=== PATIENT | female | born 1975 | race American Indian/Alaskan Native ===

== ENCOUNTER 2021-04-06 05:34 | Emergency (ER) | payer MEDICAID ==
[2021-04-06] MEDS ORDERED: SODIUM CHLORIDE 0.9% 1000 ML 1,000 ML IV ONE (07:17)
[2021-04-06] MEDS ORDERED: ONDANSETRON 4 MG/2 ML INJ IV ONE (07:17)
--- NOTE | 2021-04-06 07:20 | Emergency Department Report ---
HPI - General Chief Complaint: Nausea/Vomiting/Diarrhea Time Seen by Provider: 04/06/21 07:08 - HPI HPI: 45-year-old -[place] female presents to the emergency department, 1 hour after being discharged from this emergency department, with the same complaints of nausea with vomiting and generalized abdominal pain. The patient has a history of diabetes and gastroparesis. Per my colleague's notes, it appears that the patient received treatment, was able to pass an oral challenge, appeared to be feeling better, and was discharged home with prescriptions for antiemetics. The patient says that she did not feel improved, but also claims that she did not receive any prescriptions or discharge instructions. No recent travel or sick contacts at home. In reviewing the patient's labs from this morning, she had some hyperglycemia without evidence of diabetic ketoacidosis, and has renal insufficiency with a GFR of 22. Her abdominal pain is generalized, 8 out of 10 in intensity, sharp cramping pains. No known aggravating or alleviating factors. ED Past Medical Hx - Past Medical History Hx Hypertension: Yes Hx Diabetes: Yes Additional medical history: gastroparesis - Surgical History Past Surgical History?: No - Medications Home Medications: Home Medications Medication Instructions Recorded Confirmed Last Taken Type Dicyclomine [Bentyl] 10 mg PO QID PRN #20 capsule 04/06/21 Unknown Rx Ondansetron [Zofran ODT TAB] 4 mg PO Q8HR PRN #14 tab.rapdis 04/06/21 Unknown Rx traMADoL [Ultram 50 MG tab] 50 mg PO Q4HR PRN #14 tablet 04/06/21 Unknown Rx ED Review of Systems ROS: Stated complaint: EMESIS/ABD PAIN Other details as noted in HPI Comment: All other systems reviewed and negative Constitutional: denies: chills, fever Eyes: denies: eye pain, vision change ENT: denies: ear pain, throat pain Respiratory: denies: cough, shortness of breath Cardiovascular: denies: chest pain, palpitations Gastrointestinal: abdominal pain, nausea, vomiting Genitourinary: denies: dysuria, discharge Musculoskeletal: denies: back pain, arthralgia Skin: denies: rash, lesions Neurological: denies: headache, weakness Physical Exam - Physical Exam Vital Signs: Vital Signs 04/06/21 04/06/21 05:51 06:13 Temperature 99.0 F Pulse Rate 129 H Respiratory 22 Rate Blood Pressure 202/112 [Left] O2 Sat by Pulse 99 98 Oximetry Physical Exam: GENERAL: The patient is well-developed well-nourished. HENT: Normocephalic. Atraumatic. Patient has moist mucous membranes. EYES: Extraocular motions are intact. NECK: Supple. Trachea is midline. CHEST/LUNGS: Clear to auscultation. There is no respiratory distress noted. HEART/CARDIOVASCULAR: Regular. There is mild to moderate tachycardia. There is no murmur. ABDOMEN: Abdomen is soft. Mild generalized abdominal tenderness to palpation. No guarding. Patient has normal bowel sounds. There is no abdominal distention. SKIN: Skin is warm and dry. NEURO: The patient is awake, alert, and oriented. The patient is cooperative. The patient has no focal neurologic deficits. Normal speech. MUSCULOSKELETAL: There is no tenderness or deformity. There is no limitation range of motion. ED Course Vital Signs 04/06/21 04/06/21 05:51 06:13 Temperature 99.0 F Pulse Rate 129 H Respiratory 22 Rate Blood Pressure 202/112 [Left] O2 Sat by Pulse 99 98 Oximetry ED Medical Decision Making - Lab Data Lab Results 04/06/21 Range/Units 08:07 HCG, Qual Negative (Negative) - Radiology Data Radiology results: report reviewed CT ABDOMEN AND PELVIS WITHOUT CONTRAST HISTORY: Abd pain. COMPARISON: None. TECHNIQUE: Helical CT images of the abdomen and pelvis were obtained without administration of intravenous contrast. Sagittal and coronal reformatted images were reviewed. All CT scans at this location are performed using CT dose reduction for ALARA by means of automated exposure control. FINDINGS: Abdomen/pelvis: The bladder is markedly distended with simple appearing fluid measuring 18 x 11 x 14 cm. No obvious bladder mass or filling defect. The kidneys and ureters are unremarkable. The unenhanced CT appearance of the liver, biliary system, pancreas, spleen, adrenal glands, bowel loops, uterus and adnexa are within normal limits. Lungs/bones: No significant abnormality. IMPRESSION: Markedly distended bladder concerning for bladder outlet obstruction. Please correlate with the patient's clinical presentation. - Medical Decision Making This patient initially presented overnight and was seen by my colleague for nausea, vomiting, abdominal pain with a history of gastroparesis. She had blood work at that time that showed a slightly elevated amylase, hyperglycemia without diabetic ketoacidosis, and some renal insufficiency. She was given IV fluid and antiemetics and apparently appeared improved and was subsequently discharged home. The patient returned about an hour or so later, around the time of the start of my shift, for a return of the previously mentioned s ymptoms. On examination patient has some tachycardia, mild generalized abdominal tenderness to palpation. The abdomen is soft, nondistended and nontoxic in appearance. She does present with elevated blood pressure. The patient had a CT scan of the abdomen and pelvis without contrast that showed concern for a distended bladder, but otherwise no other acute process. I spoke to the patient regarding the imaging results and patient says that she has no difficulty with urination. She does not have any suprapubic discomfort or distention. Patient was given some IV fluid resuscitation, IV analgesia, antiemetics, and a dose of antihypertensive medication. She was reevaluated multiple times over multiple hours and does appear improved. The tachycardia has resolved, the hypertension has improved, the patient is able to pass an oral challenge. For these reasons, the patient appears safe for discharge home. The patient was discharged home with a prescription for Zofran ODT and Bentyl. Annalise chavira I did review the patient's labs from overnight, I had planned to give the patient a diagnosis of renal insufficiency and a referral for nephrology. I attempted to contact the patient at the phone number listed, but it goes straight to a message saying that this phone number is not in service. I then called, and spoke with, the patient's daughter Dulce. She gave me the correct phone number for the patient, which is [phone]. The patient did eventually call me back. The patient says that she has had a return of nausea with vomiting. Given the patient's intractable nausea vomiting, renal insufficiency, I told the patient to return to the emergency department where I will most likely admit her for an observational visit, continued IV fluids, further evaluation of the renal insufficiency. The patient says that she will be back here in about 15 minutes. Critical Care Time: No Critical care attestation.: If time is entered above; I have spent that time in minutes in the direct care of this critically ill patient, excluding procedure time. ED Disposition Clinical Impression: Gastroparesis Nausea & vomiting Qualifiers: Vomiting type: unspecified Vomiting Intractability: unspecified Qualified Code(s): R11.2 - Nausea with vomiting, unspecified Hypertension Qualifiers: Hypertension type: primary hypertension Qualified Code(s): I10 - Essential (primary) hypertension Disposition: 01 HOME / SELF CARE / HOMELESS Is pt being admited?: No Condition: Stable Instructions: Nausea and Vomiting, Adult, Gastroparesis, Hypertension, Adult, Hypertension (ED) Additional Instructions: Please follow-up with a primary care physician in the next few days. I have given you a referral for a local primary care physician, Dr. Rangel, and a primary care clinic, [facility]. Increase your oral rehydration. Try to stay away from foods that are high in salt and caffeinated products. Keep a blood pressure log. Return to the emergency department with any worsening of your symptoms, new or concerning symptoms not addressed during this current emergency department visit, or with any acute distress. Prescriptions: Dicyclomine [Bentyl] 10 mg PO QID PRN #20 capsule PRN Reason: Pain , Severe (7-10) Ondansetron [Zofran ODT TAB] 4 mg PO Q8HR PRN #14 tab.rapdis PRN Reason: Nausea And Vomiting Referrals: PRIMARY CAREMD [Primary Care Provider] - 3-5 Days ANDIE RANGEL MD [Staff Physician] - 3-5 Days [facility] [Provider Group] - 3-5 Days [facility] [Provider Group] - 3-5 Days Time of Disposition: :22
--- NOTE | 2021-04-06 09:05 | Cat Scan Report ---
CT ABDOMEN AND PELVIS WITHOUT CONTRAST HISTORY: Abd pain. COMPARISON: None. TECHNIQUE: Helical CT images of the abdomen and pelvis were obtained without administration of intrav enous contrast. Sagittal and coronal reformatted images were reviewed. All CT scans at this location are performed using CT dose reduction for ALARA by means of automated exposure control. FINDINGS: Abdomen/pelvis: The bladder is markedly distended with simple appearing fluid measuring 18 x 11 x 14 cm. No obvious bladder mass or filling defect. The kidneys and ureters are unremarkable. The unenhanced CT appearance of the liver, biliary system, pancreas, spleen, adrenal glands, bowel lo ops, uterus and adnexa are within normal limits. Lungs/bones: No significant abnormality. IMPRESSION: Markedly distended bladder concerning for bladder outlet obstruction. Please correlate with the patie nt's clinical presentation. Signer Name: Ramirez Lipscomb Jr, MD Signed: 04/06/2021 9:01 AM Workstation Name: [id number]
[2021-04-06] MEDS ORDERED: MORPHINE 2 MG/1 ML INJ IV ONE (09:11)
[2021-04-06] MEDS ORDERED: SODIUM CHLORIDE 0.9% 500 ML 500 ML IV ONE (10:35)
[2021-04-06 11:56] VITALS: BP 168/94
== END 2021-04-06 11:56 | disposition home or self-care (01) ==
LOC: ED 05:34
DX: R11.2 Nausea with vomiting, unspecified (principal); I10 Essential (primary) hypertension; E11.43 Type 2 diabetes mellitus with diabetic autonomic (poly)neuropathy; K31.84 Gastroparesis
CPT/HCPCS: 36415; 74176; 84703; J3490; Q0162; J2270; J2405; J7030; J7040

== ENCOUNTER 2021-06-21 22:59 | Inpatient (IN) | payer MEDICAID ==
[2021-06-21] MEDS ORDERED: diphenhydrAMINE 50 MG/ML VIAL IV ONE (23:16)
[2021-06-21] MEDS ORDERED: FAMOTIDINE 20 MG/2 ML INJ IV ONE (23:16)
[2021-06-21] MEDS ORDERED: METOCLOPRAMIDE 10 MG/2 ML INJ IV ONE (23:16)
[2021-06-21] MEDS ORDERED: SODIUM CHLORIDE 0.9% 1000 ML 1,000 ML IV ONE (23:16)
--- NOTE | 2021-06-21 23:18 | Event Note ---
ED Screening Note Date of service: 06/21/21 Time: 23:17 ED Screening Note: Patient is a 46-year-old -[place] female with a history of insulin- dependent diabetes who presents to the ED with complaint of acute onset persistent intractable nausea and vomiting and diarrhea for the last 12 hours. Patient also complains of mild diffuse abdominal pain since the onset of the symptoms and which has worsened due to persistent intractable nausea and vomiting. Patient denies hemoptysis, fever, chills, hematemesis, dysuria, urinary frequency and urgency, chest pain or shortness of breath, dizziness, syncope, vaginal bleeding or vaginal discharge or cough. This initial assessment/diagnostic orders/clinical plan/treatment(s) is/are subject to change based on patients health status, clinical progression and re- assessment by fellow clinical providers in the ED. Further treatment and workup at subsequent clinical providers discretion. Patient/guardian urged not to elope from the ED as their condition may be serious if not clinically assessed and managed. Initial orders include: CBC, CMP, UA, hCG serum, lipase, acetone
[2021-06-21] MEDS ORDERED: INSULIN REGULAR, HUMAN 100 UNITS/1 ML IV ONE (23:52)
--- NOTE | 2021-06-21 23:55 | Emergency Department Report ---
ED General Adult HPI - General Chief complaint: Hyperglycemia Stated complaint: N/V HIGH GLUCOSE Time Seen by Provider: 06/21/21 23:38 Source: patient Mode of arrival: Ambulatory Limitations: No Limitations - History of Present Illness Initial comments: Patient is 46 years old female with history of insulin-dependent diabetes and gastroparesis. Patient presented to the ER complaining of nausea, vomiting and watery diarrhea started this morning. Patient stated that she is unable to keep anything down. She denies any fever or chills. Patient is also complaining of crampy abdominal pain, diffuse with no radiation. Severity scale (0 -10): 10 - Related Data Home Medications Medication Instructions Recorded Confirmed Last Taken HumaLOG 8 units SUB-Q ACHS 04/09/21 05/19/21 2 Days Ago ~05/17/21 8 units Insulin Glargine [Lantus VIAL] 22 units SUB-Q HS 04/09/21 05/19/21 2 Days Ago ~05/17/21 Oxycodone HCl [oxyCODONE] 10 mg PO Q6H PRN 05/19/21 05/19/21 Unknown Previous Rx's Medication Instructions Recorded Last Taken Type Ondansetron [Zofran ODT TAB] 4 mg PO Q8HR PRN #14 tab.rapdis 04/09/21 Unknown Rx AtorvaSTATin [Lipitor] 40 mg PO QHS #30 tablet 05/22/21 Unknown Rx NIFEdipine XL [Procardia Xl] 90 mg PO QDAY #30 tablet 05/22/21 Unknown Rx carvediloL [Coreg] 12.5 mg PO BID #60 tablet 05/22/21 Unknown Rx hydrALAZINE [Apresoline TAB] 50 mg PO Q8HR #90 tablet 05/22/21 Unknown Rx lisinopriL [Zestril TAB] 20 mg PO QDAY #30 tablet 05/22/21 Unknown Rx Allergies Allergy/AdvReac Type Severity Reaction Status Date / Time No Known Allergies Allergy Verified 04/06/21 13:43 ED Review of Systems ROS: Stated complaint: N/V HIGH GLUCOSE Other details as noted in HPI Comment: All other systems reviewed and negative Constitutional: denies: chills, fever Respiratory: denies: cough, shortness of breath, SOB with exertion, SOB at rest Cardiovascular: palpitations. denies: chest pain Gastrointestinal: abdominal pain, nausea, vomiting, diarrhea. denies: constipation, hematemesis, melena, hematochezia Musculoskeletal: denies: back pain Neurological: denies: headache, weakness, numbness, paresthesias, confusion ED Past Medical Hx - Past Medical History Hx Hypertension: Yes Hx Diabetes: Yes Additional medical history: gastroparesis - Social History Smoking Status: Never Smoker - Medications Home Medications: Home Medications Medication Instructions Recorded Confirmed Last Taken Type HumaLOG 8 units SUB-Q ACHS 04/09/21 05/19/21 2 Days Ago History ~05/17/21 8 units Insulin Glargine [Lantus VIAL] 22 units SUB-Q HS 04/09/21 05/19/21 2 Days Ago History ~05/17/21 Ondansetron [Zofran ODT TAB] 4 mg PO Q8HR PRN #14 tab.rapdis 04/09/21 05/19/21 Unknown Rx Oxycodone HCl [oxyCODONE] 10 mg PO Q6H PRN 05/19/21 05/19/21 Unknown History AtorvaSTATin [Lipitor] 40 mg PO QHS #30 tablet 05/22/21 Unknown Rx NIFEdipine XL [Procardia Xl] 90 mg PO QDAY #30 tablet 05/22/21 Unknown Rx carvediloL [Coreg] 12.5 mg PO BID #60 tablet 05/22/21 Unknown Rx hydrALAZINE [Apresoline TAB] 50 mg PO Q8HR #90 tablet 05/22/21 Unknown Rx lisinopriL [Zestril TAB] 20 mg PO QDAY #30 tablet 05/22/21 Unknown Rx ED Physical Exam - General Limitations: No Limitations General appearance: alert, in no apparent distress - Head Head exam: Present: atraumatic, normocephalic, normal inspection - ENT ENT exam: Present: mucous membranes dry - Neck Neck exam: Present: normal inspection, full ROM. Absent: tenderness, meningismus - Respiratory Respiratory exam: Present: normal lung sounds bilaterally - Cardiovascular Cardiovascular Exam: Present: tachycardia, normal heart sounds. Absent: systolic murmur, diastolic murmur - GI/Abdominal GI/Abdominal exam: Present: soft, normal bowel sounds. Absent: distended, tenderness, guarding, rebound, rigid, organomegaly, mass, bruit, pulsatile mass, hernia - Extremities Exam Extremities exam: Present: normal inspection, full ROM, normal capillary refill. Absent: tenderness - Back Exam Back exam: Present: normal inspection, full ROM. Absent: CVA tenderness (R), CVA tenderness (L) - Neurological Exam Neurological exam: Present: alert, oriented X3, CN II-XII intact, normal gait, reflexes normal. Absent: motor sensory deficit - Psychiatric Psychiatric exam: Present: normal mood - Skin Skin exam: Present: warm, intact, normal color ED Course Vital Signs 06/21/21 23:03 Temperature 99.0 F Pulse Rate 111 H Blood Pressure 241/136 [Right] O2 Sat by Pulse 100 Oximetry ED Medical Decision Making - Lab Data Result diagrams: 06/21/21 23:27 06/21/21 23:27 - Radiology Data Radiology results: report reviewed - Medical Decision Making Patient is 46 years old female with history of insulin-dependent diabetes and gastroparesis. Patient presented to the ER complaining of nausea, vomiting and watery diarrhea started this morning. Patient stated that she is unable to keep anything down. She denies any fever or chills. Patient is also complaining of crampy abdominal pain, diffuse with no radiation. Patient found to be in DKA with anion gap of 22. Patient started on insulin dr ip. Patient received normal saline. Chest x-ray is unremarkable. Patient also received Reglan, Benadryl, Zofran and morphine. I discussed the patient with Dr. Marroquin, he agreed to admit the patient to medical service for further management. Critical Care Time: Yes Critical care time in (mins) excluding proc time.: 35 Critical care attestation.: If time is entered above; I have spent that time in minutes in the direct care of this critically ill patient, excluding procedure time. ED Disposition Clinical Impression: DKA (diabetic ketoacidosis), Intractable nausea and vomiting, Gastroparesis Disposition: ADMITTED INPATIENT Is pt being admited?: Yes Condition: Stable Instructions: Diabetic Ketoacidosis (ED) Referrals: PRIMARY CARE, [Primary Care Provider] - 3-5 Days
[2021-06-22] LABS: Basophils % (Auto) 0.4 % (0.0-1.8); Eosinophils % (Auto) 0.3 % (0.0-4.3); Hematocrit 34.2 % (30.3-42.9); Hemoglobin 10.8 gm/dl (10.1-14.3); Lymphocytes # (Auto) 0.7 K/mm3 (1.2-5.4); Mean Corpuscular HGB Conc 32 % (30-34); Mean Corpuscular Volume 92 fl (79-97); Monocytes # (Auto) 0.1 K/mm3 (0.0-0.8); Monocytes % (Auto) 2.5 % (0.0-7.3); Platelet Count 205 K/mm3 (140-440); Red Blood Count 3.73 M/mm3 (3.65-5.03); Red Cell Distribution Width 13.9 % (13.2-15.2)
[2021-06-22 00:03] LABS: Calcium 9.7 mg/dL (8.4-10.2)
[2021-06-22] MEDS ORDERED: SODIUM CHLORIDE 0.9% 1000 ML 1,000 ML IV ONE (00:42)
[2021-06-22] MEDS ORDERED: ONDANSETRON 4 MG/2 ML INJ IV ONE ×2 (03:16→05:14)
[2021-06-22] MEDS ORDERED: MORPHINE 4 MG/1 ML INJ IV ONE (05:14)
[2021-06-22 05:39] LABS: Calcium 9.4 mg/dL (8.4-10.2)
[2021-06-22] MEDS ORDERED: INSULIN REGULAR, HUMAN 100 UNITS in SODIUM CHLORIDE 0.9% 99 ML IV SCH (06:00)
--- NOTE | 2021-06-22 06:17 | XRay Report ---
CHEST 1 VIEW 06/22/2021 6:01 AM INDICATION / CLINICAL INFORMATION: DKA. COMPARISON: None available. FINDINGS: SUPPORT DEVICES: None. HEART / MEDIASTINUM: No significant abnormality. LUNGS / PLEURA: No significant pulmonary or pleural abnormality. No pneumothorax. ADDITIONAL FINDINGS: No significant additional findings. IMPRESSION: 1. No acute findings. Signer Name: Abimael Ham MD Signed: 06/22/2021 6:12 AM Workstation Name: [id number]
--- NOTE | 2021-06-22 07:03 | Cat Scan Report ---
CT ABDOMEN AND PELVIS WITHOUT CONTRAST INDICATION / CLINICAL INFORMATION: Abdominal pain with nausea and vomiting. TECHNIQUE: Axial CT images were obtained through the abdomen and pelvis without IV contrast. All CT scans at this location are performed using CT dose reduction for ALARA by means of automated exposure control. COMPARISON: CT dated 05/19/2021 and 04/06/2021 FINDINGS: LOWER CHEST: Calcified granuloma in the right lower lobe is unchanged. LIVER: Calcified granulomas but no acute abnormality. GALLBLADDER: No significant abnormality. BILE DUCTS: No significant abnormality. PANCREAS: No significant abnormality. SPLEEN: No significant abnormality. ADRENALS: No significant abnormality. RIGHT KIDNEY / URETER: No significant abnormality. LEFT KIDNEY / URETER: No significant abnormality. STOMACH / SMALL BOWEL: No significant abnormality. COLON: No significant abnormality. APPENDIX: No significant abnormality. PERITONEUM: No free fluid. No free air. No fluid collection. LYMPH NODES: No significant adenopathy. AORTA / ARTERIES: No significant abnormality. IVC / VEINS: No significant abnormality. URINARY BLADDER: Bladder is markedly distended extending into the lower abdomen to the level of the u mbilicus. This was also noted on the CT dated 04/06/21. REPRODUCTIVE ORGANS: No significant abnormality. ADDITIONAL FINDINGS: None. SKELETAL SYSTEM: No significant abnormality. IMPRESSION: 1. No inflammatory process or bowel obstruction. 2. Markedly distended urinary bladder. No urinary tract stones. Signer Name: Abimael Ham MD Signed: 06/22/2021 6:59 AM Workstation Name: [id number]
[2021-06-22] MEDS ORDERED: SODIUM CHLORIDE 0.9% 1000 ML 1,000 ML ONE (07:56)
[2021-06-22] MEDS ORDERED: DEXTROSE 50% IN WATER (25GM) 50 ML SYRINGE IV PRN (08:00)
--- NOTE | 2021-06-22 08:01 | History and Physical Report ---
History of Present Illness Date of examination: 06/22/21 Date of admission: 06/22/2021 Chief complaint: Nausea vomiting and uncontrolled blood sugars /Diabetic ketoacidosis History of present illness: 46-year-old female patient well-known to our service with significant past medical history of insulin-dependent diabetes and gastroparesis presented to the emergency room with intractable nausea vomiting watery diarrhea and uncontrolled blood sugars patient denies any hematemesis or melena claims compliance with her medications initial evaluation in the ED is findings consistent with blood sugars more than 560 with anion gap of 41 and mild hyponatremia and acute on chronic kidney injury as well as metabolic acidosis, Patient is started on insulin drip Past History Past Medical History: diabetes, hypertension, renal failure, other Past Surgical History: No surgical history Social history: other (Marijuana). denies: smoking, alcohol abuse Family history: hypertension Medications and Allergies Allergies Allergy/AdvReac Type Severity Reaction Status Date / Time No Known Allergies Allergy Verified 04/06/21 13:43 Home Medications Medication Instructions Recorded Confirmed Last Taken Type HumaLOG 8 units SUB-Q ACHS 04/09/21 05/19/21 2 Days Ago History ~05/17/21 8 units Insulin Glargine [Lantus VIAL] 22 units SUB-Q HS 04/09/21 05/19/21 2 Days Ago History ~05/17/21 Ondansetron [Zofran ODT TAB] 4 mg PO Q8HR PRN #14 tab.rapdis 04/09/21 05/19/21 Unknown Rx Oxycodone HCl [oxyCODONE] 10 mg PO Q6H PRN 05/19/21 05/19/21 Unknown History AtorvaSTATin [Lipitor] 40 mg PO QHS #30 tablet 05/22/21 Unknown Rx NIFEdipine XL [Procardia Xl] 90 mg PO QDAY #30 tablet 05/22/21 Unknown Rx carvediloL [Coreg] 12.5 mg PO BID #60 tablet 05/22/21 Unknown Rx hydrALAZINE [Apresoline TAB] 50 mg PO Q8HR #90 tablet 05/22/21 Unknown Rx lisinopriL [Zestril TAB] 20 mg PO QDAY #30 tablet 05/22/21 Unknown Rx Active Meds: Active Medications Insulin Human Regular 100 (units/ Sodium Chloride) 100 mls @ 1 mls/hr IV TITR ROSALVA; Protocol Review of Systems Constitutional: fatigue, weakness, no weight loss, no weight gain Ears, nose, mouth and throat: no nasal congestion, no nasal discharge Cardiovascular: no chest pain, no orthopnea Respiratory: no cough, no shortness of breath Gastrointestinal: abdominal pain, nausea, vomiting Musculoskeletal: no myalgias, no arthritis Integumentary: no rash, no lesions Neurological: weakness, no seizures, no syncope Psychiatric: no anxiety, no depression Endocrine: no cold intolerance, no heat intolerance Hematologic/Lymphatic: no easy bruising, no easy bleeding Allergic/Immunologic: no urticaria, no allergic rhinitis Exam - Constitutional Vitals: Temp Pulse Resp BP Pulse Ox 99.0 F 111 H 241/136 100 06/21/21 23:03 06/21/21 23:03 06/21/21 23:03 06/21/21 23:03 General appearance: Present: mild distress, well-nourished - EENT Eyes: Present: PERRL, EOM intact - Neck Neck: Present: supple, normal ROM - Respiratory Respiratory effort: normal Respiratory: bilateral: diminished, rhonchi, negative: rales, wheezing - Cardiovascular Rhythm: regular Heart Sounds: Present: S1 & S2 - Extremities Extremities: no ischemia, No edema - Abdominal General gastrointestinal: Present: soft, non-tender, non-distended - Integumentary Integumentary: Present: clear, warm - Musculoskeletal Musculoskeletal: strength equal bilaterally - Psychiatric Psychiatric: appropriate mood/affect, cooperative - Neurologic Neurologic: moves all extremities Results - Labs CBC & Chem 7: 06/21/21 23:27 06/22/21 15:45 Labs: Abnormal lab results 06/21/21 06/21/21 06/21/21 Range/Units 23:01 23:27 23:27 Lymph # (Auto) 0.7 L (1.2-5.4) K/mm3 Seg Neutrophils % 80.8 H (40.0-70.0) % Sodium 133 L (137-145) mmol/L Chloride 97.3 L (98-107) mmol/L Carbon Dioxide 18 L (22-30) mmol/L BUN 41 H (7-17) mg/dL Creatinine 3.1 H (0.6-1.2) mg/dL Glucose 564 H* (65-100) mg/dL POC Glucose 456 H (70-105) mg/dL Phosphorus (2.5-4.5) mg/dL Alkaline Phosphatase 154 H (35-129) units/L 06/22/21 06/22/21 06/22/21 Range/Units 04:56 04:56 05:34 Lymph # (Auto) (1.2-5.4) K/mm3 Seg Neutrophils % (40.0-70.0) % Sodium 136 L (137-145) mmol/L Chloride (98-107) mmol/L Carbon Dioxide 13 L (22-30) mmol/L BUN 47 H (7-17) mg/dL Creatinine 3.0 H (0.6-1.2) mg/dL Glucose 571 H* (65-100) mg/dL POC Glucose 519 H (70-105) mg/dL Phosphorus 5.20 H (2.5-4.5) mg/dL Alkaline Phosphatase (35-129) units/L Assessment and Plan - Patient Problems (1) DKA (diabetic ketoacidosis) Onset Date: ~06/22/21 Current Visit: Yes Status: Chronic Plan to address problem: Initiate DKA pathway, insulin drip, IV fluids, n.p.o. status Closely monitor electrolytes, adjust as needed (2) Hyponatremia Current Visit: Yes Status: Acute Plan to address problem: probably pseudohyponatremia due to severe hyperglycemia, closely monitor blood sugars As the blood sugars improved patient's sodium will improve, normal saline (3) Acute kidney injury superimposed on chronic kidney disease Current Visit: Yes Status: Acute Plan to address problem: Progress IV hydration, monitor renal function, avoid nephrotoxins Renal dosing of medications, nephrology consultation (4) Metabolic acidosis Current Visit: Yes Status: Acute Plan to address problem: Vigorous IV hydration, treat the underlying DKA Sodium bicarb if needed (5) Gastroparesis Current Visit: Yes Status: Acute Plan to address problem: Diabetes management. Antiemetic. Reglan as needed (6) Nausea vomiting and diarrhea Current Visit: Yes Status: Acute Plan to address problem: Due to gastroparesis, treat with IV fluids antiemetics and supportive care, (7) DVT prophylaxis Current Visit: Yes Status: Acute Plan to address problem: Subcu heparin renal dose We will closely monitor the patient and adjust the management as needed Admit to ICU. Critical care time 62 minutes
[2021-06-22] MEDS ORDERED: hydrALAZINE 20 MG/1 ML INJ IV NR (08:24)
[2021-06-22 09:02] LABS: Calcium 9.8 mg/dL (8.4-10.2)
[2021-06-22] MEDS ORDERED: LISINOPRIL 20 MG TAB PO SCH (10:00)
[2021-06-22] MEDS ORDERED: NIFEdipine XL 90 MG TAB PO SCH (10:00)
[2021-06-22] MEDS ORDERED: hydrALAZINE 20 MG/1 ML INJ IV PRN (10:00)
[2021-06-22] MEDS ORDERED: PANTOPRAZOLE 40 MG INJ IV SCH (10:00)
[2021-06-22] MEDS: carvediloL 12.5 MG TAB PO SCH ×2 (10:06→23:08)
[2021-06-22] MEDS: HEPARIN 5,000 UNIT/1 ML VIAL SUB-Q SCH ×2 (10:21→23:09)
[2021-06-22 12:28] LABS: Calcium 9.6 mg/dL (8.4-10.2)
[2021-06-22 12:48] LABS: Bilirubin,Urine NEG (Negative); Blood,Urine SM (Negative); Color,Urine Yellow (Yellow); Urobilinogen,Urine < 2.0 mg/dL (<2.0)
[2021-06-22 12:49] LABS: Protein,Urine >500 mg/dL (Negative)
[2021-06-22] MEDS: hydrALAZINE 25 MG TAB PO SCH ×2 (13:52→23:07)
[2021-06-22] MEDS ORDERED: SODIUM BICARBONATE IV SCH (14:00)
[2021-06-22] MEDS ORDERED: SODIUM CHLORIDE 0.9% IV SCH (14:00)
[2021-06-22 16:15] LABS: Calcium 9.1 mg/dL (8.4-10.2)
[2021-06-22] MEDS ORDERED: METOCLOPRAMIDE 10 MG/2 ML INJ IV PRN (17:34)
--- NOTE | 2021-06-22 17:47 | Event Note ---
Date: 06/22/21 I have seen and examined the patient in ER waiting for room assignment Patient complains of severe nausea and vomiting Blood sugars reasonable levels however, anion gap is still high As well as acidosis, vigorous IV hydration Mild hyponatremia, will DC normal saline with bicarb Change IV fluids to D5 half-normal. Continue n.p.o. except for sips of water We will continue current management per DKA protocols. Plan of care reviewed with the patient and her nurse Advance care planning; additional time 32 minutes I discussed in detail with the patient, her condition Discussed the tests and reports Discussed the importance of adhering to the treatment plan I also discussed that she would need diabetic education As well as nutrition education I discussed that she can have only sips of water As anion gap is still high, patient needs to be n.p.o. And on insulin drip I discussed that he will closely monitor electrolytes. Patient verbalized understanding I answered all her questions
[2021-06-22] MEDS ORDERED: D5W/0.45% NACL 1,000 ML IV SCH (18:00)
[2021-06-22] MEDS ORDERED: D5W/0.45% NACL/KCL 20 MEQ 20 MEQ/1,000 ML BAG IV SCH ×2 (21:00)
[2021-06-22] MEDS ORDERED: ACETAMINOPHEN 325 MG TAB PO PRN (21:43)
[2021-06-22] MEDS ORDERED: MORPHINE 4 MG/1 ML INJ IV PRN (21:43)
[2021-06-22] MEDS: ONDANSETRON 4 MG/2 ML INJ IV PRN (23:15)
[2021-06-23 01:43] LABS: Calcium 8.8 mg/dL (8.4-10.2)
[2021-06-23] MEDS ORDERED: DEXTROSE 50% IN WATER (25GM) 50 ML SYRINGE IV PRN (05:27)
[2021-06-23] MEDS: hydrALAZINE 25 MG TAB PO SCH (06:29)
[2021-06-23] MEDS: INSULIN LISPRO 100 UNIT/ML SUB-Q SCH ×6 (06:56→21:41)
--- NOTE | 2021-06-23 09:44 | Consultation ---
History of Present Illness - Reason for Consult Consult date: 06/23/21 acute renal failure - History of Present Illness 46-year-old female patient well-known to our service with significant past medical history of insulin-dependent diabetes and gastroparesis presented to the emergency room with intractable nausea vomiting watery diarrhea and uncontrolled blood sugars patient denies any hematemesis or melena claims compliance with her medications initial evaluation in the ED is findings consistent with blood sugars more than 560 with anion gap of 41 and mild hyponatremia and acute on chronic kidney injury as well as metabolic acidosis, Patient is started on insulin drip Past History Past Medical History: diabetes, hypertension, renal failure, other Past Surgical History: No surgical history Social history: other (Marijuana). denies: smoking, alcohol abuse Family history: hypertension Medications and Allergies Allergies Allergy/AdvReac Type Severity Reaction Status Date / Time No Known Allergies Allergy Verified 04/06/21 13:43 Home Medications Medication Instructions Recorded Confirmed Last Taken Type HumaLOG 8 units SUB-Q ACHS 04/09/21 06/23/21 2 Days Ago History ~05/17/21 8 units Insulin Glargine [Lantus VIAL] 22 units SUB-Q HS 04/09/21 06/23/21 2 Days Ago History ~05/17/21 Ondansetron [Zofran ODT TAB] 4 mg PO Q8HR PRN #14 tab.rapdis 04/09/21 06/23/21 Unknown Rx Oxycodone HCl [oxyCODONE] 10 mg PO Q6H PRN 05/19/21 06/23/21 Unknown History AtorvaSTATin [Lipitor] 40 mg PO QHS #30 tablet 05/22/21 06/23/21 Unknown Rx NIFEdipine XL [Procardia Xl] 90 mg PO QDAY #30 tablet 05/22/21 06/23/21 Unknown Rx carvediloL [Coreg] 12.5 mg PO BID #60 tablet 05/22/21 06/23/21 Unknown Rx hydrALAZINE [Apresoline TAB] 50 mg PO Q8HR #90 tablet 05/22/21 06/23/21 Unknown Rx lisinopriL [Zestril TAB] 20 mg PO QDAY #30 tablet 05/22/21 06/23/21 Unknown Rx Active Meds: Active Medications Acetaminophen (Acetaminophen 325 Mg Tab) 650 mg PO Q6H PRN PRN Reason: Pain MILD(1-3)/Fever >100.5/CASANOVA Atorvastatin Calcium (Atorvastatin 40 Mg Tab) 40 mg PO QHS [facility] Last Admin: 06/22/21 23:07 Dose: 40 mg Carvedilol (Carvedilol 12.5 Mg Tab) 12.5 mg PO BID [facility] Last Admin: 06/22/21 23:08 Dose: 12.5 mg Dextrose (Dextrose 50% In Water (25gm) 50 Ml Syringe) 50 ml IV Q30MIN PRN; Protocol PRN Reason: Hypoglycemia Heparin Sodium (Porcine) (Heparin 5,000 Unit/1 Ml Vial) 5,000 unit SUB-Q Q12HR [facility] Last Admin: 06/22/21 23:09 Dose: 5,000 unit Hydralazine HCl (Hydralazine 25 Mg Tab) 50 mg PO Q8HR [facility] Last Admin: 06/23/21 06:29 Dose: 50 mg Hydralazine HCl (Hydralazine 20 Mg/1 Ml Inj) 20 mg IV Q4HR PRN PRN Reason: Hypertension Insulin Human Lispro (Insulin Lispro 100 Unit/Ml) 0 unit SUB-Q Q4HR [facility]; Protocol Last Admin: 06/23/21 06:56 Dose: Not Given Lisinopril (Lisinopril 20 Mg Tab) 20 mg PO QDAY [facility] Last Admin: 06/22/21 10:06 Dose: 20 mg Metoclopramide HCl (Metoclopramide 10 Mg/2 Ml Inj) 10 mg IV Q6H PRN PRN Reason: Nausea And Vomiting Last Admin: 06/22/21 17:46 Dose: 10 mg Morphine Sulfate (Morphine 2 Mg/1 Ml Inj) 2 mg IV Q4H PRN PRN Reason: Pain, Moderate (4-6) Morphine Sulfate (Morphine 4 Mg/1 Ml Inj) 4 mg IV Q4H PRN PRN Reason: Pain , Severe (7-10) Last Admin: 06/22/21 23:17 Dose: 4 mg Nifedipine (Nifedipine Xl 90 Mg Tab) 90 mg PO QDAY [facility] Last Admin: 06/22/21 10:06 Dose: 90 mg Ondansetron HCl (Ondansetron 4 Mg/2 Ml Inj) 4 mg IV Q4H PRN PRN Reason: Nausea And Vomiting Last Admin: 06/22/21 23:15 Dose: 4 mg Pantoprazole Sodium (Pantoprazole 40 Mg Tab) 40 mg PO QDAC ROSALVA Sodium Chloride (Sodium Chloride 0.9% 10 Ml Flush Syringe) 10 ml IV BID ROSALVA Last Admin: 06/22/21 22:40 Dose: 10 ml Sodium Chloride (Sodium Chloride 0.9% 10 Ml Flush Syringe) 10 ml IV PRN PRN PRN Reason: LINE FLUSH Review of Systems All systems: negative Exam - Vital Signs Vital signs: Vital Signs Temp Pulse BP Pulse Ox 99.0 F 111 H 241/136 100 06/21/21 23:03 06/21/21 23:03 06/21/21 23:03 06/21/21 23:03 - General Appearance General appearance: well-developed, well-nourished EENT: ATNC Respiratory: Clear to Ascultation Heart: regular, S1S2 Gastrointestinal: Present: normal. Absent: tenderness, distended Integumentary: no rash, warm and dry Neurologic: no focal deficit, alert and oriented x3 Results - Lab Results 06/21/21 23:27 06/23/21 10:15 Most recent lab results Calcium 8.8 mg/dL (8.4-10.2) 06/23/21 00:57 Phosphorus 6.50 mg/dL (2.5-4.5) H D 06/22/21 08:27 Magnesium 2.20 mg/dL (1.7-2.3) 06/22/21 08:27 Assessment and Plan Impression * Acute kidney injury secondary to prerenal azotemia due to volume depletion in setting of ACEi on stage IV CKD * Metabolic acidosis * Nausea/vomiting * Diabetic gastroparesis * Diabetes mellitus * Hypertension Plan: * Resume IVF - sterile water w/ bicarb 100ml/hour * Discontinue ACEi in setting of SURJIT * Hold Hydralazine 50mg q8 and Nifedipine 90mg daily as patient's blood pressure is borderline * Continue Coreg BID and prn Hydralazine * Strict I/O * Dose medications for renal function * Avoid potential nephrotoxins * AM labs
[2021-06-23] MEDS ORDERED: SODIUM BICARBONATE 150 MEQ in DEXTROSE 5% IN WATER 1,000 ML IV SCH (10:00)
[2021-06-23] MEDS: MORPHINE 2 MG/1 ML INJ IV PRN (10:07)
[2021-06-23] MEDS: ONDANSETRON 4 MG/2 ML INJ IV PRN (10:07)
[2021-06-23 11:11] LABS: Calcium 9.3 mg/dL (8.4-10.2)
[2021-06-23] MEDS: carvediloL 12.5 MG TAB PO SCH ×2 (11:33→21:40)
[2021-06-23] MEDS: PANTOPRAZOLE 40 MG TAB PO SCH (11:33)
[2021-06-23] MEDS: HEPARIN 5,000 UNIT/1 ML VIAL SUB-Q SCH ×2 (11:34→21:40)
--- NOTE | 2021-06-23 14:47 | Progress Note ---
Assessment and Plan (1) DKA (diabetic ketoacidosis) Onset Date: ~06/22/21 Current Visit: Yes Status: Chronic Plan to address problem: Initiated DKA pathway: insulin drip, IV fluids, n.p.o. status Patient currently on sliding scale of insulin and long-acting insulin, consistent carb diet Closely monitor electrolytes, adjust as needed -- Hyponatremia Current Visit: Yes Status: Acute Plan to address problem: probably pseudohyponatremia due to severe hyperglycemia, closely monitor blood sugars As the blood sugars improved patient's sodium will improve, normal saline -- Acute kidney injury superimposed on chronic kidney disease Current Visit: Yes Status: Acute Plan to address problem: Progress IV hydration, monitor renal function, avoid nephrotoxins Renal dosing of medications, nephrology consultation -- Metabolic acidosis Current Visit: Yes Status: Acute Plan to address problem: Vigorous IV hydration, treated the underlying DKA Sodium bicarb if needed -- Gastroparesis Current Visit: Yes Status: Acute Plan to address problem: Diabetes management. Antiemetic. Reglan as needed --Nausea vomiting and diarrhea Current Visit: Yes Status: Acute Plan to address problem: Due to gastroparesis, treat with IV fluids antiemetics and supportive care, -- DVT prophylaxis Current Visit: Yes Status: Acute Plan to address problem: Subcu heparin renal dose Daily clinical course: 06/23/21: Blood glucose this morning under control, initiated on NPH 15 units twice daily. Patient continued to have elevated BUN/creatinine, continue IV f luid. Monitor BMP and serum blood glucose. Follow nephrology recommendation. Patient medically not stable for discharge Subjective Date of service: 06/23/21 Interval history: Patient seen and examined. Medical records and medication list reviewed. No acute event overnight noted by the RN. Patient denies any chest pain or difficulty breathing. Patient is tolerating diet. But complains of generalized weakness Discussed plan of care at bedside with patient. Objective - Exam Narrative Exam: GENERAL: well-developed and well-nourished -[place] female lying on bed appeared to be in no discomfort. HEENT: Normocephalic. Atraumatic. No conjunctival congestion or icterus. Patient has moist mucous membranes. NECK: Supple. Trachea midline. CHEST/LUNGS: Clear to auscultated bilaterally, breathing nonlabored. No wheezes crackles or rhonchi. HEART/CARDIOVASCULAR: Regular in rate and rhythm. S1 and S2 positive. ABDOMEN: Abdomen is soft, nontender. Patient has normal bowel sounds. SKIN: There is no rash. Warm and dry. NEURO: No focal motor deficit. Follows command. MUSCULOSKELETAL: No joint effusion or tenderness. EXTRIMITY: No edema, no cyanosis or clubbing. PSYCH: Cooperative. - Constitutional Vitals: Vital Signs - 12hr 06/23/21 06/23/21 06/23/21 03:00 03:30 04:00 Pulse Rate 85 87 91 H Respiratory 12 10 L 15 Rate Blood Pressure 113/64 129/72 139/71 O2 Sat by Pulse 99 99 99 Oximetry 06/23/21 06/23/21 06/23/21 04:30 05:00 05:30 Pulse Rate 96 H 90 88 Respiratory 10 L 12 Rate Blood Pressure 148/84 140/76 142/81 O2 Sat by Pulse 100 98 99 Oximetry 06/23/21 06/23/21 06/23/21 06:00 06:29 06:30 Pulse Rate 90 91 H 96 H Respiratory 14 12 Rate Blood Pressure 144/83 123/69 123/69 O2 Sat by Pulse 99 100 Oximetry 06/23/21 06/23/21 11:11 11:12 Pulse Rate 109 H Respiratory Rate Blood Pressure O2 Sat by Pulse 98 Oximetry - Labs CBC & Chem 7: 06/21/21 23:27 06/24/21 07:31 Labs: Abnormal lab results 06/22/21 06/22/21 06/22/21 Range/Units 15:03 15:45 16:11 Sodium 148 H D (137-145) mmol/L Chloride 113.8 H (98-107) mmol/L Carbon Dioxide 14 L (22-30) mmol/L BUN 56 H (7-17) mg/dL Creatinine 3.3 H (0.6-1.2) mg/dL Glucose 193 H (65-100) mg/dL POC Glucose 176 H 146 H (70-105) mg/dL 06/22/21 06/22/21 06/22/21 Range/Units 17:02 18:00 18:54 Sodium (137-145) mmol/L Chloride (98-107) mmol/L Carbon Dioxide (22-30) mmol/L BUN (7-17) mg/dL Creatinine (0.6-1.2) mg/dL Glucose (65-100) mg/dL POC Glucose 143 H 149 H 204 H (70-105) mg/dL 06/22/21 06/22/21 06/22/21 Range/Units 20:04 21:08 22:06 Sodium (137-145) mmol/L Chloride (98-107) mmol/L Carbon Dioxide (22-30) mmol/L BUN (7-17) mg/dL Creatinine (0.6-1.2) mg/dL Glucose (65-100) mg/dL POC Glucose 183 H 180 H 169 H (70-105) mg/dL 06/22/21 06/23/21 06/23/21 Range/Units 23:05 00:14 00:57 Sodium (137-145) mmol/L Chloride 114.7 H (98-107) mmol/L Carbon Dioxide 13 L (22-30) mmol/L BUN 57 H (7-17) mg/dL Creatinine 3.5 H (0.6-1.2) mg/dL Glucose 180 H (65-100) mg/dL POC Glucose 172 H 160 H (70-105) mg/dL 06/23/21 06/23/21 06/23/21 Range/Units 01:40 03:07 04:03 Sodium (137-145) mmol/L Chloride (98-107) mmol/L Carbon Dioxide (22-30) mmol/L BUN (7-17) mg/dL Creatinine (0.6-1.2) mg/dL Glucose (65-100) mg/dL POC Glucose 153 H 124 H 136 H (70-105) mg/dL 06/23/21 06/23/21 06/23/21 Range/Units 10:15 11:46 12:04 Sodium (137-145) mmol/L Chloride 107.6 H (98-107) mmol/L Carbon Dioxide 15 L (22-30) mmol/L BUN 53 H (7-17) mg/dL Creatinine 3.7 H (0.6-1.2) mg/dL Glucose 471 H (65-100) mg/dL POC Glucose 555 H 548 H (70-105) mg/dL
[2021-06-23] MEDS: SODIUM BICARBONATE 150 MEQ in WATER FOR INJECTION (PF) 1,000 ML IV SCH (15:48)
[2021-06-23] MEDS: INSULIN NPH, HUMAN 100 UNIT/1 ML SUB-Q SCH (17:27)
[2021-06-24] MEDS: SODIUM BICARBONATE 150 MEQ in WATER FOR INJECTION (PF) 1,000 ML IV SCH (08:05)
[2021-06-24] MEDS: INSULIN LISPRO 100 UNIT/ML SUB-Q SCH ×4 (08:16→22:37)
[2021-06-24 08:31] LABS: Calcium 8.9 mg/dL (8.4-10.2)
--- NOTE | 2021-06-24 09:28 | Progress Note ---
Assessment and Plan Impression * Acute kidney injury secondary to prerenal azotemia due to volume depletion in setting of ACEi on stage IV CKD --SCr 2.51mg/dL on Jun 03 2021 * Metabolic acidosis * Nausea/vomiting * Diabetic gastroparesis * Diabetes mellitus * Hypertension Plan: * Renal function improved - not yet at baseline * Continue IVF - sterile water w/ bicarb 100ml/hour * Continue to hold ACEi in setting of SURJIT * Resume Hydralazine 50mg q8 and Nifedipine 90mg daily * Strict I/O * Dose medications for renal function * Avoid potential nephrotoxins * AM labs * Potential discharge on Jun 25 Subjective Date of service: 06/24/21 Interval history: Patient reports that she is feeling better. Objective - Vital Signs Vital signs: Vital Signs - 12hr 06/23/21 06/23/21 06/23/21 21:40 22:45 23:00 Temperature Pulse Rate 103 H 103 H Respiratory Rate Blood Pressure 175/90 175/90 O2 Sat by Pulse 98 Oximetry 06/23/21 06/23/21 06/24/21 23:03 23:22 03:50 Temperature 98.7 F 98.2 F Pulse Rate 96 H 91 H 89 Respiratory 18 12 Rate Blood Pressure 186/94 166/83 O2 Sat by Pulse 98 100 Oximetry - General Appearance General appearance: well-developed, well-nourished EENT: ATNC Respiratory: Present: Clear to Ascultation Cardiology: regular, S1S2 Gastrointestinal: normal, no tenderness, no distended Integumentary: no rash, warm and dry Neurologic: alert and oriented x3 Psychiatric: cooperative - Lab 06/21/21 23:27 06/25/21 05:17 Most recent lab results Calcium 8.9 mg/dL (8.4-10.2) 06/24/21 07:31 Phosphorus 6.50 mg/dL (2.5-4.5) H D 06/22/21 08:27 Magnesium 2.20 mg/dL (1.7-2.3) 06/22/21 08:27 Medications & Allergies - Medications Allergies/Adverse Reactions: Allergies No Known Allergies Allergy (Verified 04/06/21 13:43) Home Medications: Home Medications Medication Instructions Recorded Confirmed Last Taken Type HumaLOG 8 units SUB-Q ACHS 04/09/21 06/23/21 2 Days Ago History ~05/17/21 8 units Insulin Glargine [Lantus VIAL] 22 units SUB-Q HS 04/09/21 06/23/21 2 Days Ago History ~05/17/21 Ondansetron [Zofran ODT TAB] 4 mg PO Q8HR PRN #14 tab.rapdis 04/09/21 06/23/21 Unknown Rx Oxycodone HCl [oxyCODONE] 10 mg PO Q6H PRN 05/19/21 06/23/21 Unknown History AtorvaSTATin [Lipitor] 40 mg PO QHS #30 tablet 05/22/21 06/23/21 Unknown Rx NIFEdipine XL [Procardia Xl] 90 mg PO QDAY #30 tablet 05/22/21 06/23/21 Unknown Rx carvediloL [Coreg] 12.5 mg PO BID #60 tablet 05/22/21 06/23/21 Unknown Rx hydrALAZINE [Apresoline TAB] 50 mg PO Q8HR #90 tablet 05/22/21 06/23/21 Unknown Rx lisinopriL [Zestril TAB] 20 mg PO QDAY #30 tablet 05/22/21 06/23/21 Unknown Rx Active Medications: Generic Name Dose Route Start Last Admin Trade Name Freq PRN Reason Stop Dose Admin Acetaminophen 650 mg 06/22/21 21:43 Acetaminophen 325 Mg Tab PO Q6H PRN Pain MILD(1-3)/Fever >100.5/CASANOVA Atorvastatin Calcium 40 mg 06/22/21 22:00 06/23/21 21:41 Atorvastatin 40 Mg Tab PO 40 mg QHS ROSALVA Administration Carvedilol 12.5 mg 06/22/21 10:00 06/23/21 21:40 Carvedilol 12.5 Mg Tab PO 12.5 mg BID ROSALVA Administration Dextrose 50 ml 06/23/21 05:27 Dextrose 50% In Water (25gm) 50 Ml Syringe IV Q30MIN PRN Hypoglycemia Protocol Heparin Sodium (Porcine) 5,000 unit 06/22/21 10:00 06/23/21 21:40 Heparin 5,000 Unit/1 Ml Vial SUB-Q 5,000 unit Q12HR ROSALVA Administration Hydralazine HCl 20 mg 06/22/21 10:00 Hydralazine 20 Mg/1 Ml Inj IV Q4HR PRN Hypertension Sodium Bicarbonate 150 meq/ 1,150 mls @ 75 mls/hr 06/23/21 11:00 06/24/21 08:05 Sterile Water IV 75 mls/hr DIRECT ROSALVA Administration Insulin Human Lispro 0 unit 06/23/21 11:30 06/23/21 21:41 Insulin Lispro 100 Unit/Ml SUB-Q 2 unit ACHS ROSALVA Administration Protocol Insulin Human NPH 15 unit 06/23/21 17:00 06/23/21 17:27 Insulin Nph, Human 100 Unit/1 Ml SUB-Q 15 unit BIDDIAB ROSALVA Administration Metoclopramide HCl 10 mg 06/22/21 17:34 06/22/21 17:46 Metoclopramide 10 Mg/2 Ml Inj IV 10 mg Q6H PRN Administration Nausea And Vomiting Morphine Sulfate 2 mg 06/22/21 21:43 06/23/21 10:07 Morphine 2 Mg/1 Ml Inj IV 2 mg Q4H PRN Administration Pain, Moderate (4-6) Morphine Sulfate 4 mg 06/22/21 21:43 06/22/21 23:17 Morphine 4 Mg/1 Ml Inj IV 4 mg Q4H PRN Administration Pain , Severe (7-10) Ondansetron HCl 4 mg 06/22/21 17:47 06/23/21 10:07 Ondansetron 4 Mg/2 Ml Inj IV 4 mg Q4H PRN Administration Nausea And Vomiting Pantoprazole Sodium 40 mg 06/23/21 07:30 06/23/21 11:33 Pantoprazole 40 Mg Tab PO 40 mg QDAC ROSALVA Administration Sodium Chloride 10 ml 06/22/21 22:00 06/23/21 21:42 Sodium Chloride 0.9% 10 Ml Flush Syringe IV 10 ml BID ROSALVA Administration Sodium Chloride 10 ml 06/22/21 21:43 Sodium Chloride 0.9% 10 Ml Flush Syringe IV PRN PRN LINE FLUSH
[2021-06-24] MEDS: hydrALAZINE 25 MG TAB PO SCH ×3 (12:08→22:38)
[2021-06-24] MEDS: MORPHINE 2 MG/1 ML INJ IV PRN (12:12)
[2021-06-24] MEDS: ONDANSETRON 4 MG/2 ML INJ IV PRN ×2 (12:12→18:08)
[2021-06-24] MEDS: NIFEdipine XL 90 MG TAB PO SCH (12:15)
[2021-06-24] MEDS: PANTOPRAZOLE 40 MG TAB PO SCH (12:15)
[2021-06-24] MEDS: carvediloL 12.5 MG TAB PO SCH ×2 (12:15→22:38)
[2021-06-24] MEDS: INSULIN NPH, HUMAN 100 UNIT/1 ML SUB-Q SCH ×2 (12:15→18:07)
[2021-06-24] MEDS: HEPARIN 5,000 UNIT/1 ML VIAL SUB-Q SCH ×2 (12:20→22:36)
--- NOTE | 2021-06-24 16:03 | Progress Note ---
Assessment and Plan (1) DKA (diabetic ketoacidosis) Onset Date: ~06/22/21 Current Visit: Yes Status: Chronic Plan to address problem: Initiated DKA pathway: insulin drip, IV fluids, n.p.o. status Patient currently on sliding scale of insulin and long-acting insulin, consistent carb diet Closely monitor electrolytes, adjust as needed -- Hyponatremia Current Visit: Yes Status: Acute Plan to address problem: probably pseudohyponatremia due to severe hyperglycemia, closely monitor blood sugars As the blood sugars improved patient's sodium will improve, normal saline -- Acute kidney injury superimposed on chronic kidney disease Current Visit: Yes Status: Acute Plan to address problem: Progress IV hydration, monitor renal function, avoid nephrotoxins Renal dosing of medications, nephrology consultation -- Metabolic acidosis Current Visit: Yes Status: Acute Plan to address problem: Vigorous IV hydration, treated the underlying DKA -- Gastroparesis Current Visit: Yes Status: Acute Plan to address problem: Diabetes management. Antiemetic. Reglan as needed --Nausea vomiting and diarrhea Current Visit: Yes Status: Acute Plan to address problem: Due to gastroparesis, treat with IV fluids antiemetics and supportive care, -- DVT prophylaxis Current Visit: Yes Status: Acute Plan to address problem: Subcu heparin renal dose Daily clinical course: 06/23/21: Blood glucose this morning under control, off insulin drip, initiated o n NPH 15 units twice daily. Patient continued to have elevated BUN/creatinine, continue IV fluid. Monitor BMP and serum blood glucose. Follow nephrology recommendation. Patient medically not stable for discharge 06/24/21: Renal function improving but not yet at baseline, Continue sterile water w/ bicarb 100ml/hour, Continue to hold ACEi in setting of SURJIT. Resume Hydralazine 50mg q8 and Nifedipine 90mg daily. cont to adjust insulin dose for better glycemic control. if renal function improves and clinically stable possible d/c in the am Subjective Date of service: 06/24/21 Interval history: Patient seen and examined. Medical records and medication list reviewed. No acute event overnight noted by the RN. Patient denies any chest pain or difficulty breathing. Patient is tolerating diet. Discussed plan of care at bedside with patient. Objective - Exam Narrative Exam: GENERAL: well-developed and well-nourished -[place] female lying on bed appeared to be in no discomfort. HEENT: Normocephalic. Atraumatic. No conjunctival congestion or icterus. Patient has moist mucous membranes. NECK: Supple. Trachea midline. CHEST/LUNGS: Clear to auscultated bilaterally, breathing nonlabored. No wheezes crackles or rhonchi. HEART/CARDIOVASCULAR: Regular in rate and rhythm. S1 and S2 positive. ABDOMEN: Abdomen is soft, nontender. Patient has normal bowel sounds. SKIN: There is no rash. Warm and dry. NEURO: No focal motor deficit. Follows command. MUSCULOSKELETAL: No joint effusion or tenderness. EXTRIMITY: No edema, no cyanosis or clubbing. PSYCH: Cooperative. - Labs CBC & Chem 7: 06/21/21 23:27 06/25/21 05:17 Labs: Abnormal lab results 06/23/21 06/23/21 06/23/21 Range/Units 16:33 20:19 23:44 BUN (7-17) mg/dL Creatinine (0.6-1.2) mg/dL Glucose (65-100) mg/dL POC Glucose 289 H 157 H 49 L (70-105) mg/dL 06/24/21 06/24/21 06/24/21 Range/Units 00:41 07:31 11:33 BUN 49 H (7-17) mg/dL Creatinine 3.3 H (0.6-1.2) mg/dL Glucose 327 H (65-100) mg/dL POC Glucose 143 H 497 H (70-105) mg/dL
[2021-06-25] MEDS: SODIUM BICARBONATE 150 MEQ in WATER FOR INJECTION (PF) 1,000 ML IV SCH (00:04)
[2021-06-25] MEDS: hydrALAZINE 25 MG TAB PO SCH (05:23)
[2021-06-25 06:34] LABS: Calcium 8.8 mg/dL (8.4-10.2)
[2021-06-25] MEDS: INSULIN LISPRO 100 UNIT/ML SUB-Q SCH ×2 (08:12→12:01)
[2021-06-25] MEDS: INSULIN NPH, HUMAN 100 UNIT/1 ML SUB-Q SCH (09:12)
--- NOTE | 2021-06-25 09:36 | Progress Note ---
Assessment and Plan Impression * Acute kidney injury secondary to prerenal azotemia due to volume depletion in setting of ACEi on stage IV CKD --SCr 2.51mg/dL on Jun 03 2021 * Metabolic acidosis * Nausea/vomiting * Diabetic gastroparesis * Diabetes mellitus * Hypertension Plan: * Renal function stable - not yet at baseline * Continue antiHTN medications * Strict I/O * Dose medications for renal function * Avoid potential nephrotoxins * Close outpatient nephrology follow up - Jul 02 at 9:30am with Dr. Garces (patient given date/time of appt) * Continue to hold ACEi in setting of SURJIT - do not resume at discharge Subjective Date of service: 06/25/21 Interval history: Patient reports that she is feeling better. Objective - Vital Signs Vital signs: Vital Signs - 12hr 06/24/21 06/25/21 06/25/21 23:46 00:18 03:32 Temperature 98.2 F 97.9 F Pulse Rate 86 84 Respiratory 12 14 Rate Blood Pressure 110/63 122/69 O2 Sat by Pulse 100 99 99 Oximetry - General Appearance General appearance: well-developed, well-nourished EENT: ATNC Respiratory: Present: Clear to Ascultation Cardiology: regular, S1S2 Gastrointestinal: normal, no tenderness, no distended Integumentary: warm and dry Neurologic: no focal deficit, alert and oriented x3 Psychiatric: cooperative - Lab 06/21/21 23:27 06/25/21 05:17 Most recent lab results Calcium 8.8 mg/dL (8.4-10.2) 06/25/21 05:17 Phosphorus 6.50 mg/dL (2.5-4.5) H D 06/22/21 08:27 Magnesium 2.20 mg/dL (1.7-2.3) 06/22/21 08:27 Medications & Allergies - Medications Allergies/Adverse Reactions: Allergies No Known Allergies Allergy (Verified 04/06/21 13:43) Home Medications: Home Medications Medication Instructions Recorded Confirmed Last Taken Type HumaLOG 8 units SUB-Q ACHS 04/09/21 06/23/21 2 Days Ago History ~05/17/21 8 units Insulin Glargine [Lantus VIAL] 22 units SUB-Q HS 04/09/21 06/23/21 2 Days Ago History ~12/13/21 AtorvaSTATin [Lipitor] 40 mg PO QHS #30 tablet 05/22/21 06/23/21 Unknown Rx NIFEdipine XL [Procardia Xl] 90 mg PO QDAY #30 tablet 05/22/21 06/23/21 Unknown Rx carvediloL [Coreg] 12.5 mg PO BID #60 tablet 05/22/21 06/23/21 Unknown Rx hydrALAZINE [Apresoline TAB] 50 mg PO Q8HR #90 tablet 05/22/21 06/23/21 Unknown Rx NIFEdipine XL [Procardia Xl] 90 mg PO QDAY #90 tablet 06/25/21 Unknown Rx hydrALAZINE [Apresoline TAB] 50 mg PO Q8HR #90 tablet 06/25/21 Unknown Rx Active Medications: Generic Name Dose Route Start Last Admin Trade Name Freq PRN Reason Stop Dose Admin Acetaminophen 650 mg 06/22/21 21:43 Acetaminophen 325 Mg Tab PO Q6H PRN Pain MILD(1-3)/Fever >100.5/CASANOVA Atorvastatin Calcium 40 mg 06/22/21 22:00 06/24/21 22:38 Atorvastatin 40 Mg Tab PO 40 mg QHS ROSALVA Administration Carvedilol 12.5 mg 06/22/21 10:00 06/24/21 22:38 Carvedilol 12.5 Mg Tab PO 12.5 mg BID ROSALVA Administration Dextrose 50 ml 06/23/21 05:27 Dextrose 50% In Water (25gm) 50 Ml Syringe IV Q30MIN PRN Hypoglycemia Protocol Heparin Sodium (Porcine) 5,000 unit 06/22/21 10:00 06/24/21 22:36 Heparin 5,000 Unit/1 Ml Vial SUB-Q 5,000 unit Q12HR ROSALVA Administration Hydralazine HCl 20 mg 06/22/21 10:00 Hydralazine 20 Mg/1 Ml Inj IV Q4HR PRN Hypertension Hydralazine HCl 50 mg 06/24/21 10:00 06/25/21 05:23 Hydralazine 25 Mg Tab PO Not Given Q8HR ROSALVA Sodium Bicarbonate 150 meq/ 1,150 mls @ 75 mls/hr 06/23/21 11:00 06/25/21 00:04 Sterile Water IV 75 mls/hr DIRECT ROSALVA Administration Insulin Human Lispro 0 unit 06/23/21 11:30 06/24/21 22:37 Insulin Lispro 100 Unit/Ml SUB-Q 2 unit ACHS ROSALVA Administration Protocol Insulin Human NPH 25 unit 06/24/21 17:01 06/24/21 18:07 Insulin Nph, Human 100 Unit/1 Ml SUB-Q 25 unit BIDDIAB ROSALVA Administration Metoclopramide HCl 10 mg 06/22/21 17:34 06/22/21 17:46 Metoclopramide 10 Mg/2 Ml Inj IV 10 mg Q6H PRN Administration Nausea And Vomiting Morphine Sulfate 2 mg 06/22/21 21:43 06/24/21 12:12 Morphine 2 Mg/1 Ml Inj IV 2 mg Q4H PRN Administration Pain, Moderate (4-6) Morphine Sulfate 4 mg 06/22/21 21:43 06/22/21 23:17 Morphine 4 Mg/1 Ml Inj IV 4 mg Q4H PRN Administration Pain , Severe (7-10) Nifedipine 90 mg 06/24/21 10:00 06/24/21 12:15 Nifedipine Xl 90 Mg Tab PO 90 mg QDAY ROSALVA Administration Ondansetron HCl 4 mg 06/22/21 17:47 06/24/21 18:08 Ondansetron 4 Mg/2 Ml Inj IV 4 mg Q4H PRN Administration Nausea And Vomiting Pantoprazole Sodium 40 mg 06/23/21 07:30 06/24/21 12:15 Pantoprazole 40 Mg Tab PO 40 mg QDAC ROSALVA Administration Sodium Chloride 10 ml 06/22/21 22:00 06/24/21 22:39 Sodium Chloride 0.9% 10 Ml Flush Syringe IV 10 ml BID ROSALVA Administration Sodium Chloride 10 ml 06/22/21 21:43 Sodium Chloride 0.9% 10 Ml Flush Syringe IV PRN PRN LINE FLUSH
--- NOTE | 2021-06-25 10:12 | Discharge Summary ---
Providers - Providers Date of Admission: 06/22/21 21:43 Date of discharge: 06/25/21 Attending physician: JESSICA DO 06/22/21 07:58 Consult to Dietitian/Nutrition [CONS] Routine Physician Instructions: Reason For Exam: DKA Reason for Consult: Nutrition Recommendations Reason for Consult: Diet education 06/22/21 08:07 Consult to Physician [CONS] Routine Comment: Consulting Provider: NARESH ACOSTA Physician Instructions: Reason For Exam: Acute on chronic kidney disease 06/23/21 05:27 Consult to Dietitian/Nutrition [CONS] Routine Physician Instructions: Reason For Exam: Reason for Consult: Diet education Primary care physician: OWNER SPA DIRECTOR Hospitalization Condition: Stable Pertinent studies: CXR, abdomen/pelvis CT Hospital course: 46-year-old female with significant past medical history of insulin-dependent diabetes and gastroparesis presented to the emergency room with intractable nausea vomiting watery diarrhea and uncontrolled blood sugars. Initial evaluation in the ED findings consistent with blood sugars more than 560 with anion gap of 41 and mild hyponatremia and acute on chronic kidney injury as well as metabolic acidosis. Patient was started on insulin drip, iv fluid, and admitted to ICU for further evaluation and Mx. Daily clinical course: 06/23/21: Blood glucose this morning under control, off insulin drip, initiated on NPH 15 units twice daily. Patient continued to have elevated BUN/creatinine, continue IV fluid. Monitor BMP and serum blood glucose. Follow nephrology recommendation. Patient medically not stable for discharge 06/24/21: Renal function improving but not yet at baseline, Continue sterile water w/ bicarb 100ml/hour, Continue to hold ACEi in setting of SURJIT. Resume Hydralazine 50mg q8 and Nifedipine 90mg daily. cont to adjust insulin dose for better glycemic control. if renal function improves and clinically stable possible d/c in the am. 06/25/21: Renal function improved, BG stable, patient tolerating diet, n/v/d resolved. Patient will be discharged home in stable condition with outpatient f/u. Disposition: HOME / SELF CARE / HOMELESS Final Discharge Diagnosis (Prints w/discharge instructions): --DKA (diabetic ketoacidosis). --Hyponatremia due to hyperglycemia. -- Acute kidney injury superimposed on chronic kidney disease, due to vasomotor nephropathy. -- Metabolic acidosis. -- Gastroparesis. --Nausea vomiting and diarrhea Time spent for discharge: 34 minutes Core Measure Documentation - Palliative Care Palliative Care/ Comfort Measures: Not Applicable - Core Measures Any of the following diagnoses?: none Exam - Physical Exam Narrative exam: GENERAL: well-developed and well-nourished -[place] female lying on bed appeared to be in no discomfort. HEENT: Normocephalic. Atraumatic. No conjunctival congestion or icterus. Patient has moist mucous membranes. NECK: Supple. Trachea midline. CHEST/LUNGS: Clear to auscultated bilaterally, breathing nonlabored. No wheezes crackles or rhonchi. HEART/CARDIOVASCULAR: Regular in rate and rhythm. S1 and S2 positive. ABDOMEN: Abdomen is soft, nontender. Patient has normal bowel sounds. SKIN: There is no rash. Warm and dry. NEURO: No focal motor deficit. Follows command. MUSCULOSKELETAL: No joint effusion or tenderness. EXTRIMITY: No edema, no cyanosis or clubbing. PSYCH: Cooperative. - Constitutional Vitals: Temp Pulse Resp BP Pulse Ox 97.9 F 84 14 122/69 99 06/25/21 03:32 06/25/21 03:32 06/25/21 03:32 06/25/21 03:32 06/25/21 03:32 Plan Activity: advance as tolerated Weight Bearing Status: Weight Bear as Tolerated Diet: diabetic Additional Instructions: Follow-up with cfo controller in 1 week for repeat BMP Follow up with: PRIMARY CAREMD [Primary Care Provider] - 3-5 Days Prescriptions: hydrALAZINE [Apresoline TAB] 50 mg PO Q8HR #90 tablet NIFEdipine XL [Procardia Xl] 90 mg PO QDAY #90 tablet
[2021-06-25] MEDS: PANTOPRAZOLE 40 MG TAB PO SCH (11:05)
[2021-06-25] MEDS: NIFEdipine XL 90 MG TAB PO SCH (11:05)
[2021-06-25] MEDS: carvediloL 12.5 MG TAB PO SCH (11:05)
[2021-06-25] MEDS: HEPARIN 5,000 UNIT/1 ML VIAL SUB-Q SCH (11:13)
[2021-06-25 11:29] VITALS: BP 139/82
== END 2021-06-25 15:35 | disposition home or self-care (01) | DRG 637 ==
LOC: ED 22:59 → CC1 06-22 21:43 → 4A 06-23 06:02
PROVIDERS: ADMIT Internal Medicine; ATTEND Internal Medicine
DX: E11.10 Type 2 diabetes mellitus with ketoacidosis without coma (principal); N17.0 Acute kidney failure with tubular necrosis; E87.1 Hypo-osmolality and hyponatremia; N18.4 Chronic kidney disease, stage 4 (severe); K31.84 Gastroparesis; I12.9 Hypertensive chronic kidney disease with stage 1 through stage 4 chronic kidney disease, or unspecified chronic kidney disease; Z82.49 Family history of ischemic heart disease and other diseases of the circulatory system; E11.43 Type 2 diabetes mellitus with diabetic autonomic (poly)neuropathy; E11.65 Type 2 diabetes mellitus with hyperglycemia
CPT/HCPCS: 36415; 71045; 74176; 80048; 80053; 81001; 82962; 83690; 83735; 84100; 84703; 85025; G0378; J2354; J3480; J3490; J7070; Q0162; Q9967; C9113; J1200; J1644; J1815; J2270; J2405; J2765; J7030

== ENCOUNTER 2021-07-11 20:26 | Emergency (ER) | payer MEDICAID ==
[2021-07-11 21:10] VITALS: BP 202/113
[2021-07-11] MEDS ORDERED: METOCLOPRAMIDE 10 MG/2 ML INJ IV ONE (21:11)
[2021-07-11] MEDS ORDERED: diphenhydrAMINE 50 MG/ML VIAL IV ONE (21:11)
[2021-07-11] MEDS ORDERED: MORPHINE 4 MG/1 ML INJ IV ONE (21:11)
[2021-07-11] MEDS ORDERED: FAMOTIDINE 20 MG/2 ML INJ IV ONE (21:11)
[2021-07-11] MEDS ORDERED: SODIUM CHLORIDE 0.9% 1000 ML 1,000 ML IV ONE ×2 (21:12→22:12)
--- NOTE | 2021-07-11 21:17 | Emergency Department Report ---
ED Abdominal Pain HPI - General Stated Complaint: VOMITING/ABD PAIN/DIARRHEA - History of Present Illness Initial Comments: Patient is a 46-year-old -[place] female with a history of insulin- dependent diabetes, hypertension and chronic gastroparesis who presented to the ED with complaint of acute onset persistent intractable nausea and vomiting, diffuse abdominal pain and generalized weakness and fatigue for the last 2 days. Patient states that she has not been able to keep anything down because of persistent nausea and vomiting and abdominal pain. Patient states that the symptoms are typical of her chronic gastroparesis flareup. Patient denies dizziness, syncope, dysuria, urinary frequency and urgency, vaginal discharge, vaginal bleeding, chest pain, shortness of breath, cough, sore throat, headache, hematemesis or hematochezia and diarrhea. MD Complaint: abdominal pain, other (Nausea and vomiting) -: Sudden, days(s) (2) Location: diffuse Radiation: none Migration to: no migration Severity: severe Severity scale (0 -10): 8 Quality: cramping, sharp Consistency: constant Improves With: nothing Worsens With: eating, vomiting Context: possible food poisoning, other (Gastroparesis; DKA) Associated Symptoms: denies other symptoms, nausea, vomiting, anorexia. denies: diarrhea, fever, constipation, dysuria, hematemesis, hematochezia, melena, hematuria, syncope - Related Data Home Medications Medication Instructions Recorded Confirmed Last Taken HumaLOG 8 units SUB-Q ACHS 04/09/21 06/23/21 2 Days Ago ~05/17/21 8 units Insulin Glargine [Lantus VIAL] 22 units SUB-Q HS 04/09/21 06/23/21 2 Days Ago ~05/17/21 Previous Rx's Medication Instructions Recorded Last Taken Type AtorvaSTATin [Lipitor] 40 mg PO QHS #30 tablet 05/22/21 Unknown Rx NIFEdipine XL [Procardia Xl] 90 mg PO QDAY #30 tablet 05/22/21 Unknown Rx carvediloL [Coreg] 12.5 mg PO BID #60 tablet 05/22/21 Unknown Rx hydrALAZINE [Apresoline TAB] 50 mg PO Q8HR #90 tablet 05/22/21 Unknown Rx NIFEdipine XL [Procardia Xl] 90 mg PO QDAY #90 tablet 06/25/21 Unknown Rx hydrALAZINE [Apresoline TAB] 50 mg PO Q8HR #90 tablet 06/25/21 Unknown Rx Dicyclomine [Bentyl] 20 mg PO Q6H PRN #30 tablet 07/12/21 Unknown Rx Famotidine [Pepcid] 20 mg PO BID #60 tablet 07/12/21 Unknown Rx Ondansetron [Zofran Odt] 4 mg PO Q6H PRN #20 tab.rapdis 07/12/21 Unknown Rx Promethazine [Phenergan] 25 mg NE Q6HR PRN #20 supp.rect 07/12/21 Unknown Rx traMADoL [Ultram] 50 mg PO Q6HR PRN #10 tablet 07/12/21 Unknown Rx Allergies Allergy/AdvReac Type Severity Reaction Status Date / Time No Known Allergies Allergy Verified 04/06/21 13:43 ED Review of Systems ROS: Stated complaint: VOMITING/ABD PAIN/DIARRHEA Other details as noted in HPI Constitutional: denies: chills, fever Eyes: denies: eye pain, eye discharge, vision change ENT: denies: ear pain, throat pain Respiratory: denies: cough, shortness of breath, wheezing Cardiovascular: denies: chest pain, palpitations Endocrine: no symptoms reported Gastrointestinal: abdominal pain, nausea, vomiting. denies: diarrhea, constipation, hematemesis Genitourinary: denies: urgency, dysuria, discharge Musculoskeletal: denies: back pain, joint swelling, arthralgia Skin: denies: rash, lesions Neurological: denies: headache, weakness, paresthesias Psychiatric: denies: anxiety, depression Hematological/Lymphatic: denies: easy bleeding, easy bruising ED Past Medical Hx - Past Medical History Hx Hypertension: Yes Hx Diabetes: Yes Additional medical history: gastroparesis - Social History Smoking Status: Unknown if ever smoked - Medications Home Medications: Home Medications Medication Instructions Recorded Confirmed Last Taken Type HumaLOG 8 units SUB-Q ACHS 04/09/21 06/23/21 2 Days Ago History ~05/17/21 8 units Insulin Glargine [Lantus VIAL] 22 units SUB-Q HS 04/09/21 06/23/21 2 Days Ago History ~05/17/21 AtorvaSTATin [Lipitor] 40 mg PO QHS #30 tablet 05/22/21 06/23/21 Unknown Rx NIFEdipine XL [Procardia Xl] 90 mg PO QDAY #30 tablet 05/22/21 06/23/21 Unknown Rx carvediloL [Coreg] 12.5 mg PO BID #60 tablet 05/22/21 06/23/21 Unknown Rx hydrALAZINE [Apresoline TAB] 50 mg PO Q8HR #90 tablet 05/22/21 06/23/21 Unknown Rx NIFEdipine XL [Procardia Xl] 90 mg PO QDAY #90 tablet 06/25/21 Unknown Rx hydrALAZINE [Apresoline TAB] 50 mg PO Q8HR #90 tablet 06/25/21 Unknown Rx Dicyclomine [Bentyl] 20 mg PO Q6H PRN #30 tablet 07/12/21 Unknown Rx Famotidine [Pepcid] 20 mg PO BID #60 tablet 07/12/21 Unknown Rx Ondansetron [Zofran Odt] 4 mg PO Q6H PRN #20 tab.rapdis 07/12/21 Unknown Rx Promethazine [Phenergan] 25 mg NE Q6HR PRN #20 supp.rect 07/12/21 Unknown Rx traMADoL [Ultram] 50 mg PO Q6HR PRN #10 tablet 07/12/21 Unknown Rx ED Physical Exam - General General appearance: alert, in no apparent distress - Head Head exam: Present: atraumatic, normocephalic, normal inspection - Eye Eye exam: Present: normal appearance, PERRL, EOMI Pupils: Present: normal accommodation - ENT ENT exam: Present: normal exam, normal orophraynx, mucous membranes moist, TM's normal bilaterally, normal external ear exam - Neck Neck exam: Present: normal inspection, full ROM. Absent: tenderness - Respiratory Respiratory exam: Present: normal lung sounds bilaterally. Absent: respiratory distress, wheezes, rales, stridor, chest wall tenderness, accessory muscle use, prolonged expiratory - Cardiovascular Cardiovascular Exam: Present: regular rate, normal rhythm, normal heart sounds. Absent: systolic murmur, diastolic murmur, rubs, gallop - GI/Abdominal GI/Abdominal exam: Present: soft, tenderness (Palpable diffuse abdominal tenderness), normal bowel sounds. Absent: guarding, rebound, rigid, hyperactive bowel sounds, organomegaly, mass, bruit - Extremities Exam Extremities exam: Present: normal inspection, full ROM, normal capillary refill - Back Exam Back exam: Present: normal inspection, full ROM. Absent: tenderness, CVA t enderness (R), CVA tenderness (L), muscle spasm, paraspinal tenderness, vertebral tenderness - Neurological Exam Neurological exam: Present: alert, oriented X3, CN II-XII intact, normal gait, reflexes normal - Psychiatric Psychiatric exam: Present: normal affect, normal mood, anxious - Skin Skin exam: Present: warm, dry, intact, normal color. Absent: rash ED Course Vital Signs 07/11/21 07/11/21 07/11/21 20:30 20:31 21:07 Temperature 99.5 F Pulse Rate 82 100 H Respiratory 22 Rate Blood Pressure 202/113 [Right] O2 Sat by Pulse 100 100 Oximetry 07/11/21 07/12/21 21:43 01:45 Temperature Pulse Rate Respiratory 18 20 Rate Blood Pressure [Right] O2 Sat by Pulse Oximetry ED Medical Decision Making - Lab Data Result diagrams: 07/11/21 21:14 07/11/21 21:14 - Medical Decision Making This is a 46-year-old -[place] female with a history of insulin- dependent diabetes, hypertension and chronic gastroparesis who presented to the ED with complaint of acute onset persistent intractable nausea and vomiting, diffuse abdominal pain and generalized weakness and fatigue for the last 2 days. Patient states that she has not been able to keep anything down because of persistent nausea and vomiting and abdominal pain. Patient states that the symptoms are typical of her chronic gastroparesis flareup. In the ED, patient is alert and oriented x3 and is not in any distress. Patient was treated for nausea and vomiting, also given antacids, pain medications and normal saline 2 L IV bolus x1. On reevaluation, patient's pain is well controlled medication. Lab test results were reviewed and showed hyperglycemia of 363 mg/dL, BUN of 41 and creatinine of 3.3 and anion gap which was normal at 21. Patient's BUN and creatinine at baseline due to her chronic kidney disease. Patient also received insulin 9 units IV x1. On reevaluation, patient's pain is well controlled medication. Nausea and vomiting is also well controlled medication. Patient case was discussed with the ED attending physician Dr. Florez was agreed the plan of care to discharge patient home on medications. Patient was advised to return to the ED immediately if symptoms get worse. Patient was otherwise advised to follow-up with her primary care physician and her corner bead operator in 3 to 5 days for reevaluation. - Differential Diagnosis Dehydration; hyperglycemia; gastroparesis; UTI; GERD Critical care attestation.: If time is entered above; I have spent that time in minutes in the direct care of this critically ill patient, excluding procedure time. ED Disposition Clinical Impression: Intractable nausea and vomiting, Hyperglycemia due to type 1 diabetes mellitus Abdominal pain Qualifiers: Abdominal location: generalized Qualified Code(s): R10.84 - Generalized abdominal pain Chronic kidney disease (CKD) Qualifiers: Chronic kidney disease stage: stage 4 (severe) Qualified Code(s): N18.4 - Chronic kidney disease, stage 4 (severe) GERD (gastroesophageal reflux disease) Qualifiers: Esophagitis presence: esophagitis presence not specified Qualified Code(s): K21.9 - Gastro-esophageal reflux disease without esophagitis Disposition: 01 HOME / SELF CARE / HOMELESS Is pt being admited?: No Does the pt Need Aspirin: No Condition: Stable Instructions: Diabetes Mellitus Type 2 in Adults (ED), Insulin Treatment for Diabetes Mellitus, Hyperglycemia, [id number], Type 1 Diabetes Mellitus, Self Care, Adult, Nausea and Vomiting, Adult, [id number], Chronic Kidney Disease, Adult, [id number], Abdominal Pain, Adult, [id number], Gastroesophageal Reflux Disease, Adult, [id number] Additional Instructions: All lab test results were reviewed and are all nonactionable except for BUN of 41 and creatinine of 3.3 which are all baseline chronic dyspnea chronic kidney disease, also hyperglycemia 363 mg/dL, which improved to 327 mg/dL after 2 L of IV fluids and 9 units of insulin. Therefore take medications as needed for nausea and vomiting or abdominal pain in addition to the antacid prescribed. Follow-up with your primary care physician or corner bead operator in 3 to 5 days for reevaluation. Return to the ED immediately if symptoms get worse. Prescriptions: Dicyclomine [Bentyl] 20 mg PO Q6H PRN #30 tablet PRN Reason: Abdominal pain Famotidine [Pepcid] 20 mg PO BID #60 tablet Promethazine [Phenergan] 25 mg NE Q6HR PRN #20 supp.rect PRN Reason: Nausea And Vomiting traMADoL [Ultram] 50 mg PO Q6HR PRN #10 tablet PRN Reason: Pain Ondansetron [Zofran Odt] 4 mg PO Q6H PRN #20 tab.rapdis PRN Reason: Nausea And Vomiting Referrals: [facility] [Provider Group] - 3-5 Days Time of Disposition: 03:26 Print Language: PASHTO
[2021-07-11 21:41] LABS: Basophils % (Auto) 0.6 % (0.0-1.8); Eosinophils # (Auto) 0.1 K/mm3 (0.0-0.4); Eosinophils % (Auto) 1.3 % (0.0-4.3); Hematocrit 30.1 % (30.3-42.9); Hemoglobin 10.1 gm/dl (10.1-14.3); Lymphocytes # (Auto) 0.7 K/mm3 (1.2-5.4); Mean Corpuscular HGB Conc 34 % (30-34); Mean Corpuscular Volume 89 fl (79-97); Monocytes # (Auto) 0.1 K/mm3 (0.0-0.8); Monocytes % (Auto) 2.8 % (0.0-7.3); Platelet Count 259 K/mm3 (140-440); Red Cell Distribution Width 14.2 % (13.2-15.2)
[2021-07-11 21:57] LABS: Albumin 4.1 g/dL (3.9-5); Calcium 9.5 mg/dL (8.4-10.2)
[2021-07-12] MEDS ORDERED: INSULIN REGULAR, HUMAN 100 UNITS/1 ML IV ONE (01:24)
[2021-07-12] MEDS ORDERED: ONDANSETRON 4 MG/2 ML INJ IV ONE (01:24)
[2021-07-12 01:25] LABS: Bacteria,Urine 1+ /HPF (Negative); Bilirubin,Urine NEG (Negative); Blood,Urine NEG (Negative); Color,Urine Straw (Yellow); Hyaline Casts,Urine 1 /LPF; Urobilinogen,Urine < 2.0 mg/dL (<2.0)
[2021-07-12 01:28] LABS: Protein,Urine >500 mg/dL (Negative)
[2021-07-12] MEDS ORDERED: MORPHINE 4 MG/1 ML INJ IV ONE (01:35)
[2021-07-12] MEDS ORDERED: SODIUM CHLORIDE 0.9% 1000 ML 1,000 ML IV ONE (03:10)
[2021-07-12] MEDS ORDERED: PROCHLORPERAZINE EDISYLATE 10 MG/2 ML VIAL IV ONE (03:42)
[2021-07-12] MEDS ORDERED: HYDROmorphone 1 MG/1 ML INJ IV ONE (03:42)
== END 2021-07-12 04:10 | disposition home or self-care (01) ==
LOC: ED 20:26
DX: E10.65 Type 1 diabetes mellitus with hyperglycemia (principal); K21.9 Gastro-esophageal reflux disease without esophagitis; I12.9 Hypertensive chronic kidney disease with stage 1 through stage 4 chronic kidney disease, or unspecified chronic kidney disease; E10.22 Type 1 diabetes mellitus with diabetic chronic kidney disease; N18.9 Chronic kidney disease, unspecified; Z79.4 Long term (current) use of insulin; Z79.899 Other long term (current) drug therapy
CPT/HCPCS: 36415; 80053; 81001; 82962; 85025; 96361; 96374; 96375; 96376; 99283; J0780; J1170; J1200; J2270; J2405; J2765; J3490; J7030; Q0162; Q9967; J1815

== ENCOUNTER 2021-08-10 14:39 | Emergency (ER) | payer MEDICAID ==
[2021-08-10] MEDS ORDERED: ONDANSETRON 4 MG/2 ML INJ IV ONE ×2 (16:46→20:36)
[2021-08-10] MEDS ORDERED: SODIUM CHLORIDE 0.9% 1000 ML 1,000 ML IV ONE (16:46)
[2021-08-10] MEDS ORDERED: METOCLOPRAMIDE 10 MG/2 ML INJ IV ONE (16:47)
[2021-08-10 17:13] LABS: Basophils % (Auto) 0.7 % (0.0-1.8); Eosinophils % (Auto) 0.2 % (0.0-4.3); Hematocrit 34.5 % (30.3-42.9); Hemoglobin 11.1 gm/dl (10.1-14.3); Lymphocytes # (Auto) 0.8 K/mm3 (1.2-5.4); Lymphocytes % (Auto) 15.4 % (13.4-35.0); Mean Corpuscular HGB Conc 32 % (30-34); Mean Corpuscular Volume 89 fl (79-97); Monocytes # (Auto) 0.1 K/mm3 (0.0-0.8); Monocytes % (Auto) 2.2 % (0.0-7.3); Platelet Count 234 K/mm3 (140-440); Red Blood Count 3.88 M/mm3 (3.65-5.03); Red Cell Distribution Width 14.4 % (13.2-15.2)
[2021-08-10 17:37] LABS: INR 0.86 (0.87-1.13)
[2021-08-10 17:45] LABS: Calcium 10.3 mg/dL (8.4-10.2)
[2021-08-10] MEDS ORDERED: KETOROLAC 30 MG/1 ML INJ IV ONE (18:29)
[2021-08-10] MEDS ORDERED: METOPROLOL TARTRATE 5 MG/5 ML INJ IV ONE (18:29)
[2021-08-10] MEDS ORDERED: diphenhydrAMINE 50 MG/ML VIAL IV ONE (19:22)
[2021-08-10] MEDS ORDERED: MORPHINE 4 MG/1 ML INJ IV ONE (20:36)
--- NOTE | 2021-08-10 20:40 | Emergency Department Report ---
ED Abdominal Pain HPI - General Chief Complaint: Abdominal Pain Stated Complaint: DIABETIC/VOMITTING/NAUSEA Time Seen by Provider: 08/10/21 16:44 Source: patient Mode of arrival: Wheelchair Limitations: No Limitations - History of Present Illness Initial Comments: Vomiting x 3 days, +n/v. Diabetic, last bs at home 131. BS in triage 320. Complaint: abdominal pain -: Gradual, week(s) Location: diffuse Severity: moderate Severity scale (0 -10): 10 Quality: cramping Consistency: intermittent Improves With: nothing Worsens With: nothing Associated Symptoms: nausea, vomiting - Related Data Home Medications Medication Instructions Recorded Confirmed Last Taken HumaLOG 8 units SUB-Q ACHS 04/09/21 06/23/21 2 Days Ago ~05/17/21 8 units Insulin Glargine [Lantus VIAL] 22 units SUB-Q HS 04/09/21 06/23/21 2 Days Ago ~05/17/21 Previous Rx's Medication Instructions Recorded Last Taken Type AtorvaSTATin [Lipitor] 40 mg PO QHS #30 tablet 05/22/21 Unknown Rx NIFEdipine XL [Procardia Xl] 90 mg PO QDAY #30 tablet 05/22/21 Unknown Rx carvediloL [Coreg] 12.5 mg PO BID #60 tablet 05/22/21 Unknown Rx hydrALAZINE [Apresoline TAB] 50 mg PO Q8HR #90 tablet 05/22/21 Unknown Rx NIFEdipine XL [Procardia Xl] 90 mg PO QDAY #90 tablet 06/25/21 Unknown Rx hydrALAZINE [Apresoline TAB] 50 mg PO Q8HR #90 tablet 06/25/21 Unknown Rx Dicyclomine [Bentyl] 20 mg PO Q6H PRN #30 tablet 07/12/21 Unknown Rx Famotidine [Pepcid] 20 mg PO BID #60 tablet 07/12/21 Unknown Rx Ondansetron [Zofran Odt] 4 mg PO Q6H PRN #20 tab.rapdis 07/12/21 Unknown Rx Promethazine [Phenergan] 25 mg MA Q6HR PRN #20 supp.rect 07/12/21 Unknown Rx traMADoL [Ultram] 50 mg PO Q6HR PRN #10 tablet 07/12/21 Unknown Rx Allergies Allergy/AdvReac Type Severity Reaction Status Date / Time No Known Allergies Allergy Verified 04/06/21 13:43 ED Review of Systems ROS: Stated complaint: DIABETIC/VOMITTING/NAUSEA Other details as noted in HPI Constitutional: denies: chills, fever Eyes: denies: eye pain, eye discharge, vision change ENT: denies: ear pain, throat pain Respiratory: denies: cough, shortness of breath, wheezing Cardiovascular: denies: chest pain, palpitations Endocrine: no symptoms reported Gastrointestinal: denies: abdominal pain, nausea, diarrhea Genitourinary: denies: urgency, dysuria, discharge Musculoskeletal: denies: back pain, joint swelling, arthralgia Skin: denies: rash, lesions Neurological: denies: headache, weakness, paresthesias Psychiatric: denies: anxiety, depression Hematological/Lymphatic: denies: easy bleeding, easy bruising ED Past Medical Hx - Past Medical History Previous Medical History?: Yes Hx Hypertension: Yes Hx Diabetes: Yes Additional medical history: gastroparesis - Social History Smoking Status: Never Smoker - Medications Home Medications: Home Medications Medication Instructions Recorded Confirmed Last Taken Type HumaLOG 8 units SUB-Q ACHS 04/09/21 06/23/21 2 Days Ago History ~05/17/21 8 units Insulin Glargine [Lantus VIAL] 22 units SUB-Q HS 04/09/21 06/23/21 2 Days Ago History ~05/17/21 AtorvaSTATin [Lipitor] 40 mg PO QHS #30 tablet 05/22/21 06/23/21 Unknown Rx NIFEdipine XL [Procardia Xl] 90 mg PO QDAY #30 tablet 05/22/21 06/23/21 Unknown Rx carvediloL [Coreg] 12.5 mg PO BID #60 tablet 05/22/21 06/23/21 Unknown Rx hydrALAZINE [Apresoline TAB] 50 mg PO Q8HR #90 tablet 05/22/21 06/23/21 Unknown Rx NIFEdipine XL [Procardia Xl] 90 mg PO QDAY #90 tablet 06/25/21 Unknown Rx hydrALAZINE [Apresoline TAB] 50 mg PO Q8HR #90 tablet 06/25/21 Unknown Rx Dicyclomine [Bentyl] 20 mg PO Q6H PRN #30 tablet 07/12/21 Unknown Rx Famotidine [Pepcid] 20 mg PO BID #60 tablet 07/12/21 Unknown Rx Ondansetron [Zofran Odt] 4 mg PO Q6H PRN #20 tab.rapdis 07/12/21 Unknown Rx Promethazine [Phenergan] 25 mg MA Q6HR PRN #20 supp.rect 07/12/21 Unknown Rx traMADoL [Ultram] 50 mg PO Q6HR PRN #10 tablet 07/12/21 Unknown Rx ED Physical Exam - General Limitations: No Limitations General appearance: alert, in no apparent distress - Head Head exam: Present: atraumatic, normocephalic - Eye Eye exam: Present: normal appearance - ENT ENT exam: Present: mucous membranes moist - Neck Neck exam: Present: normal inspection - Respiratory Respiratory exam: Present: normal lung sounds bilaterally. Absent: respiratory distress - Cardiovascular Cardiovascular Exam: Present: regular rate, normal rhythm. Absent: systolic murmur, diastolic murmur, rubs, gallop - GI/Abdominal GI/Abdominal exam: Present: soft, normal bowel sounds - Extremities Exam Extremities exam: Present: normal inspection - Back Exam Back exam: Present: normal inspection - Neurological Exam Neurological exam: Present: alert, oriented X3 - Psychiatric Psychiatric exam: Present: normal affect, normal mood - Skin Skin exam: Present: warm, dry, intact, normal color. Absent: rash ED Course Vital Signs 08/10/21 08/10/21 08/10/21 16:15 17:25 17:33 Temperature 98.1 F Pulse Rate 115 H Respiratory 20 Rate Blood Pressure 241/120 Blood Pressure 230/128 [Right] O2 Sat by Pulse 100 100 Oximetry 08/10/21 08/10/21 08/10/21 17:55 18:10 18:25 Temperature Pulse Rate Respiratory Rate Blood Pressure 242/117 249/131 225/114 Blood Pressure [Right] O2 Sat by Pulse Oximetry 08/10/21 08/10/21 08/10/21 18:40 18:55 18:57 Temperature Pulse Rate 115 H Respiratory Rate Blood Pressure 247/128 222/113 245/117 Blood Pressure [Right] O2 Sat by Pulse Oximetry 08/10/21 08/10/21 08/10/21 19:10 19:15 19:31 Temperature Pulse Rate Respiratory Rate Blood Pressure 232/122 225/128 223/113 Blood Pressure [Right] O2 Sat by Pulse 99 99 Oximetry 08/10/21 08/10/21 08/10/21 19:45 20:01 20:15 Temperature Pulse Rate Respiratory Rate Blood Pressure 223/112 220/112 212/109 Blood Pressure [Right] O2 Sat by Pulse 99 100 100 Oximetry 08/10/21 08/10/21 20:18 20:20 Temperature 98.9 F Pulse Rate 104 H Respiratory 18 Rate Blood Pressure Blood Pressure [Right] O2 Sat by Pulse 99 Oximetry - Reevaluation(s) Reevaluation #1: 08/10/21 20:38 work up showed Hyperglycemia fluids given CKD disease chornic stable, pt requesting morphine for he rpain , BP cntrolled with dariusz ED Medical Decision Making - Lab Data Result diagrams: 08/10/21 16:57 08/10/21 16:57 Critical care attestation.: If time is entered above; I have spent that time in minutes in the direct care of this critically ill patient, excluding procedure time. ED Disposition Clinical Impression: Gastroparesis, Abdominal pain, Nausea vomiting and diarrhea Disposition: 01 HOME / SELF CARE / HOMELESS Is pt being admited?: No Does the pt Need Aspirin: No Condition: Stable Instructions: Abdominal Pain (ED), Gastroparesis Referrals: PRIMARY CARE, [Primary Care Provider] - 3-5 Days
[2021-08-10 20:45] LABS: Amphetamine Screen,Urine Negative; Benzodiazepines Screen,Urine Negative; Cocaine Screen,Urine Negative; Methadone Screen,Urine Negative; Opiate Screen,Urine Negative
[2021-08-10 20:57] LABS: Cannabinoid Screen,Urine Positive
[2021-08-10 22:02] VITALS: BP 159/86
--- NOTE | 2021-08-11 09:24 | Electrocardiograph Report ---
[facility] Test Date: 2021-08-10 Test Time: 20:35:41 Pat Name: MARGARITA LI Department: Room: Gender: F Child Caregiver: RHYS : 1975 Requested By: JOSE LUIS LU Order Number: [id number] Reading MD: Jose Lilly Measurements Intervals [place] Rate: 114 P: 75 ME: 121 QRS: 25 QRSD: 90 T: 196 QT: 329 QTc: 453 Interpretive Statements Sinus tachycardia Probable left atrial enlargement LVH with secondary repolarization abnormality nonspecific st-t No previous ECG available for comparison Electronically Signed On 08-11-2021 9:23:42 EST by Jose Lilly
== END 2021-08-10 22:00 | disposition home or self-care (01) ==
LOC: ED 14:39
DX: R10.9 Unspecified abdominal pain (principal); K31.84 Gastroparesis; R11.2 Nausea with vomiting, unspecified; R19.7 Diarrhea, unspecified; I10 Essential (primary) hypertension; E11.8 Type 2 diabetes mellitus with unspecified complications; Z79.899 Other long term (current) drug therapy
CPT/HCPCS: 36415; 80048; 80307; 82150; 82962; 83690; 84703; 85025; 85610; 86140; 93005; 96361; 96374; 96375; 96376; 99284; J1200; J1885; J2270; J2405; J2765; J7030; J9280; Q0162

== ENCOUNTER 2021-08-11 18:34 | Emergency (ER) | payer MEDICAID ==
[2021-08-11] MEDS ORDERED: METOCLOPRAMIDE 10 MG/2 ML INJ IV ONE (19:29)
[2021-08-11] MEDS ORDERED: fentaNYL 100 MCG/2 ML INJ IV ONE ×2 (19:29→22:08)
[2021-08-11] MEDS ORDERED: SODIUM CHLORIDE 0.9% 1000 ML 1,000 ML IV ONE ×2 (19:29)
--- NOTE | 2021-08-11 19:36 | Emergency Department Report ---
HPI - General Chief Complaint: Abdominal Pain Time Seen by Provider: 08/11/21 19:21 - HPI HPI: Room 23 The patient is a 46-year-old female present with a chief complaint of abdominal pain nausea vomiting. Patient has a history of gastroparesis and states for the past 3 to 4 days she has had epigastric abdominal pain nausea and vomiting. Patient states it feels like her gastroparesis. Patient came to this ED yesterday and was treated and released after improvement. Patient states after she went home her symptoms returned. Patient states she has been compliant with her diabetes medication. Patient denies history of diarrhea, fever or dysuria. Patient currently gives her pain a score of 10/10 ED Past Medical Hx - Past Medical History Hx Hypertension: Yes Hx Diabetes: Yes Hx Renal Disease: Yes (Chronic renal insufficiency) Additional medical history: gastroparesis - Surgical History Past Surgical History?: No - Family History Family history: no significant - Social History Smoking Status: Never Smoker Substance Use Type: Marijuana - Medications Home Medications: Home Medications Medication Instructions Recorded Confirmed Last Taken Type HumaLOG 8 units SUB-Q ACHS 04/09/21 06/23/21 2 Days Ago History ~05/17/21 8 units Insulin Glargine [Lantus VIAL] 22 units SUB-Q HS 04/09/21 06/23/21 2 Days Ago History ~05/17/21 AtorvaSTATin [Lipitor] 40 mg PO QHS #30 tablet 05/22/21 06/23/21 Unknown Rx NIFEdipine XL [Procardia Xl] 90 mg PO QDAY #30 tablet 05/22/21 06/23/21 Unknown Rx carvediloL [Coreg] 12.5 mg PO BID #60 tablet 05/22/21 06/23/21 Unknown Rx hydrALAZINE [Apresoline TAB] 50 mg PO Q8HR #90 tablet 05/22/21 06/23/21 Unknown Rx NIFEdipine XL [Procardia Xl] 90 mg PO QDAY #90 tablet 06/25/21 Unknown Rx hydrALAZINE [Apresoline TAB] 50 mg PO Q8HR #90 tablet 06/25/21 Unknown Rx Dicyclomine [Bentyl] 20 mg PO Q6H PRN #30 tablet 07/12/21 Unknown Rx Famotidine [Pepcid] 20 mg PO BID #60 tablet 07/12/21 Unknown Rx Ondansetron [Zofran Odt] 4 mg PO Q6H PRN #20 tab.rapdis 07/12/21 Unknown Rx Promethazine [Phenergan] 25 mg MI Q6HR PRN #20 supp.rect 07/12/21 Unknown Rx traMADoL [Ultram] 50 mg PO Q6HR PRN #10 tablet 07/12/21 Unknown Rx HYDROcodone/APAP 5-325 [[place] 1 - 2 each PO Q6HR PRN #10 tablet 08/11/21 Unknown Rx 5/325] Promethazine [Phenergan] 25 mg PO Q6HR PRN #20 tab 08/11/21 Unknown Rx Promethazine [Phenergan] 25 mg MI Q6HR PRN #5 supp.rect 08/11/21 Unknown Rx ED Review of Systems ROS: Stated complaint: ABD PAIN, N/V Other details as noted in HPI Constitutional: denies: fever Eyes: denies: eye pain ENT: denies: throat pain Respiratory: no symptoms reported Cardiovascular: denies: chest pain Endocrine: no symptoms reported Gastrointestinal: abdominal pain, nausea, vomiting. denies: diarrhea Genitourinary: denies: dysuria Musculoskeletal: denies: back pain Neurological: denies: headache Physical Exam - Physical Exam Vital Signs: Vital Signs 08/11/21 18:34 Temperature 98 F Pulse Rate 122 H Respiratory 20 Rate Blood Pressure 219/113 [Left] O2 Sat by Pulse 98 Oximetry Physical Exam: GENERAL: The patient is well-developed well-nourished female lying on stretcher in right lateral decubitus position appearing to be in moderate discomfort. [] HEENT: Normocephalic. Atraumatic. Extraocular motions are intact. Patient has moist mucous membranes. NECK: Supple. Trachea midline CHEST/LUNGS: Clear to auscultation. There is no respiratory distress noted. HEART/CARDIOVASCULAR: Regular. There is tachycardia. There is no gallop rub or murmur. ABDOMEN: Abdomen is soft, with discomfort to palpation only in the epigastric region. The remainder of the abdomen soft and nontender to palpation. There is no rebound or guarding. Patient has normal bowel sounds. There is no abdominal distention. SKIN: There is no rash. There is no edema. There is no diaphoresis. NEURO: The patient is awake, alert, and oriented. The patient is cooperative. The patient has no focal neurologic deficits. The patient has normal speech. GCS 15 MUSCULOSKELETAL: There is no evidence of acute injury. ED Course Vital Signs 08/11/21 18:34 Temperature 98 F Pulse Rate 122 H Respiratory 20 Rate Blood Pressure 219/113 [Left] O2 Sat by Pulse 98 Oximetry - Reevaluation(s) Reevaluation #1: 08/11/21 23:40 Patient states she feels improved after meds. Patient tolerating p.o. strong warnings given ED Medical Decision Making - Lab Data Result diagrams: 08/11/21 19:48 08/11/21 19:48 Laboratory Tests 08/11/21 08/11/21 08/11/21 19:48 19:48 19:48 WBC 6.1 RBC 3.76 Hgb 10.7 Hct 33.3 MCV 89 MCH 29 MCHC 32 RDW 14.4 Plt Count 225 Lymph % (Auto) 14.4 [place] % (Auto) 3.9 Eos % (Auto) 0.1 Baso % (Auto) 0.6 Lymph # (Auto) 0.9 L [place] # (Auto) 0.2 Eos # (Auto) 0.0 Baso # (Auto) 0.0 Seg Neutrophils % 81.0 H Seg Neutrophils # 4.9 VBG pH Sodium 134 L Potassium 4.0 Chloride 93.1 L Carbon Dioxide 18 L Anion Gap 27 BUN 47 H Creatinine 3.7 H Estimated GFR 16 BUN/Creatinine Ratio 13 Glucose 364 H POC Glucose Calcium 9.5 Total Bilirubin 0.20 AST 16 ALT 9 Alkaline Phosphatase 132 H Total Protein 7.4 Albumin 4.3 Albumin/Globulin Ratio 1.4 HCG, Qual Negative 08/11/21 08/11/21 19:48 20:34 WBC RBC Hgb Hct MCV MCH MCHC RDW Plt Count Lymph % (Auto) [place] % (Auto) Eos % (Auto) Baso % (Auto) Lymph # (Auto) [place] # (Auto) Eos # (Auto) Baso # (Auto) Seg Neutrophils % Seg Neutrophils # VBG pH 7.415 Sodium Potassium Chloride Carbon Dioxide Anion Gap BUN Creatinine Estimated GFR BUN/Creatinine Ratio Glucose POC Glucose 341 H Calcium Total Bilirubin AST ALT Alkaline Phosphatase Total Protein Albumin Albumin/Globulin Ratio HCG, Qual - Differential Diagnosis Gastroparesis, dehydration, DKA, hypertensive urgency Critical care attestation.: If time is entered above; I have spent that time in minutes in the direct care of this critically ill patient, excluding procedure time. ED Disposition Clinical Impression: Gastroparesis, Nausea & vomiting, Renal insufficiency Disposition: 01 HOME / SELF CARE / HOMELESS Is pt being admited?: No Does the pt Need Aspirin: No Condition: Stable Instructions: Abdominal Pain (ED), Gastroparesis Additional Instructions: Return to the emergency department should you develop worsening symptoms, inability to tolerate food or liquids, high fever or any other concerns Prescriptions: HYDROcodone/APAP 5-325 [[place] 5/325] 1 - 2 each PO Q6HR PRN #10 tablet PRN Reason: Pain Promethazine [Phenergan] 25 mg PO Q6HR PRN #20 tab PRN Reason: Nausea Promethazine [Phenergan] 25 mg MI Q6HR PRN #5 supp.rect PRN Reason: Vomiting Referrals: PRIMARY CARE,MD [Primary Care Provider] - 3-5 Days [facility] [Other] - [facility] Time of Disposition: 23:42
[2021-08-11 20:02] LABS: Basophils % (Auto) 0.6 % (0.0-1.8); Eosinophils % (Auto) 0.1 % (0.0-4.3); Hematocrit 33.3 % (30.3-42.9); Hemoglobin 10.7 gm/dl (10.1-14.3); Lymphocytes # (Auto) 0.9 K/mm3 (1.2-5.4); Lymphocytes % (Auto) 14.4 % (13.4-35.0); Mean Corpuscular HGB Conc 32 % (30-34); Mean Corpuscular Volume 89 fl (79-97); Monocytes # (Auto) 0.2 K/mm3 (0.0-0.8); Monocytes % (Auto) 3.9 % (0.0-7.3); Platelet Count 225 K/mm3 (140-440); Red Blood Count 3.76 M/mm3 (3.65-5.03); Red Cell Distribution Width 14.4 % (13.2-15.2)
[2021-08-11 20:18] LABS: Albumin 4.3 g/dL (3.9-5); Calcium 9.5 mg/dL (8.4-10.2)
[2021-08-11] MEDS ORDERED: INSULIN REGULAR, HUMAN 100 UNITS/1 ML IV ONE (20:35)
[2021-08-12 00:05] VITALS: BP 154/92
== END 2021-08-12 00:07 | disposition home or self-care (01) ==
LOC: ED 18:34
DX: N28.9 Disorder of kidney and ureter, unspecified (principal); K31.84 Gastroparesis; R11.2 Nausea with vomiting, unspecified; F12.90 Cannabis use, unspecified, uncomplicated; I10 Essential (primary) hypertension; E11.8 Type 2 diabetes mellitus with unspecified complications
CPT/HCPCS: 36415; 80053; 82805; 82962; 84703; 85025; 96361; 96374; 96375; 96376; 99284; J2765; J3010; J3490; J7030; Q0162; Q9967; J1815

== ENCOUNTER 2021-09-12 06:08 | Inpatient (IN) | payer MEDICAID ==
[2021-09-12] MEDS ORDERED: SODIUM CHLORIDE 0.9% 1000 ML 1,000 ML IV ONE (07:28)
[2021-09-12] MEDS ORDERED: MORPHINE 4 MG/1 ML INJ IV ONE ×2 (07:28→09:31)
[2021-09-12] MEDS ORDERED: ONDANSETRON 4 MG/2 ML INJ IV ONE ×2 (07:28→09:30)
--- NOTE | 2021-09-12 07:32 | Emergency Department Report ---
HPI - General Chief Complaint: Hyperglycemia Time Seen by Provider: 09/12/21 07:22 - HPI HPI: Since yesterday the patient has been experiencing diffuse sharp constant nonradiating severe abdominal pain associated with several episodes of clear emesis. The patient denies diarrhea constipation fever chills chest pain or shortness of breath. Fluids make it worse nothing makes it better. This feels like one of her usual episodes of diabetic gastroparesis. ED Past Medical Hx - Past Medical History Hx Hypertension: Yes Hx Diabetes: Yes Hx Renal Disease: Yes (Chronic renal insufficiency) Additional medical history: gastroparesis - Surgical History Past Surgical History?: No - Social History Smoking Status: Never Smoker Substance Use Type: Marijuana - Medications Home Medications: Home Medications Medication Instructions Recorded Confirmed Last Taken Type HumaLOG 8 units SUB-Q ACHS 04/09/21 06/23/21 2 Days Ago History ~05/17/21 8 units Insulin Glargine [Lantus VIAL] 22 units SUB-Q HS 04/09/21 06/23/21 2 Days Ago History ~05/17/21 AtorvaSTATin [Lipitor] 40 mg PO QHS #30 tablet 05/22/21 06/23/21 Unknown Rx NIFEdipine XL [Procardia Xl] 90 mg PO QDAY #30 tablet 05/22/21 06/23/21 Unknown Rx carvediloL [Coreg] 12.5 mg PO BID #60 tablet 05/22/21 06/23/21 Unknown Rx hydrALAZINE [Apresoline TAB] 50 mg PO Q8HR #90 tablet 05/22/21 06/23/21 Unknown Rx NIFEdipine XL [Procardia Xl] 90 mg PO QDAY #90 tablet 06/25/21 Unknown Rx hydrALAZINE [Apresoline TAB] 50 mg PO Q8HR #90 tablet 06/25/21 Unknown Rx Dicyclomine [Bentyl] 20 mg PO Q6H PRN #30 tablet 07/12/21 Unknown Rx Famotidine [Pepcid] 20 mg PO BID #60 tablet 07/12/21 Unknown Rx Ondansetron [Zofran Odt] 4 mg PO Q6H PRN #20 tab.rapdis 07/12/21 Unknown Rx Promethazine [Phenergan] [address] Q6HR PRN #20 supp.rect 07/12/21 Unknown Rx traMADoL [Ultram] 50 mg PO Q6HR PRN #10 tablet 07/12/21 Unknown Rx HYDROcodone/APAP 5-325 [[place] 1 - 2 each PO Q6HR PRN #10 tablet 08/11/21 Unknown Rx 5/325] Promethazine [Phenergan] 25 mg PO Q6HR PRN #20 tab 08/11/21 Unknown Rx Promethazine [Phenergan] [address] Q6HR PRN #5 supp.rect 08/11/21 Unknown Rx ED Review of Systems ROS: Stated complaint: DIABETIC VOMITING Other details as noted in HPI Comment: All other systems reviewed and negative Physical Exam - Physical Exam Vital Signs: Vital Signs 09/12/21 06:54 Temperature 97.9 F Pulse Rate 110 H Respiratory 18 Rate Blood Pressure 216/125 [Right] O2 Sat by Pulse 100 Oximetry Physical Exam: Physical Exam Constitutional: General: In severe distress Appearance: No diaphoresis. HENT: Head: Normocephalic. Eyes: Pupils: Pupils are equal, round, and reactive to light. Neck: Musculoskeletal: Normal range of motion. Cardiovascular: Rate and Rhythm: Normal rate and regular rhythm. Pulses: Intact distal pulses. Heart sounds: Normal heart sounds. No murmur. Pulmonary: Effort: No respiratory distress. Breath sounds: No wheezing or rales. Chest: Chest wall: No tenderness. Abdominal: General: There is no distension. Palpations: There is no mass. Tenderness: There is no abdominal tenderness. There is no guarding or rebound. Musculoskeletal: Normal range of motion. Skin: General: Skin is warm and dry. Neurological: Mental Status: Alert and oriented to person, place, and time. Psychiatric: Mood and Affect: Mood and affect normal. Cognition and Memory: Memory normal. Judgment: Judgment normal. ED Course Vital Signs 09/12/21 06:54 Temperature 97.9 F Pulse Rate 110 H Respiratory 18 Rate Blood Pressure 216/125 [Right] O2 Sat by Pulse 100 Oximetry - Reevaluation(s) Reevaluation #1: 09/12/21 10:46 The patient received 2 doses of antiemetics and pain medication and did not get any better. She was still having nausea and vomiting and so we will admit her to the hospital for treatment of her diabetic gastroparesis. Her laboratories showed a mildly decreased bicarb with an anion gap of 21. I not think the patient is in DKA but we are getting an ABG to make sure. Her glucose is 261. ED Medical Decision Making - Lab Data Result diagrams: 09/12/21 07:54 09/12/21 07:54 Critical care attestation.: If time is entered above; I have spent that time in minutes in the direct care of this critically ill patient, excluding procedure time. ED Disposition Clinical Impression: Diabetic gastroparesis, Intractable vomiting Disposition: 02 SHORT TERM HOSPITAL Is pt being admited?: Yes Does the pt Need Aspirin: No Condition: Stable Instructions: Diabetes Mellitus Type 2 in Adults (ED)
[2021-09-12 08:30] LABS: Basophils % (Auto) 0.6 % (0.0-1.8); Eosinophils % (Auto) 0.3 % (0.0-4.3); Hematocrit 32.3 % (30.3-42.9); Hemoglobin 10.6 gm/dl (10.1-14.3); Lymphocytes # (Auto) 0.7 K/mm3 (1.2-5.4); Lymphocytes % (Auto) 10.8 % (13.4-35.0); Mean Corpuscular HGB Conc 33 % (30-34); Mean Corpuscular Volume 88 fl (79-97); Monocytes # (Auto) 0.2 K/mm3 (0.0-0.8); Monocytes % (Auto) 2.5 % (0.0-7.3); Platelet Count 248 K/mm3 (140-440); Red Blood Count 3.68 M/mm3 (3.65-5.03); Red Cell Distribution Width 14.2 % (13.2-15.2)
[2021-09-12 08:49] LABS: Albumin 3.7 g/dL (3.9-5); Calcium 9.8 mg/dL (8.4-10.2)
[2021-09-12] MEDS ORDERED: hydrALAZINE 20 MG/1 ML INJ IV ONE ×2 (09:15→13:01)
[2021-09-12] MEDS ORDERED: NIFEdipine XL 60 MG TAB PO ONE (09:18)
[2021-09-12] MEDS ORDERED: ENOXAPARIN 30 MG/0.3 ML INJ SUB-Q SCH (11:00)
[2021-09-12] MEDS: ONDANSETRON 4 MG/2 ML INJ IV PRN (12:18)
[2021-09-12] MEDS: MORPHINE 2 MG/1 ML INJ IV PRN ×2 (12:18→21:35)
--- NOTE | 2021-09-12 14:02 | History and Physical Report ---
History of Present Illness Date of examination: 09/12/21 Date of admission: 09/12/21 10:44 Chief complaint: Nausea and vomiting for 3 days History of present illness: 46-year-old male with a history of hypertension, insulin-dependent diabetes and chronic kidney disease and gastroparesis comes in for nausea and vomiting for the last 3 days. Patient has been vomiting about 3-4 times a day. Also epigastric pain. Pain is about 5 on a scale of 1-10. Patient states he is compliant with her insulin regimen. No fever or chills. Food is an exacerbating factor. Clear liquids are a relieving factor. Patient had multiple episodes of gastroparesis over the last 6 months-- old chart reviewed - Past Medical History --Hypertension: Yes --Diabetes: Yes --Renal Disease: Yes (Chronic renal insufficiency) --Gastroparesis - Surgical History --No - Social History --Smoking Status: Never Smoker --Substance Use Type: Marijuana -Family history --Htn Review of Systems ROS: Constitutional persistent nausea and vomiting. HEENT no sore throat no post nasal drip no diplopia Neck no neck stiffness no lymph gland enlargement Chest and lungs no shortness of breath cough or wheezing CVS no chest pain no diaphoresis no palpitations GI persistent nausea and vomiting. Genitourinary system no dysuria no flank pain Musculoskeletal system no muscle pains no joint pains SKIN DIVER no syncope no seizures Skin no rash no itching Psychiatric no depression no homicidal or suicidal tendencies Hematologic no lymphedema or bruising Endocrine no polydipsia no polyuria no cold intolerance no heat intolerance Medications and Allergies Allergies Allergy/AdvReac Type Severity Reaction Status Date / Time No Known Allergies Allergy Verified 09/12/21 09:21 Home Medications Medication Instructions Recorded Confirmed Last Taken Type HumaLOG 8 units SUB-Q ACHS 04/09/21 06/23/21 2 Days Ago History ~05/17/21 8 units Insulin Glargine [Lantus VIAL] 22 units SUB-Q HS 04/09/21 06/23/21 2 Days Ago History ~05/17/21 AtorvaSTATin [Lipitor] 40 mg PO QHS #30 tablet 05/22/21 06/23/21 Unknown Rx NIFEdipine XL [Procardia Xl] 90 mg PO QDAY #30 tablet 05/22/21 06/23/21 Unknown Rx carvediloL [Coreg] 12.5 mg PO BID #60 tablet 05/22/21 06/23/21 Unknown Rx hydrALAZINE [Apresoline TAB] 50 mg PO Q8HR #90 tablet 05/22/21 06/23/21 Unknown Rx NIFEdipine XL [Procardia Xl] 90 mg PO QDAY #90 tablet 06/25/21 Unknown Rx hydrALAZINE [Apresoline TAB] 50 mg PO Q8HR #90 tablet 06/25/21 Unknown Rx Dicyclomine [Bentyl] 20 mg PO Q6H PRN #30 tablet 07/12/21 Unknown Rx Famotidine [Pepcid] 20 mg PO BID #60 tablet 07/12/21 Unknown Rx Ondansetron [Zofran Odt] 4 mg PO Q6H PRN #20 tab.rapdis 07/12/21 Unknown Rx Promethazine [Phenergan] 25 mg ME Q6HR PRN #20 supp.rect 07/12/21 Unknown Rx traMADoL [Ultram] 50 mg PO Q6HR PRN #10 tablet 07/12/21 Unknown Rx HYDROcodone/APAP 5-325 [[place] 1 - 2 each PO Q6HR PRN #10 tablet 08/11/21 Unknown Rx 5/325] Promethazine [Phenergan] 25 mg PO Q6HR PRN #20 tab 08/11/21 Unknown Rx Promethazine [Phenergan] 25 mg ME Q6HR PRN #5 supp.rect 08/11/21 Unknown Rx Active Meds: Active Medications Acetaminophen (Acetaminophen 325 Mg Tab) 650 mg PO Q4H PRN PRN Reason: Pain MILD(1-3)/Fever >100.5/CASANOVA Morphine Sulfate (Morphine 2 Mg/1 Ml Inj) 2 mg IV Q4H PRN PRN Reason: Pain, Moderate (4-6) Last Admin: 09/12/21 12:18 Dose: 2 mg Ondansetron HCl (Ondansetron 4 Mg/2 Ml Inj) 4 mg IV Q8H PRN PRN Reason: Nausea And Vomiting Last Admin: 09/12/21 12:18 Dose: 4 mg Sodium Chloride (Sodium Chloride 0.9% 10 Ml Flush Syringe) 10 ml IV BID ROSALVA Last Admin: 09/12/21 12:22 Dose: 10 ml Sodium Chloride (Sodium Chloride 0.9% 10 Ml Flush Syringe) 10 ml IV PRN PRN PRN Reason: LINE FLUSH Exam - Constitutional Vitals: Temp Pulse Resp BP Pulse Ox 97.7 F 118 H 20 237/123 98 09/12/21 12:00 09/12/21 13:19 09/12/21 13:03 09/12/21 13:19 09/12/21 13:03 General appearance: Present: mild distress, well-nourished - EENT Eyes: Present: PERRL ENT: hearing intact, clear oral mucosa - Neck Neck: Present: supple, normal ROM - Respiratory Respiratory effort: normal Respiratory: bilateral: CTA - Cardiovascular Heart rate: 78 Rhythm: regular Heart Sounds: Present: S1 & S2. Absent: rub, click - Extremities Extremities: pulses symmetrical, No edema Peripheral Pulses: within normal limits - Abdominal General gastrointestinal: Present: soft, non-tender, non-distended, normal bowel sounds Localized gastrointestinal: tender: diffuse, guarding: diffuse Female genitourinary: Present: normal - Integumentary Integumentary: Present: clear, warm, dry - Musculoskeletal Musculoskeletal: gait normal, strength equal bilaterally - Psychiatric Psychiatric: appropriate mood/affect, intact judgment & insight - Neurologic Neurologic: CNII-XII intact, moves all extremities - Allied Health Allied health notes reviewed: nursing, case management Results - Labs CBC & Chem 7: 09/12/21 07:54 09/12/21 07:54 Labs: Laboratory Last Values WBC 6.4 K/mm3 (4.5-11.0) 09/12/21 07:54 RBC 3.68 M/mm3 (3.65-5.03) 09/12/21 07:54 Hgb 10.6 gm/dl (10.1-14.3) 09/12/21 07:54 Hct 32.3 % (30.3-42.9) 09/12/21 07:54 MCV 88 fl (79-97) 09/12/21 07:54 MCH 29 pg (28-32) 09/12/21 07:54 MCHC 33 % (30-34) 09/12/21 07:54 RDW 14.2 % (13.2-15.2) 09/12/21 07:54 Plt Count 248 K/mm3 (140-440) 09/12/21 07:54 Lymph % (Auto) 10.8 % (13.4-35.0) L 09/12/21 07:54 [place] % (Auto) 2.5 % (0.0-7.3) 09/12/21 07:54 Eos % (Auto) 0.3 % (0.0-4.3) 09/12/21 07:54 Baso % (Auto) 0.6 % (0.0-1.8) 09/12/21 07:54 Lymph # (Auto) 0.7 K/mm3 (1.2-5.4) L 09/12/21 07:54 [place] # (Auto) 0.2 K/mm3 (0.0-0.8) 09/12/21 07:54 Eos # (Auto) 0.0 K/mm3 (0.0-0.4) 09/12/21 07:54 Baso # (Auto) 0.0 K/mm3 (0.0-0.1) 09/12/21 07:54 Seg Neutrophils % 85.8 % (40.0-70.0) H 09/12/21 07:54 Seg Neutrophils # 5.5 K/mm3 (1.8-7.7) 09/12/21 07:54 Sodium 137 mmol/L (137-145) 09/12/21 07:54 Potassium 4.5 mmol/L (3.6-5.0) 09/12/21 07:54 Chloride 100.8 mmol/L (98-107) 09/12/21 07:54 Carbon Dioxide 20 mmol/L (22-30) L 09/12/21 07:54 Anion Gap 21 mmol/L 09/12/21 07:54 BUN 44 mg/dL (7-17) H 09/12/21 07:54 Creatinine 3.7 mg/dL (0.6-1.2) H 09/12/21 07:54 Estimated GFR 16 ml/min 09/12/21 07:54 BUN/Creatinine Ratio 12 % 09/12/21 07:54 Glucose 328 mg/dL (65-100) H 09/12/21 07:54 POC Glucose 261 mg/dL (70-105) H 09/12/21 06:58 Calcium 9.8 mg/dL (8.4-10.2) 09/12/21 07:54 Total Bilirubin 0.20 mg/dL (0.1-1.2) 09/12/21 07:54 AST 14 units/L (5-40) 09/12/21 07:54 ALT 9 units/L (7-56) 09/12/21 07:54 Alkaline Phosphatase 120 units/L (35-129) 09/12/21 07:54 Total Protein 7.3 g/dL (6.3-8.2) 09/12/21 07:54 Albumin 3.7 g/dL (3.9-5) L 09/12/21 07:54 Albumin/Globulin Ratio 1.0 % 09/12/21 07:54 Lipase 30 units/L (13-60) 09/12/21 07:54 HCG, Qual Negative (Negative) 09/12/21 07:54 Short CBC 09/12/21 Range/Units 07:54 WBC 6.4 (4.5-11.0) K/mm3 Hgb 10.6 (10.1-14.3) gm/dl Hct 32.3 (30.3-42.9) % Plt Count 248 (140-440) K/mm3 BMP 09/12/21 07:54 Sodium 137 Potassium 4.5 Chloride 100.8 Carbon Dioxide 20 L BUN 44 H Creatinine 3.7 H Glucose 328 H Calcium 9.8 Liver Function 09/12/21 Range/Units 07:54 Total Bilirubin 0.20 (0.1-1.2) mg/dL AST 14 (5-40) units/L ALT 9 (7-56) units/L Alkaline Phosphatase 120 (35-129) units/L Albumin 3.7 L (3.9-5) g/dL Gomez/IV: Voiding Method Toilet Assessment and Plan Advance Directives: Yes (Full code) VTE prophylaxis?: Chemical Plan of care discussed with patient/family: Yes - Patient Problems (1) Intractable vomiting Current Visit: Yes Status: Acute Plan to address problem: IV fluids, IV Reglan and IV Zofran Gastric emptying study if necessary (2) Diabetic gastroparesis Current Visit: Yes Status: Acute Plan to address problem: Clinical picture consistent with gastroparesis Patient had multiple episodes in the last 6 months. Was seen in the ER at least 5 times since 05/19/2021 Patient counseled to eat small portions more often to avoid gastroparesis (3) IDDM (insulin dependent diabetes mellitus) Current Visit: Yes Status: Chronic Plan to address problem: Continue long-acting insulin and high-dose sliding scale coverage Check hemoglobin A1c (4) Hypertension Current Visit: Yes Status: Chronic Qualifiers: Hypertension type: primary hypertension Qualified Code(s): I10 - Essential (primary) hypertension Plan to address problem: Continue antihypertensives and adjust medications (5) CKD (chronic kidney disease) Current Visit: Yes Status: Chronic Qualifiers: Chronic kidney disease stage: stage 4 (severe) Qualified Code(s): N18.4 - Chronic kidney disease, stage 4 (severe) Plan to address problem: Nephrology consulted (6) Malnutrition Current Visit: Yes Status: Acute Qualifiers: Protein-calorie malnutrition severity: mild Plan to address problem: Albumin is 3.7 Dietary supplements initiated (7) DVT prophylaxis Current Visit: Yes Status: Acute Plan to address problem: On anticoagulation GI prophylaxis (8) Advance care planning Current Visit: Yes Status: Acute Plan to address problem: Disease education conducted, care plan discussed, diagnosis discussed, prognosis discussed. Patient is full code. Patient acknowledged understanding and agreement with care plan. +30 minutes.
[2021-09-12] MEDS ORDERED: PROMETHAZINE 25 MG RECT SUPP PR PRN (14:06)
[2021-09-12] MEDS ORDERED: ACETAMINOPHEN 325 MG TAB PO PRN (14:09)
[2021-09-12] MEDS: carvediloL 12.5 MG TAB PO SCH ×2 (15:16→21:44)
[2021-09-12] MEDS: NIFEdipine XL 90 MG TAB PO SCH (15:16)
[2021-09-12] MEDS: DICYCLOMINE 20 MG TAB PO PRN (15:18)
[2021-09-12] MEDS: FAMOTIDINE 20 MG/2 ML INJ IV SCH ×2 (15:18→21:46)
[2021-09-12] MEDS: SODIUM CHLORIDE 0.9% 1000 ML 1,000 ML IV SCH (15:19)
[2021-09-12] MEDS: hydrALAZINE 25 MG TAB PO SCH ×2 (15:41→21:45)
[2021-09-12] MEDS: HYDROmorphone 1 MG/1 ML INJ IV PRN (15:42)
[2021-09-12] MEDS: HEPARIN 5,000 UNIT/1 ML VIAL SUB-Q SCH ×2 (15:42→21:46)
[2021-09-12] MEDS: INSULIN LISPRO 100 UNIT/ML SUB-Q SCH ×2 (16:01→18:22)
[2021-09-12 18:44] LABS: ABG Base Excess -4.7 mmol/L (-2.0-3.0); ABG HCO3 19.8 mmol/L (20.0-26.0); ABG Methemoglobin 0.4 % (0.0-1.5); ABG Oxygen Saturation 97.3 % (95.0-99.0); ABG PCO2 34.4 mm Hg; ABG PH 7.379 pH Units (7.350-7.450); ABG PO2 97.5 mm Hg (80.0-90.0)
[2021-09-12] MEDS: INSULIN GLARGINE 100 UNITS/ML SUB-Q SCH (21:36)
[2021-09-13] MEDS: INSULIN LISPRO 100 UNIT/ML SUB-Q SCH ×2 (00:50→12:02)
[2021-09-13] MEDS: SODIUM CHLORIDE 0.9% 1000 ML 1,000 ML IV SCH ×2 (04:51→21:54)
[2021-09-13] MEDS: HYDROmorphone 1 MG/1 ML INJ IV PRN ×5 (05:02→21:54)
[2021-09-13] MEDS: ONDANSETRON 4 MG/2 ML INJ IV PRN ×3 (06:31→21:54)
[2021-09-13 06:32] LABS: Basophils % (Auto) 0.4 % (0.0-1.8); Eosinophils % (Auto) 0.1 % (0.0-4.3); Hematocrit 29.4 % (30.3-42.9); Lymphocytes # (Auto) 1.4 K/mm3 (1.2-5.4); Lymphocytes % (Auto) 15.3 % (13.4-35.0); Mean Corpuscular HGB Conc 34 % (30-34); Mean Corpuscular Volume 87 fl (79-97); Monocytes # (Auto) 0.6 K/mm3 (0.0-0.8); Monocytes % (Auto) 6.3 % (0.0-7.3); Platelet Count 265 K/mm3 (140-440); Red Blood Count 3.38 M/mm3 (3.65-5.03); Red Cell Distribution Width 14.4 % (13.2-15.2)
[2021-09-13 06:38] LABS: Alanine Aminotransferase 9 units/L (7-56); Albumin 3.5 g/dL (3.9-5); Blood Urea Nitrogen 47 mg/dL (7-17); Calcium 9.5 mg/dL (8.4-10.2); Hemolysis Index 1
[2021-09-13 06:40] LABS: BUN/Creatinine Ratio 11
[2021-09-13] MEDS: hydrALAZINE 25 MG TAB PO SCH ×3 (06:40→21:39)
[2021-09-13] MEDS: HEPARIN 5,000 UNIT/1 ML VIAL SUB-Q SCH ×2 (10:03→21:39)
[2021-09-13] MEDS: FAMOTIDINE 20 MG/2 ML INJ IV SCH ×2 (10:03→21:39)
[2021-09-13] MEDS: carvediloL 12.5 MG TAB PO SCH ×2 (10:04→21:39)
[2021-09-13] MEDS: NIFEdipine XL 90 MG TAB PO SCH (10:04)
--- NOTE | 2021-09-13 21:13 | Progress Note ---
Assessment and Plan Assessment and plan: --Intractable vomiting Current Visit: Yes Status: Acute IV fluids, IV Reglan and IV Zofran Gastric emptying study if necessary -- Diabetic gastroparesis Current Visit: Yes Status: Acute Clinical picture consistent with gastroparesis Patient had multiple episodes in the last 6 months. Was seen in the ER at least 5 times since 05/19/2021 Patient counseled to eat small portions more often to avoid gastroparesis -- IDDM (insulin dependent diabetes mellitus) Current Visit: Yes Status: Chronic Continue long-acting insulin and high-dose sliding scale coverage Check hemoglobin A1c --Hypertension Current Visit: Yes Status: Chronic Continue antihypertensives and adjust medications -- CKD (chronic kidney disease) Current Visit: Yes Status: Chronic Nephrology consulted -- Malnutrition Current Visit: Yes Status: Acute Albumin is 3.7 Dietary supplements initiated -- DVT prophylaxis Current Visit: Yes Status: Acute Plan to address problem: On anticoagulation GI prophylaxis -- Advance care planning Current Visit: Yes Status: Acute Plan to address problem: Disease education conducted, care plan discussed, diagnosis discussed, prognosis discussed. Patient is full code. Patient acknowledged understanding and agreement with care plan. +30 minutes. History Interval history: I have seen and examined the patient at the bedside Patient's chart and medications reviewed Patient complains of generalized weakness Hospitalist Physical - Constitutional Vitals: Temp Pulse Resp BP Pulse Ox 98.0 F 102 H 20 156/84 99 09/12/21 21:13 09/13/21 06:40 09/13/21 16:52 09/13/21 06:40 09/13/21 20:35 General appearance: Present: no acute distress, well-nourished - EENT Eyes: Present: PERRL, EOM intact - Neck Neck: Present: supple, normal ROM - Respiratory Respiratory effort: normal Respiratory: bilateral: diminished, negative: rales, rhonchi, wheezing - Cardiovascular Rhythm: regular Heart Sounds: Present: S1 & S2 - Extremities Extremities: no ischemia, No edema - Abdominal General gastrointestinal: soft, non-tender, non-distended, normal bowel sounds - Integumentary Integumentary: Present: clear, warm - Psychiatric Psychiatric: appropriate mood/affect - Neurologic Neurologic: moves all extremities Results - Labs CBC & Chem 7: 09/13/21 05:50 09/13/21 05:50 Labs: Laboratory Last Values WBC 9.0 K/mm3 (4.5-11.0) 09/13/21 05:50 RBC 3.38 M/mm3 (3.65-5.03) L 09/13/21 05:50 Hgb 10.0 gm/dl (10.1-14.3) L 09/13/21 05:50 Hct 29.4 % (30.3-42.9) L 09/13/21 05:50 MCV 87 fl (79-97) 09/13/21 05:50 MCH 30 pg (28-32) 09/13/21 05:50 MCHC 34 % (30-34) 09/13/21 05:50 RDW 14.4 % (13.2-15.2) 09/13/21 05:50 Plt Count 265 K/mm3 (140-440) 09/13/21 05:50 Lymph % (Auto) 15.3 % (13.4-35.0) 09/13/21 05:50 [place] % (Auto) 6.3 % (0.0-7.3) 09/13/21 05:50 Eos % (Auto) 0.1 % (0.0-4.3) 09/13/21 05:50 Baso % (Auto) 0.4 % (0.0-1.8) 09/13/21 05:50 Lymph # (Auto) 1.4 K/mm3 (1.2-5.4) 09/13/21 05:50 [place] # (Auto) 0.6 K/mm3 (0.0-0.8) 09/13/21 05:50 Eos # (Auto) 0.0 K/mm3 (0.0-0.4) 09/13/21 05:50 Baso # (Auto) 0.0 K/mm3 (0.0-0.1) 09/13/21 05:50 Seg Neutrophils % 77.9 % (40.0-70.0) H 09/13/21 05:50 Seg Neutrophils # 7.0 K/mm3 (1.8-7.7) 09/13/21 05:50 ABG pH 7.379 pH Units (7.350-7.450) 09/12/21 18:30 ABG pCO2 34.4 mm Hg 09/12/21 18:30 ABG pO2 97.5 mm Hg (80.0-90.0) H 09/12/21 18:30 ABG HCO3 19.8 mmol/L (20.0-26.0) L 09/12/21 18:30 ABG O2 Saturation 97.3 % (95.0-99.0) 09/12/21 18:30 ABG O2 Content 13.5 (0.0-44) 09/12/21 18:30 ABG Base Excess -4.7 mmol/L (-2.0-3.0) L 09/12/21 18:30 ABG Hemoglobin 9.9 gm/dl (12.0-16.0) L 09/12/21 18:30 ABG Carboxyhemoglobin 0.9 % (0.0-5.0) 09/12/21 18:30 ABG Methemoglobin 0.4 % (0.0-1.5) 09/12/21 18:30 Oxyhemoglobin 96.0 % (95.0-99.0) 09/12/21 18:30 FiO2 21 % 09/12/21 18:30 Sodium 139 mmol/L (137-145) 09/13/21 05:50 Potassium 4.3 mmol/L (3.6-5.0) 09/13/21 05:50 Chloride 104.8 mmol/L (98-107) 09/13/21 05:50 Carbon Dioxide 21 mmol/L (22-30) L 09/13/21 05:50 Anion Gap 18 mmol/L 09/13/21 05:50 BUN 47 mg/dL (7-17) H 09/13/21 05:50 Creatinine 4.1 mg/dL (0.6-1.2) H 09/13/21 05:50 Estimated GFR 14 ml/min 09/13/21 05:50 BUN/Creatinine Ratio 11 % 09/13/21 05:50 Glucose 195 mg/dL (65-100) H 09/13/21 05:50 POC Glucose 166 mg/dL (70-105) H 09/13/21 16:31 Calcium 9.5 mg/dL (8.4-10.2) 09/13/21 05:50 Total Bilirubin < 0.20 mg/dL (0.1-1.2) 09/13/21 05:50 AST 15 units/L (5-40) 09/13/21 05:50 ALT 9 units/L (7-56) 09/13/21 05:50 Alkaline Phosphatase 111 units/L (35-129) 09/13/21 05:50 Total Protein 6.8 g/dL (6.3-8.2) 09/13/21 05:50 Albumin 3.5 g/dL (3.9-5) L 09/13/21 05:50 Albumin/Globulin Ratio 1.1 % 09/13/21 05:50 Lipase 30 units/L (13-60) 09/12/21 07:54 HCG, Qual Negative (Negative) 09/12/21 07:54 Gomez/IV: Voiding Method Toilet Active Medications - Current Medications Current Medications: Generic Name Dose Route Start Last Admin Trade Name Freq PRN Reason Stop Dose Admin Acetaminophen 650 mg 09/12/21 10:44 Acetaminophen 325 Mg Tab PO Q4H PRN Pain MILD(1-3)/Fever >100.5/CASANOVA Atorvastatin Calcium 40 mg 09/12/21 22:00 09/12/21 21:44 Atorvastatin 40 Mg Tab PO 40 mg QHS ROSALVA Administration Carvedilol 12.5 mg 09/12/21 15:00 09/13/21 10:04 Carvedilol 12.5 Mg Tab PO 12.5 mg BID ROSALVA Administration Dicyclomine HCl 20 mg 09/12/21 14:06 09/12/21 15:18 Dicyclomine 20 Mg Tab PO 20 mg Q6H PRN Administration Abdominal pain Famotidine 10 mg 09/13/21 10:00 09/13/21 10:03 Famotidine 20 Mg/2 Ml Inj IV 10 mg BID ROSALVA Administration Heparin Sodium (Porcine) 5,000 unit 09/12/21 14:15 09/13/21 10:03 Heparin 5,000 Unit/1 Ml Vial SUB-Q 5,000 unit Q12HR ROSALVA Administration Hydralazine HCl 50 mg 09/12/21 15:00 09/13/21 13:34 Hydralazine 25 Mg Tab PO 50 mg Q8HR ROSALVA Administration Hydralazine HCl 10 mg 09/12/21 14:22 Hydralazine 20 Mg/1 Ml Inj IV Q3H PRN Blood Pressure Hydromorphone HCl 1 mg 09/12/21 14:09 09/13/21 16:52 Hydromorphone 1 Mg/1 Ml Inj IV 1 mg Q3H PRN Administration Pain , Severe (7-10) Sodium Chloride 1,000 mls @ 100 mls/hr 09/12/21 14:15 09/13/21 04:51 Nacl 0.9% 1000 Ml IV 100 mls/hr DIRECT ROSALVA Administration Insulin Glargine 22 units 09/12/21 22:00 09/12/21 21:36 Insulin Glargine 100 Units/Ml SUB-Q 22 units HS ROSALVA Administration Insulin Human Lispro 0 unit 09/12/21 15:00 09/13/21 12:02 Insulin Lispro 100 Unit/Ml SUB-Q Not Given Q6HR [facility] Protocol Morphine Sulfate 2 mg 09/12/21 14:09 Morphine 2 Mg/1 Ml Inj IV Q4H PRN Pain, Moderate (4-6) Nifedipine 90 mg 09/12/21 15:00 09/13/21 10:04 Nifedipine Xl 90 Mg Tab PO 90 mg QDAY ROSALVA Administration Ondansetron HCl 4 mg 09/12/21 14:09 09/13/21 13:49 Ondansetron 4 Mg/2 Ml Inj IV 4 mg Q8H PRN Administration Nausea And Vomiting Promethazine HCl 25 mg 09/12/21 14:06 Promethazine 25 Mg Rect Supp RI Q6HR PRN Nausea And Vomiting Sodium Chloride 10 ml 09/12/21 22:00 09/13/21 10:04 Sodium Chloride 0.9% 10 Ml Flush Syringe IV 10 ml BID ROSALVA Administration Sodium Chloride 10 ml 09/12/21 14:09 Sodium Chloride 0.9% 10 Ml Flush Syringe IV PRN PRN LINE FLUSH Nutrition/Malnutrition Assess - Dietary Evaluation Nutrition/Malnutrition Findings: Nutrition Notes Start: 09/13/21 10:57 Freq: Status: Active Protocol: Document 09/13/21 10:57 MELISSA (Rec: 09/13/21 11:30 MELISSA [id number]) Nutrition Notes Need for Assessment generated from: MD Order,Education,Low BMI Initial or Follow up Assessment Current Diagnosis CKD(stage I-IV),Diabetes, Hypertension,Malnutrition Other Pertinent Diagnosis N/V/Abdominal Pain, Gastroparesis. Current Diet D Suppl (since B 09/13). Labs/Tests 09/13: CO2 21, BUN 47, Crea 4. 1, Glu 195. Pertinent Medications 09/13: Lantus 22 U, Humalog 4 U, others nutritionally unremarkable. Height 5 ft 5 in Weight 49.89 kg [place] Body Weight (kg) 56.81 BMI 18.3 Intake Prior to Admission Good Weight change and time frame Pt states not having, unintentionally, loss body weight recently. Weight Status Underweight Subjective/Other Information RD consult for Dietary Supplementation and Low BMI assessments, and nutrition education. No reports available on Pt's PO intake of meals at the time , will assess at F/U. Pt states thet Clear Liquids at home was a relieving factor , according to History & Physical notes. Pt on Room Air, O2 saturation @ 98% according to Physical Assessment History notes. I strongly recommend starting with Clear Liquids Diet, instead of Dietary Supplements . I will change Dietary Supplements to Nepro w/ CARBSTEADY to better support Pt's CKD and Diabetes conditions. Pt still in critical condition , not a candidate for Nutrition Education at the time, will assess feasibility on F/U. Pt's Low BMI seems to correspond to a natural body composition, and not related to a sudden loss of body weight nor chronic malnutrition, since none were mentioned in the Physical Assessment History or the Progress notes. Percent of energy/protein needs met: Prescribed Clear Liquids Diet provides for energy/protein needs (590 Kcal/16 g) during LOS; additionally, Dietary Supplements will compensate for possible poor or insufficient PO intake of meals with 850 Kcal and 38 g of protein. Burn Absent Trauma Absent GI Symptoms Nausea,Vomiting Food Allergy No Skin Integrity/Comment Assessment WNL. Minimum of two criteria No #1 Nutrition Diagnosis Inadequate protein-energy intake,Underweight Etiology Untractable Nausea, Vomiting, and Gastroparesis. As Evidenced by Signs and Symptoms Neglible PO intake of meals for, at least, 3 days. Pt's BMI <18.5 Kg/m2 Is patient on ventilator? No Is Patient Ambulatory and/or Out of Bed Yes [facility] [ 1488.214 [id number]] Calculation Used for Recommendations [facility] Additional Notes Protein: 0.6-0.8 g/Kg IBW; 34- 46 g/day. Fluids: 1 ml/Kcal, or as per MD. Nutrition Intervention Change Diet Order: When pertinent start Clear Liquids Diet, and advance towards Renal Diet as tolerated. Add Supplement/Snack (indicate name/kcal 8 fl oz Nepro w/CARBSTEADY; /protein ) BID. Provides kCal: 850 Provides Protein (gm) 38 Goal #1 Facilitate PO intake of meals with elemental, textural, or mechanical modification during LOS. Goal #2 Compensate, through dietary supplementation, for possible poor or insufficient PO intake of meals during LOS. Goal #3 Maintain body weight within +/ -3% of admission body weight during LOS. Follow-Up By: 09/15/21 Additional Comments Nutrition education will be provided on F/U, if feasible. When pertinent, start monitoring food tolerance, %PO intake of meals, and BM.
[2021-09-13] MEDS: INSULIN GLARGINE 100 UNITS/ML SUB-Q SCH (21:39)
[2021-09-14] MEDS: INSULIN LISPRO 100 UNIT/ML SUB-Q SCH ×4 (00:13→17:01)
[2021-09-14] MEDS: hydrALAZINE 25 MG TAB PO SCH ×3 (05:35→21:52)
[2021-09-14] MEDS: ONDANSETRON 4 MG/2 ML INJ IV PRN ×4 (05:40→22:21)
[2021-09-14] MEDS: HYDROmorphone 1 MG/1 ML INJ IV PRN ×4 (05:41→22:21)
[2021-09-14 09:11] LABS: Calcium 8.8 mg/dL (8.4-10.2)
--- NOTE | 2021-09-14 09:24 | Consultation ---
History of Present Illness - Reason for Consult Consult date: 09/14/21 chronic renal failure - History of Present Illness Mrs. Pedersen is a 46yo with stage IV chronic kidney disease, DM and hx of diabetic gastroparesis who presented to the ED with nausea, vomiting and abdominal pain. She reports onset of symptoms appx 2 weeks ago. Symptoms progressively worsened. She reports poor po intake. She denies metallic taste. Past History Past Medical History: other (hypertension, DM, diabetic gastroparesis, stage IV CKD) Past Surgical History: No surgical history Social history: no significant social history Medications and Allergies Allergies Allergy/AdvReac Type Severity Reaction Status Date / Time No Known Allergies Allergy Verified 09/15/21 07:17 Home Medications Medication Instructions Recorded Confirmed Last Taken Type Insulin Glargine [Lantus VIAL] 20 units SUB-Q HS 04/09/21 09/14/21 2 Days Ago History ~05/17/21 AtorvaSTATin [Lipitor] 40 mg PO QHS #30 tablet 05/22/21 09/14/21 Unknown Rx NIFEdipine XL [Procardia Xl] 90 mg PO QDAY #30 tablet 05/22/21 09/14/21 Unknown Rx carvediloL [Coreg] 12.5 mg PO BID #60 tablet 05/22/21 09/14/21 Unknown Rx hydrALAZINE [Apresoline TAB] 50 mg PO Q8HR #90 tablet 05/22/21 09/14/21 Unknown Rx Dicyclomine [Bentyl] 20 mg PO Q6H PRN #30 tablet 07/12/21 09/14/21 Unknown Rx Ondansetron [Zofran Odt] 4 mg PO Q6H PRN #20 tab.rapdis 07/12/21 09/14/21 U nknown Rx Promethazine [Phenergan] 25 mg [place] Q6HR PRN #20 supp.rect 07/12/21 09/14/21 Unknown Rx Cholecalciferol (Vitamin D3) 50,000 units PO QWEEK 09/14/21 09/14/21 Unknown History [Vitamin D3 50,000UNIT CAP] Lispro Insulin [HumaLOG] 8 units SQ ACHS 09/14/21 09/14/21 Unknown History Active Meds: Active Medications Acetaminophen (Acetaminophen 325 Mg Tab) 650 mg PO Q4H PRN PRN Reason: Pain MILD(1-3)/Fever >100.5/[place] Atorvastatin Calcium (Atorvastatin 40 Mg Tab) 40 mg PO QHS [facility] Last Admin: 09/13/21 21:43 Dose: 40 mg Carvedilol (Carvedilol 12.5 Mg Tab) 12.5 mg PO BID [facility] Last Admin: 09/13/21 21:39 Dose: 12.5 mg Dicyclomine HCl (Dicyclomine 20 Mg Tab) 20 mg PO Q6H PRN PRN Reason: Abdominal pain Last Admin: 09/12/21 15:18 Dose: 20 mg Famotidine (Famotidine 10 Mg Tab) 10 mg PO BIDAC [facility] Heparin Sodium (Porcine) (Heparin 5,000 Unit/1 Ml Vial) 5,000 unit SUB-Q Q12HR [facility] Last Admin: 09/13/21 21:39 Dose: 5,000 unit Hydralazine HCl (Hydralazine 25 Mg Tab) 50 mg PO Q8HR [facility] Last Admin: 09/14/21 05:35 Dose: 50 mg Hydralazine HCl (Hydralazine 20 Mg/1 Ml Inj) 10 mg IV Q3H PRN PRN Reason: Blood Pressure Hydromorphone HCl (Hydromorphone 1 Mg/1 Ml Inj) 1 mg IV Q3H PRN PRN Reason: Pain , Severe (7-10) Last Admin: 09/14/21 05:41 Dose: 1 mg Sodium Chloride (Nacl 0.9% 1000 Ml) 1,000 mls @ 100 mls/hr IV DIRECT [facility] Last Admin: 09/13/21 21:54 Dose: 100 mls/hr Insulin Glargine (Insulin Glargine 100 Units/Ml) 22 units SUB-Q [facility] Last Admin: 09/13/21 21:39 Dose: Not Given Insulin Human Lispro (Insulin Lispro 100 Unit/Ml) 0 unit SUB-Q Q6HR [facility]; Protocol Last Admin: 09/14/21 05:41 Dose: Not Given Morphine Sulfate (Morphine 2 Mg/1 Ml Inj) 2 mg IV Q4H PRN PRN Reason: Pain, Moderate (4-6) Nifedipine (Nifedipine Xl 90 Mg Tab) 90 mg PO QDAY [facility] Last Admin: 09/13/21 10:04 Dose: 90 mg Ondansetron HCl (Ondansetron 4 Mg/2 Ml Inj) 4 mg IV Q8H PRN PRN Reason: Nausea And Vomiting Last Admin: 09/14/21 05:40 Dose: 4 mg Promethazine HCl (Promethazine 25 Mg Rect Supp) 25 mg [place] Q6HR PRN PRN Reason: Nausea And Vomiting Sodium Chloride (Sodium Chloride 0.9% 10 Ml Flush Syringe) 10 ml IV BID [facility] Last Admin: 09/13/21 21:43 Dose: 10 ml Sodium Chloride (Sodium Chloride 0.9% 10 Ml Flush Syringe) 10 ml IV PRN PRN PRN Reason: LINE FLUSH Review of Systems All systems: negative Exam - Vital Signs Vital signs: Vital Signs Temp Pulse Resp BP Pulse Ox 97.9 F 110 H 18 216/125 100 09/12/21 06:54 09/12/21 06:54 09/12/21 06:54 09/12/21 06:54 09/12/21 06:54 - General Appearance General appearance: well-developed, well-nourished EENT: ATNC Respiratory: Clear to Ascultation Heart: regular, S1S2 Integumentary: warm and dry Neurologic: alert and oriented x3 Psychiatric: cooperative Results - Lab Results 09/13/21 05:50 09/14/21 08:11 Most recent lab results ABG pH 7.379 pH Units (7.350-7.450) 09/12/21 18:30 ABG pCO2 34.4 mm Hg 09/12/21 18:30 ABG pO2 97.5 mm Hg (80.0-90.0) H 09/12/21 18:30 ABG HCO3 19.8 mmol/L (20.0-26.0) L 09/12/21 18:30 ABG O2 Saturation 97.3 % (95.0-99.0) 09/12/21 18:30 Calcium 8.8 mg/dL (8.4-10.2) 09/14/21 08:11 Magnesium 2.00 mg/dL (1.7-2.3) 09/14/21 08:11 Assessment and Plan Impression * Acute kidney injury secondary to prerenal azotemia due to volume depletion in setting of ACEi on stage IV CKD * Metabolic acidosis * Nausea/vomiting * Diabetic gastroparesis * Diabetes mellitus * Hypertension Plan: * Continue IVF for hydration * Renal prognosis is guarded - may require initiation of renal replacement therapy as symptoms could be indicative of uremia * Continue antiHTN medications * Strict I/O * Dose medications for renal function * Avoid potential nephrotoxins
[2021-09-14] MEDS: FAMOTIDINE 10 MG TAB PO SCH ×2 (11:31→17:00)
[2021-09-14] MEDS: HEPARIN 5,000 UNIT/1 ML VIAL SUB-Q SCH ×2 (11:32→21:53)
[2021-09-14] MEDS: carvediloL 12.5 MG TAB PO SCH (11:36)
[2021-09-14] MEDS: NIFEdipine XL 90 MG TAB PO SCH (11:37)
[2021-09-14] MEDS: hydrALAZINE 20 MG/1 ML INJ IV PRN (12:00)
[2021-09-14] MEDS: DICYCLOMINE 20 MG TAB PO PRN (13:10)
[2021-09-14] MEDS: METOCLOPRAMIDE 10 MG TAB PO SCH (17:01)
[2021-09-14] MEDS: SODIUM CHLORIDE 0.9% 1000 ML 1,000 ML IV SCH ×2 (17:01→21:54)
--- NOTE | 2021-09-14 18:56 | Progress Note ---
Assessment and Plan #1 gastroparesis with irretractable nausea vomiting has resolved. Continue Reglan twice a day with meals seem to be improving. Patient has been informed to take much smaller meals eat slow and chew food. #2 uncontrolled hypertension we will increase Coreg to 25 mg twice daily. #3 diabetes patient blood sugar much better controlled with current insulin and sliding scale use. #4 chronic kidney disease stage continues to progress. Could be some underlying vasomotor nephropathy on chronic kidney disease. Renal following Creatinine 4.7 today. Will follow any further recommendations. Subjective Date of service: 09/14/21 Principal diagnosis: Gastroparesis Interval history: Patient presented with irretractable nausea vomiting secondary to gastroparesis was stabilized with Reglan. Patient has had symptoms for approximately 6 months has been to the ER 5 times. Multiple episodes nausea and vomiting. Patient was admitted has improved. With Reglan Protonix. Hypertension has been optimally controlled chronic kidney disease been regulated blood pressure suboptimal control. Objective - Constitutional Vitals: Vital Signs - 12hr 09/14/21 09/14/21 09/14/21 10:00 11:36 11:54 Temperature Pulse Rate 94 H Respiratory 20 Rate Blood Pressure 186/101 Blood Pressure [Right] O2 Sat by Pulse 96 Oximetry 09/14/21 09/14/21 09/14/21 12:00 12:24 12:30 Temperature Pulse Rate 94 H Respiratory 18 Rate Blood Pressure 186/105 Blood Pressure 159/81 [Right] O2 Sat by Pulse Oximetry 09/14/21 16:52 Temperature 98.5 F Pulse Rate 89 Respiratory 18 Rate Blood Pressure 140/81 Blood Pressure [Right] O2 Sat by Pulse 99 Oximetry General appearance: Present: no acute distress, well-nourished - EENT Eyes: PERRL, EOM intact ENT: hearing intact, clear oral mucosa Ears: bilateral: normal - Neck Neck: supple, normal ROM - Respiratory Respiratory effort: normal Respiratory: bilateral: CTA - Breasts Breasts: normal - Cardiovascular Rhythm: regular Heart Sounds: Present: S1 & S2. Absent: gallop, rub Extremities: pulses intact, No edema, normal color, Full ROM - Gastrointestinal General gastrointestinal: Present: soft, non-tender, non-distended, normal bowel sounds - Genitourinary Female genitourinary: normal - Integumentary Integumentary: clear, warm, dry - Musculoskeletal Musculoskeletal: 1, strength equal bilaterally - Neurologic Neurologic: moves all extremities - Psychiatric Psychiatric: memory intact, appropriate mood/affect, intact judgment & insight - Labs CBC & Chem 7: 09/13/21 05:50 09/14/21 08:11 Labs: Abnormal lab results 09/13/21 09/14/21 09/14/21 Range/Units 21:28 08:11 11:34 Sodium 136 L (137-145) mmol/L Carbon Dioxide 19 L (22-30) mmol/L BUN 44 H (7-17) mg/dL Creatinine 4.7 H (0.6-1.2) mg/dL Glucose 147 H (65-100) mg/dL POC Glucose 147 H 280 H (70-105) mg/dL 09/14/21 Range/Units 16:50 Sodium (137-145) mmol/L Carbon Dioxide (22-30) mmol/L BUN (7-17) mg/dL Creatinine (0.6-1.2) mg/dL Glucose (65-100) mg/dL POC Glucose 131 H (70-105) mg/dL
[2021-09-14] MEDS: carvediloL 25 MG TAB PO SCH (21:53)
[2021-09-15] MEDS: INSULIN GLARGINE 100 UNITS/ML SUB-Q SCH ×2 (00:35→21:37)
[2021-09-15] MEDS: INSULIN LISPRO 100 UNIT/ML SUB-Q SCH ×5 (00:36→21:39)
[2021-09-15] MEDS: ONDANSETRON 4 MG/2 ML INJ IV PRN (06:12)
[2021-09-15] MEDS: hydrALAZINE 25 MG TAB PO SCH ×3 (06:12→21:28)
[2021-09-15] MEDS: HYDROmorphone 1 MG/1 ML INJ IV PRN (06:13)
[2021-09-15] MEDS: SODIUM CHLORIDE 0.9% 1000 ML 1,000 ML IV SCH (06:19)
[2021-09-15 09:24] LABS: Alanine Aminotransferase 8 units/L (7-56); Albumin 3.2 g/dL (3.9-5); Blood Urea Nitrogen 45 mg/dL (7-17); Calcium 8.7 mg/dL (8.4-10.2); Hemolysis Index 3
[2021-09-15 09:32] LABS: BUN/Creatinine Ratio 8
--- NOTE | 2021-09-15 09:34 | Progress Note ---
Assessment and Plan Impression * Acute kidney injury secondary to prerenal azotemia due to volume depletion in setting of ACEi on stage IV CKD * Metabolic acidosis * Nausea/vomiting secondary to uremia vs diabetic gastroparesis * Diabetic gastroparesis * Diabetes mellitus * Hypertension Plan: * 24h urine CrCl pending * Renal prognosis is guarded - will likely require renal replacement therapy * Glycemic control per primary team * Continue antiHTN medications * Strict I/O * Dose medications for renal function * Avoid potential nephrotoxins Subjective Date of service: 09/15/21 Principal diagnosis: Gastroparesis Interval history: Patient without complaint this AM Objective - Vital Signs Vital signs: Vital Signs - 12hr 09/14/21 09/14/21 09/14/21 21:47 21:52 21:53 Temperature 98.9 F Pulse Rate 97 H 97 H 97 H Respiratory 20 Rate Blood Pressure 152/76 152/76 152/76 O2 Sat by Pulse 99 Oximetry 09/14/21 09/15/21 22:00 04:25 Temperature 98.7 F Pulse Rate 94 H Respiratory 20 20 Rate Blood Pressure 161/87 O2 Sat by Pulse 96 98 Oximetry - General Appearance General appearance: well-developed, well-nourished EENT: ATNC Respiratory: Present: Clear to Ascultation Cardiology: regular, S1S2 Gastrointestinal: normal, no tenderness, no distended Integumentary: warm and dry Neurologic: alert and oriented x3 Psychiatric: cooperative - Lab 09/13/21 05:50 09/15/21 08:44 Most recent lab results ABG pH 7.379 pH Units (7.350-7.450) 09/12/21 18:30 ABG pCO2 34.4 mm Hg 09/12/21 18:30 ABG pO2 97.5 mm Hg (80.0-90.0) H 09/12/21 18:30 ABG HCO3 19.8 mmol/L (20.0-26.0) L 09/12/21 18:30 ABG O2 Saturation 97.3 % (95.0-99.0) 09/12/21 18:30 Calcium 8.7 mg/dL (8.4-10.2) 09/15/21 08:44 Magnesium 2.00 mg/dL (1.7-2.3) 09/14/21 08:11 Medications & Allergies - Medications Allergies/Adverse Reactions: Allergies No Known Allergies Allergy (Verified 09/15/21 07:17) Home Medications: Home Medications Medication Instructions Recorded Confirmed Last Taken Type Insulin Glargine [Lantus VIAL] 20 units SUB-Q HS 04/09/21 09/15/21 2 Days Ago History ~05/17/21 AtorvaSTATin [Lipitor] 40 mg PO QHS #30 tablet 05/22/21 09/15/21 Unknown Rx NIFEdipine XL [Procardia Xl] 90 mg PO QDAY #30 tablet 05/22/21 09/15/21 Unknown Rx carvediloL [Coreg] 12.5 mg PO BID #60 tablet 05/22/21 09/15/21 Unknown Rx hydrALAZINE [Apresoline TAB] 50 mg PO Q8HR #90 tablet 05/22/21 09/15/21 Unknown Rx Dicyclomine [Bentyl] 20 mg PO Q6H PRN #30 tablet 07/12/21 09/15/21 Unknown Rx Ondansetron [Zofran Odt] 4 mg PO Q6H PRN #20 tab.rapdis 07/12/21 09/15/21 Unknown Rx Promethazine [Phenergan] 25 mg [place] Q6HR PRN #20 supp.rect 07/12/21 09/15/21 Unknown Rx Cholecalciferol (Vitamin D3) 50,000 units PO QWEEK 09/14/21 09/15/21 Unknown History [Vitamin D3 50,000UNIT CAP] Lispro Insulin [HumaLOG] 8 units SQ ACHS 09/14/21 09/15/21 Unknown History Active Medications: Generic Name Dose Route Start Last Admin Trade Name Andrzejq PRN Reason Stop Dose Admin Acetaminophen 650 mg 09/12/21 10:44 Acetaminophen 325 Mg Tab PO Q4H PRN Pain MILD(1-3)/Fever >100.5/[place] Atorvastatin Calcium 40 mg 09/12/21 22:00 09/14/21 21:53 Atorvastatin 40 Mg Tab PO 40 mg QHS [facility] Administration Carvedilol 25 mg 09/14/21 22:00 09/14/21 21:53 Carvedilol 25 Mg Tab PO 25 mg BID [facility] Administration Dicyclomine HCl 20 mg 09/12/21 14:06 09/14/21 13:10 Dicyclomine 20 Mg Tab PO 20 mg Q6H PRN Administration Abdominal pain Famotidine 10 mg 09/14/21 09:30 09/14/21 17:00 Famotidine 10 Mg Tab PO 10 mg BIDAC [facility] Administration Heparin Sodium (Porcine) 5,000 unit 09/12/21 14:15 09/14/21 21:53 Heparin 5,000 Unit/1 Ml Vial SUB-Q 5,000 unit Q12HR [facility] Administration Hydralazine HCl 50 mg 09/12/21 15:00 09/15/21 06:12 Hydralazine 25 Mg Tab PO 50 mg Q8HR [facility] Administration Hydralazine HCl 10 mg 09/12/21 14:22 09/14/21 12:00 Hydralazine 20 Mg/1 Ml Inj IV 10 mg Q3H PRN Administration Blood Pressure Hydromorphone HCl 1 mg 09/12/21 14:09 09/15/21 06:13 Hydromorphone 1 Mg/1 Ml Inj IV 1 mg Q3H PRN Administration Pain , Severe (7-10) Sodium Chloride 1,000 mls @ 100 mls/hr 09/12/21 14:15 09/15/21 06:19 Nacl 0.9% 1000 Ml IV 100 mls/hr DIRECT [facility] Administration Insulin Glargine 22 units 09/12/21 22:00 09/15/21 00:35 Insulin Glargine 100 Units/Ml SUB-Q 22 units HS [facility] Administration Insulin Human Lispro 0 unit 09/12/21 15:00 09/15/21 06:11 Insulin Lispro 100 Unit/Ml SUB-Q 3 unit Q6HR [facility] Administration Protocol Metoclopramide HCl 5 mg 09/14/21 16:30 09/14/21 17:01 Metoclopramide 10 Mg Tab PO 5 mg TIDAC [facility] Administration Morphine Sulfate 2 mg 09/12/21 14:09 Morphine 2 Mg/1 Ml Inj IV Q4H PRN Pain, Moderate (4-6) Nifedipine 90 mg 09/12/21 15:00 09/14/21 11:37 Nifedipine Xl 90 Mg Tab PO 90 mg QDAY [facility] Administration Ondansetron HCl 4 mg 09/14/21 11:52 09/15/21 06:12 Ondansetron 4 Mg/2 Ml Inj IV 4 mg Q4H PRN Administration Nausea Promethazine HCl 25 mg 09/12/21 14:06 Promethazine 25 Mg Rect Supp [place] Q6HR PRN Nausea And Vomiting Sodium Chloride 10 ml 09/12/21 22:00 09/14/21 21:53 Sodium Chloride 0.9% 10 Ml Flush Syringe IV 10 ml BID [facility] Administration Sodium Chloride 10 ml 09/12/21 14:09 Sodium Chloride 0.9% 10 Ml Flush Syringe IV PRN PRN LINE FLUSH
[2021-09-15] MEDS: FAMOTIDINE 10 MG TAB PO SCH ×2 (10:29→17:42)
[2021-09-15] MEDS: METOCLOPRAMIDE 10 MG TAB PO SCH ×3 (10:29→17:42)
[2021-09-15] MEDS: NIFEdipine XL 90 MG TAB PO SCH (10:30)
[2021-09-15] MEDS: carvediloL 25 MG TAB PO SCH ×2 (10:30→21:27)
[2021-09-15] MEDS: HEPARIN 5,000 UNIT/1 ML VIAL SUB-Q SCH ×2 (10:30→21:30)
--- NOTE | 2021-09-15 12:36 | Progress Note ---
Assessment and Plan #1 gastroparesis with irretractable nausea vomiting has resolved. Continue Reglan twice a day with meals seem to be improving. Patient has been informed to take much smaller meals eat slow and chew food. Stable. #2 uncontrolled hypertension we will increase Coreg to 25 mg twice daily. Improved since increasing Coreg. #3 diabetes patient blood sugar much better controlled with current insulin and sliding scale use. We will add long-acting insulin Lantus 10 units nightly. #4 chronic kidney disease stage continues to progress. Patient creatinine has also increased today. Could be some underlying vasomotor nephropathy on chronic kidney disease. Renal following Creatinine 5.7 today 24-hour urine clearance should be finished tomorrow 9 AM. Will follow any further recommendations. Subjective Date of service: 09/15/21 Principal diagnosis: Gastroparesis Interval history: Patient presented with irretractable nausea vomiting secondary to gastroparesis was stabilized with Reglan. Patient has had symptoms for approximately 6 months has been to the ER 5 times. Multiple episodes nausea and vomiting. Patient was admitted has improved. With Reglan Protonix. Hypertension has been optimally controlled 09/15/2021. Patient resting in bed comfortably. Tolerating p.o. meals well. No nausea no vomiting. Gastroparesis per diagnosis controlled with Reglan and proton pump inhibitor.. Objective - Constitutional Vitals: Vital Signs - 12hr 09/15/21 04:25 Temperature 98.7 F Pulse Rate 94 H Respiratory 20 Rate Blood Pressure 161/87 O2 Sat by Pulse 98 Oximetry General appearance: Present: no acute distress, well-nourished - EENT Eyes: PERRL, EOM intact ENT: hearing intact, clear oral mucosa Ears: bilateral: normal - Neck Neck: supple, normal ROM - Respiratory Respiratory effort: normal Respiratory: bilateral: CTA - Breasts Breasts: normal - Cardiovascular Rhythm: regular Heart Sounds: Present: S1 & S2. Absent: gallop, rub Extremities: pulses intact, No edema, normal color, Full ROM - Gastrointestinal General gastrointestinal: Present: soft, non-tender, non-distended, normal bowel sounds - Genitourinary Female genitourinary: normal - Integumentary Integumentary: clear, warm, dry - Musculoskeletal Musculoskeletal: 1, strength equal bilaterally - Neurologic Neurologic: moves all extremities - Psychiatric Psychiatric: memory intact, appropriate mood/affect, intact judgment & insight - Labs CBC & Chem 7: 09/13/21 05:50 09/15/21 08:44 Labs: Abnormal lab results 09/14/21 09/14/21 09/15/21 Range/Units 16:50 23:57 04:24 Sodium (137-145) mmol/L Carbon Dioxide (22-30) mmol/L BUN (7-17) mg/dL Creatinine (0.6-1.2) mg/dL Glucose (65-100) mg/dL POC Glucose 131 H 204 H 172 H (70-105) mg/dL Albumin (3.9-5) g/dL 09/15/21 09/15/21 Range/Units 08:44 11:44 Sodium 133 L (137-145) mmol/L Carbon Dioxide 18 L (22-30) mmol/L BUN 45 H (7-17) mg/dL Creatinine 5.7 H (0.6-1.2) mg/dL Glucose 191 H (65-100) mg/dL POC Glucose 191 H (70-105) mg/dL Albumin 3.2 L (3.9-5) g/dL
[2021-09-15] MEDS: MORPHINE 2 MG/1 ML INJ IV PRN (22:43)
[2021-09-16] MEDS: hydrALAZINE 25 MG TAB PO SCH ×3 (05:38→22:20)
[2021-09-16] MEDS: MORPHINE 2 MG/1 ML INJ IV PRN (11:35)
[2021-09-16] MEDS: ONDANSETRON 4 MG/2 ML INJ IV PRN (11:39)
[2021-09-16] MEDS: FAMOTIDINE 10 MG TAB PO SCH ×2 (11:39→16:29)
[2021-09-16] MEDS: INSULIN LISPRO 100 UNIT/ML SUB-Q SCH ×3 (14:46→22:16)
[2021-09-16 15:12] LABS: Creatinine,Urine 53.8 mg/dL (0.1-20.0)
[2021-09-16 15:40] LABS: Creatinine 24 Hour,Urine 0.8 (0.8-2.8); Creatinine,Urine 53.8 mg/dL (0.1-20.0)
[2021-09-16] MEDS: METOCLOPRAMIDE 10 MG TAB PO SCH (16:23)
[2021-09-16] MEDS: ACETAMINOPHEN 325 MG TAB PO PRN (16:38)
[2021-09-16 17:35] LABS: Patient Weight,Urine 108.7 lbs
[2021-09-16] MEDS ORDERED: ALPRAZolam 0.5 MG TAB PO PRN (18:29)
--- NOTE | 2021-09-16 18:29 | Progress Note ---
Assessment and Plan #1 gastroparesis with irretractable nausea vomiting has resolved. Continue Reglan twice a day with meals seem to be improving. Patient has been informed to take much smaller meals eat slow and chew food. Stable. #2 uncontrolled hypertension we will increase Coreg to 25 mg twice daily. Improved since increasing Coreg. -Remains suboptimal. We will increase hydralazine 200 mg 3 times daily. Patient is visibly upset. May require dose titration down after patient becomes more calm especially after receiving hemodialysis. #3 diabetes patient blood sugar much better controlled with current insulin and sliding scale use. We increase Lantus to 22 units nightly.. #4 end-stage renal disease. -Patient will require hemodialysis. Surgical consult for Vas-Cath placement. . Renal following Creatinine 5.7 today 24-hour urine clearance should be finished tomorrow 9 AM. Will follow any further recommendations. Subjective Date of service: 09/16/21 Principal diagnosis: Gastroparesis Interval history: Patient presented with irretractable nausea vomiting secondary to gastroparesis was stabilized with Reglan. Patient has had symptoms for approximately 6 months has been to the ER 5 times. Multiple episodes nausea and vomiting. Patient was admitted has improved. With Reglan Protonix. Hypertension has been optimally controlled 09/15/2021. Patient resting in bed comfortably. Tolerating p.o. meals well. No nausea no vomiting. Gastroparesis per diagnosis controlled with Reglan and proton pump inhibitor.. 09/16/2021. Just told patient she require hemodialysis. Patient is very upset. Blood pressure has been going up patient is actively crying very upset. Difficult to calm down we will add benzodiazepine. Her nausea vomiting has resolved. Most likely was uremia because of nausea vomiting not gastroparesis. Objective - Constitutional Vitals: Vital Signs - 12hr 09/16/21 09/16/21 10:00 14:41 Pulse Rate 91 H Respiratory 16 Rate Blood Pressure 151/82 O2 Sat by Pulse 96 Oximetry General appearance: Present: no acute distress, well-nourished - EENT Eyes: PERRL, EOM intact ENT: hearing intact, clear oral mucosa Ears: bilateral: normal - Neck Neck: supple, normal ROM - Respiratory Respiratory effort: normal Respiratory: bilateral: CTA - Breasts Breasts: normal - Cardiovascular Rhythm: regular Heart Sounds: Present: S1 & S2. Absent: gallop, rub Extremities: pulses intact, No edema, normal color, Full ROM - Gastrointestinal General gastrointestinal: Present: soft, non-tender, non-distended, normal bowel sounds - Genitourinary Female genitourinary: normal - Integumentary Integumentary: clear, warm, dry - Musculoskeletal Musculoskeletal: 1, strength equal bilaterally - Neurologic Neurologic: moves all extremities - Psychiatric Psychiatric: memory intact, appropriate mood/affect, intact judgment & insight - Labs CBC & Chem 7: 09/13/21 05:50 09/15/21 08:44 Labs: Abnormal lab results 09/15/21 09/15/21 09/15/21 Range/Units 07:25 21:32 Unknown POC Glucose 459 H (70-105) mg/dL Urine Creatinine 53.8 H 53.8 H (0.1-20.0) mg/dL 09/16/21 09/16/21 09/16/21 Range/Units 08:09 09:28 11:13 POC Glucose 44 L 114 H 128 H (70-105) mg/dL Urine Creatinine (0.1-20.0) mg/dL 09/16/21 Range/Units 16:17 POC Glucose 190 H (70-105) mg/dL Urine Creatinine (0.1-20.0) mg/dL
[2021-09-16] MEDS: carvediloL 25 MG TAB PO SCH (22:13)
[2021-09-16] MEDS: HEPARIN 5,000 UNIT/1 ML VIAL SUB-Q SCH (22:14)
[2021-09-16] MEDS: INSULIN GLARGINE 100 UNITS/ML SUB-Q SCH (22:15)
[2021-09-17] MEDS: hydrALAZINE 25 MG TAB PO SCH ×3 (05:43→22:52)
[2021-09-17] MEDS: MORPHINE 2 MG/1 ML INJ IV PRN ×2 (06:24→23:22)
[2021-09-17] MEDS ORDERED: SODIUM CHLORIDE 0.9% 100 ML IV PRN (07:39)
--- NOTE | 2021-09-17 07:45 | Progress Note ---
Assessment and Plan Impression * End stage renal disease --24h urine CrCl 12ml/min (Sep 16) * Uremia - self reported hx of weight loss, poor appetite * Nausea/vomiting secondary to uremia vs diabetic gastroparesis * Metabolic acidosis * Diabetic gastroparesis * Diabetes mellitus * Hypertension Plan: * IR consulted for permcath insertion * HD intiation today - patient consents to HD * No fluid removal today w/ dialysis * Will plan for HD again tomorrow * CM consulted for outpatient HD clinic placement * Glycemic control per primary team * Continue antiHTN medications * Strict I/O * Dose medications for renal function Subjective Date of service: 09/17/21 Principal diagnosis: Gastroparesis Interval history: Patient denies nausea, vomiting. Reports appetite is poor. Objective - Vital Signs Vital signs: Vital Signs - 12hr 09/16/21 09/16/21 09/16/21 21:42 22:00 22:13 Temperature 99.4 F Pulse Rate 102 H 102 H Respiratory 16 18 Rate Blood Pressure 181/93 180/90 O2 Sat by Pulse 100 98 Oximetry 09/16/21 09/17/21 09/17/21 22:20 05:21 05:43 Temperature 98.1 F Pulse Rate 102 H 92 H 92 H Respiratory 18 Rate Blood Pressure 180/90 125/70 125/70 O2 Sat by Pulse 100 Oximetry - General Appearance General appearance: well-developed, well-nourished EENT: ATNC Respiratory: Present: Clear to Ascultation Cardiology: regular, S1S2 Gastrointestinal: normal, no tenderness, no distended Integumentary: no rash, warm and dry Neurologic: alert and oriented x3 Psychiatric: cooperative - Lab 09/13/21 05:50 09/15/21 08:44 Most recent lab results ABG pH 7.379 pH Units (7.350-7.450) 09/12/21 18:30 ABG pCO2 34.4 mm Hg 09/12/21 18:30 ABG pO2 97.5 mm Hg (80.0-90.0) H 09/12/21 18:30 ABG HCO3 19.8 mmol/L (20.0-26.0) L 09/12/21 18:30 ABG O2 Saturation 97.3 % (95.0-99.0) 09/12/21 18:30 Calcium 8.7 mg/dL (8.4-10.2) 09/15/21 08:44 Magnesium 2.00 mg/dL (1.7-2.3) 09/14/21 08:11 Urine Creatinine 53.8 mg/dL (0.1-20.0) H 09/15/21 Unknown Medications & Allergies - Medications Allergies/Adverse Reactions: Allergies No Known Allergies Allergy (Verified 09/15/21 07:17) Home Medications: Home Medications Medication Instructions Recorded Confirmed Last Taken Type Insulin Glargine [Lantus VIAL] 20 units SUB-Q HS 04/09/21 09/15/21 2 Days Ago History ~05/17/21 AtorvaSTATin [Lipitor] 40 mg PO QHS #30 tablet 05/22/21 09/15/21 Unknown Rx NIFEdipine XL [Procardia Xl] 90 mg PO QDAY #30 tablet 05/22/21 09/15/21 Unknown Rx carvediloL [Coreg] 12.5 mg PO BID #60 tablet 05/22/21 09/15/21 Unknown Rx hydrALAZINE [Apresoline TAB] 50 mg PO Q8HR #90 tablet 05/22/21 09/15/21 Unknown Rx Dicyclomine [Bentyl] 20 mg PO Q6H PRN #30 tablet 07/12/21 09/15/21 Unknown Rx Ondansetron [Zofran Odt] 4 mg PO Q6H PRN #20 tab.rapdis 07/12/21 09/15/21 Unknown Rx Promethazine [Phenergan] 25 mg [place] Q6HR PRN #20 supp.rect 07/12/21 09/15/21 Unknown Rx Cholecalciferol (Vitamin D3) 50,000 units PO QWEEK 09/14/21 09/15/21 Unknown His tory [Vitamin D3 50,000UNIT CAP] Lispro Insulin [HumaLOG] 8 units SQ ACHS 09/14/21 09/15/21 Unknown History Active Medications: Generic Name Dose Route Start Last Admin Trade Name Freq PRN Reason Stop Dose Admin Acetaminophen 650 mg 09/12/21 10:44 09/16/21 16:38 Acetaminophen 325 Mg Tab PO 650 mg Q4H PRN Administration Pain MILD(1-3)/Fever >100.5/CASANOVA Alprazolam 0.5 mg 09/16/21 18:29 Alprazolam 0.5 Mg Tab PO Q8H PRN Anxiety Atorvastatin Calcium 40 mg 09/12/21 22:00 09/16/21 22:13 Atorvastatin 40 Mg Tab PO 40 mg QHS ROSALVA Administration Carvedilol 25 mg 09/14/21 22:00 09/16/21 22:13 Carvedilol 25 Mg Tab PO 25 mg BID ROSALVA Administration Dicyclomine HCl 20 mg 09/12/21 14:06 09/14/21 13:10 Dicyclomine 20 Mg Tab PO 20 mg Q6H PRN Administration Abdominal pain Famotidine 10 mg 09/14/21 09:30 09/16/21 16:29 Famotidine 10 Mg Tab PO 10 mg BIDAC ROSALVA Administration Heparin Sodium (Porcine) 5,000 unit 09/12/21 14:15 09/16/21 22:14 Heparin 5,000 Unit/1 Ml Vial SUB-Q 5,000 unit Q12HR ROSALVA Administration Hydralazine HCl 10 mg 09/12/21 14:22 09/14/21 12:00 Hydralazine 20 Mg/1 Ml Inj IV 10 mg Q3H PRN Administration Blood Pressure Hydralazine HCl 100 mg 09/16/21 18:27 09/17/21 05:43 Hydralazine 25 Mg Tab PO 100 mg Q8HR ROSALVA Administration Hydromorphone HCl 1 mg 09/12/21 14:09 09/15/21 06:13 Hydromorphone 1 Mg/1 Ml Inj IV 1 mg Q3H PRN Administration Pain , Severe (7-10) Sodium Chloride 1,000 mls @ 100 mls/hr 09/12/21 14:15 09/15/21 06:19 Nacl 0.9% 1000 Ml IV 100 mls/hr DIRECT ROSALVA Administration Sodium Chloride 100 mls @ 999 mls/hr 09/17/21 07:39 Nacl 0.9% IV JEFE PRN Hypotension Insulin Glargine 22 units 09/12/21 22:00 09/16/21 22:15 Insulin Glargine 100 Units/Ml SUB-Q 22 units HS ROSALVA Administration Insulin Human Lispro 0 unit 09/15/21 11:30 09/16/21 22:16 Insulin Lispro 100 Unit/Ml SUB-Q 4 unit ACHS ROSALVA Administration Protocol Metoclopramide HCl 5 mg 09/14/21 16:30 09/16/21 16:23 Metoclopramide 10 Mg Tab PO 5 mg TIDAC ROSALVA Administration Morphine Sulfate 2 mg 09/12/21 14:09 09/17/21 06:24 Morphine 2 Mg/1 Ml Inj IV 2 mg Q4H PRN Administration Pain, Moderate (4-6) Nifedipine 90 mg 09/12/21 15:00 09/15/21 10:30 Nifedipine Xl 90 Mg Tab PO 90 mg QDAY ROSALVA Administration Ondansetron HCl 4 mg 09/14/21 11:52 09/16/21 11:39 Ondansetron 4 Mg/2 Ml Inj IV 4 mg Q4H PRN Administration Nausea Promethazine HCl 25 mg 09/12/21 14:06 Promethazine 25 Mg Rect Supp [place] Q6HR PRN Nausea And Vomiting Sodium Chloride 10 ml 09/12/21 22:00 09/16/21 22:19 Sodium Chloride 0.9% 10 Ml Flush Syringe IV 10 ml BID ROSALVA Administration Sodium Chloride 10 ml 09/12/21 14:09 Sodium Chloride 0.9% 10 Ml Flush Syringe IV PRN PRN LINE FLUSH
[2021-09-17] MEDS: METOCLOPRAMIDE 10 MG TAB PO SCH ×3 (10:03→19:52)
[2021-09-17] MEDS: FAMOTIDINE 10 MG TAB PO SCH ×2 (10:03→22:59)
[2021-09-17] MEDS: NIFEdipine XL 90 MG TAB PO SCH (10:03)
[2021-09-17] MEDS: carvediloL 25 MG TAB PO SCH ×2 (10:06→22:53)
[2021-09-17] MEDS: INSULIN LISPRO 100 UNIT/ML SUB-Q SCH ×3 (10:09→22:55)
--- NOTE | 2021-09-17 13:20 | Progress Note ---
Assessment and Plan Assessment and plan: Diabetic gastroparesis Insulin-dependent diabetes mellitus Hypertension Chronic kidney disease Protein calorie malnutrition 09/15/2021. Patient resting in bed comfortably. Tolerating p.o. meals well. No nausea no vomiting. Gastroparesis per diagnosis controlled with Reglan and proton pump inhibitor.. 09/16/2021. Just told patient she require hemodialysis. Patient is very upset. Blood pressure has been going up patient is actively crying very upset. Difficult to calm down we will add benzodiazepine. Her nausea vomiting has resolved. Most likely was uremia because of nausea vomiting not gastroparesis. 09/17/2021. IR was consulted for PermCath placement. Patient to have hemodialysis initiated today. Patient with plans for HD tomorrow as well. Case management consulted for outpatient hemodialysis clinic placement. Tight glycemic control. Continue antihypertensive medications. Continue Reglan for gastroparesis History Interval history: No new issues overnight. Hospitalist Physical - Constitutional Vitals: Temp Pulse Resp BP Pulse Ox 98.0 F 88 18 144/72 98 09/17/21 11:14 09/17/21 11:14 09/17/21 11:14 09/17/21 11:14 09/17/21 11:14 General appearance: Present: no acute distress, well-nourished - EENT Eyes: Present: PERRL, EOM intact ENT: hearing intact, clear oral mucosa, dentition normal - Neck Neck: Present: supple, normal ROM - Respiratory Respiratory effort: normal Respiratory: bilateral: CTA - Cardiovascular Rhythm: regular Heart Sounds: Present: S1 & S2. Absent: gallop, rub - Extremities Extremities: no ischemia, No edema, Full ROM - Abdominal General gastrointestinal: soft, non-tender, non-distended, normal bowel sounds - Integumentary Integumentary: Present: clear, warm, dry - Neurologic Neurologic: CNII-XII intact, moves all extremities Results - Labs CBC & Chem 7: 09/13/21 05:50 09/15/21 08:44 Labs: Laboratory Last Values WBC 9.0 K/mm3 (4.5-11.0) 09/13/21 05:50 RBC 3.38 M/mm3 (3.65-5.03) L 09/13/21 05:50 Hgb 10.0 gm/dl (10.1-14.3) L 09/13/21 05:50 Hct 29.4 % (30.3-42.9) L 09/13/21 05:50 MCV 87 fl (79-97) 09/13/21 05:50 MCH 30 pg (28-32) 09/13/21 05:50 MCHC 34 % (30-34) 09/13/21 05:50 RDW 14.4 % (13.2-15.2) 09/13/21 05:50 Plt Count 265 K/mm3 (140-440) 09/13/21 05:50 Lymph % (Auto) 15.3 % (13.4-35.0) 09/13/21 05:50 [place] % (Auto) 6.3 % (0.0-7.3) 09/13/21 05:50 Eos % (Auto) 0.1 % (0.0-4.3) 09/13/21 05:50 Baso % (Auto) 0.4 % (0.0-1.8) 09/13/21 05:50 Lymph # (Auto) 1.4 K/mm3 (1.2-5.4) 09/13/21 05:50 [place] # (Auto) 0.6 K/mm3 (0.0-0.8) 09/13/21 05:50 Eos # (Auto) 0.0 K/mm3 (0.0-0.4) 09/13/21 05:50 Baso # (Auto) 0.0 K/mm3 (0.0-0.1) 09/13/21 05:50 Seg Neutrophils % 77.9 % (40.0-70.0) H 09/13/21 05:50 Seg Neutrophils # 7.0 K/mm3 (1.8-7.7) 09/13/21 05:50 ABG pH 7.379 pH Units (7.350-7.450) 09/12/21 18:30 ABG pCO2 34.4 mm Hg 09/12/21 18:30 ABG pO2 97.5 mm Hg (80.0-90.0) H 09/12/21 18:30 ABG HCO3 19.8 mmol/L (20.0-26.0) L 09/12/21 18:30 ABG O2 Saturation 97.3 % (95.0-99.0) 09/12/21 18:30 ABG O2 Content 13.5 (0.0-44) 09/12/21 18:30 ABG Base Excess -4.7 mmol/L (-2.0-3.0) L 09/12/21 18:30 ABG Hemoglobin 9.9 gm/dl (12.0-16.0) L 09/12/21 18:30 ABG Carboxyhemoglobin 0.9 % (0.0-5.0) 09/12/21 18:30 ABG Methemoglobin 0.4 % (0.0-1.5) 09/12/21 18:30 Oxyhemoglobin 96.0 % (95.0-99.0) 09/12/21 18:30 FiO2 21 % 09/12/21 18:30 Sodium 133 mmol/L (137-145) L 09/15/21 08:44 Potassium 4.4 mmol/L (3.6-5.0) 09/15/21 08:44 Chloride 102.8 mmol/L (98-107) 09/15/21 08:44 Carbon Dioxide 18 mmol/L (22-30) L 09/15/21 08:44 Anion Gap 17 mmol/L 09/15/21 08:44 BUN 45 mg/dL (7-17) H 09/15/21 08:44 Creatinine 5.7 mg/dL (0.6-1.2) H 09/15/21 08:44 Estimated GFR 10 ml/min 09/15/21 08:44 BUN/Creatinine Ratio 8 % 09/15/21 08:44 Glucose 191 mg/dL (65-100) H 09/15/21 08:44 POC Glucose 114 mg/dL (70-105) H 09/17/21 07:22 Calcium 8.7 mg/dL (8.4-10.2) 09/15/21 08:44 Magnesium 2.00 mg/dL (1.7-2.3) 09/14/21 08:11 Total Bilirubin < 0.20 mg/dL (0.1-1.2) 09/15/21 08:44 AST 11 units/L (5-40) 09/15/21 08:44 ALT 8 units/L (7-56) 09/15/21 08:44 Alkaline Phosphatase 101 units/L (35-129) 09/15/21 08:44 Total Protein 6.3 g/dL (6.3-8.2) 09/15/21 08:44 Albumin 3.2 g/dL (3.9-5) L 09/15/21 08:44 Albumin/Globulin Ratio 1.0 % 09/15/21 08:44 Lipase 30 units/L (13-60) 09/12/21 07:54 HCG, Qual Negative (Negative) 09/12/21 07:54 Urine Total Volume 1400 ml 09/15/21 Unknown Urine Creatinine 53.8 mg/dL (0.1-20.0) H 09/15/21 Unknown Ur Creatinine 24 Hour 0.8 (0.8-2.8) 09/15/21 Unknown Height (in) 65.0 inches 09/15/21 07:25 Weight (lb) 108.7 lbs 09/15/21 07:25 Creatinine Clearance 12 09/15/21 07:25 Gomez/IV: Voiding Method Toilet Active Medications - Current Medications Current Medications: Generic Name Dose Route Start Last Admin Trade Name Freq PRN Reason Stop Dose Admin Acetaminophen 650 mg 09/12/21 10:44 09/16/21 16:38 Acetaminophen 325 Mg Tab PO 650 mg Q4H PRN Administration Pain MILD(1-3)/Fever >100.5/CASANOVA Alprazolam 0.5 mg 09/16/21 18:29 Alprazolam 0.5 Mg Tab PO Q8H PRN Anxiety Atorvastatin Calcium 40 mg 09/12/21 22:00 09/16/21 22:13 Atorvastatin 40 Mg Tab PO 40 mg QHS ROSALVA Administration Carvedilol 25 mg 09/14/21 22:00 09/17/21 10:06 Carvedilol 25 Mg Tab PO 25 mg BID ROSALVA Administration Dicyclomine HCl 20 mg 09/12/21 14:06 09/14/21 13:10 Dicyclomine 20 Mg Tab PO 20 mg Q6H PRN Administration Abdominal pain Famotidine 10 mg 09/14/21 09:30 09/17/21 10:03 Famotidine 10 Mg Tab PO 10 mg BIDAC ROSALVA Administration Heparin Sodium (Porcine) 5,000 unit 09/12/21 14:15 09/16/21 22:14 Heparin 5,000 Unit/1 Ml Vial SUB-Q 5,000 unit Q12HR ROSALVA Administration Hydralazine HCl 10 mg 09/12/21 14:22 09/14/21 12:00 Hydralazine 20 Mg/1 Ml Inj IV 10 mg Q3H PRN Administration Blood Pressure Hydralazine HCl 100 mg 09/16/21 18:27 09/17/21 05:43 Hydralazine 25 Mg Tab PO 100 mg Q8HR ROSALVA Administration Hydromorphone HCl 1 mg 09/12/21 14:09 09/15/21 06:13 Hydromorphone 1 Mg/1 Ml Inj IV 1 mg Q3H PRN Administration Pain , Severe (7-10) Sodium Chloride 1,000 mls @ 100 mls/hr 09/12/21 14:15 09/15/21 06:19 Nacl 0.9% 1000 Ml IV 100 mls/hr DIRECT ROSALVA Administration Sodium Chloride 100 mls @ 999 mls/hr 09/17/21 07:39 Nacl 0.9% IV JEFE PRN Hypotension Insulin Glargine 22 units 09/12/21 22:00 09/16/21 22:15 Insulin Glargine 100 Units/Ml SUB-Q 22 units HS ROSALVA Administration Insulin Human Lispro 0 unit 09/15/21 11:30 09/17/21 10:09 Insulin Lispro 100 Unit/Ml SUB-Q Not Given ACHS [facility] Protocol Metoclopramide HCl 5 mg 09/14/21 16:30 09/17/21 10:03 Metoclopramide 10 Mg Tab PO 5 mg TIDAC ROSALVA Administration Morphine Sulfate 2 mg 09/12/21 14:09 09/17/21 06:24 Morphine 2 Mg/1 Ml Inj IV 2 mg Q4H PRN Administration Pain, Moderate (4-6) Nifedipine 90 mg 09/12/21 15:00 09/17/21 10:03 Nifedipine Xl 90 Mg Tab PO 90 mg QDAY ROSALVA Administration Ondansetron HCl 4 mg 09/14/21 11:52 09/16/21 11:39 Ondansetron 4 Mg/2 Ml Inj IV 4 mg Q4H PRN Administration Nausea Promethazine HCl 25 mg 09/12/21 14:06 Promethazine 25 Mg Rect Supp [place] Q6HR PRN Nausea And Vomiting Sodium Chloride 10 ml 09/12/21 22:00 09/17/21 10:05 Sodium Chloride 0.9% 10 Ml Flush Syringe IV 10 ml BID ROSALVA Administration Sodium Chloride 10 ml 09/12/21 14:09 Sodium Chloride 0.9% 10 Ml Flush Syringe IV PRN PRN LINE FLUSH Nutrition/Malnutrition Assess - Dietary Evaluation Nutrition/Malnutrition Findings: Nutrition Notes Start: 09/13/21 10:57 Freq: Status: Active Protocol: Document 09/15/21 16:33 MELISSA (Rec: 09/15/21 16:44 MELISSA [email or web address]) Nutrition Notes Initial or Follow up Brief Note Current Diet Consistent Carbohydrates Diet (since 09/14), D Suppl ( since 09/13). Height 5 ft 5 in Weight 49.3 kg [place] Body Weight (kg) 56.81 BMI 18.1 Weight change and time frame 0.59 Kg body weight loss in 2 days reported. Weight Status Underweight Subjective/Other Information RD consult for routine F/U on dietary Advancement. Pt is now on PO diet, but PO intake of meals has been Fair (50%), according to ADL notes. I will continue with dietary supplementation to compensate for inadequate PO intake of meals. Percent of energy/protein needs met: Prescribed Consistent Carbohydrates Diet provides for energy/protein needs (2, 061 Kcal/91 g) during LOS. Current % PO Fair (50-74%) #1 Nutrition Diagnosis Inadequate protein-energy intake,Underweight Comments: Pt is now on PO diet, but PO intake of meals has been Fair (50%), according to ADL notes. Diagnosis Progress(for reassessment Continues documentation) Is patient on ventilator? No Is Patient Ambulatory and/or Out of Bed Yes REE-([facility]-ambulatory/OOB) [ [id number] [id number]] Calculation Used for Recommendations [facility] Additional Notes Protein: 0.6-0.8 g/Kg IBW; 34- 46 g/day. Fluids: 1 ml/Kcal, or as per MD. Nutrition Intervention Change Diet Order: Continue Consistent Carbohydrates Diet. Add Supplement/Snack (indicate name/kcal Continue 8 fl oz Nepro w/ /protein ) CARBSTEADY; BID. Provides kCal: 850 Provides Protein (gm) 38 Goal #1 Compensate, through dietary supplementation, for possible poor or insufficient PO intake of meals during LOS. Goal #2 Maintain body weight within +/ -3% of admission body weight during LOS. Follow-Up By: 09/22/21 Additional Comments Continue monitoring food tolerance, %PO intake of meals , and BM.
[2021-09-17] MEDS ORDERED: SODIUM CHLORIDE 0.9% 250ML 250 ML ONE (14:02)
[2021-09-17 14:18] LABS: INR 0.87 (0.87-1.13)
[2021-09-17] MEDS ORDERED: HEPARIN/NS 5000 UNIT/500ML 500 ML IR ONE (14:58)
[2021-09-17] MEDS ORDERED: MIDAZOLAM 2 MG/2 ML INJ ONE (14:58)
[2021-09-17] MEDS ORDERED: HEPARIN 10,000 UNITS/10 ML VIAL ONE (14:58)
[2021-09-17] MEDS ORDERED: LIDOCAINE (1%) 10 MG/1 ML VIAL 20 ML MDV ONE (14:59)
[2021-09-17] MEDS ORDERED: fentaNYL 100 MCG/2 ML INJ ONE (14:59)
[2021-09-17] MEDS ORDERED: MIDAZOLAM 2 MG/2 ML INJ IV ONE (15:02)
[2021-09-17] MEDS ORDERED: fentaNYL 100 MCG/2 ML INJ IV ONE (15:02)
[2021-09-17] MEDS ORDERED: LIDOCAINE (1%) 10 MG/1 ML VIAL 20 ML MDV INFILTRATI ONE (15:15)
[2021-09-17] MEDS ORDERED: ceFAZolin/Water 2 GM/20 ML 2 GM/20 ML SYRINGE IV ONE (15:16)
[2021-09-17] MEDS ORDERED: HEPARIN 10,000 UNITS/10 ML VIAL IV ONE (15:18)
[2021-09-17] MEDS ORDERED: ceFAZolin/STERILE WATER 2 GM/20 ML SYRINGE IV ONE (15:20)
--- NOTE | 2021-09-17 15:25 | Operative Report ---
Operative Report Operative Report: Exam: Ultrasound and fluoroscopic guided placement of tunneled hemodialysis catheter Clinical indication: Patient with a history of end-stage renal disease requiring dialysis access Date: 09/17/2021 Procedure: Following an explanation of the risk, benefits and alternatives; written informed consent was obtained. The patient was brought to the angiographic suite and placed in supine position on the examination table. Initial ultrasound of the neck demonstrated widely patent right internal jugular vein. The patient's right neck and chest wall were prepped and draped in the usual sterile fashion. 1% lidocaine was used for anesthesia. Under ultrasound guidance, the right internal jugular vein was cannulated with a 7 cm 18-gauge needle. A 0.035 guidewire was advanced centrally under fluoroscopy. The guidewire was advanced into the IVC to document intravenous positioning and for anchoring.. The needle was removed. An appropriate catheter exit site was chosen along the lateral right chest wall. 1% lidocaine was used for anesthesia at the catheter exit site along the tunnel tract. A Bard 19 cm glidepath tunneled hemodialysis catheter was then tunneled antegrade from the catheter exit site to the venotomy site. Following serial dilation over the guidewire under fluoroscopy, a 15 Swedish peel-away sheath was advanced over the guidewire under fluoroscopy centrally. The guidewire and trocar were removed and the catheter inserted through the peel-away sheath. The peel-away sheath was removed and position the tip of the catheter in the proximal right atrium. Both ports flushed and aspirated easily. The venotomy was closed using 4-0 Vicryl suture and Dermabond. 3-0 Ethilon suture was used to approximate the catheter exit site and to anchor the catheter. Additional Dermabond was also applied there as well. Sterile dressings were applied. The patient tolerated the procedure well. There were no immediate postprocedure complications. Conscious sedation was performed under the guidance of radiologic nursing. Continuous cardiopulmonary monitoring was utilized. Impression: Ultrasound fluoroscopic guided placement of tunneled hemodialysis catheter via the right internal jugular vein.
[2021-09-17 19:34] LABS: Hepatitis B Surface Antigen Non-Reactive (Negative); Hepatitis C Virus Antibody Non-Reactive (NonReactive)
[2021-09-17] MEDS: HEPARIN 5,000 UNIT/1 ML VIAL SUB-Q SCH ×2 (19:52→22:53)
[2021-09-17] MEDS: INSULIN GLARGINE 100 UNITS/ML SUB-Q SCH (22:52)
[2021-09-18] MEDS: hydrALAZINE 25 MG TAB PO SCH ×3 (06:40→21:27)
[2021-09-18] MEDS: INSULIN LISPRO 100 UNIT/ML SUB-Q SCH ×5 (09:24→21:59)
[2021-09-18] MEDS: HEPARIN 5,000 UNIT/1 ML VIAL SUB-Q SCH ×2 (09:45→21:28)
[2021-09-18] MEDS: NIFEdipine XL 90 MG TAB PO SCH (09:47)
[2021-09-18] MEDS: FAMOTIDINE 10 MG TAB PO SCH ×2 (09:47→17:14)
[2021-09-18] MEDS: carvediloL 25 MG TAB PO SCH ×2 (09:48→21:27)
[2021-09-18] MEDS: METOCLOPRAMIDE 10 MG TAB PO SCH ×3 (09:48→17:12)
[2021-09-18] MEDS: MORPHINE 2 MG/1 ML INJ IV PRN (10:01)
--- NOTE | 2021-09-18 10:36 | Progress Note ---
Assessment and Plan Impression * End stage renal disease --24h urine CrCl 12ml/min (Sep 16) --Permcath insertion on Sep 17 --Hemodialysis initiation on Sep 17 * Uremia - self reported hx of weight loss, poor appetite * Hypoalbuminemia likely secondary to malnutrition * Nausea/vomiting secondary to uremia vs diabetic gastroparesis * Metabolic acidosis * Diabetic gastroparesis * Diabetes mellitus * Hypertension Plan: * Patient is s/p first HD treatment yesterday * Will plan for HD again today * CM consulted for outpatient HD clinic placement - patient requests to remain under Dr. Garces's care, placement at [facility] instead of [facility] - communication placed to CM * Glycemic control per primary team * Continue antiHTN medications * Strict I/O * Dose medications for renal function Subjective Date of service: 09/18/21 Principal diagnosis: Gastroparesis Interval history: Patient has no complaints. States dialysis was uneventful - tolerated treatment Objective - Vital Signs Vital signs: Vital Signs - 12hr 09/17/21 09/17/21 09/17/21 22:52 22:53 23:22 Temperature Pulse Rate 101 H 101 H Respiratory 20 Rate Blood Pressure 150/76 O2 Sat by Pulse Oximetry 09/18/21 09/18/21 03:38 06:40 Temperature 98.3 F Pulse Rate 97 H 97 H Respiratory 16 Rate Blood Pressure 175/84 175/84 O2 Sat by Pulse 99 Oximetry - General Appearance General appearance: well-developed, well-nourished EENT: ATNC Respiratory: Present: Clear to Ascultation Cardiology: regular, S1S2 Gastrointestinal: normal, no tenderness, no distended Integumentary: no rash, warm and dry Neurologic: alert and oriented x3 Psychiatric: cooperative - Lab 09/13/21 05:50 09/18/21 12:36 Most recent lab results ABG pH 7.379 pH Units (7.350-7.450) 09/12/21 18:30 ABG pCO2 34.4 mm Hg 09/12/21 18:30 ABG pO2 97.5 mm Hg (80.0-90.0) H 09/12/21 18:30 ABG HCO3 19.8 mmol/L (20.0-26.0) L 09/12/21 18:30 ABG O2 Saturation 97.3 % (95.0-99.0) 09/12/21 18:30 Calcium 8.7 mg/dL (8.4-10.2) 09/15/21 08:44 Magnesium 2.00 mg/dL (1.7-2.3) 09/14/21 08:11 Urine Creatinine 53.8 mg/dL (0.1-20.0) H 09/15/21 Unknown Medications & Allergies - Medications Allergies/Adverse Reactions: Allergies No Known Allergies Allergy (Verified 09/15/21 07:17) Home Medications: Home Medications Medication Instructions Recorded Confirmed Last Taken Type Insulin Glargine [Lantus VIAL] 20 units SUB-Q HS 04/09/21 09/15/21 2 Days Ago History ~05/17/21 AtorvaSTATin [Lipitor] 40 mg PO QHS #30 tablet 05/22/21 09/15/21 Unknown Rx NIFEdipine XL [Procardia Xl] 90 mg PO QDAY #30 tablet 05/22/21 09/15/21 Unknown Rx carvediloL [Coreg] 12.5 mg PO BID #60 tablet 05/22/21 09/15/21 Unknown Rx hydrALAZINE [Apresoline TAB] 50 mg PO Q8HR #90 tablet 05/22/21 09/15/21 Unknown Rx Dicyclomine [Bentyl] 20 mg PO Q6H PRN #30 tablet 07/12/21 09/15/21 Unknown Rx Ondansetron [Zofran Odt] 4 mg PO Q6H PRN #20 tab.rapdis 07/12/21 09/15/21 Unknown Rx Promethazine [Phenergan] 25 mg [place] Q6HR PRN #20 supp.rect 07/12/21 09/15/21 Unknown Rx Cholecalciferol (Vitamin D3) 50,000 units PO QWEEK 09/14/21 09/15/21 Unknown History [Vitamin D3 50,000UNIT CAP] Lispro Insulin [HumaLOG] 8 units SQ ACHS 09/14/21 09/15/21 Unknown History Active Medications: Generic Name Dose Route Start Last Admin Trade Name Freq PRN Reason Stop Dose Admin Acetaminophen 650 mg 09/12/21 10:44 09/16/21 16:38 Acetaminophen 325 Mg Tab PO 650 mg Q4H PRN Administration Pain MILD(1-3)/Fever >100.5/CASANOVA Alprazolam 0.5 mg 09/16/21 18:29 Alprazolam 0.5 Mg Tab PO Q8H PRN Anxiety Atorvastatin Calcium 40 mg 09/12/21 22:00 09/17/21 22:54 Atorvastatin 40 Mg Tab PO 40 mg QHS ROSALVA Administration Carvedilol 25 mg 09/14/21 22:00 09/18/21 09:48 Carvedilol 25 Mg Tab PO 25 mg BID ROSALVA Administration Dicyclomine HCl 20 mg 09/12/21 14:06 09/14/21 13:10 Dicyclomine 20 Mg Tab PO 20 mg Q6H PRN Administration Abdominal pain Famotidine 10 mg 09/14/21 09:30 09/18/21 09:47 Famotidine 10 Mg Tab PO 10 mg BIDAC ROSALVA Administration Heparin Sodium (Porcine) 5,000 unit 09/12/21 14:15 09/18/21 09:45 Heparin 5,000 Unit/1 Ml Vial SUB-Q 5,000 unit Q12HR ROSALVA Administration Hydralazine HCl 10 mg 09/12/21 14:22 09/14/21 12:00 Hydralazine 20 Mg/1 Ml Inj IV 10 mg Q3H PRN Administration Blood Pressure Hydralazine HCl 100 mg 09/16/21 18:27 09/18/21 06:40 Hydralazine 25 Mg Tab PO 100 mg Q8HR ROSALVA Administration Hydromorphone HCl 1 mg 09/12/21 14:09 09/15/21 06:13 Hydromorphone 1 Mg/1 Ml Inj IV 1 mg Q3H PRN Administration Pain , Severe (7-10) Sodium Chloride 1,000 mls @ 100 mls/hr 09/12/21 14:15 09/15/21 06:19 Nacl 0.9% 1000 Ml IV 100 mls/hr DIRECT ROSALVA Administration Sodium Chloride 100 mls @ 999 mls/hr 09/17/21 07:39 Nacl 0.9% IV JEFE PRN Hypotension Insulin Glargine 22 units 09/12/21 22:00 09/17/21 22:52 Insulin Glargine 100 Units/Ml SUB-Q 22 units HS ROSALVA Administration Insulin Human Lispro 0 unit 09/15/21 11:30 09/18/21 09:24 Insulin Lispro 100 Unit/Ml SUB-Q Not Given ACHS [facility] Protocol Metoclopramide HCl 5 mg 09/14/21 16:30 09/18/21 09:48 Metoclopramide 10 Mg Tab PO 5 mg TIDAC ROSALVA Administration Morphine Sulfate 2 mg 09/12/21 14:09 09/18/21 10:01 Morphine 2 Mg/1 Ml Inj IV 2 mg Q4H PRN Administration Pain, Moderate (4-6) Nifedipine 90 mg 09/12/21 15:00 09/18/21 09:47 Nifedipine Xl 90 Mg Tab PO 90 mg QDAY [facility] Administration Ondansetron HCl 4 mg 09/14/21 11:52 09/16/21 11:39 Ondansetron 4 Mg/2 Ml Inj IV 4 mg Q4H PRN Administration Nausea Promethazine HCl 25 mg 09/12/21 14:06 Promethazine 25 Mg Rect Supp [place] Q6HR PRN Nausea And Vomiting Sodium Chloride 10 ml 09/12/21 22:00 09/18/21 09:46 Sodium Chloride 0.9% 10 Ml Flush Syringe IV 10 ml BID ROSALVA Administration Sodium Chloride 10 ml 09/12/21 14:09 Sodium Chloride 0.9% 10 Ml Flush Syringe IV PRN PRN LINE FLUSH
[2021-09-18] MEDS ORDERED: SODIUM CHLORIDE 0.9% 100 ML IV PRN (10:51)
--- NOTE | 2021-09-18 11:49 | Progress Note ---
Assessment and Plan Assessment and plan: Diabetic gastroparesis Insulin-dependent diabetes mellitus Hypertension Chronic kidney disease Protein calorie malnutrition 09/15/2021. Patient resting in bed comfortably. Tolerating p.o. meals well. No nausea no vomiting. Gastroparesis per diagnosis controlled with Reglan and proton pump inhibitor.. 09/16/2021. Just told patient she require hemodialysis. Patient is very upset. Blood pressure has been going up patient is actively crying very upset. Difficult to calm down we will add benzodiazepine. Her nausea vomiting has resolved. Most likely was uremia because of nausea vomiting not gastroparesis. 09/17/2021. IR was consulted for PermCath placement. Patient to have hemodialysis initiated today. Patient with plans for HD tomorrow as well. Case management consulted for outpatient hemodialysis clinic placement. Tight glycemic control. Continue antihypertensive medications. Continue Reglan for gastroparesis 09/18/2021. Patient with hemodialysis catheter placed and s/p first hemodialysis yesterday. Nephrology with plans for hemodialysis again tomorrow. Case management consulted for outpatient hemodialysis clinic placement. Continue antihypertensive medications. Strict I/Os. Increase Lantus to 26 units at bedtime History Interval history: No new issues overnight. Hospitalist Physical - Constitutional Vitals: Temp Pulse Resp BP Pulse Ox 98.3 F 97 H 16 175/84 99 09/18/21 03:38 09/18/21 06:40 09/18/21 03:38 09/18/21 06:40 09/18/21 03:38 General appearance: Present: no acute distress, well-nourished - EENT Eyes: Present: PERRL, EOM intact ENT: hearing intact, clear oral mucosa, dentition normal - Neck Neck: Present: supple, normal ROM - Respiratory Respiratory effort: normal Respiratory: bilateral: CTA - Cardiovascular Rhythm: regular Heart Sounds: Present: S1 & S2. Absent: gallop, rub - Extremities Extremities: no ischemia, No edema, Full ROM - Abdominal General gastrointestinal: soft, non-tender, non-distended, normal bowel sounds - Integumentary Integumentary: Present: clear, warm, dry - Neurologic Neurologic: CNII-XII intact, moves all extremities Results - Labs CBC & Chem 7: 09/13/21 05:50 09/15/21 08:44 Labs: Laboratory Last Values WBC 9.0 K/mm3 (4.5-11.0) 09/13/21 05:50 RBC 3.38 M/mm3 (3.65-5.03) L 09/13/21 05:50 Hgb 10.0 gm/dl (10.1-14.3) L 09/13/21 05:50 Hct 29.4 % (30.3-42.9) L 09/13/21 05:50 MCV 87 fl (79-97) 09/13/21 05:50 MCH 30 pg (28-32) 09/13/21 05:50 MCHC 34 % (30-34) 09/13/21 05:50 RDW 14.4 % (13.2-15.2) 09/13/21 05:50 Plt Count 265 K/mm3 (140-440) 09/13/21 05:50 Lymph % (Auto) 15.3 % (13.4-35.0) 09/13/21 05:50 [place] % (Auto) 6.3 % (0.0-7.3) 09/13/21 05:50 Eos % (Auto) 0.1 % (0.0-4.3) 09/13/21 05:50 Baso % (Auto) 0.4 % (0.0-1.8) 09/13/21 05:50 Lymph # (Auto) 1.4 K/mm3 (1.2-5.4) 09/13/21 05:50 [place] # (Auto) 0.6 K/mm3 (0.0-0.8) 09/13/21 05:50 Eos # (Auto) 0.0 K/mm3 (0.0-0.4) 09/13/21 05:50 Baso # (Auto) 0.0 K/mm3 (0.0-0.1) 09/13/21 05:50 Seg Neutrophils % 77.9 % (40.0-70.0) H 09/13/21 05:50 Seg Neutrophils # 7.0 K/mm3 (1.8-7.7) 09/13/21 05:50 PT 12.8 Sec. (12.2-14.9) 09/17/21 13:23 INR 0.87 (0.87-1.13) 09/17/21 13:23 ABG pH 7.379 pH Units (7.350-7.450) 09/12/21 18:30 ABG pCO2 34.4 mm Hg 09/12/21 18:30 ABG pO2 97.5 mm Hg (80.0-90.0) H 09/12/21 18:30 ABG HCO3 19.8 mmol/L (20.0-26.0) L 09/12/21 18:30 ABG O2 Saturation 97.3 % (95.0-99.0) 09/12/21 18:30 ABG O2 Content 13.5 (0.0-44) 09/12/21 18:30 ABG Base Excess -4.7 mmol/L (-2.0-3.0) L 09/12/21 18:30 ABG Hemoglobin 9.9 gm/dl (12.0-16.0) L 09/12/21 18:30 ABG Carboxyhemoglobin 0.9 % (0.0-5.0) 09/12/21 18:30 ABG Methemoglobin 0.4 % (0.0-1.5) 09/12/21 18:30 Oxyhemoglobin 96.0 % (95.0-99.0) 09/12/21 18:30 FiO2 21 % 09/12/21 18:30 Sodium 133 mmol/L (137-145) L 09/15/21 08:44 Potassium 4.4 mmol/L (3.6-5.0) 09/15/21 08:44 Chloride 102.8 mmol/L (98-107) 09/15/21 08:44 Carbon Dioxide 18 mmol/L (22-30) L 09/15/21 08:44 Anion Gap 17 mmol/L 09/15/21 08:44 BUN 45 mg/dL (7-17) H 09/15/21 08:44 Creatinine 5.7 mg/dL (0.6-1.2) H 09/15/21 08:44 Estimated GFR 10 ml/min 09/15/21 08:44 BUN/Creatinine Ratio 8 % 09/15/21 08:44 Glucose 191 mg/dL (65-100) H 09/15/21 08:44 POC Glucose 315 mg/dL (70-105) H 09/17/21 22:14 Calcium 8.7 mg/dL (8.4-10.2) 09/15/21 08:44 Magnesium 2.00 mg/dL (1.7-2.3) 09/14/21 08:11 Total Bilirubin < 0.20 mg/dL (0.1-1.2) 09/15/21 08:44 AST 11 units/L (5-40) 09/15/21 08:44 ALT 8 units/L (7-56) 09/15/21 08:44 Alkaline Phosphatase 101 units/L (35-129) 09/15/21 08:44 Total Protein 6.3 g/dL (6.3-8.2) 09/15/21 08:44 Albumin 3.2 g/dL (3.9-5) L 09/15/21 08:44 Albumin/Globulin Ratio 1.0 % 09/15/21 08:44 Lipase 30 units/L (13-60) 09/12/21 07:54 HCG, Qual Negative (Negative) 09/12/21 07:54 Urine Total Volume 1400 ml 09/15/21 Unknown Urine Creatinine 53.8 mg/dL (0.1-20.0) H 09/15/21 Unknown Ur Creatinine 24 Hour 0.8 (0.8-2.8) 09/15/21 Unknown Height (in) 65.0 inches 09/15/21 07:25 Weight (lb) 108.7 lbs 09/15/21 07:25 Creatinine Clearance 12 09/15/21 07:25 Coronavirus (PCR) Negative (Negative) 09/17/21 09:25 Hepatitis A IgM Ab Non-reactive (NonReactive) 09/17/21 Unknown Hep Bs Antigen Non-reactive (Negative) 09/17/21 Unknown Hep B Core IgM Ab Non-reactive (NonReactive) 09/17/21 Unknown Hepatitis C Antibody Non-reactive (NonReactive) 09/17/21 Unknown Gomez/IV: Voiding Method Toilet Active Medications - Current Medications Current Medications: Generic Name Dose Route Start Last Admin Trade Name Freq PRN Reason Stop Dose Admin Acetaminophen 650 mg 09/12/21 10:44 09/16/21 16:38 Acetaminophen 325 Mg Tab PO 650 mg Q4H PRN Administration Pain MILD(1-3)/Fever >100.5/CASANOVA Alprazolam 0.5 mg 09/16/21 18:29 Alprazolam 0.5 Mg Tab PO Q8H PRN Anxiety Atorvastatin Calcium 40 mg 09/12/21 22:00 09/17/21 22:54 Atorvastatin 40 Mg Tab PO 40 mg QHS ROSALVA Administration Carvedilol 25 mg 09/14/21 22:00 09/18/21 09:48 Carvedilol 25 Mg Tab PO 25 mg BID ROSALVA Administration Dicyclomine HCl 20 mg 09/12/21 14:06 09/14/21 13:10 Dicyclomine 20 Mg Tab PO 20 mg Q6H PRN Administration Abdominal pain Famotidine 10 mg 09/14/21 09:30 09/18/21 09:47 Famotidine 10 Mg Tab PO 10 mg BIDAC ROSALVA Administration Heparin Sodium (Porcine) 5,000 unit 09/12/21 14:15 09/18/21 09:45 Heparin 5,000 Unit/1 Ml Vial SUB-Q 5,000 unit Q12HR ROSALVA Administration Hydralazine HCl 10 mg 09/12/21 14:22 09/14/21 12:00 Hydralazine 20 Mg/1 Ml Inj IV 10 mg Q3H PRN Administration Blood Pressure Hydralazine HCl 100 mg 09/16/21 18:27 09/18/21 06:40 Hydralazine 25 Mg Tab PO 100 mg Q8HR ROSALVA Administration Hydromorphone HCl 1 mg 09/12/21 14:09 09/15/21 06:13 Hydromorphone 1 Mg/1 Ml Inj IV 1 mg Q3H PRN Administration Pain , Severe (7-10) Sodium Chloride 1,000 mls @ 100 mls/hr 09/12/21 14:15 09/15/21 06:19 Nacl 0.9% 1000 Ml IV 100 mls/hr DIRECT ROSALVA Administration Sodium Chloride 100 mls @ 999 mls/hr 09/17/21 07:39 Nacl 0.9% IV JEFE PRN Hypotension Sodium Chloride 100 mls @ 999 mls/hr 09/18/21 10:51 Nacl 0.9% IV JEFE PRN Hypotension Insulin Glargine 22 units 09/12/21 22:00 09/17/21 22:52 Insulin Glargine 100 Units/Ml SUB-Q 22 units HS ROSALVA Administration Insulin Human Lispro 0 unit 09/15/21 11:30 09/18/21 11:15 Insulin Lispro 100 Unit/Ml SUB-Q Not Given ACHS [facility] Protocol Metoclopramide HCl 5 mg 09/14/21 16:30 09/18/21 09:48 Metoclopramide 10 Mg Tab PO 5 mg TIDAC ROSALVA Administration Morphine Sulfate 2 mg 09/12/21 14:09 09/18/21 10:01 Morphine 2 Mg/1 Ml Inj IV 2 mg Q4H PRN Administration Pain, Moderate (4-6) Nifedipine 90 mg 09/12/21 15:00 09/18/21 09:47 Nifedipine Xl 90 Mg Tab PO 90 mg QDAY ROSALVA Administration Ondansetron HCl 4 mg 09/14/21 11:52 09/16/21 11:39 Ondansetron 4 Mg/2 Ml Inj IV 4 mg Q4H PRN Administration Nausea Promethazine HCl 25 mg 09/12/21 14:06 Promethazine 25 Mg Rect Supp [place] Q6HR PRN Nausea And Vomiting Sodium Chloride 10 ml 09/12/21 22:00 09/18/21 09:46 Sodium Chloride 0.9% 10 Ml Flush Syringe IV 10 ml BID ROSALVA Administration Sodium Chloride 10 ml 09/12/21 14:09 Sodium Chloride 0.9% 10 Ml Flush Syringe IV PRN PRN LINE FLUSH Nutrition/Malnutrition Assess - Dietary Evaluation Nutrition/Malnutrition Findings: Nutrition Notes Start: 09/13/21 10:57 Freq: Status: Active Protocol: Document 09/15/21 16:33 MELISSA (Rec: 09/15/21 16:44 MELISSA [id number]) Nutrition Notes Initial or Follow up Brief Note Current Diet Consistent Carbohydrates Diet (since B 09/14), D Suppl ( since 09/13). Height 5 ft 5 in Weight 49.3 kg [place] Body Weight (kg) 56.81 BMI 18.1 Weight change and time frame 0.59 Kg body weight loss in 2 days reported. Weight Status Underweight Subjective/Other Information RD consult for routine F/U on dietary Advancement. Pt is now on PO diet, but PO intake of meals has been Fair (50%), according to ADL notes. I will continue with dietary supplementation to compensate for inadequate PO intake of meals. Percent of energy/protein needs met: Prescribed Consistent Carbohydrates Diet provides for energy/protein needs (2, 061 Kcal/91 g) during LOS. Current % PO Fair (50-74%) #1 Nutrition Diagnosis Inadequate protein-energy intake,Underweight Comments: Pt is now on PO diet, but PO intake of meals has been Fair (50%), according to ADL notes. Diagnosis Progress(for reassessment Continues documentation) Is patient on ventilator? No Is Patient Ambulatory and/or Out of Bed Yes REE-([facility]-ambulatory/OOB) [ 1480.544 [id number]] Calculation Used for Recommendations [facility] Additional Notes Protein: 0.6-0.8 g/Kg IBW; 34- 46 g/day. Fluids: 1 ml/Kcal, or as per MD. Nutrition Intervention Change Diet Order: Continue Consistent Carbohydrates Diet. Add Supplement/Snack (indicate name/kcal Continue 8 fl oz Nepro w/ /protein ) CARBSTEADY; BID. Provides kCal: 850 Provides Protein (gm) 38 Goal #1 Compensate, through dietary supplementation, for possible poor or insufficient PO intake of meals during LOS. Goal #2 Maintain body weight within +/ -3% of admission body weight during LOS. Follow-Up By: 09/22/21 Additional Comments Continue monitoring food tolerance, %PO intake of meals , and BM.
[2021-09-18 13:11] LABS: Calcium 8.1 mg/dL (8.4-10.2)
[2021-09-18] MEDS: HYDROmorphone 1 MG/1 ML INJ IV PRN (21:28)
[2021-09-18] MEDS: INSULIN GLARGINE 100 UNITS/ML SUB-Q SCH (21:28)
[2021-09-19] MEDS: hydrALAZINE 25 MG TAB PO SCH ×3 (05:34→21:45)
[2021-09-19] MEDS: METOCLOPRAMIDE 10 MG TAB PO SCH ×3 (09:06→16:59)
[2021-09-19] MEDS: FAMOTIDINE 10 MG TAB PO SCH ×2 (09:07→16:59)
[2021-09-19] MEDS: NIFEdipine XL 90 MG TAB PO SCH (09:07)
[2021-09-19] MEDS: carvediloL 25 MG TAB PO SCH ×2 (09:07→21:45)
[2021-09-19] MEDS: HEPARIN 5,000 UNIT/1 ML VIAL SUB-Q SCH ×2 (09:08→21:44)
--- NOTE | 2021-09-19 09:35 | Progress Note ---
Assessment and Plan Assessment and plan: Diabetic gastroparesis Insulin-dependent diabetes mellitus Hypertension Chronic kidney disease Protein calorie malnutrition 09/15/2021. Patient resting in bed comfortably. Tolerating p.o. meals well. No nausea no vomiting. Gastroparesis per diagnosis controlled with Reglan and proton pump inhibitor.. 09/16/2021. Just told patient she require hemodialysis. Patient is very upset. Blood pressure has been going up patient is actively crying very upset. Difficult to calm down we will add benzodiazepine. Her nausea vomiting has resolved. Most likely was uremia because of nausea vomiting not gastroparesis. 09/17/2021. IR was consulted for PermCath placement. Patient to have hemodialysis initiated today. Patient with plans for HD tomorrow as well. Case management consulted for outpatient hemodialysis clinic placement. Tight glycemic control. Continue antihypertensive medications. Continue Reglan for gastroparesis 09/18/2021. Patient with hemodialysis catheter placed and s/p first hemodialysis yesterday. Nephrology with plans for hemodialysis again tomorrow. Case management consulted for outpatient hemodialysis clinic placement. Continue antihypertensive medications. Strict I/Os. Increase Lantus to 26 units at bedtime. 09/19/2021. Patient with hemodialysis catheter placed and s/p first hemodialysis 09/17/2021. Patient also received hemodialysis again yesterday. Case management consulted for outpatient hemodialysis clinic placement. Continue antihypertensive medications. Strict I/Os. Increased Lantus to 26 units at bedtime with better BG control. History Interval history: No new issues overnight. Hospitalist Physical - Constitutional Vitals: Temp Pulse Resp BP Pulse Ox 98.6 F 92 H 18 179/100 98 09/19/21 09:05 09/19/21 09:07 09/19/21 05:32 09/19/21 09:07 09/19/21 09:05 General appearance: Present: no acute distress, well-nourished - EENT Eyes: Present: PERRL, EOM intact ENT: hearing intact, clear oral mucosa, dentition normal - Neck Neck: Present: supple, normal ROM - Respiratory Respiratory effort: normal Respiratory: bilateral: CTA - Cardiovascular Rhythm: regular Heart Sounds: Present: S1 & S2. Absent: gallop, rub - Extremities Extremities: no ischemia, No edema, Full ROM - Abdominal General gastrointestinal: soft, non-tender, non-distended, normal bowel sounds - Integumentary Integumentary: Present: clear, warm, dry - Neurologic Neurologic: CNII-XII intact, moves all extremities Results - Labs CBC & Chem 7: 09/13/21 05:50 09/19/21 05:41 Labs: Laboratory Last Values WBC 9.0 K/mm3 (4.5-11.0) 09/13/21 05:50 RBC 3.38 M/mm3 (3.65-5.03) L 09/13/21 05:50 Hgb 10.0 gm/dl (10.1-14.3) L 09/13/21 05:50 Hct 29.4 % (30.3-42.9) L 09/13/21 05:50 MCV 87 fl (79-97) 09/13/21 05:50 MCH 30 pg (28-32) 09/13/21 05:50 MCHC 34 % (30-34) 09/13/21 05:50 RDW 14.4 % (13.2-15.2) 09/13/21 05:50 Plt Count 265 K/mm3 (140-440) 09/13/21 05:50 Lymph % (Auto) 15.3 % (13.4-35.0) 09/13/21 05:50 [place] % (Auto) 6.3 % (0.0-7.3) 09/13/21 05:50 Eos % (Auto) 0.1 % (0.0-4.3) 09/13/21 05:50 Baso % (Auto) 0.4 % (0.0-1.8) 09/13/21 05:50 Lymph # (Auto) 1.4 K/mm3 (1.2-5.4) 09/13/21 05:50 [place] # (Auto) 0.6 K/mm3 (0.0-0.8) 09/13/21 05:50 Eos # (Auto) 0.0 K/mm3 (0.0-0.4) 09/13/21 05:50 Baso # (Auto) 0.0 K/mm3 (0.0-0.1) 09/13/21 05:50 Seg Neutrophils % 77.9 % (40.0-70.0) H 09/13/21 05:50 Seg Neutrophils # 7.0 K/mm3 (1.8-7.7) 09/13/21 05:50 PT 12.8 Sec. (12.2-14.9) 09/17/21 13:23 INR 0.87 (0.87-1.13) 09/17/21 13:23 ABG pH 7.379 pH Units (7.350-7.450) 09/12/21 18:30 ABG pCO2 34.4 mm Hg 09/12/21 18:30 ABG pO2 97.5 mm Hg (80.0-90.0) H 09/12/21 18:30 ABG HCO3 19.8 mmol/L (20.0-26.0) L 09/12/21 18:30 ABG O2 Saturation 97.3 % (95.0-99.0) 09/12/21 18:30 ABG O2 Content 13.5 (0.0-44) 09/12/21 18:30 ABG Base Excess -4.7 mmol/L (-2.0-3.0) L 09/12/21 18:30 ABG Hemoglobin 9.9 gm/dl (12.0-16.0) L 09/12/21 18:30 ABG Carboxyhemoglobin 0.9 % (0.0-5.0) 09/12/21 18:30 ABG Methemoglobin 0.4 % (0.0-1.5) 09/12/21 18:30 Oxyhemoglobin 96.0 % (95.0-99.0) 09/12/21 18:30 FiO2 21 % 09/12/21 18:30 Sodium 136 mmol/L (137-145) L 09/19/21 05:41 Potassium 3.7 mmol/L (3.6-5.0) 09/19/21 05:41 Chloride 99.9 mmol/L (98-107) 09/19/21 05:41 Carbon Dioxide 25 mmol/L (22-30) 09/19/21 05:41 Anion Gap 15 mmol/L 09/19/21 05:41 BUN 19 mg/dL (7-17) H 09/19/21 05:41 Creatinine 3.7 mg/dL (0.6-1.2) H 09/19/21 05:41 Estimated GFR 16 ml/min 09/19/21 05:41 BUN/Creatinine Ratio 5 % 09/19/21 05:41 Glucose 83 mg/dL (65-100) 09/19/21 05:41 POC Glucose 204 mg/dL (70-105) H 09/18/21 21:51 Calcium 8.0 mg/dL (8.4-10.2) L 09/19/21 05:41 Magnesium 2.00 mg/dL (1.7-2.3) 09/14/21 08:11 Total Bilirubin < 0.20 mg/dL (0.1-1.2) 09/15/21 08:44 AST 11 units/L (5-40) 09/15/21 08:44 ALT 8 units/L (7-56) 09/15/21 08:44 Alkaline Phosphatase 101 units/L (35-129) 09/15/21 08:44 Total Protein 6.3 g/dL (6.3-8.2) 09/15/21 08:44 Albumin 3.2 g/dL (3.9-5) L 09/15/21 08:44 Albumin/Globulin Ratio 1.0 % 09/15/21 08:44 Lipase 30 units/L (13-60) 09/12/21 07:54 HCG, Qual Negative (Negative) 09/12/21 07:54 Urine Total Volume 1400 ml 09/15/21 Unknown Urine Creatinine 53.8 mg/dL (0.1-20.0) H 09/15/21 Unknown Ur Creatinine 24 Hour 0.8 (0.8-2.8) 09/15/21 Unknown Height (in) 65.0 inches 09/15/21 07:25 Weight (lb) 108.7 lbs 09/15/21 07:25 Creatinine Clearance 12 09/15/21 07:25 Coronavirus (PCR) Negative (Negative) 09/17/21 09:25 Hepatitis A IgM Ab Non-reactive (NonReactive) 09/17/21 Unknown Hep Bs Antigen Non-reactive (Negative) 09/17/21 Unknown Hep B Core IgM Ab Non-reactive (NonReactive) 09/17/21 Unknown Hepatitis C Antibody Non-reactive (NonReactive) 09/17/21 Unknown Gomez/IV: Voiding Method Toilet Active Medications - Current Medications Current Medications: Generic Name Dose Route Start Last Admin Trade Name Freq PRN Reason Stop Dose Admin Acetaminophen 650 mg 04/10/22 10:44 09/16/21 16:38 Acetaminophen 325 Mg Tab PO 650 mg Q4H PRN Administration Pain MILD(1-3)/Fever >100.5/CASANOVA Alprazolam 0.5 mg 09/16/21 18:29 Alprazolam 0.5 Mg Tab PO Q8H PRN Anxiety Atorvastatin Calcium 40 mg 09/12/21 22:00 09/18/21 21:27 Atorvastatin 40 Mg Tab PO 40 mg QHS ROSALVA Administration Carvedilol 25 mg 09/14/21 22:00 09/19/21 09:07 Carvedilol 25 Mg Tab PO 25 mg BID ROSALVA Administration Dicyclomine HCl 20 mg 09/12/21 14:06 09/14/21 13:10 Dicyclomine 20 Mg Tab PO 20 mg Q6H PRN Administration Abdominal pain Famotidine 10 mg 09/14/21 09:30 09/19/21 09:07 Famotidine 10 Mg Tab PO 10 mg BIDAC ROSALVA Administration Heparin Sodium (Porcine) 5,000 unit 09/12/21 14:15 09/19/21 09:08 Heparin 5,000 Unit/1 Ml Vial SUB-Q 5,000 unit Q12HR ROSALVA Administration Hydralazine HCl 10 mg 09/12/21 14:22 09/14/21 12:00 Hydralazine 20 Mg/1 Ml Inj IV 10 mg Q3H PRN Administration Blood Pressure Hydralazine HCl 100 mg 09/16/21 18:27 09/19/21 05:34 Hydralazine 25 Mg Tab PO 100 mg Q8HR ROSALVA Administration Hydromorphone HCl 1 mg 09/12/21 14:09 09/18/21 21:28 Hydromorphone 1 Mg/1 Ml Inj IV 1 mg Q3H PRN Administration Pain , Severe (7-10) Sodium Chloride 1,000 mls @ 100 mls/hr 09/12/21 14:15 09/15/21 06:19 Nacl 0.9% 1000 Ml IV 100 mls/hr DIRECT ROSALVA Administration Sodium Chloride 100 mls @ 999 mls/hr 09/17/21 07:39 Nacl 0.9% IV JEFE PRN Hypotension Sodium Chloride 100 mls @ 999 mls/hr 09/18/21 10:51 Nacl 0.9% IV JEFE PRN Hypotension Insulin Glargine 26 units 09/18/21 22:00 09/18/21 21:28 Insulin Glargine 100 Units/Ml SUB-Q 26 units HS ROSALVA Administration Insulin Human Lispro 0 unit 09/15/21 11:30 09/18/21 21:59 Insulin Lispro 100 Unit/Ml SUB-Q 4 unit ACHS ROSALVA Administration Protocol Metoclopramide HCl 5 mg 09/14/21 16:30 09/19/21 09:06 Metoclopramide 10 Mg Tab PO 5 mg TIDAC ROSALVA Administration Morphine Sulfate 2 mg 09/12/21 14:09 09/18/21 10:01 Morphine 2 Mg/1 Ml Inj IV 2 mg Q4H PRN Administration Pain, Moderate (4-6) Nifedipine 90 mg 09/12/21 15:00 09/19/21 09:07 Nifedipine Xl 90 Mg Tab PO 90 mg QDAY ROSALVA Administration Ondansetron HCl 4 mg 09/14/21 11:52 09/16/21 11:39 Ondansetron 4 Mg/2 Ml Inj IV 4 mg Q4H PRN Administration Nausea Promethazine HCl 25 mg 09/12/21 14:06 Promethazine 25 Mg Rect Supp [place] Q6HR PRN Nausea And Vomiting Sodium Chloride 10 ml 09/12/21 22:00 09/18/21 21:29 Sodium Chloride 0.9% 10 Ml Flush Syringe IV 10 ml BID ROSALVA Administration Sodium Chloride 10 ml 09/12/21 14:09 Sodium Chloride 0.9% 10 Ml Flush Syringe IV PRN PRN LINE FLUSH Nutrition/Malnutrition Assess - Dietary Evaluation Nutrition/Malnutrition Findings: Nutrition Notes Start: 09/13/21 10:57 Freq: Status: Active Protocol: Document 09/15/21 16:33 MELISSA (Rec: 09/15/21 16:44 MELISSA [id number]) Nutrition Notes Initial or Follow up Brief Note Current Diet Consistent Carbohydrates Diet (since 09/14), D Suppl ( since 09/13). Height 5 ft 5 in Weight 49.3 kg [place] Body Weight (kg) 56.81 BMI 18.1 Weight change and time frame 0.59 Kg body weight loss in 2 days reported. Weight Status Underweight Subjective/Other Information RD consult for routine F/U on dietary Advancement. Pt is now on PO diet, but PO intake of meals has been Fair (50%), according to ADL notes. I will continue with dietary supplementation to compensate for inadequate PO intake of meals. Percent of energy/protein needs met: Prescribed Consistent Carbohydrates Diet provides for energy/protein needs (2, 061 Kcal/91 g) during LOS. Current % PO Fair (50-74%) #1 Nutrition Diagnosis Inadequate protein-energy intake,Underweight Comments: Pt is now on PO diet, but PO intake of meals has been Fair (50%), according to ADL notes. Diagnosis Progress(for reassessment Continues documentation) Is patient on ventilator? No Is Patient Ambulatory and/or Out of Bed Yes REE-([facility]-ambulatory/OOB) [ 1480.544 [id number]] Calculation Used for Recommendations [facility] Additional Notes Protein: 0.6-0.8 g/Kg IBW; 34- 46 g/day. Fluids: 1 ml/Kcal, or as per MD. Nutrition Intervention Change Diet Order: Continue Consistent Carbohydrates Diet. Add Supplement/Snack (indicate name/kcal Continue 8 fl oz Nepro w/ /protein ) CARBSTEADY; BID. Provides kCal: 850 Provides Protein (gm) 38 Goal #1 Compensate, through dietary supplementation, for possible poor or insufficient PO intake of meals during LOS. Goal #2 Maintain body weight within +/ -3% of admission body weight during LOS. Follow-Up By: 09/22/21 Additional Comments Continue monitoring food tolerance, %PO intake of meals , and BM.
[2021-09-19] MEDS: INSULIN LISPRO 100 UNIT/ML SUB-Q SCH ×4 (10:56→21:44)
[2021-09-19] MEDS ORDERED: SODIUM CHLORIDE 0.9% 100 ML IV PRN (11:44)
--- NOTE | 2021-09-19 11:44 | Progress Note ---
Assessment and Plan Impression * End stage renal disease --24h urine CrCl 12ml/min (Sep 16) --Permcath insertion on Sep 17 --Hemodialysis initiation on Sep 17 * Uremia - self reported hx of weight loss, poor appetite * Hypoalbuminemia likely secondary to malnutrition * Nausea/vomiting secondary to uremia vs diabetic gastroparesis * Metabolic acidosis * Diabetic gastroparesis * Diabetes mellitus * Hypertension Plan: * Patient is s/p HD on Monday and Monday * No acute need for HD today * Will plan for HD tomorrow - continue MWF schedule * Glycemic control per primary team * Continue antiHTN medications * Strict I/O * Dose medications for renal function * CM consulted for outpatient HD clinic placement - patient requests to remain under Dr. Garces's care, placement at [facility] instead of [facility] - communication placed to CM Subjective Date of service: 09/19/21 Principal diagnosis: Gastroparesis Interval history: Patient reports feeling better - tolerating po intake Objective - Vital Signs Vital signs: Vital Signs - 12hr 09/19/21 09/19/21 09/19/21 05:32 09:05 09:07 Temperature 98.6 F 98.6 F Pulse Rate 91 H 92 H Respiratory 18 Rate Blood Pressure 179/100 Blood Pressure 137/89 [Left] O2 Sat by Pulse 100 98 Oximetry 09/19/21 10:00 Temperature Pulse Rate Respiratory 18 Rate Blood Pressure Blood Pressure [Left] O2 Sat by Pulse 99 Oximetry - General Appearance General appearance: well-developed, well-nourished EENT: ATNC Respiratory: Present: Clear to Ascultation Cardiology: regular, S1S2 Gastrointestinal: normal, no tenderness, no distended Integumentary: no rash, warm and dry Neurologic: alert and oriented x3 Psychiatric: cooperative - Lab 09/13/21 05:50 09/19/21 05:41 Most recent lab results ABG pH 7.379 pH Units (7.350-7.450) 09/12/21 18:30 ABG pCO2 34.4 mm Hg 09/12/21 18:30 ABG pO2 97.5 mm Hg (80.0-90.0) H 09/12/21 18:30 ABG HCO3 19.8 mmol/L (20.0-26.0) L 09/12/21 18:30 ABG O2 Saturation 97.3 % (95.0-99.0) 09/12/21 18:30 Calcium 8.0 mg/dL (8.4-10.2) L 09/19/21 05:41 Magnesium 2.00 mg/dL (1.7-2.3) 09/14/21 08:11 Urine Creatinine 53.8 mg/dL (0.1-20.0) H 09/15/21 Unknown Medications & Allergies - Medications Allergies/Adverse Reactions: Allergies No Known Allergies Allergy (Verified 09/15/21 07:17) Home Medications: Home Medications Medication Instructions Recorded Confirmed Last Taken Type Insulin Glargine [Lantus VIAL] 20 units SUB-Q HS 04/09/21 09/15/21 2 Days Ago History ~05/17/21 AtorvaSTATin [Lipitor] 40 mg PO QHS #30 tablet 05/22/21 09/15/21 Unknown Rx NIFEdipine XL [Procardia Xl] 90 mg PO QDAY #30 tablet 05/22/21 09/15/21 Unknown Rx carvediloL [Coreg] 12.5 mg PO BID #60 tablet 05/22/21 09/15/21 Unknown Rx hydrALAZINE [Apresoline TAB] 50 mg PO Q8HR #90 tablet 05/22/21 09/15/21 Unknown Rx Dicyclomine [Bentyl] 20 mg PO Q6H PRN #30 tablet 07/12/21 09/15/21 Unknown Rx Ondansetron [Zofran Odt] 4 mg PO Q6H PRN #20 tab.rapdis 07/12/21 09/15/21 Unknown Rx Promethazine [Phenergan] 25 mg [place] Q6HR PRN #20 supp.rect 07/12/21 09/15/21 Unknown Rx Cholecalciferol (Vitamin D3) 50,000 units PO QWEEK 09/14/21 09/15/21 Unknown History [Vitamin D3 50,000UNIT CAP] Lispro Insulin [HumaLOG] 8 units SQ ACHS 09/14/21 09/15/21 Unknown History Active Medications: Generic Name Dose Route Start Last Admin Trade Name Freq PRN Reason Stop Dose Admin Acetaminophen 650 mg 09/12/21 10:44 09/16/21 16:38 Acetaminophen 325 Mg Tab PO 650 mg Q4H PRN Administration Pain MILD(1-3)/Fever >100.5/CASANOVA Alprazolam 0.5 mg 09/16/21 18:29 Alprazolam 0.5 Mg Tab PO Q8H PRN Anxiety Atorvastatin Calcium 40 mg 09/12/21 22:00 09/18/21 21:27 Atorvastatin 40 Mg Tab PO 40 mg QHS ROSALVA Administration Carvedilol 25 mg 09/14/21 22:00 09/19/21 09:07 Carvedilol 25 Mg Tab PO 25 mg BID ROSALVA Administration Dicyclomine HCl 20 mg 09/12/21 14:06 09/14/21 13:10 Dicyclomine 20 Mg Tab PO 20 mg Q6H PRN Administration Abdominal pain Famotidine 10 mg 09/14/21 09:30 09/19/21 09:07 Famotidine 10 Mg Tab PO 10 mg BIDAC ROSALVA Administration Heparin Sodium (Porcine) 5,000 unit 09/12/21 14:15 09/19/21 09:08 Heparin 5,000 Unit/1 Ml Vial SUB-Q 5,000 unit Q12HR ROSALVA Administration Hydralazine HCl 10 mg 09/12/21 14:22 09/14/21 12:00 Hydralazine 20 Mg/1 Ml Inj IV 10 mg Q3H PRN Administration Blood Pressure Hydralazine HCl 100 mg 09/16/21 18:27 09/19/21 05:34 Hydralazine 25 Mg Tab PO 100 mg Q8HR ROSALVA Administration Hydromorphone HCl 1 mg 09/12/21 14:09 09/18/21 21:28 Hydromorphone 1 Mg/1 Ml Inj IV 1 mg Q3H PRN Administration Pain , Severe (7-10) Sodium Chloride 1,000 mls @ 100 mls/hr 09/12/21 14:15 09/15/21 06:19 Nacl 0.9% 1000 Ml IV 100 mls/hr DIRECT ROSALVA Administration Sodium Chloride 100 mls @ 999 mls/hr 09/17/21 07:39 Nacl 0.9% IV JEFE PRN Hypotension Sodium Chloride 100 mls @ 999 mls/hr 09/18/21 10:51 Nacl 0.9% IV JEFE PRN Hypotension Insulin Glargine 26 units 09/18/21 22:00 09/18/21 21:28 Insulin Glargine 100 Units/Ml SUB-Q 26 units HS ROSALVA Administration Insulin Human Lispro 0 unit 09/15/21 11:30 09/19/21 10:56 Insulin Lispro 100 Unit/Ml SUB-Q Not Given ACHS [facility] Protocol Metoclopramide HCl 5 mg 09/14/21 16:30 09/19/21 09:06 Metoclopramide 10 Mg Tab PO 5 mg TIDAC ROSALVA Administration Morphine Sulfate 2 mg 09/12/21 14:09 09/18/21 10:01 Morphine 2 Mg/1 Ml Inj IV 2 mg Q4H PRN Administration Pain, Moderate (4-6) Nifedipine 90 mg 09/12/21 15:00 09/19/21 09:07 Nifedipine Xl 90 Mg Tab PO 90 mg QDAY ROSALVA Administration Ondansetron HCl 4 mg 09/14/21 11:52 09/16/21 11:39 Ondansetron 4 Mg/2 Ml Inj IV 4 mg Q4H PRN Administration Nausea Promethazine HCl 25 mg 09/12/21 14:06 Promethazine 25 Mg Rect Supp [place] Q6HR PRN Nausea And Vomiting Sodium Chloride 10 ml 09/12/21 22:00 09/18/21 21:29 Sodium Chloride 0.9% 10 Ml Flush Syringe IV 10 ml BID ROSALVA Administration Sodium Chloride 10 ml 09/12/21 14:09 Sodium Chloride 0.9% 10 Ml Flush Syringe IV PRN PRN LINE FLUSH
[2021-09-19] MEDS: INSULIN GLARGINE 100 UNITS/ML SUB-Q SCH (21:44)
[2021-09-20] MEDS: hydrALAZINE 25 MG TAB PO SCH ×3 (05:06→22:04)
[2021-09-20] MEDS: INSULIN LISPRO 100 UNIT/ML SUB-Q SCH ×4 (07:30→22:17)
[2021-09-20] MEDS: METOCLOPRAMIDE 10 MG TAB PO SCH ×5 (07:30→16:11)
[2021-09-20] MEDS: FAMOTIDINE 10 MG TAB PO SCH ×2 (07:30→16:33)
[2021-09-20 08:14] LABS: Calcium 8.6 mg/dL (8.4-10.2)
[2021-09-20] MEDS: HEPARIN 5,000 UNIT/1 ML VIAL SUB-Q SCH ×3 (09:00→22:05)
--- NOTE | 2021-09-20 10:40 | Progress Note ---
Assessment and Plan Assessment and plan: Diabetic gastroparesis Insulin-dependent diabetes mellitus Hypertension Chronic kidney disease Protein calorie malnutrition 09/15/2021. Patient resting in bed comfortably. Tolerating p.o. meals well. No nausea no vomiting. Gastroparesis per diagnosis controlled with Reglan and proton pump inhibitor.. 09/16/2021. Just told patient she require hemodialysis. Patient is very upset. Blood pressure has been going up patient is actively crying very upset. Difficult to calm down we will add benzodiazepine. Her nausea vomiting has resolved. Most likely was uremia because of nausea vomiting not gastroparesis. 09/17/2021. IR was consulted for PermCath placement. Patient to have hemodialysis initiated today. Patient with plans for HD tomorrow as well. Case management consulted for outpatient hemodialysis clinic placement. Tight glycemic control. Continue antihypertensive medications. Continue Reglan for gastroparesis 09/18/2021. Patient with hemodialysis catheter placed and s/p first hemodialysis yesterday. Nephrology with plans for hemodialysis again tomorrow. Case management consulted for outpatient hemodialysis clinic placement. Continue antihypertensive medications. Strict I/Os. Increase Lantus to 26 units at bedtime. 09/19/2021. Patient with hemodialysis catheter placed and s/p first hemodialysis 09/17/2021. Patient also received hemodialysis again yesterday. Case management consulted for outpatient hemodialysis clinic placement. Continue antihypertensive medications. Strict I/Os. Increased Lantus to 26 units at bedtime with better BG control. 09/20/2021. Patient with hemodialysis catheter placed and s/p first hemodialysis 09/17/2021. The patient will be continued on F hemodialysis schedule. Case management consulted for outpatient hemodialysis clinic placement. Continue antihypertensive medications. Strict I/Os. History Interval history: No new issues overnight. Hospitalist Physical - Constitutional Vitals: Temp Pulse Resp BP Pulse Ox 99.4 F 101 H 18 172/91 99 09/20/21 04:16 09/20/21 04:16 09/20/21 04:16 09/20/21 04:16 09/20/21 04:16 General appearance: Present: no acute distress, well-nourished - EENT Eyes: Present: PERRL, EOM intact ENT: hearing intact, clear oral mucosa, dentition normal - Neck Neck: Present: supple, normal ROM - Respiratory Respiratory effort: normal Respiratory: bilateral: CTA - Cardiovascular Rhythm: regular Heart Sounds: Present: S1 & S2. Absent: gallop, rub - Extremities Extremities: no ischemia, No edema, Full ROM - Abdominal General gastrointestinal: soft, non-tender, non-distended, normal bowel sounds - Integumentary Integumentary: Present: clear, warm, dry - Neurologic Neurologic: CNII-XII intact, moves all extremities Results - Labs CBC & Chem 7: 09/13/21 05:50 09/20/21 06:16 Labs: Laboratory Last Values WBC 9.0 K/mm3 (4.5-11.0) 09/13/21 05:50 RBC 3.38 M/mm3 (3.65-5.03) L 09/13/21 05:50 Hgb 10.0 gm/dl (10.1-14.3) L 09/13/21 05:50 Hct 29.4 % (30.3-42.9) L 09/13/21 05:50 MCV 87 fl (79-97) 09/13/21 05:50 MCH 30 pg (28-32) 09/13/21 05:50 MCHC 34 % (30-34) 09/13/21 05:50 RDW 14.4 % (13.2-15.2) 09/13/21 05:50 Plt Count 265 K/mm3 (140-440) 09/13/21 05:50 Lymph % (Auto) 15.3 % (13.4-35.0) 09/13/21 05:50 [place] % (Auto) 6.3 % (0.0-7.3) 09/13/21 05:50 Eos % (Auto) 0.1 % (0.0-4.3) 09/13/21 05:50 Baso % (Auto) 0.4 % (0.0-1.8) 09/13/21 05:50 Lymph # (Auto) 1.4 K/mm3 (1.2-5.4) 09/13/21 05:50 [place] # (Auto) 0.6 K/mm3 (0.0-0.8) 09/13/21 05:50 Eos # (Auto) 0.0 K/mm3 (0.0-0.4) 09/13/21 05:50 Baso # (Auto) 0.0 K/mm3 (0.0-0.1) 09/13/21 05:50 Seg Neutrophils % 77.9 % (40.0-70.0) H 09/13/21 05:50 Seg Neutrophils # 7.0 K/mm3 (1.8-7.7) 09/13/21 05:50 PT 12.8 Sec. (12.2-14.9) 09/17/21 13:23 INR 0.87 (0.87-1.13) 09/17/21 13:23 ABG pH 7.379 pH Units (7.350-7.450) 09/12/21 18:30 ABG pCO2 34.4 mm Hg 09/12/21 18:30 ABG pO2 97.5 mm Hg (80.0-90.0) H 09/12/21 18:30 ABG HCO3 19.8 mmol/L (20.0-26.0) L 09/12/21 18:30 ABG O2 Saturation 97.3 % (95.0-99.0) 09/12/21 18:30 ABG O2 Content 13.5 (0.0-44) 09/12/21 18:30 ABG Base Excess -4.7 mmol/L (-2.0-3.0) L 09/12/21 18:30 ABG Hemoglobin 9.9 gm/dl (12.0-16.0) L 09/12/21 18:30 ABG Carboxyhemoglobin 0.9 % (0.0-5.0) 09/12/21 18:30 ABG Methemoglobin 0.4 % (0.0-1.5) 09/12/21 18:30 Oxyhemoglobin 96.0 % (95.0-99.0) 09/12/21 18:30 FiO2 21 % 09/12/21 18:30 Sodium 135 mmol/L (137-145) L 09/20/21 06:16 Potassium 3.8 mmol/L (3.6-5.0) 09/20/21 06:16 Chloride 100.8 mmol/L (98-107) 09/20/21 06:16 Carbon Dioxide 25 mmol/L (22-30) 09/20/21 06:16 Anion Gap 13 mmol/L 09/20/21 06:16 BUN 29 mg/dL (7-17) H 09/20/21 06:16 Creatinine 4.5 mg/dL (0.6-1.2) H 09/20/21 06:16 Estimated GFR 13 ml/min 09/20/21 06:16 BUN/Creatinine Ratio 6 % 09/20/21 06:16 Glucose 125 mg/dL (65-100) H 09/20/21 06:16 POC Glucose 98 mg/dL (70-105) 09/20/21 07:34 Calcium 8.6 mg/dL (8.4-10.2) 09/20/21 06:16 Magnesium 2.00 mg/dL (1.7-2.3) 09/14/21 08:11 Total Bilirubin < 0.20 mg/dL (0.1-1.2) 09/15/21 08:44 AST 11 units/L (5-40) 09/15/21 08:44 ALT 8 units/L (7-56) 09/15/21 08:44 Alkaline Phosphatase 101 units/L (35-129) 09/15/21 08:44 Total Protein 6.3 g/dL (6.3-8.2) 09/15/21 08:44 Albumin 3.2 g/dL (3.9-5) L 09/15/21 08:44 Albumin/Globulin Ratio 1.0 % 09/15/21 08:44 Lipase 30 units/L (13-60) 09/12/21 07:54 HCG, Qual Negative (Negative) 09/12/21 07:54 Urine Total Volume 1400 ml 09/15/21 Unknown Urine Creatinine 53.8 mg/dL (0.1-20.0) H 09/15/21 Unknown Ur Creatinine 24 Hour 0.8 (0.8-2.8) 09/15/21 Unknown Height (in) 65.0 inches 09/15/21 07:25 Weight (lb) 108.7 lbs 09/15/21 07:25 Creatinine Clearance 12 09/15/21 07:25 Coronavirus (PCR) Negative (Negative) 09/17/21 09:25 Hepatitis A IgM Ab Non-reactive (NonReactive) 09/17/21 Unknown Hep Bs Antigen Non-reactive (Negative) 09/17/21 Unknown Hep B Core IgM Ab Non-reactive (NonReactive) 09/17/21 Unknown Hepatitis C Antibody Non-reactive (NonReactive) 09/17/21 Unknown Gomez/IV: Voiding Method Toilet Active Medications - Current Medications Current Medications: Generic Name Dose Route Start Last Admin Trade Name Freq PRN Reason Stop Dose Admin Acetaminophen 650 mg 09/12/21 10:44 09/16/21 16:38 Acetaminophen 325 Mg Tab PO 650 mg Q4H PRN Administration Pain MILD(1-3)/Fever >100.5/CASANOVA Alprazolam 0.5 mg 09/16/21 18:29 Alprazolam 0.5 Mg Tab PO Q8H PRN Anxiety Atorvastatin Calcium 40 mg 09/12/21 22:00 09/19/21 21:45 Atorvastatin 40 Mg Tab PO 40 mg QHS ROSALVA Administration Carvedilol 25 mg 09/14/21 22:00 09/19/21 21:45 Carvedilol 25 Mg Tab PO 25 mg BID ROSALVA Administration Dicyclomine HCl 20 mg 09/12/21 14:06 09/14/21 13:10 Dicyclomine 20 Mg Tab PO 20 mg Q6H PRN Administration Abdominal pain Famotidine 10 mg 09/14/21 09:30 09/19/21 16:59 Famotidine 10 Mg Tab PO 10 mg BIDAC ROSALVA Administration Heparin Sodium (Porcine) 5,000 unit 09/12/21 14:15 09/19/21 21:44 Heparin 5,000 Unit/1 Ml Vial SUB-Q 5,000 unit Q12HR ROSALVA Administration Hydralazine HCl 10 mg 09/12/21 14:22 09/14/21 12:00 Hydralazine 20 Mg/1 Ml Inj IV 10 mg Q3H PRN Administration Blood Pressure Hydralazine HCl 100 mg 09/16/21 18:27 09/20/21 05:06 Hydralazine 25 Mg Tab PO 100 mg Q8HR ROSALVA Administration Hydromorphone HCl 1 mg 09/12/21 14:09 09/18/21 21:28 Hydromorphone 1 Mg/1 Ml Inj IV 1 mg Q3H PRN Administration Pain , Severe (7-10) Sodium Chloride 1,000 mls @ 100 mls/hr 09/12/21 14:15 09/15/21 06:19 Nacl 0.9% 1000 Ml IV 100 mls/hr DIRECT ROSALVA Administration Sodium Chloride 100 mls @ 999 mls/hr 09/19/21 11:44 Nacl 0.9% IV JEFE PRN Hypotension Insulin Glargine 26 units 09/18/21 22:00 09/19/21 21:44 Insulin Glargine 100 Units/Ml SUB-Q 26 units HS ROSALVA Administration Insulin Human Lispro 0 unit 09/15/21 11:30 09/19/21 21:44 Insulin Lispro 100 Unit/Ml SUB-Q 8 unit ACHS ROSALVA Administration Protocol Metoclopramide HCl 5 mg 09/14/21 16:30 09/19/21 16:59 Metoclopramide 10 Mg Tab PO 5 mg TIDAC ROSALVA Administration Morphine Sulfate 2 mg 09/12/21 14:09 09/18/21 10:01 Morphine 2 Mg/1 Ml Inj IV 2 mg Q4H PRN Administration Pain, Moderate (4-6) Nifedipine 90 mg 09/12/21 15:00 09/19/21 09:07 Nifedipine Xl 90 Mg Tab PO 90 mg QDAY ROSALVA Administration Ondansetron HCl 4 mg 09/14/21 11:52 09/16/21 11:39 Ondansetron 4 Mg/2 Ml Inj IV 4 mg Q4H PRN Administration Nausea Promethazine HCl 25 mg 09/12/21 14:06 Promethazine 25 Mg Rect Supp [place] Q6HR PRN Nausea And Vomiting Sodium Chloride 10 ml 09/12/21 22:00 09/19/21 21:45 Sodium Chloride 0.9% 10 Ml Flush Syringe IV 10 ml BID ROSALVA Administration Sodium Chloride 10 ml 09/12/21 14:09 Sodium Chloride 0.9% 10 Ml Flush Syringe IV PRN PRN LINE FLUSH Nutrition/Malnutrition Assess - Dietary Evaluation Nutrition/Malnutrition Findings: Nutrition Notes Start: 09/13/21 10:57 Freq: Status: Active Protocol: Document 09/15/21 16:33 MELISSA (Rec: 09/15/21 16:44 MELISSA [id number]) Nutrition Notes Initial or Follow up Brief Note Current Diet Consistent Carbohydrates Diet (since 09/14), D Suppl ( since 09/13). Height 5 ft 5 in Weight 49.3 kg [place] Body Weight (kg) 56.81 BMI 18.1 Weight change and time frame 0.59 Kg body weight loss in 2 days reported. Weight Status Underweight Subjective/Other Information RD consult for routine F/U on dietary Advancement. Pt is now on PO diet, but PO intake of meals has been Fair (50%), according to ADL notes. I will continue with dietary supplementation to compensate for inadequate PO intake of meals. Percent of energy/protein needs met: Prescribed Consistent Carbohydrates Diet provides for energy/protein needs (2, 061 Kcal/91 g) during LOS. Current % PO Fair (50-74%) #1 Nutrition Diagnosis Inadequate protein-energy intake,Underweight Comments: Pt is now on PO diet, but PO intake of meals has been Fair (50%), according to ADL notes. Diagnosis Progress(for reassessment Continues documentation) Is patient on ventilator? No Is Patient Ambulatory and/or Out of Bed Yes REE-([facility]-ambulatory/OOB) [ [id number] [id number]] Calculation Used for Recommendations [facility] Additional Notes Protein: 0.6-0.8 g/Kg IBW; 34- 46 g/day. Fluids: 1 ml/Kcal, or as per MD. Nutrition Intervention Change Diet Order: Continue Consistent Carbohydrates Diet. Add Supplement/Snack (indicate name/kcal Continue 8 fl oz Nepro w/ /protein ) CARBSTEADY; BID. Provides kCal: 850 Provides Protein (gm) 38 Goal #1 Compensate, through dietary supplementation, for possible poor or insufficient PO intake of meals during LOS. Goal #2 Maintain body weight within +/ -3% of admission body weight during LOS. Follow-Up By: 09/22/21 Additional Comments Continue monitoring food tolerance, %PO intake of meals , and BM.
[2021-09-20] MEDS: hydrALAZINE 20 MG/1 ML INJ IV PRN (11:14)
[2021-09-20] MEDS: MORPHINE 2 MG/1 ML INJ IV PRN ×2 (11:59→22:16)
[2021-09-20] MEDS: carvediloL 25 MG TAB PO SCH ×3 (12:13→22:04)
[2021-09-20] MEDS: ACETAMINOPHEN 325 MG TAB PO PRN (13:54)
[2021-09-20] MEDS: NIFEdipine XL 90 MG TAB PO SCH (13:54)
[2021-09-20] MEDS: ONDANSETRON 4 MG/2 ML INJ IV PRN (13:54)
--- NOTE | 2021-09-20 15:19 | Progress Note ---
Assessment and Plan Impression * End stage renal disease --24h urine CrCl 12ml/min (Sep 16) --Permcath insertion on Sep 17 --Hemodialysis initiation on Sep 17 * Uremia - self reported hx of weight loss, poor appetite * Hypoalbuminemia likely secondary to malnutrition * Nausea/vomiting secondary to uremia vs diabetic gastroparesis * Metabolic acidosis * Diabetic gastroparesis * Diabetes mellitus * Hypertension Plan: * Patient is s/p HD on Monday and Monday * Patient had hemodialysis treatment this morning * Continue dialysis on MWF schedule for now * Glycemic control per primary team * Her blood pressure is noted to be elevated. Shall adjust her antihypertensive meds * Strict I/O * Dose medications for renal function * CM consulted for outpatient HD clinic placement - patient requests to remain under Dr. Garces's care, placement at [facility] or [facility] Date of service: 09/20/21 Principal diagnosis: Gastroparesis Interval history: Patient had hemodialysis treatment this morning. She did have an episode of vomiting during dialysis. Her blood pressure was also noted to be high. Patient denies any shortness of breath. Objective - Vital Signs Vital signs: Vital Signs - 12hr 09/20/21 09/20/21 09/20/21 04:16 10:00 10:10 Temperature 99.4 F 98.4 F Pulse Rate 101 H 102 H Respiratory 18 18 Rate Blood Pressure 172/91 192/107 O2 Sat by Pulse 99 98 Oximetry O2 Sat by Pulse 100 Oximetry [ Throughout] 09/20/21 09/20/21 09/20/21 10:15 10:30 10:45 Temperature Pulse Rate 100 H 99 H 100 H Respiratory Rate Blood Pressure 194/111 191/107 195/108 O2 Sat by Pulse Oximetry O2 Sat by Pulse Oximetry [ Throughout] 09/20/21 09/20/21 09/20/21 11:00 11:14 11:15 Temperature Pulse Rate 95 H 95 H 97 H Respiratory Rate Blood Pressure 189/106 189/106 197/111 O2 Sat by Pulse Oximetry O2 Sat by Pulse Oximetry [ Throughout] 09/20/21 09/20/21 09/20/21 11:30 11:45 11:59 Temperature Pulse Rate 100 H 102 H Respiratory 18 Rate Blood Pressure 181/100 184/100 O2 Sat by Pulse Oximetry O2 Sat by Pulse Oximetry [ Throughout] 09/20/21 09/20/21 09/20/21 12:00 12:13 12:15 Temperature Pulse Rate 103 H 103 H 106 H Respiratory Rate Blood Pressure 180/91 180/91 185/102 O2 Sat by Pulse Oximetry O2 Sat by Pulse Oximetry [ Throughout] 09/20/21 09/20/21 09/20/21 12:21 12:30 12:45 Temperature Pulse Rate 104 H 105 H 110 H Respiratory Rate Blood Pressure 194/101 197/108 184/110 O2 Sat by Pulse Oximetry O2 Sat by Pulse Oximetry [ Throughout] 09/20/21 09/20/21 09/20/21 13:00 13:10 13:25 Temperature 98.0 F Pulse Rate 110 H 104 H 111 H Respiratory 18 Rate Blood Pressure 186/93 180/94 177/87 O2 Sat by Pulse Oximetry O2 Sat by Pulse 100 Oximetry [ Throughout] - General Appearance General appearance: well-developed, well-nourished, appears stated age EENT: PERRL, mucous membranes moist Neck: no JVD, no thyromegaly, no carotid bruit, supple, other (Right IJ PermCath in place) Respiratory: Present: Clear to Ascultation Cardiology: regular, normal heart rate, S1S2, no murmurs Gastrointestinal: normal, normoactive bowel sounds Integumentary: no rash, other (No edema) - Lab 09/13/21 05:50 09/20/21 06:16 Most recent lab results ABG pH 7.379 pH Units (7.350-7.450) 09/12/21 18:30 ABG pCO2 34.4 mm Hg 09/12/21 18:30 ABG pO2 97.5 mm Hg (80.0-90.0) H 09/12/21 18:30 ABG HCO3 19.8 mmol/L (20.0-26.0) L 09/12/21 18:30 ABG O2 Saturation 97.3 % (95.0-99.0) 09/12/21 18:30 Calcium 8.6 mg/dL (8.4-10.2) 09/20/21 06:16 Magnesium 2.00 mg/dL (1.7-2.3) 09/14/21 08:11 Urine Creatinine 53.8 mg/dL (0.1-20.0) H 09/15/21 Unknown Medications & Allergies - Medications Allergies/Adverse Reactions: Allergies No Known Allergies Allergy (Verified 09/15/21 07:17) Home Medications: Home Medications Medication Instructions Recorded Confirmed Last Taken Type Insulin Glargine [Lantus VIAL] 20 units SUB-Q HS 04/09/21 09/15/21 2 Days Ago History ~05/17/21 AtorvaSTATin [Lipitor] 40 mg PO QHS #30 tablet 05/22/21 09/15/21 Unknown Rx NIFEdipine XL [Procardia Xl] 90 mg PO QDAY #30 tablet 05/22/21 09/15/21 Unknown Rx carvediloL [Coreg] 12.5 mg PO BID #60 tablet 05/22/21 09/15/21 Unknown Rx hydrALAZINE [Apresoline TAB] 50 mg PO Q8HR #90 tablet 05/22/21 09/15/21 Unknown Rx Dicyclomine [Bentyl] 20 mg PO Q6H PRN #30 tablet 07/12/21 09/15/21 Unknown Rx Ondansetron [Zofran Odt] 4 mg PO Q6H PRN #20 tab.rapdis 07/12/21 09/15/21 Unknown Rx Promethazine [Phenergan] 25 mg [place] Q6HR PRN #20 supp.rect 07/12/21 09/15/21 Unknown Rx Cholecalciferol (Vitamin D3) 50,000 units PO QWEEK 09/14/21 09/15/21 Unknown History [Vitamin D3 50,000UNIT CAP] Lispro Insulin [HumaLOG] 8 units SQ ACHS 09/14/21 09/15/21 Unknown History Active Medications: Generic Name Dose Route Start Last Admin Trade Name Freq PRN Reason Stop Dose Admin Acetaminophen 650 mg 09/12/21 10:44 09/20/21 13:54 Acetaminophen 325 Mg Tab PO 650 mg Q4H PRN Administration Pain MILD(1-3)/Fever >100.5/CASANOVA Alprazolam 0.5 mg 09/16/21 18:29 Alprazolam 0.5 Mg Tab PO Q8H PRN Anxiety Atorvastatin Calcium 40 mg 09/12/21 22:00 09/19/21 21:45 Atorvastatin 40 Mg Tab PO 40 mg QHS ROSALVA Administration Carvedilol 25 mg 09/14/21 22:00 09/20/21 12:21 Carvedilol 25 Mg Tab PO 25 mg BID ROSALVA Administration Dicyclomine HCl 20 mg 09/12/21 14:06 09/14/21 13:10 Dicyclomine 20 Mg Tab PO 20 mg Q6H PRN Administration Abdominal pain Famotidine 10 mg 09/14/21 09:30 09/19/21 16:59 Famotidine 10 Mg Tab PO 10 mg BIDAC ROSALVA Administration Heparin Sodium (Porcine) 5,000 unit 09/12/21 14:15 09/19/21 21:44 Heparin 5,000 Unit/1 Ml Vial SUB-Q 5,000 unit Q12HR ROSALVA Administration Hydralazine HCl 10 mg 09/12/21 14:22 09/20/21 11:14 Hydralazine 20 Mg/1 Ml Inj IV 10 mg Q3H PRN Administration Blood Pressure Hydralazine HCl 100 mg 09/16/21 18:27 09/20/21 05:06 Hydralazine 25 Mg Tab PO 100 mg Q8HR ROSALVA Administration Hydromorphone HCl 1 mg 09/12/21 14:09 09/18/21 21:28 Hydromorphone 1 Mg/1 Ml Inj IV 1 mg Q3H PRN Administration Pain , Severe (7-10) Sodium Chloride 1,000 mls @ 100 mls/hr 09/12/21 14:15 09/15/21 06:19 Nacl 0.9% 1000 Ml IV 100 mls/hr DIRECT ROSALVA Administration Sodium Chloride 100 mls @ 999 mls/hr 09/19/21 11:44 Nacl 0.9% IV JEFE PRN Hypotension Insulin Glargine 26 units 09/18/21 22:00 09/19/21 21:44 Insulin Glargine 100 Units/Ml SUB-Q 26 units HS ROSALVA Administration Insulin Human Lispro 0 unit 09/15/21 11:30 09/20/21 11:30 Insulin Lispro 100 Unit/Ml SUB-Q Not Given ACHS [facility] Protocol Metoclopramide HCl 5 mg 09/14/21 16:30 09/20/21 12:20 Metoclopramide 10 Mg Tab PO 5 mg TIDAC ROSALVA Administration Morphine Sulfate 2 mg 09/12/21 14:09 09/20/21 11:59 Morphine 2 Mg/1 Ml Inj IV 2 mg Q4H PRN Administration Pain, Moderate (4-6) Nifedipine 90 mg 09/12/21 15:00 09/20/21 13:54 Nifedipine Xl 90 Mg Tab PO 90 mg QDAY ROSALVA Administration Ondansetron HCl 4 mg 09/14/21 11:52 09/20/21 13:54 Ondansetron 4 Mg/2 Ml Inj IV 4 mg Q4H PRN Administration Nausea Promethazine HCl 25 mg 09/12/21 14:06 Promethazine 25 Mg Rect Supp OH Q6HR PRN Nausea And Vomiting Sodium Chloride 10 ml 09/12/21 22:00 09/19/21 21:45 Sodium Chloride 0.9% 10 Ml Flush Syringe IV 10 ml BID ROSALVA Administration Sodium Chloride 10 ml 09/12/21 14:09 Sodium Chloride 0.9% 10 Ml Flush Syringe IV PRN PRN LINE FLUSH
[2021-09-20] MEDS: LISINOPRIL 10 MG TAB PO SCH (16:11)
[2021-09-20] MEDS: HYDROmorphone 1 MG/1 ML INJ IV PRN (16:27)
--- NOTE | 2021-09-20 17:47 | XRay Report ---
. CHEST 1 VIEW INDICATION: HD clinic screening. COMPARISON: 06/22/2021 FINDINGS: Support devices: Right-sided central venous catheter tip projects over the SVC in expected position. Heart: Normal. Lungs/Pleura: There are mild lower lung predominant bilateral pulmonary opacities. Small effusions ar e present. IMPRESSION: 1. Nonspecific lower lung predominant bilateral pulmonary opacities with small associated bilateral p leural effusions. Signer Name: Oscar Flores MD Signed: 09/20/2021 5:43 PM Workstation Name: [id number]
[2021-09-20] MEDS: INSULIN GLARGINE 100 UNITS/ML SUB-Q SCH (22:18)
[2021-09-21] MEDS: hydrALAZINE 25 MG TAB PO SCH ×3 (05:13→22:54)
[2021-09-21 05:23] LABS: Calcium 8.5 mg/dL (8.4-10.2)
[2021-09-21] MEDS: METOCLOPRAMIDE 10 MG TAB PO SCH ×3 (07:30→16:18)
[2021-09-21] MEDS: FAMOTIDINE 10 MG TAB PO SCH ×2 (07:30→16:17)
[2021-09-21] MEDS: INSULIN LISPRO 100 UNIT/ML SUB-Q SCH ×4 (07:30→22:50)
[2021-09-21] MEDS: LISINOPRIL 10 MG TAB PO SCH (09:22)
[2021-09-21] MEDS: NIFEdipine XL 90 MG TAB PO SCH (09:23)
[2021-09-21] MEDS: carvediloL 25 MG TAB PO SCH ×2 (09:23→21:57)
[2021-09-21] MEDS: HEPARIN 5,000 UNIT/1 ML VIAL SUB-Q SCH ×2 (09:24→21:58)
--- NOTE | 2021-09-21 13:54 | Progress Note ---
Assessment and Plan Impression * End stage renal disease --24h urine CrCl 12ml/min (Sep 16) --Permcath insertion on Sep 17 --Hemodialysis initiation on Sep 17 * Uremia - self reported hx of weight loss, poor appetite * Hypoalbuminemia likely secondary to malnutrition * Nausea/vomiting secondary to uremia vs diabetic gastroparesis * Metabolic acidosis * Diabetic gastroparesis * Diabetes mellitus * Hypertension Plan: * Patient is s/p HD on Monday and Monday * Uneventful hemodialysis yesterday * Continue dialysis on MWF schedule for now * Glycemic control per primary team * Her blood pressure is much better today. Continue current antihypertensive medications * Strict I/O * Dose medications for renal function * CM consulted for outpatient HD clinic placement - patient requests to remain under Dr. Garces's care, placement at [facility] or [facility] Subjective Date of service: 09/21/21 Principal diagnosis: Gastroparesis Interval history: Patient is comfortable today. No more nausea or vomiting. Denies any shortness of breath. Objective - Vital Signs Vital signs: Vital Signs - 12hr 09/21/21 09/21/21 09/21/21 04:57 10:00 11:10 Temperature 98.6 F 99.4 F Pulse Rate 93 H 98 H Respiratory 16 20 Rate Blood Pressure 140/70 119/67 O2 Sat by Pulse 97 99 90 Oximetry - General Appearance General appearance: well-developed, well-nourished, appears stated age EENT: PERRL, mucous membranes moist Neck: no JVD, no thyromegaly, no carotid bruit, supple, other (Right IJ PermCath in place) Respiratory: Present: Clear to Ascultation Cardiology: regular, normal heart rate, S1S2, no murmurs Gastrointestinal: normal, normoactive bowel sounds Integumentary: no rash, other (No edema) - Lab 09/13/21 05:50 09/21/21 04:28 Most recent lab results ABG pH 7.379 pH Units (7.350-7.450) 09/12/21 18:30 ABG pCO2 34.4 mm Hg 09/12/21 18:30 ABG pO2 97.5 mm Hg (80.0-90.0) H 09/12/21 18:30 ABG HCO3 19.8 mmol/L (20.0-26.0) L 09/12/21 18:30 ABG O2 Saturation 97.3 % (95.0-99.0) 09/12/21 18:30 Calcium 8.5 mg/dL (8.4-10.2) 09/21/21 04:28 Magnesium 2.00 mg/dL (1.7-2.3) 09/14/21 08:11 Urine Creatinine 53.8 mg/dL (0.1-20.0) H 09/15/21 Unknown Medications & Allergies - Medications Allergies/Adverse Reactions: Allergies No Known Allergies Allergy (Verified 09/15/21 07:17) Home Medications: Home Medications Medication Instructions Recorded Confirmed Last Taken Type Insulin Glargine [Lantus VIAL] 20 units SUB-Q HS 04/09/21 09/15/21 2 Days Ago History ~05/17/21 AtorvaSTATin [Lipitor] 40 mg PO QHS #30 tablet 05/22/21 09/15/21 Unknown Rx NIFEdipine XL [Procardia Xl] 90 mg PO QDAY #30 tablet 05/22/21 09/15/21 Unknown Rx carvediloL [Coreg] 12.5 mg PO BID #60 tablet 05/22/21 09/15/21 Unknown Rx hydrALAZINE [Apresoline TAB] 50 mg PO Q8HR #90 tablet 05/22/21 09/15/21 Unknown Rx Dicyclomine [Bentyl] 20 mg PO Q6H PRN #30 tablet 07/12/21 09/15/21 Unknown Rx Ondansetron [Zofran Odt] 4 mg PO Q6H PRN #20 tab.rapdis 07/12/21 09/15/21 Unknown Rx Promethazine [Phenergan] 25 mg RI Q6HR PRN #20 supp.rect 07/12/21 09/15/21 Unknown Rx Cholecalciferol (Vitamin D3) 50,000 units PO QWEEK 09/14/21 09/15/21 Unknown History [Vitamin D3 50,000UNIT CAP] Lispro Insulin [HumaLOG] 8 units SQ ACHS 09/14/21 09/15/21 Unknown History Active Medications: Generic Name Dose Route Start Last Admin Trade Name Freq PRN Reason Stop Dose Admin Acetaminophen 650 mg 09/12/21 10:44 09/20/21 13:54 Acetaminophen 325 Mg Tab PO 650 mg Q4H PRN Administration Pain MILD(1-3)/Fever >100.5/CASANOVA Alprazolam 0.5 mg 09/16/21 18:29 Alprazolam 0.5 Mg Tab PO Q8H PRN Anxiety Atorvastatin Calcium 40 mg 09/12/21 22:00 09/20/21 22:05 Atorvastatin 40 Mg Tab PO 40 mg QHS ROSALVA Administration Carvedilol 25 mg 09/14/21 22:00 09/21/21 09:23 Carvedilol 25 Mg Tab PO 25 mg BID ROSALVA Administration Dicyclomine HCl 20 mg 09/12/21 14:06 09/14/21 13:10 Dicyclomine 20 Mg Tab PO 20 mg Q6H PRN Administration Abdominal pain Famotidine 10 mg 09/14/21 09:30 09/21/21 07:30 Famotidine 10 Mg Tab PO 10 mg BIDAC ROSALVA Administration Heparin Sodium (Porcine) 5,000 unit 09/12/21 14:15 09/21/21 09:24 Heparin 5,000 Unit/1 Ml Vial SUB-Q 5,000 unit Q12HR ROSALVA Administration Hydralazine HCl 10 mg 09/12/21 14:22 09/20/21 11:14 Hydralazine 20 Mg/1 Ml Inj IV 10 mg Q3H PRN Administration Blood Pressure Hydralazine HCl 100 mg 09/16/21 18:27 09/21/21 05:13 Hydralazine 25 Mg Tab PO 100 mg Q8HR ROSALVA Administration Hydromorphone HCl 1 mg 09/12/21 14:09 09/20/21 16:27 Hydromorphone 1 Mg/1 Ml Inj IV 1 mg Q3H PRN Administration Pain , Severe (7-10) Sodium Chloride 1,000 mls @ 100 mls/hr 09/12/21 14:15 09/15/21 06:19 Nacl 0.9% 1000 Ml IV 100 mls/hr DIRECT ROSALVA Administration Sodium Chloride 100 mls @ 999 mls/hr 09/19/21 11:44 Nacl 0.9% IV JEFE PRN Hypotension Insulin Glargine 26 units 09/18/21 22:00 09/20/21 22:18 Insulin Glargine 100 Units/Ml SUB-Q 26 units HS ROSALVA Administration Insulin Human Lispro 0 unit 09/15/21 11:30 09/21/21 11:30 Insulin Lispro 100 Unit/Ml SUB-Q Not Given ACHS [facility] Protocol Lisinopril 20 mg 09/20/21 16:00 09/21/21 09:22 Lisinopril 10 Mg Tab PO 20 mg QDAY ROSALVA Administration Metoclopramide HCl 5 mg 09/14/21 16:30 09/21/21 07:30 Metoclopramide 10 Mg Tab PO 5 mg TIDAC ROSALVA Administration Morphine Sulfate 2 mg 09/12/21 14:09 09/20/21 22:16 Morphine 2 Mg/1 Ml Inj IV 2 mg Q4H PRN Administration Pain, Moderate (4-6) Nifedipine 90 mg 09/12/21 15:00 09/21/21 09:23 Nifedipine Xl 90 Mg Tab PO 90 mg QDAY ROSALVA Administration Ondansetron HCl 4 mg 09/14/21 11:52 09/20/21 13:54 Ondansetron 4 Mg/2 Ml Inj IV 4 mg Q4H PRN Administration Nausea Promethazine HCl 25 mg 09/12/21 14:06 Promethazine 25 Mg Rect Supp RI Q6HR PRN Nausea And Vomiting Sodium Chloride 10 ml 09/12/21 22:00 09/21/21 09:26 Sodium Chloride 0.9% 10 Ml Flush Syringe IV 10 ml BID ROSALVA Administration Sodium Chloride 10 ml 09/12/21 14:09 Sodium Chloride 0.9% 10 Ml Flush Syringe IV PRN PRN LINE FLUSH
--- NOTE | 2021-09-21 19:20 | Progress Note ---
Assessment and Plan Assessment and plan: 46-year-old male with a history of hypertension, insulin-dependent diabetes and chronic kidney disease and gastroparesis comes in for nausea and vomiting for the last 3 days. Patient has been vomiting about 3-4 times a day. Also epigastric pain. Patient states he is compliant with her insulin regimen. Patient had multiple episodes of gastroparesis over the last 6 months Assessment: Diabetic gastroparesis Insulin-dependent diabetes mellitus Hypertension Chronic kidney disease Protein calorie malnutrition 09/15/2021. Patient resting in bed comfortably. Tolerating p.o. meals well. No nausea no vomiting. Gastroparesis per diagnosis controlled with Reglan and proton pump inhibitor.. 09/16/2021. Just told patient she require hemodialysis. Patient is very upset. Blood pressure has been going up patient is actively crying very upset. Difficult to calm down we will add benzodiazepine. Her nausea vomiting has resolved. Most likely was uremia because of nausea vomiting not gastroparesis. 09/17/2021. IR was consulted for PermCath placement. Patient to have hemodialysis initiated today. Patient with plans for HD tomorrow as well. Case management consulted for outpatient hemodialysis clinic placement. Tight glycemic control. Continue antihypertensive medications. Continue Reglan for gastroparesis 09/18/2021. Patient with hemodialysis catheter placed and s/p first hemodialysis yesterday. Nephrology with plans for hemodialysis again tomorrow. Case management consulted for outpatient hemodialysis clinic placement. Continue antihypertensive medications. Strict I/Os. Increase Lantus to 26 units at bedtime. 09/19/2021. Patient with hemodialysis catheter placed and s/p first hemodialysis 09/17/2021. Patient also received hemodialysis again yesterday. Case management consulted for outpatient hemodialysis clinic placement. Continue antihypertensive medications. Strict I/Os. Increased Lantus to 26 units at bedtime with better BG control. 09/20/2021. Patient with hemodialysis catheter placed and s/p first hemodialysis 09/17/2021. The patient will be continued on F hemodialysis schedule. Case management consulted for outpatient hemodialysis clinic placement. Continue antihypertensive medications. Strict I/Os. 09/21/2021: Asymptomatic. Will be discharged once outpatient dialysis arrangements are completed. History Interval history: Patient is doing well. She has no complaints. No dyspnea, cough, aches. Discharge planning arrangements for outpatient dialysis. Hospitalist Physical - Constitutional Vitals: Temp Pulse Resp BP Pulse Ox 99.2 F 100 H 20 142/72 97 09/21/21 16:39 09/21/21 16:39 09/21/21 16:39 09/21/21 16:39 09/21/21 16:39 General appearance: Present: no acute distress, well-nourished - EENT Eyes: Present: PERRL, EOM intact ENT: clear oral mucosa - Neck Neck: Present: supple - Respiratory Respiratory effort: normal Respiratory: bilateral: CTA - Cardiovascular Rhythm: regular - Extremities Extremities: No edema - Abdominal General gastrointestinal: soft, non-tender, non-distended - Integumentary Integumentary: Absent: rash - Psychiatric Psychiatric: appropriate mood/affect - Neurologic Neurologic: no focal deficits, moves all extremities Results - Labs CBC & Chem 7: 09/13/21 05:50 09/21/21 04:28 Labs: Laboratory Last Values WBC 9.0 K/mm3 (4.5-11.0) 09/13/21 05:50 RBC 3.38 M/mm3 (3.65-5.03) L 09/13/21 05:50 Hgb 10.0 gm/dl (10.1-14.3) L 09/13/21 05:50 Hct 29.4 % (30.3-42.9) L 09/13/21 05:50 MCV 87 fl (79-97) 09/13/21 05:50 MCH 30 pg (28-32) 09/13/21 05:50 MCHC 34 % (30-34) 09/13/21 05:50 RDW 14.4 % (13.2-15.2) 09/13/21 05:50 Plt Count 265 K/mm3 (140-440) 09/13/21 05:50 Lymph % (Auto) 15.3 % (13.4-35.0) 09/13/21 05:50 Mcleod % (Auto) 6.3 % (0.0-7.3) 09/13/21 05:50 Eos % (Auto) 0.1 % (0.0-4.3) 09/13/21 05:50 Baso % (Auto) 0.4 % (0.0-1.8) 09/13/21 05:50 Lymph # (Auto) 1.4 K/mm3 (1.2-5.4) 09/13/21 05:50 Mcleod # (Auto) 0.6 K/mm3 (0.0-0.8) 09/13/21 05:50 Eos # (Auto) 0.0 K/mm3 (0.0-0.4) 09/13/21 05:50 Baso # (Auto) 0.0 K/mm3 (0.0-0.1) 09/13/21 05:50 Seg Neutrophils % 77.9 % (40.0-70.0) H 09/13/21 05:50 Seg Neutrophils # 7.0 K/mm3 (1.8-7.7) 09/13/21 05:50 PT 12.8 Sec. (12.2-14.9) 09/17/21 13:23 INR 0.87 (0.87-1.13) 09/17/21 13:23 ABG pH 7.379 pH Units (7.350-7.450) 09/12/21 18:30 ABG pCO2 34.4 mm Hg 09/12/21 18:30 ABG pO2 97.5 mm Hg (80.0-90.0) H 09/12/21 18:30 ABG HCO3 19.8 mmol/L (20.0-26.0) L 09/12/21 18:30 ABG O2 Saturation 97.3 % (95.0-99.0) 09/12/21 18:30 ABG O2 Content 13.5 (0.0-44) 09/12/21 18:30 ABG Base Excess -4.7 mmol/L (-2.0-3.0) L 09/12/21 18:30 ABG Hemoglobin 9.9 gm/dl (12.0-16.0) L 09/12/21 18:30 ABG Carboxyhemoglobin 0.9 % (0.0-5.0) 09/12/21 18:30 ABG Methemoglobin 0.4 % (0.0-1.5) 09/12/21 18:30 Oxyhemoglobin 96.0 % (95.0-99.0) 09/12/21 18:30 FiO2 21 % 09/12/21 18:30 Sodium 138 mmol/L (137-145) 09/21/21 04:28 Potassium 3.7 mmol/L (3.6-5.0) 09/21/21 04:28 Chloride 102.3 mmol/L (98-107) 09/21/21 04:28 Carbon Dioxide 26 mmol/L (22-30) 09/21/21 04:28 Anion Gap 13 mmol/L 09/21/21 04:28 BUN 17 mg/dL (7-17) 09/21/21 04:28 Creatinine 3.3 mg/dL (0.6-1.2) H 09/21/21 04:28 Estimated GFR 18 ml/min 09/21/21 04:28 BUN/Creatinine Ratio 5 % 09/21/21 04:28 Glucose 51 mg/dL (65-100) L 09/21/21 04:28 POC Glucose 253 mg/dL (70-105) H 09/21/21 15:58 Calcium 8.5 mg/dL (8.4-10.2) 09/21/21 04:28 Magnesium 2.00 mg/dL (1.7-2.3) 09/14/21 08:11 Total Bilirubin < 0.20 mg/dL (0.1-1.2) 09/15/21 08:44 AST 11 units/L (5-40) 09/15/21 08:44 ALT 8 units/L (7-56) 09/15/21 08:44 Alkaline Phosphatase 101 units/L (35-129) 09/15/21 08:44 Total Protein 6.3 g/dL (6.3-8.2) 09/15/21 08:44 Albumin 3.2 g/dL (3.9-5) L 09/15/21 08:44 Albumin/Globulin Ratio 1.0 % 09/15/21 08:44 Lipase 30 units/L (13-60) 09/12/21 07:54 HCG, Qual Negative (Negative) 09/12/21 07:54 Urine Total Volume 1400 ml 09/15/21 Unknown Urine Creatinine 53.8 mg/dL (0.1-20.0) H 09/15/21 Unknown Ur Creatinine 24 Hour 0.8 (0.8-2.8) 09/15/21 Unknown Height (in) 65.0 inches 09/15/21 07:25 Weight (lb) 108.7 lbs 09/15/21 07:25 Creatinine Clearance 12 09/15/21 07:25 Coronavirus (PCR) Negative (Negative) 09/17/21 09:25 Hepatitis A IgM Ab Non-reactive (NonReactive) 09/17/21 Unknown Hep Bs Antigen Non-reactive (Negative) 09/17/21 Unknown Hep B Core IgM Ab Non-reactive (NonReactive) 09/17/21 Unknown Hepatitis C Antibody Non-reactive (NonReactive) 09/17/21 Unknown Gomez/IV: Voiding Method Toilet Active Medications - Current Medications Current Medications: Generic Name Dose Route Start Last Admin Trade Name Freq PRN Reason Stop Dose Admin Acetaminophen 650 mg 09/12/21 10:44 09/20/21 13:54 Acetaminophen 325 Mg Tab PO 650 mg Q4H PRN Administration Pain MILD(1-3)/Fever >100.5/CASANOVA Alprazolam 0.5 mg 09/16/21 18:29 Alprazolam 0.5 Mg Tab PO Q8H PRN Anxiety Atorvastatin Calcium 40 mg 09/12/21 22:00 09/20/21 22:05 Atorvastatin 40 Mg Tab PO 40 mg QHS ROSALVA Administration Carvedilol 25 mg 09/14/21 22:00 09/21/21 09:23 Carvedilol 25 Mg Tab PO 25 mg BID ROSALVA Administration Dicyclomine HCl 20 mg 09/12/21 14:06 09/14/21 13:10 Dicyclomine 20 Mg Tab PO 20 mg Q6H PRN Administration Abdominal pain Famotidine 10 mg 09/14/21 09:30 09/21/21 16:17 Famotidine 10 Mg Tab PO 10 mg BIDAC ROSALVA Administration Heparin Sodium (Porcine) 5,000 unit 09/12/21 14:15 09/21/21 09:24 Heparin 5,000 Unit/1 Ml Vial SUB-Q 5,000 unit Q12HR ROSALVA Administration Hydralazine HCl 10 mg 09/12/21 14:22 09/20/21 11:14 Hydralazine 20 Mg/1 Ml Inj IV 10 mg Q3H PRN Administration Blood Pressure Hydralazine HCl 100 mg 09/16/21 18:27 09/21/21 14:00 Hydralazine 25 Mg Tab PO 100 mg Q8HR ROSALVA Administration Hydromorphone HCl 1 mg 09/12/21 14:09 09/20/21 16:27 Hydromorphone 1 Mg/1 Ml Inj IV 1 mg Q3H PRN Administration Pain , Severe (7-10) Sodium Chloride 1,000 mls @ 100 mls/hr 09/12/21 14:15 09/15/21 06:19 Nacl 0.9% 1000 Ml IV 100 mls/hr DIRECT ROSALVA Administration Sodium Chloride 100 mls @ 999 mls/hr 09/19/21 11:44 Nacl 0.9% IV JEFE PRN Hypotension Insulin Glargine 26 units 09/18/21 22:00 09/20/21 22:18 Insulin Glargine 100 Units/Ml SUB-Q 26 units HS ROSALVA Administration Insulin Human Lispro 0 unit 09/15/21 11:30 09/21/21 16:30 Insulin Lispro 100 Unit/Ml SUB-Q 6 unit ACHS ROSALVA Administration Protocol Lisinopril 20 mg 09/20/21 16:00 09/21/21 09:22 Lisinopril 10 Mg Tab PO 20 mg QDAY ROSALVA Administration Metoclopramide HCl 5 mg 09/14/21 16:30 09/21/21 16:18 Metoclopramide 10 Mg Tab PO 5 mg TIDAC ROSALVA Administration Morphine Sulfate 2 mg 09/12/21 14:09 09/20/21 22:16 Morphine 2 Mg/1 Ml Inj IV 2 mg Q4H PRN Administration Pain, Moderate (4-6) Nifedipine 90 mg 09/12/21 15:00 09/21/21 09:23 Nifedipine Xl 90 Mg Tab PO 90 mg QDAY ROSALVA Administration Ondansetron HCl 4 mg 09/14/21 11:52 09/20/21 13:54 Ondansetron 4 Mg/2 Ml Inj IV 4 mg Q4H PRN Administration Nausea Promethazine HCl 25 mg 09/12/21 14:06 Promethazine 25 Mg Rect Supp DC Q6HR PRN Nausea And Vomiting Sodium Chloride 10 ml 09/12/21 22:00 09/21/21 09:26 Sodium Chloride 0.9% 10 Ml Flush Syringe IV 10 ml BID ROSALVA Administration Sodium Chloride 10 ml 09/12/21 14:09 Sodium Chloride 0.9% 10 Ml Flush Syringe IV PRN PRN LINE FLUSH Nutrition/Malnutrition Assess - Dietary Evaluation Nutrition/Malnutrition Findings: Nutrition Notes Start: 09/13/21 10:57 Freq: Status: Active Protocol: Document 09/15/21 16:33 MELISSA (Rec: 09/15/21 16:44 MELISSA [id number]) Nutrition Notes Initial or Follow up Brief Note Current Diet Consistent Carbohydrates Diet (since 09/14), D Suppl ( since 09/13). Height 5 ft 5 in Weight 49.3 kg [place] Body Weight (kg) 56.81 BMI 18.1 Weight change and time frame 0.59 Kg body weight loss in 2 days reported. Weight Status Underweight Subjective/Other Information RD consult for routine F/U on dietary Advancement. Pt is now on PO diet, but PO intake of meals has been Fair (50%), according to ADL notes. I will continue with dietary supplementation to compensate for inadequate PO intake of meals. Percent of energy/protein needs met: Prescribed Consistent Carbohydrates Diet provides for energy/protein needs (2, 061 Kcal/91 g) during LOS. Current % PO Fair (50-74%) #1 Nutrition Diagnosis Inadequate protein-energy intake,Underweight Comments: Pt is now on PO diet, but PO intake of meals has been Fair (50%), according to ADL notes. Diagnosis Progress(for reassessment Continues documentation) Is patient on ventilator? No Is Patient Ambulatory and/or Out of Bed Yes REE-([facility]-ambulatory/OOB) [ [id number] [id number]] Calculation Used for Recommendations [facility] Additional Notes Protein: 0.6-0.8 g/Kg IBW; 34- 46 g/day. Fluids: 1 ml/Kcal, or as per MD. Nutrition Intervention Change Diet Order: Continue Consistent Carbohydrates Diet. Add Supplement/Snack (indicate name/kcal Continue 8 fl oz Nepro w/ /protein ) CARBSTEADY; BID. Provides kCal: 850 Provides Protein (gm) 38 Goal #1 Compensate, through dietary supplementation, for possible poor or insufficient PO intake of meals during LOS. Goal #2 Maintain body weight within +/ -3% of admission body weight during LOS. Follow-Up By: 09/22/21 Additional Comments Continue monitoring food tolerance, %PO intake of meals , and BM.
[2021-09-21] MEDS: HYDROmorphone 1 MG/1 ML INJ IV PRN (22:00)
[2021-09-21] MEDS: INSULIN GLARGINE 100 UNITS/ML SUB-Q SCH (22:49)
[2021-09-22] MEDS: hydrALAZINE 25 MG TAB PO SCH ×2 (05:18→16:49)
[2021-09-22] MEDS ORDERED: DEXTROSE 50% IN WATER (25GM) 50 ML SYRINGE IV ONE (05:33)
[2021-09-22 05:48] LABS: Calcium 8.2 mg/dL (8.4-10.2)
--- NOTE | 2021-09-22 09:26 | Progress Note ---
Assessment and Plan Assessment and plan: 46-year-old male with a history of hypertension, insulin-dependent diabetes and chronic kidney disease and gastroparesis comes in for nausea and vomiting for the last 3 days. Patient has been vomiting about 3-4 times a day. Also epigastric pain. Patient states he is compliant with her insulin regimen. Patient had multiple episodes of gastroparesis over the last 6 months Assessment: Diabetic gastroparesis Insulin-dependent diabetes mellitus Hypertension Chronic kidney disease Protein calorie malnutrition 09/15/2021. Patient resting in bed comfortably. Tolerating p.o. meals well. No nausea no vomiting. Gastroparesis per diagnosis controlled with Reglan and proton pump inhibitor.. 09/16/2021. Just told patient she require hemodialysis. Patient is very upset. Blood pressure has been going up patient is actively crying very upset. Difficult to calm down we will add benzodiazepine. Her nausea vomiting has resolved. Most likely was uremia because of nausea vomiting not gastroparesis. 09/17/2021. IR was consulted for PermCath placement. Patient to have hemodialysis initiated today. Patient with plans for HD tomorrow as well. Case management consulted for outpatient hemodialysis clinic placement. Tight glycemic control. Continue antihypertensive medications. Continue Reglan for gastroparesis 09/18/2021. Patient with hemodialysis catheter placed and s/p first hemodialysis yesterday. Nephrology with plans for hemodialysis again tomorrow. Case management consulted for outpatient hemodialysis clinic placement. Continue antihypertensive medications. Strict I/Os. Increase Lantus to 26 units at bedtime. 09/19/2021. Patient with hemodialysis catheter placed and s/p first hemodialysis 09/17/2021. Patient also received hemodialysis again yesterday. Case management consulted for outpatient hemodialysis clinic placement. Continue antihypertensive medications. Strict I/Os. Increased Lantus to 26 units at bedtime with better BG control. 09/20/2021. Patient with hemodialysis catheter placed and s/p first hemodialysis 09/17/2021. The patient will be continued on [facility] hemodialysis schedule. Case management consulted for outpatient hemodialysis clinic placement. Continue antihypertensive medications. Strict I/Os. 09/21/2021: Asymptomatic. Will be discharged once outpatient dialysis arrangements are completed. Hospitalist Physical - Constitutional Vitals: Temp Pulse Resp BP Pulse Ox 98.0 F 94 H 16 135/69 93 09/22/21 05:03 09/22/21 05:18 09/22/21 05:03 09/22/21 05:18 09/22/21 05:03 General appearance: Present: no acute distress, well-nourished Results - Labs CBC & Chem 7: 09/13/21 05:50 09/22/21 05:09 Labs: Laboratory Last Values WBC 9.0 K/mm3 (4.5-11.0) 09/13/21 05:50 RBC 3.38 M/mm3 (3.65-5.03) L 09/13/21 05:50 Hgb 10.0 gm/dl (10.1-14.3) L 09/13/21 05:50 Hct 29.4 % (30.3-42.9) L 09/13/21 05:50 MCV 87 fl (79-97) 09/13/21 05:50 MCH 30 pg (28-32) 09/13/21 05:50 MCHC 34 % (30-34) 09/13/21 05:50 RDW 14.4 % (13.2-15.2) 09/13/21 05:50 Plt Count 265 K/mm3 (140-440) 09/13/21 05:50 Lymph % (Auto) 15.3 % (13.4-35.0) 09/13/21 05:50 Talbot % (Auto) 6.3 % (0.0-7.3) 09/13/21 05:50 Eos % (Auto) 0.1 % (0.0-4.3) 09/13/21 05:50 Baso % (Auto) 0.4 % (0.0-1.8) 09/13/21 05:50 Lymph # (Auto) 1.4 K/mm3 (1.2-5.4) 09/13/21 05:50 Talbot # (Auto) 0.6 K/mm3 (0.0-0.8) 09/13/21 05:50 Eos # (Auto) 0.0 K/mm3 (0.0-0.4) 09/13/21 05:50 Baso # (Auto) 0.0 K/mm3 (0.0-0.1) 09/13/21 05:50 Seg Neutrophils % 77.9 % (40.0-70.0) H 09/13/21 05:50 Seg Neutrophils # 7.0 K/mm3 (1.8-7.7) 09/13/21 05:50 PT 12.8 Sec. (12.2-14.9) 09/17/21 13:23 INR 0.87 (0.87-1.13) 09/17/21 13:23 ABG pH 7.379 pH Units (7.350-7.450) 09/12/21 18:30 ABG pCO2 34.4 mm Hg 09/12/21 18:30 ABG pO2 97.5 mm Hg (80.0-90.0) H 09/12/21 18:30 ABG HCO3 19.8 mmol/L (20.0-26.0) L 09/12/21 18:30 ABG O2 Saturation 97.3 % (95.0-99.0) 09/12/21 18:30 ABG O2 Content 13.5 (0.0-44) 09/12/21 18:30 ABG Base Excess -4.7 mmol/L (-2.0-3.0) L 09/12/21 18:30 ABG Hemoglobin 9.9 gm/dl (12.0-16.0) L 09/12/21 18:30 ABG Carboxyhemoglobin 0.9 % (0.0-5.0) 09/12/21 18:30 ABG Methemoglobin 0.4 % (0.0-1.5) 09/12/21 18:30 Oxyhemoglobin 96.0 % (95.0-99.0) 09/12/21 18:30 FiO2 21 % 09/12/21 18:30 Sodium 136 mmol/L (137-145) L 09/22/21 05:09 Potassium 3.9 mmol/L (3.6-5.0) 09/22/21 05:09 Chloride 99.3 mmol/L (98-107) 09/22/21 05:09 Carbon Dioxide 25 mmol/L (22-30) 09/22/21 05:09 Anion Gap 16 mmol/L 09/22/21 05:09 BUN 28 mg/dL (7-17) H 09/22/21 05:09 Creatinine 4.5 mg/dL (0.6-1.2) H 09/22/21 05:09 Estimated GFR 13 ml/min 09/22/21 05:09 BUN/Creatinine Ratio 6 % 09/22/21 05:09 Glucose 41 mg/dL (65-100) L 09/22/21 05:09 POC Glucose 35 mg/dL (70-105) L 09/22/21 05:22 Calcium 8.2 mg/dL (8.4-10.2) L 09/22/21 05:09 Magnesium 2.00 mg/dL (1.7-2.3) 09/14/21 08:11 Total Bilirubin < 0.20 mg/dL (0.1-1.2) 09/15/21 08:44 AST 11 units/L (5-40) 09/15/21 08:44 ALT 8 units/L (7-56) 09/15/21 08:44 Alkaline Phosphatase 101 units/L (35-129) 09/15/21 08:44 Total Protein 6.3 g/dL (6.3-8.2) 09/15/21 08:44 Albumin 3.2 g/dL (3.9-5) L 09/15/21 08:44 Albumin/Globulin Ratio 1.0 % 09/15/21 08:44 Lipase 30 units/L (13-60) 09/12/21 07:54 HCG, Qual Negative (Negative) 09/12/21 07:54 Urine Total Volume 1400 ml 09/15/21 Unknown Urine Creatinine 53.8 mg/dL (0.1-20.0) H 09/15/21 Unknown Ur Creatinine 24 Hour 0.8 (0.8-2.8) 09/15/21 Unknown Height (in) 65.0 inches 09/15/21 07:25 Weight (lb) 108.7 lbs 09/15/21 07:25 Creatinine Clearance 12 09/15/21 07:25 Coronavirus (PCR) Negative (Negative) 09/17/21 09:25 Hepatitis A IgM Ab Non-reactive (NonReactive) 09/17/21 Unknown Hep Bs Antigen Non-reactive (Negative) 09/17/21 Unknown Hep B Core IgM Ab Non-reactive (NonReactive) 09/17/21 Unknown Hepatitis C Antibody Non-reactive (NonReactive) 09/17/21 Unknown Gomez/IV: Voiding Method Toilet Active Medications - Current Medications Current Medications: Generic Name Dose Route Start Last Admin Trade Name Freq PRN Reason Stop Dose Admin Acetaminophen 650 mg 09/12/21 10:44 09/20/21 13:54 Acetaminophen 325 Mg Tab PO 650 mg Q4H PRN Administration Pain MILD(1-3)/Fever >100.5/CASANOVA Alprazolam 0.5 mg 09/16/21 18:29 Alprazolam 0.5 Mg Tab PO Q8H PRN Anxiety Atorvastatin Calcium 40 mg 09/12/21 22:00 09/21/21 21:58 Atorvastatin 40 Mg Tab PO 40 mg QHS ROSALVA Administration Carvedilol 25 mg 09/14/21 22:00 09/21/21 21:57 Carvedilol 25 Mg Tab PO 25 mg BID ROSALVA Administration Dicyclomine HCl 20 mg 09/12/21 14:06 09/14/21 13:10 Dicyclomine 20 Mg Tab PO 20 mg Q6H PRN Administration Abdominal pain Famotidine 10 mg 09/14/21 09:30 09/21/21 16:17 Famotidine 10 Mg Tab PO 10 mg BIDAC ROSALVA Administration Heparin Sodium (Porcine) 5,000 unit 09/12/21 14:15 09/21/21 21:58 Heparin 5,000 Unit/1 Ml Vial SUB-Q 5,000 unit Q12HR ROSALVA Administration Hydralazine HCl 10 mg 09/12/21 14:22 09/20/21 11:14 Hydralazine 20 Mg/1 Ml Inj IV 10 mg Q3H PRN Administration Blood Pressure Hydralazine HCl 100 mg 09/16/21 18:27 09/22/21 05:18 Hydralazine 25 Mg Tab PO 100 mg Q8HR ROSALVA Administration Hydromorphone HCl 1 mg 09/12/21 14:09 09/21/21 22:00 Hydromorphone 1 Mg/1 Ml Inj IV 1 mg Q3H PRN Administration Pain , Severe (7-10) Sodium Chloride 1,000 mls @ 100 mls/hr 09/12/21 14:15 09/15/21 06:19 Nacl 0.9% 1000 Ml IV 100 mls/hr DIRECT ROSALVA Administration Sodium Chloride 100 mls @ 999 mls/hr 09/19/21 11:44 Nacl 0.9% IV JEEF PRN Hypotension Insulin Glargine 26 units 09/18/21 22:00 09/21/21 22:49 Insulin Glargine 100 Units/Ml SUB-Q 26 units HS ROSALVA Administration Insulin Human Lispro 0 unit 09/15/21 11:30 09/21/21 22:50 Insulin Lispro 100 Unit/Ml SUB-Q 4 unit ACHS ROSALVA Administration Protocol Lisinopril 20 mg 09/20/21 16:00 09/21/21 09:22 Lisinopril 10 Mg Tab PO 20 mg QDAY ROSALVA Administration Metoclopramide HCl 5 mg 09/14/21 16:30 09/21/21 16:18 Metoclopramide 10 Mg Tab PO 5 mg TIDAC ROSALVA Administration Morphine Sulfate 2 mg 09/12/21 14:09 09/20/21 22:16 Morphine 2 Mg/1 Ml Inj IV 2 mg Q4H PRN Administration Pain, Moderate (4-6) Nifedipine 90 mg 09/12/21 15:00 09/21/21 09:23 Nifedipine Xl 90 Mg Tab PO 90 mg QDAY ROSALVA Administration Ondansetron HCl 4 mg 09/14/21 11:52 09/20/21 13:54 Ondansetron 4 Mg/2 Ml Inj IV 4 mg Q4H PRN Administration Nausea Promethazine HCl 25 mg 09/12/21 14:06 Promethazine 25 Mg Rect Supp DE Q6HR PRN Nausea And Vomiting Sodium Chloride 10 ml 09/12/21 22:00 09/21/21 21:59 Sodium Chloride 0.9% 10 Ml Flush Syringe IV 10 ml BID ROSALVA Administration Sodium Chloride 10 ml 09/12/21 14:09 Sodium Chloride 0.9% 10 Ml Flush Syringe IV PRN PRN LINE FLUSH Nutrition/Malnutrition Assess - Dietary Evaluation Nutrition/Malnutrition Findings: Nutrition Notes Start: 09/13/21 10:57 Freq: Status: Active Protocol: Document 09/15/21 16:33 MELISSA (Rec: 09/15/21 16:44 MELISSA [id number]) Nutrition Notes Initial or Follow up Brief Note Current Diet Consistent Carbohydrates Diet (since 09/14), D Suppl ( since 09/13). Height 5 ft 5 in Weight 49.3 kg [place] Body Weight (kg) 56.81 BMI 18.1 Weight change and time frame 0.59 Kg body weight loss in 2 days reported. Weight Status Underweight Subjective/Other Information RD consult for routine F/U on dietary Advancement. Pt is now on PO diet, but PO intake of meals has been Fair (50%), according to ADL notes. I will continue with dietary supplementation to compensate for inadequate PO intake of meals. Percent of energy/protein needs met: Prescribed Consistent Carbohydrates Diet provides for energy/protein needs (2, 061 Kcal/91 g) during LOS. Current % PO Fair (50-74%) #1 Nutrition Diagnosis Inadequate protein-energy intake,Underweight Comments: Pt is now on PO diet, but PO intake of meals has been Fair (50%), according to ADL notes. Diagnosis Progress(for reassessment Continues documentation) Is patient on ventilator? No Is Patient Ambulatory and/or Out of Bed Yes REE-([facility]-ambulatory/OOB) [ [id number] [id number]] Calculation Used for Recommendations [facility] Additional Notes Protein: 0.6-0.8 g/Kg IBW; 34- 46 g/day. Fluids: 1 ml/Kcal, or as per MD. Nutrition Intervention Change Diet Order: Continue Consistent Carbohydrates Diet. Add Supplement/Snack (indicate name/kcal Continue 8 fl oz Nepro w/ /protein ) CARBSTEADY; BID. Provides kCal: 850 Provides Protein (gm) 38 Goal #1 Compensate, through dietary supplementation, for possible poor or insufficient PO intake of meals during LOS. Goal #2 Maintain body weight within +/ -3% of admission body weight during LOS. Follow-Up By: 09/22/21 Additional Comments Continue monitoring food tolerance, %PO intake of meals , and BM.
[2021-09-22] MEDS: INSULIN LISPRO 100 UNIT/ML SUB-Q SCH ×3 (11:10→16:50)
[2021-09-22] MEDS: FAMOTIDINE 10 MG TAB PO SCH (11:11)
[2021-09-22] MEDS: METOCLOPRAMIDE 10 MG TAB PO SCH ×3 (11:11→16:51)
[2021-09-22] MEDS: HEPARIN 5,000 UNIT/1 ML VIAL SUB-Q SCH (11:11)
[2021-09-22] MEDS: LISINOPRIL 10 MG TAB PO SCH (11:12)
[2021-09-22] MEDS: NIFEdipine XL 90 MG TAB PO SCH (11:12)
[2021-09-22] MEDS: carvediloL 25 MG TAB PO SCH (11:13)
--- NOTE | 2021-09-22 14:44 | Progress Note ---
Assessment and Plan Impression * End stage renal disease --24h urine CrCl 12ml/min (Sep 16) --Permcath insertion on Sep 17 --Hemodialysis initiation on Sep 17 * Uremia - self reported hx of weight loss, poor appetite * Hypoalbuminemia likely secondary to malnutrition * Nausea/vomiting secondary to uremia vs diabetic gastroparesis * Metabolic acidosis * Diabetic gastroparesis * Diabetes mellitus * Hypertension Plan: * Patient is currently undergoing dialysis. Tolerating well. * Continue dialysis on MWF schedule for now * Glycemic control per primary team * Her blood pressure is much better today. Continue current antihypertensive medications * Strict I/O * Dose medications for renal function * Case management notes appreciated. Discussed with Dr. Garces . Patient has been accepted at [facility] to discharge patient home from renal standpoint Subjective Date of service: 09/22/21 Principal diagnosis: Gastroparesis Interval history: Patient is currently undergoing dialysis. Tolerating well. Denies any shortness of breath. No nausea or vomiting. Objective - Vital Signs Vital signs: Vital Signs - 12hr 09/22/21 09/22/21 09/22/21 05:03 05:18 11:13 Temperature 98.0 F Pulse Rate 94 H 94 H 100 H Respiratory 16 Rate Blood Pressure 135/69 135/69 152/83 O2 Sat by Pulse 93 Oximetry O2 Sat by Pulse Oximetry [ Throughout] 09/22/21 09/22/21 09/22/21 11:32 13:39 13:40 Temperature 98.7 F 98.8 F Pulse Rate 101 H 91 H 90 Respiratory 20 18 Rate Blood Pressure 162/85 135/75 144/77 O2 Sat by Pulse 94 Oximetry O2 Sat by Pulse 96 Oximetry [ Throughout] 09/22/21 09/22/21 09/22/21 13:45 14:00 14:15 Temperature Pulse Rate 89 88 90 Respiratory Rate Blood Pressure 132/72 145/77 144/80 O2 Sat by Pulse Oximetry O2 Sat by Pulse Oximetry [ Throughout] - General Appearance General appearance: well-developed, well-nourished, appears stated age EENT: PERRL, mucous membranes moist Neck: no JVD, no thyromegaly, no carotid bruit, supple, other (IJ PermCath in place.) Respiratory: Present: Clear to Ascultation Cardiology: regular, normal heart rate, S1S2, no murmurs Gastrointestinal: normal, normoactive bowel sounds Integumentary: no rash, other (No edema) - Lab 09/13/21 05:50 09/22/21 05:09 Most recent lab results ABG pH 7.379 pH Units (7.350-7.450) 09/12/21 18:30 ABG pCO2 34.4 mm Hg 09/12/21 18:30 ABG pO2 97.5 mm Hg (80.0-90.0) H 09/12/21 18:30 ABG HCO3 19.8 mmol/L (20.0-26.0) L 09/12/21 18:30 ABG O2 Saturation 97.3 % (95.0-99.0) 09/12/21 18:30 Calcium 8.2 mg/dL (8.4-10.2) L 09/22/21 05:09 Magnesium 2.00 mg/dL (1.7-2.3) 09/14/21 08:11 Urine Creatinine 53.8 mg/dL (0.1-20.0) H 09/15/21 Unknown Medications & Allergies - Medications Allergies/Adverse Reactions: Allergies No Known Allergies Allergy (Verified 09/15/21 07:17) Home Medications: Home Medications Medication Instructions Recorded Confirmed Last Taken Type Insulin Glargine [Lantus VIAL] 20 units SUB-Q HS 04/09/21 09/15/21 2 Days Ago History ~05/17/21 AtorvaSTATin [Lipitor] 40 mg PO QHS #30 tablet 05/22/21 09/15/21 Unknown Rx NIFEdipine XL [Procardia Xl] 90 mg PO QDAY #30 tablet 05/22/21 09/15/21 Unknown Rx carvediloL [Coreg] 12.5 mg PO BID #60 tablet 05/22/21 09/15/21 Unknown Rx hydrALAZINE [Apresoline TAB] 50 mg PO Q8HR #90 tablet 05/22/21 09/15/21 Unknown Rx Dicyclomine [Bentyl] 20 mg PO Q6H PRN #30 tablet 07/12/21 09/15/21 Unknown Rx Ondansetron [Zofran Odt] 4 mg PO Q6H PRN #20 tab.rapdis 07/12/21 09/15/21 Unknown Rx Promethazine [Phenergan] 25 mg CA Q6HR PRN #20 supp.rect 07/12/21 09/15/21 Unknown Rx Cholecalciferol (Vitamin D3) 50,000 units PO QWEEK 09/14/21 09/15/21 Unknown History [Vitamin D3 50,000UNIT CAP] Lispro Insulin [HumaLOG] 8 units SQ ACHS 09/14/21 09/15/21 Unknown History Active Medications: Generic Name Dose Route Start Last Admin Trade Name Freq PRN Reason Stop Dose Admin Acetaminophen 650 mg 09/12/21 10:44 09/20/21 13:54 Acetaminophen 325 Mg Tab PO 650 mg Q4H PRN Administration Pain MILD(1-3)/Fever >100.5/CASANOVA Alprazolam 0.5 mg 09/16/21 18:29 Alprazolam 0.5 Mg Tab PO Q8H PRN Anxiety Atorvastatin Calcium 40 mg 09/12/21 22:00 09/21/21 21:58 Atorvastatin 40 Mg Tab PO 40 mg QHS ROSALVA Administration Carvedilol 25 mg 09/14/21 22:00 09/22/21 11:13 Carvedilol 25 Mg Tab PO 25 mg BID ROSALVA Administration Dicyclomine HCl 20 mg 09/12/21 14:06 09/14/21 13:10 Dicyclomine 20 Mg Tab PO 20 mg Q6H PRN Administration Abdominal pain Famotidine 10 mg 09/14/21 09:30 09/22/21 11:11 Famotidine 10 Mg Tab PO Not Given BIDAC [facility] Heparin Sodium (Porcine) 5,000 unit 09/12/21 14:15 09/22/21 11:11 Heparin 5,000 Unit/1 Ml Vial SUB-Q Not Given Q12HR [facility] Hydralazine HCl 10 mg 09/12/21 14:22 09/20/21 11:14 Hydralazine 20 Mg/1 Ml Inj IV 10 mg Q3H PRN Administration Blood Pressure Hydralazine HCl 100 mg 09/16/21 18:27 09/22/21 05:18 Hydralazine 25 Mg Tab PO 100 mg Q8HR ROSALVA Administration Hydromorphone HCl 1 mg 09/12/21 14:09 09/21/21 22:00 Hydromorphone 1 Mg/1 Ml Inj IV 1 mg Q3H PRN Administration Pain , Severe (7-10) Sodium Chloride 1,000 mls @ 100 mls/hr 09/12/21 14:15 09/15/21 06:19 Nacl 0.9% 1000 Ml IV 100 mls/hr DIRECT ROSALVA Administration Sodium Chloride 100 mls @ 999 mls/hr 09/19/21 11:44 Nacl 0.9% IV JEFE PRN Hypotension Insulin Glargine 26 units 09/18/21 22:00 09/21/21 22:49 Insulin Glargine 100 Units/Ml SUB-Q 26 units HS ROSALVA Administration Insulin Human Lispro 0 unit 09/15/21 11:30 09/22/21 11:23 Insulin Lispro 100 Unit/Ml SUB-Q 3 unit ACHS ROSALVA Administration Protocol Lisinopril 20 mg 09/20/21 16:00 09/22/21 11:12 Lisinopril 10 Mg Tab PO Not Given QDAY [facility] Metoclopramide HCl 5 mg 09/14/21 16:30 09/22/21 11:28 Metoclopramide 10 Mg Tab PO 5 mg TIDAC ROSALVA Administration Morphine Sulfate 2 mg 09/12/21 14:09 09/20/21 22:16 Morphine 2 Mg/1 Ml Inj IV 2 mg Q4H PRN Administration Pain, Moderate (4-6) Nifedipine 90 mg 09/12/21 15:00 09/22/21 11:12 Nifedipine Xl 90 Mg Tab PO Not Given QDAY [facility] Ondansetron HCl 4 mg 09/14/21 11:52 09/20/21 13:54 Ondansetron 4 Mg/2 Ml Inj IV 4 mg Q4H PRN Administration Nausea Promethazine HCl 25 mg 09/12/21 14:06 Promethazine 25 Mg Rect Supp CA Q6HR PRN Nausea And Vomiting Sodium Chloride 10 ml 09/12/21 22:00 09/22/21 11:23 Sodium Chloride 0.9% 10 Ml Flush Syringe IV 10 ml BID ROSALVA Administration Sodium Chloride 10 ml 09/12/21 14:09 Sodium Chloride 0.9% 10 Ml Flush Syringe IV PRN PRN LINE FLUSH
--- NOTE | 2021-09-22 15:52 | Discharge Summary ---
Providers - Providers Date of Admission: 09/12/21 10:44 Date of discharge: 09/22/21 Attending physician: CHAPO GALLEGOS 09/12/21 14:11 Consult to Dietitian/Nutrition [CONS] Routine Physician Instructions: Reason For Exam: Reason for Consult: Diet education 09/14/21 07:29 Consult to Physician [CONS] Routine Comment: Consulting Provider: ROSINA KAHN Physician Instructions: Reason For Exam: Chronic kidney disease 09/17/21 07:39 Consult to Physician [CONS] Routine Comment: Consulting Provider: SAMMI CALDERA Physician Instructions: Reason For Exam: Permcath insertion 09/17/21 07:44 Consult to Case Management [CONS] Routine Services Needed at Discharge: Other Notified:: cm Comment:: OUTPATIENT HD CLINIC PLACEMENT 09/18/21 15:13 Consult to Case Management [CONS] Routine Services Needed at Discharge: Other Notified:: cm Comment:: HD clinic placement at [facility] Additional Physician Instructions: Patient requests to remain under Dr. Garces's care; needs placement at [facility] instead of [facility] Primary care physician: ANDIE ACOSTA Hospitalization Reason for admission: Intractable nausea vomiting/diabetic gastroparesis Condition: Fair Pertinent studies: Tunneled hemodialysis catheter placement Hemodialysis per schedule Chest x-ray Hospital course: tool and die manager reported at 3:25 PM today that patient's outpatient HD chair was confirmed and requested me to discharge the patient. 46-year-old male with a history of hypertension, insulin-dependent diabetes and chronic kidney disease and gastroparesis comes in for nausea and vomiting for the last 3 days. Patient has been vomiting about 3-4 times a day. Also epigastric pain. Pain is about 5 on a scale of 1-10. Patient states he is compliant with her insulin regimen. No fever or chills. Food is an exacerbatin g factor. Clear liquids are a relieving factor. Patient had multiple episodes of gastroparesis over the last 6 months-patient was managed appropriately with antiemetics and optimal control of blood sugars Patient was on chronic kidney disease evaluated by, nephrology, initiated hemodialysis Patient had dialysis catheter placement, received HD per schedule, case management set up outpatient HD scheduling for Monday and Monday Today patient is comfortable no new complaints, vital signs stable Physical examination prior to discharge is unremarkable Cleared by all the consultants, stable at discharge Discharge diagnosis; -- End-stage renal disease on hemodialysis Nephrology evaluated, initiated hemodialysis Outpatient HD chair placement secured Next HD tomorrow/TTS --Diabetic gastroparesis; Optimal control of blood sugars Antiemetics supportive care --Type 2 diabetes mellitus; Accu-Chek sliding scale coverage ADA diet Long-acting insulin as needed --Hypertension; Moderate control, continue current antihypertensives and as needed medications --Mild protein calorie malnutrition; Nutrition supplements and supportive care --DVT prophylaxis; subcu heparin DC planning per case management CM set up outpatient HD scheduling[TTS] first dialysis , 09/23/2021 Patient is stable at discharge Disposition: HOME / SELF CARE / HOMELESS Final Discharge Diagnosis (Prints w/discharge instructions): End-stage renal disease on hemodialysis. Hypertension. Diabetes mellitus. Malnutrition mild. Diabetic gastroparesis. Intractable nausea vomiting resolved Time spent for discharge: 35 minutes Core Measure Documentation - Palliative Care Palliative Care/ Comfort Measures: Not Applicable - Core Measures Any of the following diagnoses?: none Exam - Constitutional Vitals: Temp Pulse Resp BP Pulse Ox 98.8 F 90 18 173/92 96 09/22/21 13:39 09/22/21 15:30 09/22/21 13:39 09/22/21 15:30 09/22/21 13:39 General appearance: Present: no acute distress, well-nourished - EENT Eyes: Present: PERRL, EOM intact - Neck Neck: Present: supple, normal ROM - Respiratory Respiratory effort: normal Respiratory: bilateral: diminished, negative: rales, rhonchi, wheezing - Cardiovascular Rhythm: regular Heart Sounds: Present: S1 & S2 - Extremities Extremities: no ischemia, No edema - Abdominal General gastrointestinal: Present: soft, non-tender, non-distended, normal bowel sounds - Integumentary Integumentary: Present: clear, warm - Musculoskeletal Musculoskeletal: strength equal bilaterally, generalized weakness - Psychiatric Psychiatric: appropriate mood/affect, cooperative - Neurologic Neurologic: CNII-XII intact, moves all extremities Plan Activity: advance as tolerated Diet: diabetic, renal Additional Instructions: Dialysis schedule is 11 a.m. First dialysis treatment is 09/23/2021. Pt needs to arrive 30 minutes prior to start time, bring photo ID and insurance card. [facility]. [address] [place] [address]. [phone]. If you have worsening symptoms contact MD or go to the nearest emergency room as needed. Your sugars are in the lower range, hold insulin for 24 hours and resume if your sugars are high. Follow-up primary care physician in 1 week Follow up with: ANDIE ACOSTA MD [Primary Care Provider] - 3-5 Days NARESH ACOSTA MD [Staff Physician] - 7 Days Prescriptions: carvediloL [Coreg] 25 mg PO BID #60 tablet Famotidine [Pepcid] 10 mg PO BIDAC #30 tablet lisinopriL [Zestril TAB] 20 mg PO QDAY #30 tablet
[2021-09-22] MEDS: MORPHINE 2 MG/1 ML INJ IV PRN (17:29)
[2021-09-22] MEDS: hydrALAZINE 20 MG/1 ML INJ IV PRN (17:57)
[2021-09-22 17:58] VITALS: BP 184/90
== END 2021-09-22 19:00 | disposition home or self-care (01) | DRG 674 ==
LOC: ED 06:08 → 3A 10:44
PROVIDERS: ADMIT Internal Medicine; ATTEND Internal Medicine
PROC: 4A033R1 Measurement of Arterial Saturation, Peripheral, Percutaneous Approach (ICD-10-PCS; principal; 2021-09-12)
PROC: 0JH63XZ Insertion of Tunneled Vascular Access Device into Chest Subcutaneous Tissue and Fascia, Percutaneous Approach (ICD-10-PCS; 2021-09-17)
PROC: 5A1D70Z Performance of Urinary Filtration, Intermittent, Less than 6 Hours Per Day (ICD-10-PCS; 2021-09-17)
PROC: 02HV33Z Insertion of Infusion Device into Superior Vena Cava, Percutaneous Approach (ICD-10-PCS; 2021-09-17)
PROC: B5181ZA Fluoroscopy of Superior Vena Cava using Low Osmolar Contrast, Guidance (ICD-10-PCS; 2021-09-17)
PROC: B548ZZA Ultrasonography of Superior Vena Cava, Guidance (ICD-10-PCS; 2021-09-17)
PROC: 5A1D70Z Performance of Urinary Filtration, Intermittent, Less than 6 Hours Per Day (ICD-10-PCS; 2021-09-18)
PROC: 5A1D70Z Performance of Urinary Filtration, Intermittent, Less than 6 Hours Per Day (ICD-10-PCS; 2021-09-20)
PROC: 5A1D70Z Performance of Urinary Filtration, Intermittent, Less than 6 Hours Per Day (ICD-10-PCS; 2021-09-22)
DX: N17.9 Acute kidney failure, unspecified (principal); E87.2 Acidosis; E44.1 Mild protein-calorie malnutrition; Z68.1 Body mass index [BMI] 19.9 or less, adult; I12.0 Hypertensive chronic kidney disease with stage 5 chronic kidney disease or end stage renal disease; K31.84 Gastroparesis; N18.6 End stage renal disease; E11.43 Type 2 diabetes mellitus with diabetic autonomic (poly)neuropathy; N18.4 Chronic kidney disease, stage 4 (severe); R39.2 Extrarenal uremia; Z20.822 Contact with and (suspected) exposure to COVID-19; Z79.4 Long term (current) use of insulin; Z82.49 Family history of ischemic heart disease and other diseases of the circulatory system
CPT/HCPCS: 36415; 36558; 36600; 71045; 77001; 80048; 80053; 80074; 82565; 82570; 82575; 82803; 82962; 83690; 83735; 84703; 85025; 85610; G0378; J3490; Q9967; J0360; J0690; J1170; J1644; J1815; J2250; J2270; J2405; J3010; J7030; J7050; U0003

== ENCOUNTER 2022-03-02 15:00 | Inpatient (IN) | payer MEDICARE ==
[2022-03-02] MEDS ORDERED: diphenhydrAMINE 50 MG/ML VIAL IV ONE (16:02)
[2022-03-02] MEDS ORDERED: METOCLOPRAMIDE 10 MG/2 ML INJ IV ONE (16:02)
[2022-03-02] MEDS ORDERED: HYDROmorphone 1 MG/1 ML INJ IV ONE ×2 (16:02→19:31)
--- NOTE | 2022-03-02 16:34 | Emergency Department Report ---
ED N/V/D HPI - General Chief complaint: Hyperglycemia Stated complaint: HTN/HYPERGLYCEMIA/NAUSEA/VOMITIMG Time Seen by Provider: 03/02/22 15:49 Source: patient Mode of arrival: Stretcher Limitations: No Limitations - History of Present Illness Initial comments: 46-year-old female the past medical history of insulin-dependent diabetes, end- stage renal disease on dialysis Monday, , and Monday, gastroparesis, and hypertension presents to the hospital with complaints of nausea, vomiting, and hyperglycemia. Patient was recently discharged from [facility] 2 days ago after treatment for DKA. The last day and a half patient has had repeated nausea, vomiting, p.o. intolerance, and upper abdominal pain. Patient states has been compliant with her insulin. She last received dialysis yesterday. Pain is 10/10 intensity, constant, and she is unable to describe the quality of the pain. She denies history of previous abdominal surgeries - Related Data Home Medications Medication Instructions Recorded Confirmed Last Taken Insulin Glargine [Lantus VIAL] 20 units SUB-Q HS 04/09/21 09/15/21 2 Days Ago ~05/17/21 Cholecalciferol (Vitamin D3) 50,000 units PO QWEEK 09/14/21 09/15/21 Unknown [Vitamin D3 50,000UNIT CAP] Lispro Insulin [HumaLOG] 8 units SQ ACHS 09/14/21 09/15/21 Unknown Previous Rx's Medication Instructions Recorded Last Taken Type AtorvaSTATin [Lipitor] 40 mg PO QHS #30 tablet 05/22/21 Unknown Rx NIFEdipine XL [Procardia Xl] 90 mg PO QDAY #30 tablet 05/22/21 Unknown Rx carvediloL [Coreg] 12.5 mg PO BID #60 tablet 05/22/21 Unknown Rx hydrALAZINE [Apresoline TAB] 50 mg PO Q8HR #90 tablet 05/22/21 Unknown Rx Dicyclomine [Bentyl] 20 mg PO Q6H PRN #30 tablet 07/12/21 Unknown Rx Ondansetron [Zofran ODT TAB] 4 mg PO Q6H PRN #20 tab.rapdis 07/12/21 Unknown Rx Promethazine [Phenergan SUPPOS] [address] Q6HR PRN #20 supp.rect 07/12/21 Unknown Rx Famotidine [Pepcid] 10 mg PO BIDAC #30 tablet 09/22/21 Unknown Rx carvediloL [Coreg] 25 mg PO BID #60 tablet 09/22/21 Unknown Rx lisinopriL [Zestril TAB] 20 mg PO QDAY #30 tablet 09/22/21 Unknown Rx Allergies Allergy/AdvReac Type Severity Reaction Status Date / Time No Known Allergies Allergy Verified 09/15/21 07:17 ED Review of Systems ROS: Stated complaint: HTN/HYPERGLYCEMIA/NAUSEA/VOMITIMG Other details as noted in HPI Comment: All other systems reviewed and negative ED Past Medical Hx - Past Medical History Hx Hypertension: Yes Hx Congestive Heart Failure: No Hx Diabetes: Yes Hx Renal Disease: Yes (Chronic renal insufficiency) Hx Asthma: No Hx COPD: No Additional medical history: gastroparesis - Social History Smoking Status: Never Smoker - Medications Home Medications: Home Medications Medication Instructions Recorded Confirmed Last Taken Type Insulin Glargine [Lantus VIAL] 20 units SUB-Q HS 04/09/21 09/15/21 2 Days Ago History ~05/17/21 AtorvaSTATin [Lipitor] 40 mg PO QHS #30 tablet 05/22/21 09/15/21 Unknown Rx NIFEdipine XL [Procardia Xl] 90 mg PO QDAY #30 tablet 05/22/21 09/15/21 Unknown Rx carvediloL [Coreg] 12.5 mg PO BID #60 tablet 05/22/21 09/15/21 Unknown Rx hydrALAZINE [Apresoline TAB] 50 mg PO Q8HR #90 tablet 05/22/21 09/15/21 Unknown Rx Dicyclomine [Bentyl] 20 mg PO Q6H PRN #30 tablet 07/12/21 09/15/21 Unknown Rx Ondansetron [Zofran ODT TAB] 4 mg PO Q6H PRN #20 tab.rapdis 07/12/21 09/15/21 Unknown Rx Promethazine [Phenergan SUPPOS] [address] Q6HR PRN #20 supp.rect 07/12/21 09/15/21 Unknown Rx Cholecalciferol (Vitamin D3) 50,000 units PO QWEEK 09/14/21 09/15/21 Unknown History [Vitamin D3 50,000UNIT CAP] Lispro Insulin [HumaLOG] 8 units SQ ACHS 09/14/21 09/15/21 Unknown History Famotidine [Pepcid] 10 mg PO BIDAC #30 tablet 09/22/21 Unknown Rx carvediloL [Coreg] 25 mg PO BID #60 tablet 09/22/21 Unknown Rx lisinopriL [Zestril TAB] 20 mg PO QDAY #30 tablet 09/22/21 Unknown Rx ED Physical Exam - General Limitations: No Limitations - Other Other exam information: General: Acute distress secondary to pain Head: Atraumatic Eyes: normal appearance ENT: Moist mucous membranes Neck: Normal appearance, no midline tenderness Chest: Clear to auscultation bilaterally CV: Mild tachycardia regular rhythm Abdomen: Soft, normal bowel sounds, generalized tenderness greatest in upper abdomen Back: Normal inspection Extremity: Normal inspection, full range of motion Neuro: Alert O x 3, no facial asymmetry, speech clear, no gross motor sensory deficit Psych: Crying, tearful secondary to pain Skin: No rash ED Course Vital Signs 03/02/22 03/02/22 03/02/22 15:09 15:45 16:01 Temperature Pulse Rate 104 H 102 H 103 H Respiratory 20 27 H Rate Blood Pressure 175/91 161/83 Blood Pressure 220/120 [Left] O2 Sat by Pulse 96 98 100 Oximetry 03/02/22 03/02/22 03/02/22 16:15 16:31 16:45 Temperature Pulse Rate 103 H 101 H 102 H Respiratory 17 16 20 Rate Blood Pressure 173/99 175/86 169/90 Blood Pressure [Left] O2 Sat by Pulse 99 99 98 Oximetry 03/02/22 03/02/22 03/02/22 16:47 17:00 17:15 Temperature Pulse Rate 109 H 100 H Respiratory 17 22 17 Rate Blood Pressure 169/90 165/82 Blood Pressure [Left] O2 Sat by Pulse 97 96 90 Oximetry 03/02/22 03/02/22 03/02/22 17:31 17:45 18:01 Temperature Pulse Rate 100 H 102 H 103 H Respiratory 17 17 16 Rate Blood Pressure 168/83 167/85 174/83 Blood Pressure [Left] O2 Sat by Pulse 91 93 92 Oximetry 03/02/22 03/02/22 03/02/22 18:15 18:23 20:17 Temperature 97.9 F Pulse Rate 103 H 106 H 101 H Respiratory 17 15 20 Rate Blood Pressure 165/81 Blood Pressure 165/81 156/81 [Left] O2 Sat by Pulse 91 96 96 Oximetry ED Medical Decision Making - Lab Data Result diagrams: 03/02/22 16:35 03/02/22 16:35 Lab Results 03/02/22 03/02/22 03/02/22 Range/Units 16:28 16:35 16:35 WBC 7.4 (4.5-11.0) K/mm3 RBC 3.40 L (3.65-5.03) M/mm3 Hgb 10.8 (10.1-14.3) gm/dl Hct 30.9 (30.3-42.9) % MCV 91 (79-97) fl MCH 32 (28-32) pg MCHC 35 H (30-34) % RDW 15.1 (13.2-15.2) % Plt Count 246 (140-440) K/mm3 Lymph % (Auto) 12.2 L (13.4-35.0) % Coos % (Auto) 3.7 (0.0-7.3) % Eos % (Auto) 0.3 (0.0-4.3) % Baso % (Auto) 0.7 (0.0-1.8) % Lymph # (Auto) 0.9 L (1.2-5.4) K/mm3 Coos # (Auto) 0.3 (0.0-0.8) K/mm3 Eos # (Auto) 0.0 (0.0-0.4) K/mm3 Baso # (Auto) 0.1 (0.0-0.1) K/mm3 Seg Neutrophils % 83.1 H (40.0-70.0) % Seg Neutrophils # 6.2 (1.8-7.7) K/mm3 VBG pH (7.320-7.420) Sodium 132 L (137-145) mmol/L Potassium 3.8 (3.6-5.0) mmol/L Chloride 90.5 L (98-107) mmol/L Carbon Dioxide 17 L (22-30) mmol/L Anion Gap 28 mmol/L BUN 39 H (7-17) mg/dL Creatinine 5.7 H (0.6-1.2) mg/dL Estimated GFR 10 ml/min BUN/Creatinine Ratio 7 % Glucose 370 H (65-100) mg/dL POC Glucose (70-105) mg/dL Ketones Quantitative Negative (Negative) Calcium 9.0 (8.4-10.2) mg/dL Total Bilirubin 0.30 (0.1-1.2) mg/dL AST 21 (5-40) units/L ALT 20 (7-56) units/L Alkaline Phosphatase 114 (35-129) units/L Troponin T 0.089 H (0.00-0.029) ng/mL Total Protein 7.1 (6.3-8.2) g/dL Albumin 4.2 (3.9-5) g/dL Albumin/Globulin Ratio 1.4 % Triglycerides 184 H (2-149) mg/dL Cholesterol 278 H (50-199) mg/dL LDL Cholesterol Direct 145 H (50-130) mg/dL HDL Cholesterol 90 H (40-59) mg/dL Cholesterol/HDL Ratio 3.08 % Lipase 33 (13-60) units/L HCG, Qual (Negative) 03/02/22 03/02/22 03/02/22 Range/Units 16:35 16:35 18:52 WBC (4.5-11.0) K/mm3 RBC (3.65-5.03) M/mm3 Hgb (10.1-14.3) gm/dl Hct (30.3-42.9) % MCV (79-97) fl MCH (28-32) pg MCHC (30-34) % RDW (13.2-15.2) % Plt Count (140-440) K/mm3 Lymph % (Auto) (13.4-35.0) % Coos % (Auto) (0.0-7.3) % Eos % (Auto) (0.0-4.3) % Baso % (Auto) (0.0-1.8) % Lymph # (Auto) (1.2-5.4) K/mm3 Coos # (Auto) (0.0-0.8) K/mm3 Eos # (Auto) (0.0-0.4) K/mm3 Baso # (Auto) (0.0-0.1) K/mm3 Seg Neutrophils % (40.0-70.0) % Seg Neutrophils # (1.8-7.7) K/mm3 VBG pH 7.405 (7.320-7.420) Sodium (137-145) mmol/L Potassium (3.6-5.0) mmol/L Chloride (98-107) mmol/L Carbon Dioxide (22-30) mmol/L Anion Gap mmol/L BUN (7-17) mg/dL Creatinine (0.6-1.2) mg/dL Estimated GFR ml/min BUN/Creatinine Ratio % Glucose (65-100) mg/dL POC Glucose (70-105) mg/dL Ketones Quantitative (Negative) Calcium (8.4-10.2) mg/dL Total Bilirubin (0.1-1.2) mg/dL AST (5-40) units/L ALT (7-56) units/L Alkaline Phosphatase (35-129) units/L Troponin T 0.072 H (0.00-0.029) ng/mL Total Protein (6.3-8.2) g/dL Albumin (3.9-5) g/dL Albumin/Globulin Ratio % Triglycerides (2-149) mg/dL Cholesterol (50-199) mg/dL LDL Cholesterol Direct (50-130) mg/dL HDL Cholesterol (40-59) mg/dL Cholesterol/HDL Ratio % Lipase (13-60) units/L HCG, Qual Negative (Negative) 03/02/22 Range/Units 19:24 WBC (4.5-11.0) K/mm3 RBC (3.65-5.03) M/mm3 Hgb (10.1-14.3) gm/dl Hct (30.3-42.9) % MCV (79-97) fl MCH (28-32) pg MCHC (30-34) % RDW (13.2-15.2) % Plt Count (140-440) K/mm3 Lymph % (Auto) (13.4-35.0) % Coos % (Auto) (0.0-7.3) % Eos % (Auto) (0.0-4.3) % Baso % (Auto) (0.0-1.8) % Lymph # (Auto) (1.2-5.4) K/mm3 Coos # (Auto) (0.0-0.8) K/mm3 Eos # (Auto) (0.0-0.4) K/mm3 Baso # (Auto) (0.0-0.1) K/mm3 Seg Neutrophils % (40.0-70.0) % Seg Neutrophils # (1.8-7.7) K/mm3 VBG pH (7.320-7.420) Sodium (137-145) mmol/L Potassium (3.6-5.0) mmol/L Chloride (98-107) mmol/L Carbon Dioxide (22-30) mmol/L Anion Gap mmol/L BUN (7-17) mg/dL Creatinine (0.6-1.2) mg/dL Estimated GFR ml/min BUN/Creatinine Ratio % Glucose (65-100) mg/dL POC Glucose 386 H (70-105) mg/dL Ketones Quantitative (Negative) Calcium (8.4-10.2) mg/dL Total Bilirubin (0.1-1.2) mg/dL AST (5-40) units/L ALT (7-56) units/L Alkaline Phosphatase (35-129) units/L Troponin T (0.00-0.029) ng/mL Total Protein (6.3-8.2) g/dL Albumin (3.9-5) g/dL Albumin/Globulin Ratio % Triglycerides (2-149) mg/dL Cholesterol (50-199) mg/dL LDL Cholesterol Direct (50-130) mg/dL HDL Cholesterol (40-59) mg/dL Cholesterol/HDL Ratio % Lipase (13-60) units/L HCG, Qual (Negative) - EKG Data -: EKG Interpreted by Nh EKG shows normal: sinus rhythm, ST-T waves (T wave inversions lateral and inferior) Rate: tachycardia (101) - EKG Data When compared to previous EKG there are: no significant change - Radiology Data Radiology results: report reviewed CHEST 1 VIEW 03/02/2022 5:08 PM INDICATION / CLINICAL INFORMATION: Chest Pain. COMPARISON: 09/20/21. FINDINGS: SUPPORT DEVICES: The position of the right jugular CVL has not changed. HEART / MEDIASTINUM: The heart size is normal. There is prominence of the central pulmonary vessels. LUNGS / PLEURA: There is moderate patchy parenchymal disease in the right lower lung medially. Interstitial lung markings are mildly increased in the perihilar regions and lower lung zones. No significant pleural effusion. No pneumothorax. ADDITIONAL FINDINGS: No significant additional findings. IMPRESSION: Moderate parenchymal disease in the right lower lung medially may be related to pneumonia. Mild diffuse interstitial lung disease could be related to edema or pneumonia. - Medical Decision Making 46 yo female with nausea vomiting likely secondary to gastroparesis. Symptoms improved with Reglan and Benadryl and Dilaudid. Patient has hyperglycemia without signs of DKA. Patient is treated with IV insulin and a 250 mL bolus of fluids. Mild pulm edema noted on chest x-ray however, patient is asymptomatic and does not endorse infectious symptoms of cough, fever, denies shortness of breath at this time patient due for dialysis tomorrow. Case discussed with exercise specialist who is agreeable to perform inpatient dialysis tomorrow. Case also hospitalist and patient be admitted to the hospital for further management Patient is noted to have mild stable troponin elevation likely secondary to end- stage renal disease. Patient denies chest pain and her EKG shows chronic changes Patient's blood pressure improved with pain control Critical Care Time: No Critical care attestation.: If time is entered above; I have spent that time in minutes in the direct care of this critically ill patient, excluding procedure time. ED Disposition Clinical Impression: Gastroparesis due to DM, Hyperglycemia, ESRD (end stage renal disease) on dialysis, Pulmonary edema Disposition: ADMITTED INPATIENT Is pt being admited?: Yes Condition: Stable Time of Disposition: 21:39 (Dr Marroquin/hospitalist)
[2022-03-02 17:20] LABS: Basophils # (Auto) 0.1 K/mm3 (0.0-0.1); Basophils % (Auto) 0.7 % (0.0-1.8); Eosinophils % (Auto) 0.3 % (0.0-4.3); Hematocrit 30.9 % (30.3-42.9); Hemoglobin 10.8 gm/dl (10.1-14.3); Lymphocytes # (Auto) 0.9 K/mm3 (1.2-5.4); Lymphocytes % (Auto) 12.2 % (13.4-35.0); Mean Corpuscular HGB Conc 35 % (30-34); Mean Corpuscular Volume 91 fl (79-97); Monocytes # (Auto) 0.3 K/mm3 (0.0-0.8); Monocytes % (Auto) 3.7 % (0.0-7.3); Platelet Count 246 K/mm3 (140-440); Red Cell Distribution Width 15.1 % (13.2-15.2)
--- NOTE | 2022-03-02 17:28 | XRay Report ---
CHEST 1 VIEW 03/02/2022 5:08 PM INDICATION / CLINICAL INFORMATION: Chest Pain. COMPARISON: 09/20/21. FINDINGS: SUPPORT DEVICES: The position of the right jugular CVL has not changed. HEART / MEDIASTINUM: The heart size is normal. There is prominence of the central pulmonary vessels. LUNGS / PLEURA: There is moderate patchy parenchymal disease in the right lower lung medially. Inters titial lung markings are mildly increased in the perihilar regions and lower lung zones. No significa nt pleural effusion. No pneumothorax. ADDITIONAL FINDINGS: No significant additional findings. IMPRESSION: Moderate parenchymal disease in the right lower lung medially may be related to pneumonia . Mild diffuse interstitial lung disease could be related to edema or pneumonia. Signer Name: Tha Polanco MD Signed: 03/02/2022 5:24 PM Workstation Name: [id number]
[2022-03-02 18:37] LABS: Chol/HDL Ratio 3.08 %
[2022-03-02] MEDS ORDERED: INSULIN REGULAR, HUMAN 100 UNITS/1 ML IV ONE (18:37)
[2022-03-02 18:55] LABS: Alanine Aminotransferase 20 units/L (7-56); Albumin 4.2 g/dL (3.9-5); Blood Urea Nitrogen 39 mg/dL (7-17); Hemolysis Index 7
[2022-03-02 18:57] LABS: BUN/Creatinine Ratio 7
[2022-03-02] MEDS ORDERED: SODIUM CHLORIDE 0.9% 250ML 250 ML IV ONE (21:11)
[2022-03-02] MEDS ORDERED: ONDANSETRON 4 MG/2 ML INJ IV PRN (21:51)
[2022-03-02] MEDS ORDERED: ACETAMINOPHEN 325 MG TAB PO PRN (21:51)
[2022-03-02] MEDS ORDERED: MORPHINE 2 MG/1 ML INJ IV PRN (21:52)
[2022-03-02] MEDS ORDERED: MORPHINE 4 MG/1 ML INJ IV PRN (21:52)
[2022-03-02] MEDS ORDERED: SODIUM CHLORIDE 0.9% 100 ML IV PRN (22:09)
[2022-03-03] MEDS ORDERED: MAGNESIUM HYDROXIDE (MOM) ORAL LIQD UDC PO PRN (00:29)
[2022-03-03] MEDS ORDERED: MORPHINE 2 MG/1 ML INJ IV PRN (00:29)
[2022-03-03] MEDS ORDERED: ACETAMINOPHEN 325 MG TAB PO PRN (00:29)
[2022-03-03] MEDS ORDERED: DEXTROSE 50% IN WATER (25GM) 50 ML SYRINGE IV PRN (00:29)
--- NOTE | 2022-03-03 00:47 | History and Physical Report ---
History of Present Illness Date of examination: 03/02/22 Date of admission: 03/02/22 21:51 Chief complaint: Nausea and vomiting Hyperglycemia History of present illness: 46-year-old female with significant past medical history of diabetes mellitus, end-stage renal disease on dialysisTuesdays, and Saturdays, gastroparesis and hypertension presenting in the emergency room today with a complaint of nausea and vomiting elevated blood glucose. Patient was recently discharged from [facility] few days ago after being treated for DKA. She has since been having nausea and vomiting decreased oral intake. She has also been having some associated upper abdominal pain. Patient denies any fever or chills, no chest pain or shortness of breath, no headache or dizziness and no diaphoresis. Work-up in the emergency room today, blood glucose was found to be 386, troponin 0.072. Chest x-ray reveals:Moderate parenchymal disease in the right lower lung medially may be related to pneumonia. Mild diffuse interstitial lung disease could be related to edema or pneumonia. [facility] Attendant on-call has been consulted for evaluation during this admission. Past History Past Medical History: diabetes, hypertension, hyperlipidemia, renal failure, other (Gastroparesis) Past Surgical History: No surgical history Social history: no significant social history Family history: no significant family history Medications and Allergies Allergies Allergy/AdvReac Type Severity Reaction Status Date / Time No Known Allergies Allergy Verified 09/15/21 07:17 Home Medications Medication Instructions Recorded Confirmed Last Taken Type Insulin Glargine [Lantus VIAL] 20 units SUB-Q HS 04/09/21 09/15/21 1 Day Ago History ~03/02/22 AtorvaSTATin [Lipitor] 40 mg PO QHS #30 tablet 05/22/21 03/03/22 1 Day Ago Rx ~03/02/22 NIFEdipine XL [Procardia Xl] 90 mg PO QDAY #30 tablet 05/22/21 03/03/22 1 Day Ago Rx ~03/02/22 carvediloL [Coreg] 12.5 mg PO BID #60 tablet 05/22/21 03/03/22 Unknown Rx hydrALAZINE [Apresoline TAB] 50 mg PO Q8HR #90 tablet 05/22/21 03/03/22 1 Day Ago Rx ~03/02/22 Dicyclomine [Bentyl] 20 mg PO Q6H PRN #30 tablet 07/12/21 03/03/22 Unknown Rx Ondansetron [Zofran ODT TAB] 4 mg PO Q6H PRN #20 tab.rapdis 07/12/21 03/03/22 1 Day Ago Rx ~03/02/22 Promethazine [Phenergan SUPPOS] 25 mg [place] Q6HR PRN #20 supp.rect 07/12/21 03/03/22 Unknown Rx Cholecalciferol (Vitamin D3) 50,000 units PO QWEEK 09/14/21 03/03/22 1 Day Ago History [Vitamin D3 50,000UNIT CAP] ~03/02/22 Lispro Insulin [HumaLOG] 8 units SQ ACHS 09/14/21 03/03/22 1 Day Ago History ~03/02/22 Famotidine [Pepcid] 10 mg PO BIDAC #30 tablet 09/22/21 03/03/22 Unknown Rx carvediloL [Coreg] 25 mg PO BID #60 tablet 09/22/21 03/03/22 Unknown Rx lisinopriL [Zestril TAB] 20 mg PO QDAY #30 tablet 09/22/21 03/03/22 Unknown Rx Active Meds: Active Medications Acetaminophen (Acetaminophen 325 Mg Tab) 650 mg PO Q4H PRN PRN Reason: Pain MILD(1-3)/Fever >100.5/[place] Acetaminophen (Acetaminophen 325 Mg Tab) 650 mg PO Q4H PRN PRN Reason: Pain MILD(1-3)/Fever >100.5/[place] Dextrose (Dextrose 50% In Water (25gm) 50 Ml Syringe) 50 ml IV Q30MIN PRN; Protocol PRN Reason: Hypoglycemia Sodium Chloride (Nacl 0.9%) 100 mls @ 999 mls/hr IV JEFE PRN PRN Reason: Hypotension Insulin Human Lispro (Insulin Lispro 100 Unit/Ml) 0 unit SUB-Q ACHS ROSALVA; Protocol Magnesium Hydroxide (Magnesium Hydroxide (Mom) Oral Liqd Udc) 30 ml PO Q4H PRN PRN Reason: Constipation Morphine Sulfate (Morphine 2 Mg/1 Ml Inj) 2 mg IV Q4H PRN PRN Reason: Pain, Moderate (4-6) Last Admin: 03/03/22 00:36 Dose: 2 mg Morphine Sulfate (Morphine 4 Mg/1 Ml Inj) 4 mg IV Q4H PRN PRN Reason: Pain , Severe (7-10) Morphine Sulfate (Morphine 2 Mg/1 Ml Inj) 2 mg IV Q4H PRN PRN Reason: Pain, Moderate (4-6) Morphine Sulfate (Morphine 4 Mg/1 Ml Inj) 4 mg IV Q4H PRN PRN Reason: Pain , Severe (7-10) Ondansetron HCl (Ondansetron 4 Mg/2 Ml Inj) 4 mg IV Q8H PRN PRN Reason: Nausea And Vomiting Last Admin: 03/03/22 00:36 Dose: 4 mg Ondansetron HCl (Ondansetron 4 Mg/2 Ml Inj) 4 mg IV Q8H PRN PRN Reason: Nausea And Vomiting Sodium Chloride (Sodium Chloride 0.9% 10 Ml Flush Syringe) 10 ml IV BID ROSALVA Sodium Chloride (Sodium Chloride 0.9% 10 Ml Flush Syringe) 10 ml IV PRN PRN PRN Reason: LINE FLUSH Sodium Chloride (Sodium Chloride 0.9% 10 Ml Flush Syringe) 10 ml IV BID ROSALVA Sodium Chloride (Sodium Chloride 0.9% 10 Ml Flush Syringe) 10 ml IV PRN PRN PRN Reason: LINE FLUSH Review of Systems Constitutional: no fever, no chills Ears, nose, mouth and throat: no nasal congestion, no sore throat Cardiovascular: no chest pain, no palpitations Respiratory: no cough, no shortness of breath Gastrointestinal: nausea, vomiting, no abdominal pain, no diarrhea, no hematochezia Genitourinary Female: no pelvic pain, no flank pain, no dysuria, no hematuria Musculoskeletal: no neck pain, no low back pain Integumentary: no rash, no pruritis Neurological: no headaches, no confusion Psychiatric: no anxiety, no depression Endocrine: no polyphagia, no polydipsia, no polyuria, no nocturia Exam - Constitutional Vitals: Temp Pulse Resp BP Pulse Ox 97.9 F 101 H 20 156/81 96 03/02/22 18:23 03/02/22 20:17 03/02/22 20:17 03/02/22 20:17 03/02/22 20:17 General appearance: Present: no acute distress, mild distress, well-nourished - EENT Eyes: Present: PERRL, EOM intact. Absent: scleral icterus ENT: hearing intact, clear oral mucosa, dentition normal - Respiratory Respiratory effort: normal, other (Vas-Cath on right anterior chest wall) Respiratory: bilateral: CTA - Cardiovascular Rhythm: regular Heart Sounds: Present: S1 & S2. Absent: gallop, systolic murmur, diastolic murmur, rub, click - Extremities Extremities: no ischemia, pulses intact, pulses symmetrical, No edema, normal temperature, normal color, Full ROM Peripheral Pulses: within normal limits - Abdominal General gastrointestinal: Present: soft, non-tender, non-distended, normal bowel sounds. Absent: mass - Integumentary Integumentary: Present: clear, warm, dry, normal turgor. Absent: rash - Musculoskeletal Musculoskeletal: strength equal bilaterally - Psychiatric Psychiatric: appropriate mood/affect, intact judgment & insight, memory intact, cooperative - Neurologic Neurologic: CNII-XII intact, no focal deficits, moves all extremities HEART Score - HEART Score Troponin: Troponin T 0.072 ng/mL (0.00-0.029) H 03/02/22 18:52 Results - Labs CBC & Chem 7: 03/02/22 16:35 03/02/22 16:35 Labs: Abnormal lab results 03/02/22 03/02/22 03/02/22 Range/Units 16:28 16:35 16:35 RBC 3.40 L (3.65-5.03) M/mm3 MCHC 35 H (30-34) % Lymph % (Auto) 12.2 L (13.4-35.0) % Lymph # (Auto) 0.9 L (1.2-5.4) K/mm3 Seg Neutrophils % 83.1 H (40.0-70.0) % Sodium 132 L (137-145) mmol/L Chloride 90.5 L (98-107) mmol/L Carbon Dioxide 17 L (22-30) mmol/L BUN 39 H (7-17) mg/dL Creatinine 5.7 H (0.6-1.2) mg/dL Glucose 370 H (65-100) mg/dL POC Glucose (70-105) mg/dL Troponin T 0.089 H (0.00-0.029) ng/mL Triglycerides 184 H (2-149) mg/dL Cholesterol 278 H (50-199) mg/dL LDL Cholesterol Direct 145 H (50-130) mg/dL HDL Cholesterol 90 H (40-59) mg/dL 03/02/22 03/02/22 03/02/22 Range/Units 18:52 19:24 20:55 RBC (3.65-5.03) M/mm3 MCHC (30-34) % Lymph % (Auto) (13.4-35.0) % Lymph # (Auto) (1.2-5.4) K/mm3 Seg Neutrophils % (40.0-70.0) % Sodium (137-145) mmol/L Chloride (98-107) mmol/L Carbon Dioxide (22-30) mmol/L BUN (7-17) mg/dL Creatinine (0.6-1.2) mg/dL Glucose (65-100) mg/dL POC Glucose 386 H 378 H (70-105) mg/dL Troponin T 0.072 H (0.00-0.029) ng/mL Triglycerides (2-149) mg/dL Cholesterol (50-199) mg/dL LDL Cholesterol Direct (50-130) mg/dL HDL Cholesterol (40-59) mg/dL Assessment and Plan Assessment: 1. Intractable nausea and vomiting-possibly secondary to gastroparesis 2. Hyperglycemia 3. End-stage renal disease on dialysis 4. Pulmonary edema versus pneumonia Plan: 1. Patient admitted to the medical floor. 2. Patient placed on antiemetic. 3. We will resume routine home medications. 4. Patient placed on empiric IV antibiotics for possible underlying pneumonia 5. Consult placed to nephrology for evaluation. 6. Patient placed on sliding scale insulin. We will monitor Accu-Cheks. DVT prophylaxis: Subcutaneous heparin CODE STATUS: Full code
[2022-03-03] MEDS: hydrALAZINE 20 MG/1 ML INJ IV PRN ×3 (05:34→18:34)
[2022-03-03] MEDS: cefTRIAXone/NS 1 GM/50 ML 1 GM/50 ML BAG IV SCH (05:36)
[2022-03-03] MEDS: AZITHROMYCIN/NS 500 MG/250 ML 500 MG/250 ML BAG IV SCH (05:37)
[2022-03-03] MEDS: ONDANSETRON 4 MG/2 ML INJ IV PRN ×2 (06:09→15:47)
[2022-03-03] MEDS: MORPHINE 4 MG/1 ML INJ IV PRN ×4 (06:09→20:03)
[2022-03-03] MEDS ORDERED: INSULIN GLARGINE 100 UNITS/ML SUB-Q NR (07:35)
[2022-03-03] MEDS: INSULIN LISPRO 100 UNIT/ML SUB-Q SCH ×4 (07:38→18:17)
[2022-03-03] MEDS ORDERED: SODIUM CHLORIDE 0.9% 100 ML IV PRN (09:00)
[2022-03-03] MEDS: METOCLOPRAMIDE 10 MG/2 ML INJ IV PRN ×2 (09:21→20:03)
[2022-03-03 10:46] LABS: Hepatitis B Surface Antigen Non-Reactive (Negative); Hepatitis C Virus Antibody Non-Reactive (NonReactive)
--- NOTE | 2022-03-03 13:56 | Consultation ---
History of Present Illness - Reason for Consult Consult date: 03/03/22 end stage renal disease - History of Present Illness Mrs. Pedersen is a 46-year-old female w/ end-stage renal disease on dialysis Monday, , and Monday, DM and diabetic gastroparesis who presents to the hospital with complaints of nausea, vomiting, and hyperglycemia. Patient was recently discharged from [facility] 2 days prior to ED presentation. She was admitted for DKA. T She reports one day hx of nausea, vomiting with inability to tolerate po. She also reports abdominal pain. Patient admitted for management of gastroparesis. Presently, she denies abdominal pain and vomiting. She denies po intake. Past History Past Medical History: diabetes, hypertension, hyperlipidemia, renal failure, other (Gastroparesis) Past Surgical History: No surgical history Social history: no significant social history Family history: no significant family history Medications and Allergies Allergies Allergy/AdvReac Type Severity Reaction Status Date / Time No Known Allergies Allergy Verified 09/15/21 07:17 Home Medications Medication Instructions Recorded Confirmed Last Taken Type Insulin Glargine [Lantus VIAL] 20 units SUB-Q HS 04/09/21 03/03/22 1 Day Ago History ~03/02/22 AtorvaSTATin [Lipitor] 40 mg PO QHS #30 tablet 05/22/21 03/03/22 1 Day Ago Rx ~03/02/22 NIFEdipine XL [Procardia Xl] 90 mg PO QDAY #30 tablet 05/22/21 03/03/22 1 Day Ago Rx ~03/02/22 carvediloL [Coreg] 12.5 mg PO BID #60 tablet 05/22/21 03/03/22 Unknown Rx hydrALAZINE [Apresoline TAB] 50 mg PO Q8HR #90 tablet 05/22/21 03/03/22 1 Day Ago Rx ~03/02/22 Dicyclomine [Bentyl] 20 mg PO Q6H PRN #30 tablet 07/12/21 03/03/22 Unknown Rx Ondansetron [Zofran ODT TAB] 4 mg PO Q6H PRN #20 tab.rapdis 07/12/21 03/03/22 1 Day Ago Rx ~03/02/22 Promethazine [Phenergan SUPPOS] 25 mg [place] Q6HR PRN #20 supp.rect 07/12/21 03/03/22 Unknown Rx Cholecalciferol (Vitamin D3) 50,000 units PO QWEEK 09/14/21 03/03/22 1 Day Ago History [Vitamin D3 50,000UNIT CAP] ~03/02/22 Lispro Insulin [HumaLOG] 8 units SQ ACHS 09/14/21 03/03/22 1 Day Ago History ~03/02/22 Famotidine [Pepcid] 10 mg PO BIDAC #30 tablet 09/22/21 03/03/22 Unknown Rx carvediloL [Coreg] 25 mg PO BID #60 tablet 09/22/21 03/03/22 Unknown Rx lisinopriL [Zestril TAB] 20 mg PO QDAY #30 tablet 09/22/21 03/03/22 Unknown Rx Active Meds: Active Medications Acetaminophen (Acetaminophen 325 Mg Tab) 650 mg PO Q4H PRN PRN Reason: Pain MILD(1-3)/Fever >100.5/CASANOVA Dextrose (Dextrose 50% In Water (25gm) 50 Ml Syringe) 50 ml IV Q30MIN PRN; Protocol PRN Reason: Hypoglycemia Hydralazine HCl (Hydralazine 20 Mg/1 Ml Inj) 10 mg IV Q4HR PRN PRN Reason: Hypertension Last Admin: 03/03/22 05:34 Dose: 10 mg Ceftriaxone Sodium (Rocephin/Ns 1 Gm/50 Ml) 1 gm in 50 mls @ 100 mls/hr IV Q24H [facility]; Protocol Last Admin: 03/03/22 05:36 Dose: 100 mls/hr Azithromycin (Zithromax/Ns) 500 mg in 250 mls @ 250 mls/hr IV Q24H [facility] Last Admin: 03/03/22 05:37 Dose: 250 mls/hr Sodium Chloride (Nacl 0.9%) 100 mls @ 999 mls/hr IV JEFE PRN PRN Reason: Hypotension Insulin Human Lispro (Insulin Lispro 100 Unit/Ml) 0 unit SUB-Q ACHS [facility]; Protocol Last Admin: 03/03/22 07:38 Dose: 8 unit Magnesium Hydroxide (Magnesium Hydroxide (Mom) Oral Liqd Udc) 30 ml PO Q4H PRN PRN Reason: Constipation Metoclopramide HCl (Metoclopramide 10 Mg/2 Ml Inj) 5 mg IV Q12H PRN PRN Reason: Nausea And Vomiting Last Admin: 03/03/22 09:21 Dose: 5 mg Morphine Sulfate (Morphine 2 Mg/1 Ml Inj) 2 mg IV Q4H PRN PRN Reason: Pain, Moderate (4-6) Morphine Sulfate (Morphine 4 Mg/1 Ml Inj) 4 mg IV Q4H PRN PRN Reason: Pain , Severe (7-10) Last Admin: 03/03/22 09:57 Dose: 4 mg Ondansetron HCl (Ondansetron 4 Mg/2 Ml Inj) 4 mg IV Q8H PRN PRN Reason: Nausea And Vomiting Last Admin: 03/03/22 06:09 Dose: 4 mg Sodium Chloride (Sodium Chloride 0.9% 10 Ml Flush Syringe) 10 ml IV BID [facility] Last Admin: 03/03/22 09:21 Dose: 10 ml Sodium Chloride (Sodium Chloride 0.9% 10 Ml Flush Syringe) 10 ml IV PRN PRN PRN Reason: LINE FLUSH Review of Systems All systems: negative Exam - Vital Signs Vital signs: Vital Signs Pulse BP Pulse Ox 104 H 220/120 96 03/02/22 15:09 03/02/22 15:09 03/02/22 15:09 - General Appearance General appearance: well-developed, well-nourished EENT: ATNC Respiratory: Clear to Ascultation Gastrointestinal: Present: normal. Absent: tenderness, distended Integumentary: warm and dry Neurologic: alert and oriented x3 Psychiatric: cooperative Results - Lab Results 03/02/22 16:35 03/02/22 16:35 Most recent lab results Calcium 9.0 mg/dL (8.4-10.2) 03/02/22 16:35 Assessment and Plan Impression * End stage renal disease * Nausea/vomiting secondary to diabetic gastroparesis * Metabolic acidosis * Diabetic gastroparesis * Diabetes mellitus * Hypertension Plan: * Hemodialysis today * UF as tolerated * Continue TTS schedule * Symptomatic management per primary team * Glycemic control per primary team * Continue antiHTN medications * Strict I/O * Dose medications for renal function * Renal/HD diet * Epogen TIW prn
--- NOTE | 2022-03-03 16:22 | Event Note ---
Date: 03/03/22 Patient seen earlier this morning. She has requested Dilaudid for abdominal pain. Morphine did not work. The patient reports taking Percocet at home for pain. She was recently discharged from [facility] for similar symptoms. Patient has gastroparesis due to chronic uncontrolled type 1 diabetes. We discussed the importance of glucose control. Patient started on IV Reglan. We will continue with current care. Nephrology consulted for inpatient hemodialysis.
[2022-03-03] MEDS: NIFEdipine XL 90 MG TAB PO SCH (18:17)
[2022-03-03] MEDS: carvediloL 12.5 MG TAB PO SCH (22:15)
[2022-03-03] MEDS: hydrALAZINE 25 MG TAB PO SCH (22:16)
[2022-03-04] MEDS: INSULIN LISPRO 100 UNIT/ML SUB-Q SCH ×8 (00:26→21:55)
[2022-03-04] MEDS: MORPHINE 4 MG/1 ML INJ IV PRN ×2 (00:27→04:48)
[2022-03-04] MEDS: ONDANSETRON 4 MG/2 ML INJ IV PRN ×2 (04:49→14:26)
[2022-03-04] MEDS: cefTRIAXone/NS 1 GM/50 ML 1 GM/50 ML BAG IV SCH (04:51)
[2022-03-04] MEDS: AZITHROMYCIN/NS 500 MG/250 ML 500 MG/250 ML BAG IV SCH (05:09)
[2022-03-04 06:28] LABS: Basophils # (Auto) 0.1 K/mm3 (0.0-0.1); Basophils % (Auto) 0.7 % (0.0-1.8); Eosinophils # (Auto) 0.1 K/mm3 (0.0-0.4); Eosinophils % (Auto) 0.7 % (0.0-4.3); Hematocrit 32.1 % (30.3-42.9); Hemoglobin 10.5 gm/dl (10.1-14.3); Lymphocytes # (Auto) 1.7 K/mm3 (1.2-5.4); Lymphocytes % (Auto) 25.3 % (13.4-35.0); Mean Corpuscular HGB Conc 33 % (30-34); Mean Corpuscular Volume 93 fl (79-97); Monocytes # (Auto) 0.6 K/mm3 (0.0-0.8); Monocytes % (Auto) 8.2 % (0.0-7.3); Platelet Count 276 K/mm3 (140-440); Red Blood Count 3.45 M/mm3 (3.65-5.03); Red Cell Distribution Width 15.5 % (13.2-15.2)
[2022-03-04] MEDS: hydrALAZINE 25 MG TAB PO SCH ×3 (06:49→21:36)
[2022-03-04] MEDS: NIFEdipine XL 90 MG TAB PO SCH (09:23)
[2022-03-04] MEDS: FAMOTIDINE 10 MG TAB PO SCH ×2 (09:23→18:14)
[2022-03-04] MEDS: carvediloL 12.5 MG TAB PO SCH ×2 (09:23→21:35)
[2022-03-04] MEDS: METOCLOPRAMIDE 10 MG/2 ML INJ IV PRN ×2 (09:28→21:37)
--- NOTE | 2022-03-04 09:39 | Gastroenterology Consultation ---
<LATISHA SPARKS - Last Filed: 03/04/22 09:54> History of Present Illness - Reason for Consult Consult date: 03/04/22 - History of Present Illness Ms. Pedersen is a 46 y/o F w/ PMHx of DM1, ESRD on HD, HTN, and gastroparesis, who GI has been consulted on for gastroparesis management. Pt states that she came to the ED for severe epigastric pain, N/V which started on Monday after dialysis. States that anything she would eat would cause epigastric pain and cause her to vomit. Denies hematemesis or coffee ground emesis. States she was just discharged from [facility] over the weekend from an admission for similar symptoms. In the ED pt was found to be in DKA. Reports that she checks her sugars 4x/day and is compliant with her insulin injections. Reports being diagnosed with gastroparesis "a couple years ago" and follows at [facility] with a GI doc. States she takes her protonix and Reglan as prescribed, but has gastroparesis flares 2x/month. Last episode of emesis was yesterday. States that today her pain is much better and she was able to sleep last night and tolerate breakfast this AM w/o vomiting. Past History Past Medical History: diabetes, hypertension, hyperlipidemia, renal failure, other (Gastroparesis) Past Surgical History: No surgical history Social history: no significant social history Family history: no significant family history Medications and Allergies Allergies Allergy/AdvReac Type Severity Reaction Status Date / Time No Known Allergies Allergy Verified 09/15/21 07:17 Home Medications Medication Instructions Recorded Confirmed Last Taken Type Insulin Glargine [Lantus VIAL] 20 units SUB-Q HS 04/09/21 03/03/22 1 Day Ago History ~03/02/22 AtorvaSTATin [Lipitor] 40 mg PO QHS #30 tablet 05/22/21 03/03/22 1 Day Ago Rx ~03/02/22 NIFEdipine XL [Procardia Xl] 90 mg PO QDAY #30 tablet 05/22/21 03/03/22 1 Day Ago Rx ~03/02/22 carvediloL [Coreg] 12.5 mg PO BID #60 tablet 05/22/21 03/03/22 Unknown Rx hydrALAZINE [Apresoline TAB] 50 mg PO Q8HR #90 tablet 05/22/21 03/03/22 1 Day Ago Rx ~03/02/22 Dicyclomine [Bentyl] 20 mg PO Q6H PRN #30 tablet 07/12/21 03/03/22 Unknown Rx Ondansetron [Zofran ODT TAB] 4 mg PO Q6H PRN #20 tab.rapdis 07/12/21 03/03/22 1 Day Ago Rx ~03/02/22 Promethazine [Phenergan SUPPOS] 25 mg [place] Q6HR PRN #20 supp.rect 07/12/21 03/03/22 Unknown Rx Cholecalciferol (Vitamin D3) 50,000 units PO QWEEK 09/14/21 03/03/22 1 Day Ago History [Vitamin D3 50,000UNIT CAP] ~03/02/22 Lispro Insulin [HumaLOG] 8 units SQ ACHS 09/14/21 03/03/22 1 Day Ago History ~03/02/22 Famotidine [Pepcid] 10 mg PO BIDAC #30 tablet 09/22/21 03/03/22 Unknown Rx carvediloL [Coreg] 25 mg PO BID #60 tablet 09/22/21 03/03/22 Unknown Rx lisinopriL [Zestril TAB] 20 mg PO QDAY #30 tablet 09/22/21 03/03/22 Unknown Rx Active Meds: Active Medications Acetaminophen (Acetaminophen 325 Mg Tab) 650 mg PO Q4H PRN PRN Reason: Pain MILD(1-3)/Fever >100.5/CASANOVA Atorvastatin Calcium (Atorvastatin 40 Mg Tab) 40 mg PO QHS [facility] Last Admin: 03/03/22 22:16 Dose: 40 mg Carvedilol (Carvedilol 12.5 Mg Tab) 12.5 mg PO BID [facility] Last Admin: 03/04/22 09:23 Dose: 12.5 mg Dextrose (Dextrose 50% In Water (25gm) 50 Ml Syringe) 50 ml IV Q30MIN PRN; Protocol PRN Reason: Hypoglycemia Famotidine (Famotidine 10 Mg Tab) 10 mg PO BIDAC [facility] Last Admin: 03/04/22 09:23 Dose: 10 mg Hydralazine HCl (Hydralazine 20 Mg/1 Ml Inj) 10 mg IV Q4HR PRN PRN Reason: Hypertension Last Admin: 03/03/22 18:34 Dose: 10 mg Hydralazine HCl (Hydralazine 25 Mg Tab) 50 mg PO Q8HR [facility] Last Admin: 03/04/22 06:49 Dose: 50 mg Hydromorphone HCl (Hydromorphone 0.5 Mg/0.5 Ml Inj) 0.5 mg IV Q6H PRN PRN Reason: Pain , Severe (7-10) Ceftriaxone Sodium (Rocephin/Ns 1 Gm/50 Ml) 1 gm in 50 mls @ 100 mls/hr IV Q24H [facility]; Protocol Last Admin: 03/04/22 04:51 Dose: 100 mls/hr Azithromycin (Zithromax/Ns) 500 mg in 250 mls @ 250 mls/hr IV Q24H [facility] Last Admin: 03/04/22 05:09 Dose: 250 mls/hr Sodium Chloride (Nacl 0.9%) 100 mls @ 999 mls/hr IV JEFE PRN PRN Reason: Hypotension Insulin Glargine (Insulin Glargine 100 Units/Ml) 15 units SUB-Q [facility] Insulin Human Lispro (Insulin Lispro 100 Unit/Ml) 0 unit SUB-Q ACHS [facility]; Protocol Last Admin: 03/04/22 08:03 Dose: 8 unit Insulin Human Lispro (Insulin Lispro 100 Unit/Ml) 4 unit SUB-Q [facility] Magnesium Hydroxide (Magnesium Hydroxide (Mom) Oral Liqd Udc) 30 ml PO Q4H PRN PRN Reason: Constipation Metoclopramide HCl (Metoclopramide 10 Mg/2 Ml Inj) 5 mg IV Q12H PRN PRN Reason: Nausea And Vomiting Last Admin: 03/04/22 09:28 Dose: 5 mg Morphine Sulfate (Morphine 2 Mg/1 Ml Inj) 2 mg IV Q4H PRN PRN Reason: Pain, Moderate (4-6) Last Admin: 03/04/22 09:28 Dose: 2 mg Morphine Sulfate (Morphine 4 Mg/1 Ml Inj) 4 mg IV Q4H PRN PRN Reason: Pain , Severe (7-10) Last Admin: 03/04/22 04:48 Dose: 4 mg Nifedipine (Nifedipine Xl 90 Mg Tab) 90 mg PO QDAY [facility] Last Admin: 03/04/22 09:23 Dose: 90 mg Ondansetron HCl (Ondansetron 4 Mg/2 Ml Inj) 4 mg IV Q8H PRN PRN Reason: Nausea And Vomiting Last Admin: 03/04/22 04:49 Dose: 4 mg Oxycodone/Acetaminophen (Oxycodone /Acetaminophen 5-325mg Tab) 1 tab PO Q6H PRN PRN Reason: Pain, Moderate (4-6) Sodium Chloride (Sodium Chloride 0.9% 10 Ml Flush Syringe) 10 ml IV BID [facility] Last Admin: 03/04/22 09:24 Dose: 10 ml Sodium Chloride (Sodium Chloride 0.9% 10 Ml Flush Syringe) 10 ml IV PRN PRN PRN Reason: LINE FLUSH Review of Systems - Review of Systems Gastrointestinal: abdominal pain, nausea, vomiting Exam - Constitutional Vital Signs: Temp Pulse Resp BP Pulse Ox 98.7 F 97 H 18 145/70 100 03/04/22 05:36 03/04/22 09:23 03/04/22 05:36 03/04/22 09:23 03/04/22 05:36 General appearance: no acute distress - Gastrointestinal General gastrointestinal: Present: soft, non-distended - Labs CBC & Chem 7: 03/04/22 05:14 03/04/22 05:14 Lab Results: Laboratory Results - last 24 hr 03/03/22 03/03/22 03/03/22 07:29 09:20 16:54 WBC RBC Hgb Hct MCV MCH MCHC RDW Plt Count Lymph % (Auto) [place] % (Auto) Eos % (Auto) Baso % (Auto) Lymph # (Auto) [place] # (Auto) Eos # (Auto) Baso # (Auto) Seg Neutrophils % Seg Neutrophils # Sodium Potassium Chloride Carbon Dioxide Anion Gap BUN Creatinine Estimated GFR BUN/Creatinine Ratio Glucose POC Glucose 534 H 207 H Calcium Hepatitis A IgM Ab Non-reactive Hep Bs Antigen Non-reactive Hep B Core IgM Ab Non-reactive Hepatitis C Antibody Non-reactive 03/03/22 03/04/22 03/04/22 22:41 05:14 05:14 WBC 6.8 RBC 3.45 L Hgb 10.5 Hct 32.1 MCV 93 MCH 30 MCHC 33 RDW 15.5 H Plt Count 276 Lymph % (Auto) 25.3 [place] % (Auto) 8.2 H Eos % (Auto) 0.7 Baso % (Auto) 0.7 Lymph # (Auto) 1.7 [place] # (Auto) 0.6 Eos # (Auto) 0.1 Baso # (Auto) 0.1 Seg Neutrophils % 65.1 Seg Neutrophils # 4.4 Sodium 136 L Potassium 4.0 Chloride 95.3 L Carbon Dioxide 25 D Anion Gap 20 BUN 19 H Creatinine 4.7 H Estimated GFR 12 BUN/Creatinine Ratio 4 Glucose 401 H POC Glucose 82 Calcium 9.0 Hepatitis A IgM Ab Hep Bs Antigen Hep B Core IgM Ab Hepatitis C Antibody 03/04/22 07:15 WBC RBC Hgb Hct MCV MCH MCHC RDW Plt Count Lymph % (Auto) [place] % (Auto) Eos % (Auto) Baso % (Auto) Lymph # (Auto) [place] # (Auto) Eos # (Auto) Baso # (Auto) Seg Neutrophils % Seg Neutrophils # Sodium Potassium Chloride Carbon Dioxide Anion Gap BUN Creatinine Estimated GFR BUN/Creatinine Ratio Glucose POC Glucose 462 H Calcium Hepatitis A IgM Ab Hep Bs Antigen Hep B Core IgM Ab Hepatitis C Antibody Assessment and Plan 1. Gastroparesis - likely 2/2 uncontrolled DM1 and DKA - recommend tight blood sugar control - continue PPI - continue Reglan, discussed w/ pt that this medication is for short term use only and there are risks of TD. - recommend small frequent meals rather than x3 large meals - can consider a trial of metoclopramide - GI will sign off - had a long discussion with pt regarding the importance of DM1/blood sugar control and it's role in gastroparesis. Recommended that pt start thinking about getting an insulin pump and glucose monitor rather than finger pricks and insulin shots. She agreed it was likely time for that and is going to reach out to her orderly to get an appointment to further discuss <ADAM PAIZ - Last Filed: 03/04/22 18:50> Medications and Allergies Active Meds: Active Medications Acetaminophen (Acetaminophen 325 Mg Tab) 650 mg PO Q4H PRN PRN Reason: Pain MILD(1-3)/Fever >100.5/CASANOVA Atorvastatin Calcium (Atorvastatin 40 Mg Tab) 40 mg PO QHS [facility] Last Admin: 03/03/22 22:16 Dose: 40 mg Carvedilol (Carvedilol 12.5 Mg Tab) 12.5 mg PO BID [facility] Last Admin: 03/04/22 09:23 Dose: 12.5 mg Dextrose (Dextrose 50% In Water (25gm) 50 Ml Syringe) 50 ml IV Q30MIN PRN; Protocol PRN Reason: Hypoglycemia Famotidine (Famotidine 10 Mg Tab) 10 mg PO BIDAC [facility] Last Admin: 03/04/22 18:14 Dose: 10 mg Hydralazine HCl (Hydralazine 20 Mg/1 Ml Inj) 10 mg IV Q4HR PRN PRN Reason: Hypertension Last Admin: 03/03/22 18:34 Dose: 10 mg Hydralazine HCl (Hydralazine 25 Mg Tab) 50 mg PO Q8HR [facility] Last Admin: 03/04/22 13:55 Dose: 50 mg Hydromorphone HCl (Hydromorphone 0.5 Mg/0.5 Ml Inj) 0.5 mg IV Q6H PRN PRN Reason: Pain , Severe (7-10) Last Admin: 03/04/22 14:26 Dose: 0.5 mg Ceftriaxone Sodium (Rocephin/Ns 1 Gm/50 Ml) 1 gm in 50 mls @ 100 mls/hr IV Q24H [facility]; Protocol Last Admin: 03/04/22 04:51 Dose: 100 mls/hr Azithromycin (Zithromax/Ns) 500 mg in 250 mls @ 250 mls/hr IV Q24H [facility] Last Admin: 03/04/22 05:09 Dose: 250 mls/hr Sodium Chloride (Nacl 0.9%) 100 mls @ 999 mls/hr IV JEFE PRN PRN Reason: Hypotension Insulin Glargine (Insulin Glargine 100 Units/Ml) 15 units SUB-Q QDAY [facility] Last Admin: 03/04/22 14:17 Dose: 15 units Insulin Human Lispro (Insulin Lispro 100 Unit/Ml) 0 unit SUB-Q ACHS [facility]; Protocol Last Admin: 03/04/22 12:24 Dose: 8 unit Insulin Human Lispro (Insulin Lispro 100 Unit/Ml) 4 unit SUB-Q ACHS [facility] Last Admin: 03/04/22 18:14 Dose: Not Given Magnesium Hydroxide (Magnesium Hydroxide (Mom) Oral Liqd Udc) 30 ml PO Q4H PRN PRN Reason: Constipation Metoclopramide HCl (Metoclopramide 10 Mg/2 Ml Inj) 5 mg IV Q12H PRN PRN Reason: Nausea And Vomiting Last Admin: 03/04/22 09:28 Dose: 5 mg Nifedipine (Nifedipine Xl 90 Mg Tab) 90 mg PO QDAY [facility] Last Admin: 03/04/22 09:23 Dose: 90 mg Ondansetron HCl (Ondansetron 4 Mg/2 Ml Inj) 4 mg IV Q8H PRN PRN Reason: Nausea And Vomiting Last Admin: 03/04/22 14:26 Dose: 4 mg Oxycodone/Acetaminophen (Oxycodone /Acetaminophen 5-325mg Tab) 1 tab PO Q6H PRN PRN Reason: Pain, Moderate (4-6) Sodium Chloride (Sodium Chloride 0.9% 10 Ml Flush Syringe) 10 ml IV BID [facility] Last Admin: 03/04/22 09:24 Dose: 10 ml Sodium Chloride (Sodium Chloride 0.9% 10 Ml Flush Syringe) 10 ml IV PRN PRN PRN Reason: LINE FLUSH Exam - Constitutional Vital Signs: Temp Pulse Resp BP Pulse Ox 98.7 F 91 H 18 119/65 100 03/04/22 15:49 03/04/22 15:49 03/04/22 15:49 03/04/22 15:49 03/04/22 15:49 - Labs CBC & Chem 7: 03/04/22 05:14 03/04/22 05:14 Lab Results: Laboratory Results - last 24 hr 03/03/22 03/04/22 03/04/22 22:41 05:14 05:14 WBC 6.8 RBC 3.45 L Hgb 10.5 Hct 32.1 MCV 93 MCH 30 MCHC 33 RDW 15.5 H Plt Count 276 Lymph % (Auto) 25.3 [place] % (Auto) 8.2 H Eos % (Auto) 0.7 Baso % (Auto) 0.7 Lymph # (Auto) 1.7 [place] # (Auto) 0.6 Eos # (Auto) 0.1 Baso # (Auto) 0.1 Seg Neutrophils % 65.1 Seg Neutrophils # 4.4 Sodium 136 L Potassium 4.0 Chloride 95.3 L Carbon Dioxide 25 D Anion Gap 20 BUN 19 H Creatinine 4.7 H Estimated GFR 12 BUN/Creatinine Ratio 4 Glucose 401 H POC Glucose 82 Calcium 9.0 03/04/22 03/04/22 07:15 11:28 WBC RBC Hgb Hct MCV MCH MCHC RDW Plt Count Lymph % (Auto) [place] % (Auto) Eos % (Auto) Baso % (Auto) Lymph # (Auto) [place] # (Auto) Eos # (Auto) Baso # (Auto) Seg Neutrophils % Seg Neutrophils # Sodium Potassium Chloride Carbon Dioxide Anion Gap BUN Creatinine Estimated GFR BUN/Creatinine Ratio Glucose POC Glucose 462 H 459 H Calcium Assessment and Plan Patient personally seen and examined on 03/04/2022. Agree with findings and assessment/recommendations as stated. 46-year-old female with history of uncontrolled diabetes, end-stage renal disease on dialysis, reported history of gastroparesis admitted for DKA. GI consulted for intractable nausea vomiting. No prior records available at this time. Patient reports being on Reglan and PPI at home. Has had frequent flareup with gastroparesis consistent with symptoms of nausea vomiting. Recommend short course of Reglan. Please discussed risks of tardive dyskinesia with Reglan dose. Recommend gastroparesis diet. Consider work-up for possible biliary colic if persistent symptoms. Can do abdominal ultrasound. GI will sign off at this time please call back as needed. Thank you for allowing us to participate in this patient's care. Adam Paiz MD (Jenny) [facility]
[2022-03-04] MEDS ORDERED: HYDROmorphone 0.5 MG/0.5 ML INJ IV PRN (10:00)
[2022-03-04] MEDS ORDERED: oxyCODONE /ACETAMINOPHEN 5-325MG TAB PO PRN (10:00)
--- NOTE | 2022-03-04 10:58 | Progress Note ---
Subjective Date of service: 03/04/22 Principal diagnosis: esrd Interval history: Impression * End stage renal disease * Nausea/vomiting secondary to diabetic gastroparesis * Metabolic acidosis * Diabetic gastroparesis * Diabetes mellitus * Hypertension Plan: * UF as tolerated * Continue TTS schedule * Symptomatic management per primary team * Glycemic control per primary team * Continue antiHTN medications * Strict I/O * Dose medications for renal function * Renal/HD diet * Epogen TIW prn Subjective: resting in bed today labs and chart reviewed General appearance: well-developed, well-nourished EENT: ATNC Respiratory: Clear to Ascultation Gastrointestinal: Present: normal. Absent: tenderness, distended Integumentary: warm and dry Neurologic: alert and oriented x3 Psychiatric: cooperative Objective - Vital Signs Vital signs: Vital Signs - 12hr 03/04/22 03/04/22 03/04/22 05:36 06:49 09:23 Temperature 98.7 F Pulse Rate 93 H 93 H 97 H Respiratory 18 Rate Blood Pressure 115/68 115/68 145/70 O2 Sat by Pulse 100 Oximetry - Lab 03/04/22 05:14 03/04/22 05:14 Most recent lab results Calcium 9.0 mg/dL (8.4-10.2) 03/04/22 05:14 Medications & Allergies - Medications Allergies/Adverse Reactions: Allergies No Known Allergies Allergy (Verified 09/15/21 07:17) Home Medications: Home Medications Medication Instructions Recorded Confirmed Last Taken Type Insulin Glargine [Lantus VIAL] 20 units SUB-Q HS 04/09/21 03/03/22 1 Day Ago History ~03/02/22 AtorvaSTATin [Lipitor] 40 mg PO QHS #30 tablet 05/22/21 03/03/22 1 Day Ago Rx ~03/02/22 NIFEdipine XL [Procardia Xl] 90 mg PO QDAY #30 tablet 05/22/21 03/03/22 1 Day Ago Rx ~03/02/22 carvediloL [Coreg] 12.5 mg PO BID #60 tablet 05/22/21 03/03/22 Unknown Rx hydrALAZINE [Apresoline TAB] 50 mg PO Q8HR #90 tablet 05/22/21 03/03/22 1 Day Ago Rx ~03/02/22 Dicyclomine [Bentyl] 20 mg PO Q6H PRN #30 tablet 07/12/21 03/03/22 Unknown Rx Ondansetron [Zofran ODT TAB] 4 mg PO Q6H PRN #20 tab.rapdis 07/12/21 03/03/22 1 Day Ago Rx ~03/02/22 Promethazine [Phenergan SUPPOS] 25 mg [place] Q6HR PRN #20 supp.rect 07/12/21 03/03/22 Unknown Rx Cholecalciferol (Vitamin D3) 50,000 units PO QWEEK 09/14/21 03/03/22 1 Day Ago History [Vitamin D3 50,000UNIT CAP] ~03/02/22 Lispro Insulin [HumaLOG] 8 units SQ ACHS 09/14/21 03/03/22 1 Day Ago History ~03/02/22 Famotidine [Pepcid] 10 mg PO BIDAC #30 tablet 09/22/21 03/03/22 Unknown Rx carvediloL [Coreg] 25 mg PO BID #60 tablet 09/22/21 03/03/22 Unknown Rx lisinopriL [Zestril TAB] 20 mg PO QDAY #30 tablet 09/22/21 03/03/22 Unknown Rx Active Medications: Generic Name Dose Route Start Last Admin Trade Name Freq PRN Reason Stop Dose Admin Acetaminophen 650 mg 03/03/22 00:29 Acetaminophen 325 Mg Tab PO Q4H PRN Pain MILD(1-3)/Fever >100.5/CASANOVA Atorvastatin Calcium 40 mg 03/03/22 22:00 03/03/22 22:16 Atorvastatin 40 Mg Tab PO 40 mg QHS [facility] Administration Carvedilol 12.5 mg 03/03/22 22:00 03/04/22 09:23 Carvedilol 12.5 Mg Tab PO 12.5 mg BID [facility] Administration Dextrose 50 ml 03/03/22 00:29 Dextrose 50% In Water (25gm) 50 Ml Syringe IV Q30MIN PRN Hypoglycemia Protocol Famotidine 10 mg 03/04/22 07:30 03/04/22 09:23 Famotidine 10 Mg Tab PO 10 mg BIDAC [facility] Administration Hydralazine HCl 10 mg 03/03/22 05:22 03/03/22 18:34 Hydralazine 20 Mg/1 Ml Inj IV 10 mg Q4HR PRN Administration Hypertension Hydralazine HCl 50 mg 03/03/22 22:00 03/04/22 06:49 Hydralazine 25 Mg Tab PO 50 mg Q8HR [facility] Administration Hydromorphone HCl 0.5 mg 03/04/22 10:00 Hydromorphone 0.5 Mg/0.5 Ml Inj IV Q6H PRN Pain , Severe (7-10) Ceftriaxone Sodium 1 gm in 50 mls @ 100 mls/hr 03/03/22 05:00 03/04/22 04:51 Rocephin/Ns 1 Gm/50 Ml IV 100 mls/hr Q24H [facility] Administration Protocol Azithromycin 500 mg in 250 mls @ 250 mls/hr 03/03/22 05:00 03/04/22 05:09 Zithromax/Ns IV 250 mls/hr Q24H [facility] Administration Sodium Chloride 100 mls @ 999 mls/hr 03/03/22 09:00 Nacl 0.9% IV JEFE PRN Hypotension Insulin Glargine 15 units 03/04/22 22:00 Insulin Glargine 100 Units/Ml SUB-Q [facility] Insulin Human Lispro 0 unit 03/03/22 07:30 03/04/22 08:03 Insulin Lispro 100 Unit/Ml SUB-Q 8 unit [facility] Administration Protocol Insulin Human Lispro 4 unit 03/04/22 11:30 Insulin Lispro 100 Unit/Ml SUB-Q [facility] Magnesium Hydroxide 30 ml 03/03/22 00:29 Magnesium Hydroxide (Mom) Oral Liqd Udc PO Q4H PRN Constipation Metoclopramide HCl 5 mg 03/03/22 09:00 03/04/22 09:28 Metoclopramide 10 Mg/2 Ml Inj IV 5 mg Q12H PRN Administration Nausea And Vomiting Morphine Sulfate 2 mg 03/03/22 00:29 03/04/22 09:28 Morphine 2 Mg/1 Ml Inj IV 2 mg Q4H PRN Administration Pain, Moderate (4-6) Morphine Sulfate 4 mg 03/03/22 00:29 03/04/22 04:48 Morphine 4 Mg/1 Ml Inj IV 4 mg Q4H PRN Administration Pain , Severe (7-10) Nifedipine 90 mg 03/03/22 18:00 03/04/22 09:23 Nifedipine Xl 90 Mg Tab PO 90 mg QDAY [facility] Administration Ondansetron HCl 4 mg 03/03/22 00:29 03/04/22 04:49 Ondansetron 4 Mg/2 Ml Inj IV 4 mg Q8H PRN Administration Nausea And Vomiting Oxycodone/Acetaminophen 1 tab 03/04/22 10:00 Oxycodone /Acetaminophen 5-325mg Tab PO Q6H PRN Pain, Moderate (4-6) Sodium Chloride 10 ml 03/03/22 10:00 03/04/22 09:24 Sodium Chloride 0.9% 10 Ml Flush Syringe IV 10 ml BID ROSALVA Administration Sodium Chloride 10 ml 03/03/22 00:29 Sodium Chloride 0.9% 10 Ml Flush Syringe IV PRN PRN LINE FLUSH
--- NOTE | 2022-03-04 11:56 | Electrocardiograph Report ---
[facility] Test Date: 2022-03-02 Test Time: 21:55:11 Pat Name: MARGARITA LI Department: Room: A391 Gender: F Principal Mechanical Engineer: JIN : [id number] Requested By: JASON RICKETTS Order Number: [id number] Reading MD: Nate Lazcano Measurements Intervals Jolon Rate: 101 P: 43 VT: 112 QRS: -7 QRSD: 100 T: 165 QT: 362 QTc: 469 Interpretive Statements Sinus tachycardia Probable LVH with secondary repol abnrm Anterior ST elevation, probably due to LVH Compared to ECG 08/10/2021 20:35:41 ST (T wave) deviation now present Electronically Signed On 03-04-2022 8:56:18 PDT by Nate Lazcano
--- NOTE | 2022-03-04 12:35 | Progress Note ---
Assessment and Plan Assessment and plan: #Intractable nausea and vomiting-possibly secondary to gastroparesis -continue protonix, reglan; side effects discussed -will improve with improved glycemic control -continue IVFs -GI recommendations noted #Type 1 diabetes with hyperglycemia -patient with poorly controlled T1DM -lantus 20U QHS and humulin 6U WM + SSI ordered -patient to follow up with Parts Counterperson for tighter regulation of blood sugar #End-stage renal disease on dialysis -Access R chest permacath -patient on TTS schedule -last dialyzed yesterday -avoid nephrotoxins and renally dose medication -Nephrology following, assistance appreciated #Pulmonary edema versus pneumonia-ruled out -will discontinue antibiotics -patient has been clinically stable with no hypoxia, shortness of breath, afebrile and without other pulmonary complaints -CXR findings noted #Advanced care planning -Disease education conducted, care plan discussed, diagnoses discussed, prognosis discussed, and patient acknowledges understanding with care plan -Time: +30 min History Interval history: Patient reports excruciating pain overnight. Currently pain-free and was able to tolerate breakfast. Patient encouraged to eat frequent small meals and to work on tighter glucose control at home. She has no complaints at this time. Hospitalist Physical - Physical exam Narrative exam: GENERAL: Thin woman. In no acute distress. HEENT: Normocephalic. Atraumatic. NECK: Supple. CHEST/LUNGS: R chest permacath. CTAB on room air HEART/CARDIOVASCULAR: RRR. No murmur, rubs or gallops appreciated. ABDOMEN: +BS. NT/ND. SKIN: No rashes noted. NEURO: No focal motor deficit. Follows all commands. MUSCULOSKELETAL: No joint effusion EXTREMITIES: No cyanosis, clubbing or edema. PSYCH: Cooperative. - Constitutional Vitals: Temp Pulse Resp BP Pulse Ox 98.2 F 87 18 136/66 100 03/04/22 11:31 03/04/22 11:31 03/04/22 11:31 03/04/22 11:31 03/04/22 11:31 HEART Score - HEART Score Troponin: Troponin T 0.072 ng/mL (0.00-0.029) H 03/02/22 18:52 Results - Labs CBC & Chem 7: 03/04/22 05:14 03/04/22 05:14 Labs: Laboratory Last Values WBC 6.8 K/mm3 (4.5-11.0) 03/04/22 05:14 RBC 3.45 M/mm3 (3.65-5.03) L 03/04/22 05:14 Hgb 10.5 gm/dl (10.1-14.3) 03/04/22 05:14 Hct 32.1 % (30.3-42.9) 03/04/22 05:14 MCV 93 fl (79-97) 03/04/22 05:14 MCH 30 pg (28-32) 03/04/22 05:14 MCHC 33 % (30-34) 03/04/22 05:14 RDW 15.5 % (13.2-15.2) H 03/04/22 05:14 Plt Count 276 K/mm3 (140-440) 03/04/22 05:14 Lymph % (Auto) 25.3 % (13.4-35.0) 03/04/22 05:14 [place] % (Auto) 8.2 % (0.0-7.3) H 03/04/22 05:14 Eos % (Auto) 0.7 % (0.0-4.3) 03/04/22 05:14 Baso % (Auto) 0.7 % (0.0-1.8) 03/04/22 05:14 Lymph # (Auto) 1.7 K/mm3 (1.2-5.4) 03/04/22 05:14 [place] # (Auto) 0.6 K/mm3 (0.0-0.8) 03/04/22 05:14 Eos # (Auto) 0.1 K/mm3 (0.0-0.4) 03/04/22 05:14 Baso # (Auto) 0.1 K/mm3 (0.0-0.1) 03/04/22 05:14 Seg Neutrophils % 65.1 % (40.0-70.0) 03/04/22 05:14 Seg Neutrophils # 4.4 K/mm3 (1.8-7.7) 03/04/22 05:14 VBG pH 7.405 (7.320-7.420) 03/02/22 16:35 Sodium 136 mmol/L (137-145) L 03/04/22 05:14 Potassium 4.0 mmol/L (3.6-5.0) 03/04/22 05:14 Chloride 95.3 mmol/L (98-107) L 03/04/22 05:14 Carbon Dioxide 25 mmol/L (22-30) D 03/04/22 05:14 Anion Gap 20 mmol/L 03/04/22 05:14 BUN 19 mg/dL (7-17) H 03/04/22 05:14 Creatinine 4.7 mg/dL (0.6-1.2) H 03/04/22 05:14 Estimated GFR 12 ml/min 03/04/22 05:14 BUN/Creatinine Ratio 4 % 03/04/22 05:14 Glucose 401 mg/dL (65-100) H 03/04/22 05:14 POC Glucose 462 mg/dL (70-105) H 03/04/22 07:15 Ketones Quantitative Negative (Negative) 03/02/22 16:35 Calcium 9.0 mg/dL (8.4-10.2) 03/04/22 05:14 Total Bilirubin 0.30 mg/dL (0.1-1.2) 03/02/22 16:35 AST 21 units/L (5-40) 03/02/22 16:35 ALT 20 units/L (7-56) 03/02/22 16:35 Alkaline Phosphatase 114 units/L (35-129) 03/02/22 16:35 Troponin T 0.072 ng/mL (0.00-0.029) H 03/02/22 18:52 Total Protein 7.1 g/dL (6.3-8.2) 03/02/22 16:35 Albumin 4.2 g/dL (3.9-5) 03/02/22 16:35 Albumin/Globulin Ratio 1.4 % 03/02/22 16:35 Triglycerides 184 mg/dL (2-149) H 03/02/22 16:28 Cholesterol 278 mg/dL (50-199) H 03/02/22 16:28 LDL Cholesterol Direct 145 mg/dL (50-130) H 03/02/22 16:28 HDL Cholesterol 90 mg/dL (40-59) H 03/02/22 16:28 Cholesterol/HDL Ratio 3.08 % 03/02/22 16:28 Lipase 33 units/L (13-60) 03/02/22 16:35 HCG, Qual Negative (Negative) 03/02/22 16:35 Hepatitis A IgM Ab Non-reactive (NonReactive) 03/03/22 09:20 Hep Bs Antigen Non-reactive (Negative) 03/03/22 09:20 Hep B Core IgM Ab Non-reactive (NonReactive) 03/03/22 09:20 Hepatitis C Antibody Non-reactive (NonReactive) 03/03/22 09:20 Gomez/IV: Voiding Method Toilet Active Medications - Current Medications Current Medications: Generic Name Dose Route Start Last Admin Trade Name Freq PRN Reason Stop Dose Admin Acetaminophen 650 mg 03/03/22 00:29 Acetaminophen 325 Mg Tab PO Q4H PRN Pain MILD(1-3)/Fever >100.5/CASANOVA Atorvastatin Calcium 40 mg 03/03/22 22:00 03/03/22 22:16 Atorvastatin 40 Mg Tab PO 40 mg QHS ROSALVA Administration Carvedilol 12.5 mg 03/03/22 22:00 03/04/22 09:23 Carvedilol 12.5 Mg Tab PO 12.5 mg BID ROSALVA Administration Dextrose 50 ml 03/03/22 00:29 Dextrose 50% In Water (25gm) 50 Ml Syringe IV Q30MIN PRN Hypoglycemia Protocol Famotidine 10 mg 03/04/22 07:30 03/04/22 09:23 Famotidine 10 Mg Tab PO 10 mg BIDAC ROSALVA Administration Hydralazine HCl 10 mg 03/03/22 05:22 03/03/22 18:34 Hydralazine 20 Mg/1 Ml Inj IV 10 mg Q4HR PRN Administration Hypertension Hydralazine HCl 50 mg 03/03/22 22:00 03/04/22 06:49 Hydralazine 25 Mg Tab PO 50 mg Q8HR ROSALVA Administration Hydromorphone HCl 0.5 mg 03/04/22 10:00 Hydromorphone 0.5 Mg/0.5 Ml Inj IV Q6H PRN Pain , Severe (7-10) Ceftriaxone Sodium 1 gm in 50 mls @ 100 mls/hr 03/03/22 05:00 03/04/22 04:51 Rocephin/Ns 1 Gm/50 Ml IV 100 mls/hr Q24H ROSALVA Administration Protocol Azithromycin 500 mg in 250 mls @ 250 mls/hr 03/03/22 05:00 03/04/22 05:09 Zithromax/Ns IV 250 mls/hr Q24H ROSALVA Administration Sodium Chloride 100 mls @ 999 mls/hr 03/03/22 09:00 Nacl 0.9% IV JEFE PRN Hypotension Insulin Human Lispro 0 unit 03/03/22 07:30 03/04/22 12:24 Insulin Lispro 100 Unit/Ml SUB-Q 8 unit ACHS ROSALVA Administration Protocol Insulin Human Lispro 4 unit 03/04/22 11:30 03/04/22 12:24 Insulin Lispro 100 Unit/Ml SUB-Q 4 unit ACHS ROSALVA Administration Magnesium Hydroxide 30 ml 03/03/22 00:29 Magnesium Hydroxide (Mom) Oral Liqd Udc PO Q4H PRN Constipation Metoclopramide HCl 5 mg 03/03/22 09:00 03/04/22 09:28 Metoclopramide 10 Mg/2 Ml Inj IV 5 mg Q12H PRN Administration Nausea And Vomiting Morphine Sulfate 2 mg 03/03/22 00:29 03/04/22 09:28 Morphine 2 Mg/1 Ml Inj IV 2 mg Q4H PRN Administration Pain, Moderate (4-6) Morphine Sulfate 4 mg 03/03/22 00:29 03/04/22 04:48 Morphine 4 Mg/1 Ml Inj IV 4 mg Q4H PRN Administration Pain , Severe (7-10) Nifedipine 90 mg 03/03/22 18:00 03/04/22 09:23 Nifedipine Xl 90 Mg Tab PO 90 mg QDAY ROSALVA Administration Ondansetron HCl 4 mg 03/03/22 00:29 03/04/22 04:49 Ondansetron 4 Mg/2 Ml Inj IV 4 mg Q8H PRN Administration Nausea And Vomiting Oxycodone/Acetaminophen 1 tab 03/04/22 10:00 Oxycodone /Acetaminophen 5-325mg Tab PO Q6H PRN Pain, Moderate (4-6) Sodium Chloride 10 ml 03/03/22 10:00 03/04/22 09:24 Sodium Chloride 0.9% 10 Ml Flush Syringe IV 10 ml BID ROSALVA Administration Sodium Chloride 10 ml 03/03/22 00:29 Sodium Chloride 0.9% 10 Ml Flush Syringe IV PRN PRN LINE FLUSH Nutrition/Malnutrition Assess - Dietary Evaluation Nutrition/Malnutrition Findings: Nutrition Notes Start: 03/03/22 18:36 Freq: Status: Active Protocol: Document 03/03/22 18:36 CM (Rec: 03/03/22 18:40 CM [id number]) Co-Sign 03/03/22 18:36 WW Nutrition Notes Need for Assessment generated from: MD Order,Education,Low BMI Initial or Follow up Brief Note Current Diagnosis CKD (stage V CKD),Diabetes, Hypertension,Hyperlipidemia Other Pertinent Diagnosis N/V, gastroparesis, abdominal pain, decreased appetite Current Diet Cardiac/Consistent Carbohydrate Labs/Tests Na 132 Cl 90.5 CO2 17 BUN 39 Cr 5.7 TG 184 Chol 278 LDL 145 HDL 90 Pertinent Medications Reviewed Height 5 ft 5 in Weight 47.627 kg [place] Body Weight (kg) 56.81 BMI 17.4 Intake Prior to Admission Good Weight change and time frame No unintentional wt 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 Subjective/Other Information RD consult for diet education and Low BMI. Pt away at dialysis at time of visit. Physical assessment WNL. Gastrointestinal symptoms - N/ V/abdominal pain noted. 25% breakfast consumed 03/03 per ADL notes. Percent of energy/protein needs met: Cardiac/Consistent Carbohydrate Diet provides 1977kcal/86g PRO q day Burn Absent Trauma Absent GI Symptoms Nausea,Vomiting,Other Food Allergy No Skin Integrity/Comment WNL Current % PO Poor (25-49%) Nutrition Intervention Follow-Up By: 03/07/22 Additional Comments Monitor %PO intake, nutrition- related labs, need for diet education
[2022-03-04] MEDS ORDERED: INSULIN GLARGINE 100 UNITS/ML SUB-Q SCH ×2 (13:00→22:00)
[2022-03-04 21:30] VITALS: BP 148/74
== END 2022-03-04 22:45 | disposition home or self-care (01) | DRG 73 ==
LOC: ED 15:00 → 3A 21:51
PROVIDERS: ADMIT Internal Medicine Geriatric Medicine; ATTEND Student in an Organized Health Care Education/Training Program
DX: E10.43 Type 1 diabetes mellitus with diabetic autonomic (poly)neuropathy (principal); N18.6 End stage renal disease; I12.0 Hypertensive chronic kidney disease with stage 5 chronic kidney disease or end stage renal disease; E10.65 Type 1 diabetes mellitus with hyperglycemia; K31.84 Gastroparesis; E78.5 Hyperlipidemia, unspecified; E10.22 Type 1 diabetes mellitus with diabetic chronic kidney disease; D63.1 Anemia in chronic kidney disease
CPT/HCPCS: 36415; 71045; 80048; 80053; 80061; 80074; 82010; 82805; 82962; 83690; 84484; 84703; 85025; 93005; 96374; 96375; 96376; 99285; G0378; Q9967; J0360; J0456; J0696; J1170; J1200; J1815; J2270; J2405; J2765